=== PATIENT | male | born 1945 | race Caucasian/White ===

== ENCOUNTER 2018-10-09 10:27 | Outpatient (CLI) | payer MEDICARE, OTHER ==
[2018-10-09 13:06] LABS: BASOPHILS # (AUTO) 0.1 10^3/uL (0.0-0.1); EOSINOPHILS # (AUTO) 0.5 10^3/uL (0.0-0.7); EOSINOPHILS % (AUTO) 7.3 %; HGB - HEMOGLOBIN 13.8 g/dL (14.0-18.0); LYMPHOCYTES # (AUTO) 1.8 10^3/uL (1.5-3.5); LYMPHOCYTES % (AUTO) 25.5 %; MEAN CORPUSCULAR HEMOGLOBIN 32.4 pg (27.0-31.0); MEAN CORPUSCULAR HGB CONC 35.1 g/dL (32.0-36.0); MEAN CORPUSCULAR VOLUME 92.2 fL (80.0-94.0); MEAN PLATELET VOLUME 7.4 fL (7.4-11.4); MONOCYTES # (AUTO) 0.5 10^3/uL (0.0-1.0); MONOCYTES % (AUTO) 6.5 %; NEUTROPHILS # (AUTO) 4.3 10^3/uL (1.5-6.6); NEUTROPHILS % (AUTO) 59.7 %; PLT - PLATELET COUNT 214 10^3/uL (130-450); RED BLOOD COUNT 4.25 10^6/uL (4.70-6.10); RED CELL DISTRIBUTION WIDTH 12.9 % (12.0-15.0); WHITE BLOOD COUNT 7.3 x10^3/uL (4.8-10.8)
[2018-10-09 13:18] LABS: ALBUMIN/GLOBULIN RATIO 1.2 (1.0-2.2); ALKALINE PHOSPHATASE 85 IU/L (42-121); ALT ALANINE AMINOTRANSFERASE 12 IU/L (10-60); AST ASPARTATE AMINOTRANSFERASE 16 IU/L (10-42); BILIRUBIN,TOTAL 0.8 mg/dL (0.2-1.0); BUN - BLOOD UREA NITROGEN 29 mg/dL (6-20); CALCIUM 8.9 mg/dL (8.5-10.3); CARBON DIOXIDE - CO2 27 mmol/L (21-32); CHLORIDE 99 mmol/L (101-111); CHOL/HDL RATIO 7.9 (<5.0); CHOLESTEROL 278 mg/dL; CREATININE 1.4 mg/dL (0.6-1.2); GFR - MDRD 50 (>89); GLUCOSE 160 mg/dL (70-100); HDL CHOLESTEROL 35 mg/dL; LDL CHOLESTEROL,CALCULATED 182 mg/dL; LDL/HDL RATIO 5.2 (<3.6); SODIUM 135 mmol/L (135-145); TOTAL PROTEIN 7.3 g/dL (6.7-8.2); VLDL CHOLESTEROL 61 mg/dL
[2018-10-09 13:29] LABS: HB2 TOTAL 14.6 g/dL; HEMOGLOBIN A1C 1.01 g/dL; HEMOGLOBIN A1C % 8.5 % (4.6-6.2)
== END 2018-10-09 23:59 ==
LOC: LAB.WCP 10:27
PROVIDERS: ATTEND Physician Assistant Medical
DX: I10 Essential (primary) hypertension (principal); E11.40 Type 2 diabetes mellitus with diabetic neuropathy, unspecified
CPT/HCPCS: 36415; 80053; 80061; 82043; 83036; 83721; 85025

== ENCOUNTER 2019-01-13 08:42 | Outpatient (CLI) | payer MEDICARE, OTHER ==
[2019-01-13 12:29] LABS: BASOPHILS # (AUTO) 0.1 10^3/uL (0.0-0.1); EOSINOPHILS # (AUTO) 0.4 10^3/uL (0.0-0.7); EOSINOPHILS % (AUTO) 4.4 %; HGB - HEMOGLOBIN 12.5 g/dL (14.0-18.0); LYMPHOCYTES # (AUTO) 2.2 10^3/uL (1.5-3.5); LYMPHOCYTES % (AUTO) 26.1 %; MEAN CORPUSCULAR HEMOGLOBIN 31.3 pg (27.0-31.0); MEAN CORPUSCULAR HGB CONC 33.7 g/dL (32.0-36.0); MEAN CORPUSCULAR VOLUME 92.8 fL (80.0-94.0); MEAN PLATELET VOLUME 7.8 fL (7.4-11.4); MONOCYTES # (AUTO) 0.6 10^3/uL (0.0-1.0); MONOCYTES % (AUTO) 6.7 %; NEUTROPHILS # (AUTO) 5.1 10^3/uL (1.5-6.6); NEUTROPHILS % (AUTO) 61.8 %; PLT - PLATELET COUNT 214 10^3/uL (130-450); RED BLOOD COUNT 3.99 10^6/uL (4.70-6.10); RED CELL DISTRIBUTION WIDTH 12.9 % (12.0-15.0); WHITE BLOOD COUNT 8.3 x10^3/uL (4.8-10.8)
[2019-01-13 13:51] LABS: ALBUMIN 3.7 g/dL (3.2-5.5); ALKALINE PHOSPHATASE 83 IU/L (42-121); ALT ALANINE AMINOTRANSFERASE 21 IU/L (10-60); AST ASPARTATE AMINOTRANSFERASE 25 IU/L (10-42); BILIRUBIN,TOTAL 0.7 mg/dL (0.2-1.0); BUN - BLOOD UREA NITROGEN 34 mg/dL (6-20); CALCIUM 8.7 mg/dL (8.5-10.3); CARBON DIOXIDE - CO2 26 mmol/L (21-32); CHLORIDE 96 mmol/L (101-111); CHOLESTEROL 115 mg/dL; CREATININE 1.5 mg/dL (0.6-1.2); GFR - MDRD 46 (>89); GLUCOSE 307 mg/dL (70-100); HDL CHOLESTEROL 29 mg/dL; LDL CHOLESTEROL,CALCULATED 51 mg/dL; LDL/HDL RATIO 1.8 (<3.6); SODIUM 132 mmol/L (135-145); TOTAL PROTEIN 7.5 g/dL (6.7-8.2); VLDL CHOLESTEROL 35 mg/dL
[2019-01-13 14:31] LABS: HB2 TOTAL 13.1 g/dL; HEMOGLOBIN A1C 1.28 g/dL; HEMOGLOBIN A1C % 11.1 % (4.6-6.2)
== END 2019-01-13 08:43 | disposition home or self-care (01) ==
LOC: LAB.WCP 08:42
PROVIDERS: ATTEND Physician Assistant Medical
DX: J30.89 Other allergic rhinitis (principal); E11.40 Type 2 diabetes mellitus with diabetic neuropathy, unspecified
CPT/HCPCS: 36415; 80053; 80061; 83036; 83721; 85025

== ENCOUNTER 2019-04-14 | Outpatient (CLI) | payer MEDICARE, OTHER | END 2019-04-14 23:59 | disposition home or self-care (01) ==

== ENCOUNTER 2019-06-05 15:21 | Outpatient (CLI) | payer MEDICARE, OTHER ==
--- NOTE | 2019-06-07 08:12 | Ultrasound Report ---
Reason: ACUTE KIDNEY INJURY Procedure Date: 06/05/2019 Accession Number: [id number] / [id number] Procedure: US - Retroperitoneal CPT Code: FULL RESULT: EXAM: RENAL ULTRASOUND EXAM DATE: 06/05/2019 04:40 PM. CLINICAL HISTORY: Acute kidney injury. COMPARISON: None. TECHNIQUE: Real-time scanning was performed with static images obtained. FINDINGS: Right Kidney: 11.1 x 5.6 x 4.2 cm. Normal echotexture with no stones, contour-deforming masses, or hydronephrosis. Left Kidney: 10.3 x 3.7 x 3.7 cm. Normal echotexture with no stones, contour-deforming masses, or hydronephrosis. Bladder: Bilateral jets seen. The prevoid bladder volume was 98 cc. The postvoid bladder volume was 6.7 cc. Other: Prostate appears enlarged. Overall, prostate measures 4 x 3 x 4.7 cm. There is a more focal masslike region demonstrate a mass-effect upon the bladder base measuring 2.1 x 2.2 x 1.8 cm. IMPRESSION: 1. Prostatomegaly. Focal masslike region in the prostate gland measuring 2.2 cm. Correlate with PSH. Given the patient's age and ultrasound appearance, prostate mass is a diagnostic consideration. MRI may be helpful for further evaluation. 2. No renal mass, stone or hydronephrosis. RADIA
== END 2019-06-05 15:22 | disposition home or self-care (01) ==
LOC: DI 15:21
PROVIDERS: ATTEND Internal Medicine Nephrology
DX: N42.9 Disorder of prostate, unspecified (principal)
CPT/HCPCS: 76770

== ENCOUNTER 2019-07-14 08:00 | Outpatient (CLI) | payer MEDICARE, OTHER ==
[2019-07-14 13:59] LABS: HB2 TOTAL 12.6 g/dL; HEMOGLOBIN A1C 0.89 g/dL; HEMOGLOBIN A1C % 8.6 % (4.6-6.2)
[2019-07-14 14:01] LABS: ALBUMIN 3.9 g/dL (3.2-5.5); ALKALINE PHOSPHATASE 81 IU/L (42-121); ALT ALANINE AMINOTRANSFERASE 14 IU/L (10-60); AST ASPARTATE AMINOTRANSFERASE 14 IU/L (10-42); BILIRUBIN,TOTAL 0.4 mg/dL (0.2-1.0); BUN - BLOOD UREA NITROGEN 19 mg/dL (6-20); CALCIUM 8.7 mg/dL (8.5-10.3); CARBON DIOXIDE - CO2 29 mmol/L (21-32); CHLORIDE 102 mmol/L (101-111); CHOL/HDL RATIO 4.1 (<5.0); CHOLESTEROL 149 mg/dL; CREATININE 1.4 mg/dL (0.6-1.2); GFR - MDRD 50 (>89); GLUCOSE 185 mg/dL (70-100); HDL CHOLESTEROL 36 mg/dL; LDL CHOLESTEROL,CALCULATED 78 mg/dL; LDL/HDL RATIO 2.2 (<3.6); SODIUM 137 mmol/L (135-145); TOTAL PROTEIN 7.8 g/dL (6.7-8.2); VLDL CHOLESTEROL 35 mg/dL
== END 2019-07-14 08:01 | disposition home or self-care (01) ==
LOC: LAB.WCP 08:00
PROVIDERS: ATTEND Physician Assistant Medical
DX: E11.40 Type 2 diabetes mellitus with diabetic neuropathy, unspecified (principal)
CPT/HCPCS: 36415; 80053; 80061; 83036; 83721

== ENCOUNTER 2019-07-17 08:00 | Outpatient (CLI) | payer MEDICARE, OTHER | END 2019-07-17 23:59 | disposition home or self-care (01) | LOC: LAB.WCP 08:00 | PROVIDERS: ATTEND Physician Assistant Medical | DX: Z12.5 Encounter for screening for malignant neoplasm of prostate (principal) | CPT/HCPCS: 36415; G0103; 84153 ==

== ENCOUNTER 2019-11-10 07:37 | Outpatient (CLI) | payer MEDICARE, OTHER ==
[2019-11-10 13:29] LABS: CALCIUM 8.7 mg/dL (8.5-10.3); CREATININE 1.4 mg/dL (0.6-1.2)
== END 2019-11-10 23:59 | disposition home or self-care (01) ==
LOC: LAB.WCP 07:37
PROVIDERS: ATTEND Physician Assistant Medical
DX: N18.9 Chronic kidney disease, unspecified (principal)
CPT/HCPCS: 36415; 80048

== ENCOUNTER 2019-12-11 18:09 | Outpatient (CLI) | payer MEDICARE, OTHER | END 2019-12-11 18:10 | disposition critical access hospital (66) | LOC: EMS 18:09 | PROVIDERS: ATTEND Surgery | DX: R29.818 Other symptoms and signs involving the nervous system (principal); R41.82 Altered mental status, unspecified | CPT/HCPCS: A0425; A0427 ==

== ENCOUNTER 2019-12-11 18:24 | Inpatient (IN) | payer MEDICARE, OTHER ==
[2019-12-11] MEDS ORDERED: IOVERSOL 320 100 ML VIAL IVP ONE ×2 (18:32→19:32)
[2019-12-11] MEDS ORDERED: SODIUM CHLORIDE 0.9% 1,000 ML IV ONE ×2 (18:32→19:11)
[2019-12-11] MEDS ORDERED: LORazepam 2 MG/ML VIAL ONE (18:33)
--- NOTE | 2019-12-11 18:38 | ED Physician Documentation ---
<Dilip Arias - Last Filed: 12/12/19 00:57> PD HPI ALTERED MENTAL STATUS - Stated complaint Stated Complaint: STROKE - History obtained from History obtained from: Family (Information provided by his to EMS and conveyed to ER staff), EMS - History of Present Illness Timing - onset: How many days ago (The patient reportedly had been less energetic and not eating or drinking for the last couple of days. No report of fever or cough per se. The patient is usually up and around and ambulatory with normal activity according to medics. The patient was lying in bed most of the day today. EMS reports the went to check on him about 45 minutes prior to presentation here and he was poorly responsive with some movement of extremities to tactile stimuli but apparently had a deviated gaze to the left. He was not answering questions. She called EMS. The medics report the patient did have a generalized seizure after their arrival and was given Versed IV. He was without any movement en route but still had good respirations and vital signs. He just started having movement again on arrival here. Still no verbal interaction.) Timing - details: Other (Unknown onset of the altered mental status. The had not really checked on him over the last several hours.) Quality / character: Less responsive, Unresponsive Associated symptoms: General weakness (for couple of days, with poor PO intake.). No: Fever, Cough Contributing factors: No: Anticoagulated, Diabetic, Recent illness Basline status: Alert and oriented X 3, Ambulatory Similar symptoms before: Has not had sx before Review of Systems Unable to obtain: AMS, Other (infro from Medics, conveyed to them from .) Constitutional: denies: Fever Respiratory: denies: Cough GI: denies: Vomiting Neurologic: reports: Generalized weakness PD PAST MEDICAL HISTORY - Past Medical History Cardiovascular: None Neuro: None - Present Medications Home Medications: Ambulatory Orders Medication Instructions Recorded Confirmed FLUoxetine [PROzac] 20 mg PO DAILY 12/11/19 12/11/19 Gabapentin 300 mg PO BID 12/11/19 12/11/19 Mirtazapine 7.5 mg PO DAILY 12/11/19 12/11/19 Rosuvastatin Calcium [Crestor] 20 mg PO QPM 12/11/19 12/11/19 SITagliptin [Januvia] 100 mg PO DAILY 04/02/20 04/02/20 Telmisartan 20 mg PO DAILY 12/11/19 12/11/19 metFORMIN [Glucophage] 1,000 mg PO BIDWM 12/11/19 12/11/19 - Allergies Allergies/Adverse Reactions: Allergies Allergy/AdvReac Type Severity Reaction Status Date / Time No Known Drug Allergies Allergy Verified 12/11/19 21:07 PD ED PE NORMAL - Vitals Vital signs reviewed: Yes - General General: Other (He is moving his right arm and both legs and responds to stimulus and sometimes spontaneously. The left arm does not seem to have movement. He has withdrawal to tactile stimulus on his feet. Otherwise movement is fairly nonpurposeful. He is nonverbal at this time. Eye opening is spontaneous. No obvious injury to the head is apparent.) - HEENT HEENT: Atraumatic, PERRL, Pharynx benign. No: Moist mucous membranes - Neck Neck: Supple, no meningeal sign, No adenopathy, No JVD - Cardiac Cardiac: RRR (regular but mild tachycardic.) - Respiratory Respiratory: No respiratory distress, Clear bilaterally - Abdomen Abdomen: Soft, Non distended. No: Normal bowel sounds (decreased) - Rectal Rectal: Other (Normal external genitalia.) - Derm Derm: Normal color, Warm and dry - Extremities Extremities: No deformity, No edema - Neuro Neuro: No: Alert and oriented X 3, Normal speech Eye Opening: Spontaneous Motor: Withdraws to Pain Verbal: None GCS Score: 9 NIHSS - Level of Consciousness Level of consciousness: (1) Not alert, but arousable by minor stimulation to obey, or answer LOC Questions: (2) Answers neither correct LOC Commands: (2)Performs none - Gaze Best Gaze: (0) Normal - Facial Palsy Facial Palsy: (0) Normal, symmetrical movement - Motor Arms (both separate) Motor Arm (right): (2) Some effort against gravity Motor Arm (left): (3) No effort against gravity - Motor Legs (both separate) Motor Leg (right): (2) Some effort against gravity Motor Leg (left): (2) Some effort against gravity PD MEDICAL DECISION MAKING - ED course Complexity details: re-evaluated patient (Upon return from CT the patient is moving all extremities and rolling side to side. He is not really making any verbal attempt. Very agitated. Starting to then make some poorly understandable verbal noises. ), considered differential (Considerations would be neurologic process such as stroke or just seizure new onset. Consideration for bleeding. Also consideration for sepsis or electrolyte abnormality. Her blood sugar was normal. Look for signs of infection as well and check labs for electrolytes. He does not have obvious unilateral deficit and has altered mentation as well. It is unclear the onset time sometime today but just noticed 45 minutes ago.) Departure - Departure Disposition: 66 [facility] DC/Xfer Clinical Impression: Generalized seizure, Dehydration Altered mental status Qualifiers: Altered mental status type: delirium Qualified Code(s): R41.0 - Disorientation, unspecified Condition: Stable Record reviewed to determine appropriate education?: Yes Discharge Date/Time: 12/11/19 22:45 <Dilip Irizarry - Last Filed: 12/12/19 04:46> Results - Vitals Vitals: Vital Signs - 24 hr 12/11/19 12/11/19 12/11/19 18:30 19:37 20:35 Temperature 36.6 C Heart Rate 107 H 96 81 Respiratory 16 14 18 Rate Blood Pressure 163/77 H 181/97 H O2 Saturation 99 96 12/11/19 12/11/19 12/11/19 21:01 21:02 21:03 Temperature Heart Rate 82 80 82 Respiratory 16 14 16 Rate Blood Pressure 182/111 H 169/75 H 194/97 H O2 Saturation 98 99 99 12/11/19 21:29 Temperature Heart Rate 80 Respiratory 18 Rate Blood Pressure 195/91 H O2 Saturation 98 Oxygen O2 Source Nasal cannula - Labs Labs: Microbiology 12/11/19 21:00 CSF Culture - Preliminary Cerebral Spinal Fluid Laboratory Tests 12/11/19 12/11/19 12/11/19 18:26 18:26 18:26 WBC 14.1 H RBC 4.30 L Hgb 13.5 L Hct 40.1 L MCV 93.3 MCH 31.4 H MCHC 33.7 RDW 12.6 Plt Count 256 MPV 9.2 Neut # (Auto) 10.7 H Lymph # (Auto) 2.5 [place] # (Auto) 0.6 Eos # (Auto) 0.0 Baso # (Auto) 0.1 Absolute Nucleated RBC 0.00 Nucleated RBC % 0.0 VBG pH VBG pCO2 VBG pO2 VBG HCO3 VBG Total CO2 VBG O2 Saturation VBG Base Excess Sodium 134 L Potassium 4.2 Chloride 100 L Carbon Dioxide 12 L* Anion Gap 22.0 H BUN 17 Creatinine 1.7 H Estimated GFR (MDRD) 40 L Glucose 299 H Lactic Acid > 10.0 H* Calcium 8.4 L Magnesium 1.7 Total Bilirubin 0.9 AST 37 ALT 16 Alkaline Phosphatase 80 Total Creatine Kinase Troponin I High Sens Total Protein 7.9 Albumin 4.1 Globulin 3.8 Albumin/Globulin Ratio 1.1 Lipase 33 TSH Urine Color Urine Clarity Urine pH Ur Specific [place] Urine Protein Urine Glucose (UA) Urine Ketones Urine Occult Blood Urine Nitrite Urine Bilirubin Urine Urobilinogen Ur Leukocyte Esterase Urine RBC Urine WBC Ur Squamous Epith Cells Amorphous Sediment Urine Bacteria Ur Microscopic Review Urine Culture Comments CSF Color CSF Clarity Xanthrochromic CSF WBC CSF RBC CSF Cell Count Tube # CSF Glucose CSF Total Protein Urine Opiates Screen Ur Oxycodone Screen Urine Methadone Screen Ur Propoxyphene Screen Ur Barbiturates Screen Ur Tricyclics Screen Ur Phencyclidine Scrn Ur Amphetamine Screen U Methamphetamines Scrn U Benzodiazepines Scrn Urine Cocaine Screen U Cannabinoids Screen Ethyl Alcohol Serum Ketones 12/11/19 12/11/19 12/11/19 18:26 18:26 18:26 WBC RBC Hgb Hct MCV MCH MCHC RDW Plt Count MPV Neut # (Auto) Lymph # (Auto) [place] # (Auto) Eos # (Auto) Baso # (Auto) Absolute Nucleated RBC Nucleated RBC % VBG pH VBG pCO2 VBG pO2 VBG HCO3 VBG Total CO2 VBG O2 Saturation VBG Base Excess Sodium Potassium Chloride Carbon Dioxide Anion Gap BUN Creatinine Estimated GFR (MDRD) Glucose Lactic Acid Calcium Magnesium Total Bilirubin AST ALT Alkaline Phosphatase Total Creatine Kinase 149 Troponin I High Sens 27.7 H* Total Protein Albumin Globulin Albumin/Globulin Ratio Lipase TSH 3.15 Urine Color Urine Clarity Urine pH Ur Specific [place] Urine Protein Urine Glucose (UA) Urine Ketones Urine Occult Blood Urine Nitrite Urine Bilirubin Urine Urobilinogen Ur Leukocyte Esterase Urine RBC Urine WBC Ur Squamous Epith Cells Amorphous Sediment Urine Bacteria Ur Microscopic Review Urine Culture Comments CSF Color CSF Clarity Xanthrochromic CSF WBC CSF RBC CSF Cell Count Tube # CSF Glucose CSF Total Protein Urine Opiates Screen Ur Oxycodone Screen Urine Methadone Screen Ur Propoxyphene Screen Ur Barbiturates Screen Ur Tricyclics Screen Ur Phencyclidine Scrn Ur Amphetamine Screen U Methamphetamines Scrn U Benzodiazepines Scrn Urine Cocaine Screen U Cannabinoids Screen Ethyl Alcohol Serum Ketones 12/11/19 12/11/19 12/11/19 18:45 19:15 19:20 WBC RBC Hgb Hct MCV MCH MCHC RDW Plt Count MPV Neut # (Auto) Lymph # (Auto) [place] # (Auto) Eos # (Auto) Baso # (Auto) Absolute Nucleated RBC Nucleated RBC % VBG pH 7.252 L VBG pCO2 29.7 L VBG pO2 79.1 H VBG HCO3 12.8 L VBG Total CO2 13.7 L VBG O2 Saturation 93.4 H VBG Base Excess -13.0 L Sodium Potassium Chloride Carbon Dioxide Anion Gap BUN Creatinine Estimated GFR (MDRD) Glucose Lactic Acid Calcium Magnesium Total Bilirubin AST ALT Alkaline Phosphatase Total Creatine Kinase Troponin I High Sens Total Protein Albumin Globulin Albumin/Globulin Ratio Lipase TSH Urine Color YELLOW Urine Clarity CLEAR Urine pH 6.0 Ur Specific [place] >=1.030 H Urine Protein 100 H Urine Glucose (UA) 500 H Urine Ketones 15 H Urine Occult Blood MODERATE H Urine Nitrite NEGATIVE Urine Bilirubin NEGATIVE Urine Urobilinogen 0.2 (NORMAL) Ur Leukocyte Esterase NEGATIVE Urine RBC 11-25 H Urine WBC 0-3 Ur Squamous Epith Cells RARE Squamous Amorphous Sediment Moderate Urine Bacteria Rare Ur Microscopic Review INDICATED Urine Culture Comments NOT INDICATED CSF Color CSF Clarity Xanthrochromic CSF WBC CSF RBC CSF Cell Count Tube # CSF Glucose CSF Total Protein Urine Opiates Screen NEGATIVE Ur Oxycodone Screen NEGATIVE Urine Methadone Screen NEGATIVE Ur Propoxyphene Screen NEGATIVE Ur Barbiturates Screen NEGATIVE Ur Tricyclics Screen NEGATIVE Ur Phencyclidine Scrn NEGATIVE Ur Amphetamine Screen NEGATIVE U Methamphetamines Scrn NEGATIVE U Benzodiazepines Scrn NEGATIVE Urine Cocaine Screen NEGATIVE U Cannabinoids Screen POSITIVE H Ethyl Alcohol < 5.0 Serum Ketones NEGATIVE 12/11/19 21:00 WBC RBC Hgb Hct MCV MCH MCHC RDW Plt Count MPV Neut # (Auto) Lymph # (Auto) [place] # (Auto) Eos # (Auto) Baso # (Auto) Absolute Nucleated RBC Nucleated RBC % VBG pH VBG pCO2 VBG pO2 VBG HCO3 VBG Total CO2 VBG O2 Saturation VBG Base Excess Sodium Potassium Chloride Carbon Dioxide Anion Gap BUN Creatinine Estimated GFR (MDRD) Glucose Lactic Acid Calcium Magnesium Total Bilirubin AST ALT Alkaline Phosphatase Total Creatine Kinase Troponin I High Sens Total Protein Albumin Globulin Albumin/Globulin Ratio Lipase TSH Urine Color Urine Clarity Urine pH Ur Specific [place] Urine Protein Urine Glucose (UA) Urine Ketones Urine Occult Blood Urine Nitrite Urine Bilirubin Urine Urobilinogen Ur Leukocyte Esterase Urine RBC Urine WBC Ur Squamous Epith Cells Amorphous Sediment Urine Bacteria Ur Microscopic Review Urine Culture Comments CSF Color COLORLESS CSF Clarity CLEAR Xanthrochromic ABSENT CSF WBC 1 CSF RBC 0 CSF Cell Count Tube # CSF TUBE# 3 CSF Glucose 125 H CSF Total Protein 40 Urine Opiates Screen Ur Oxycodone Screen Urine Methadone Screen Ur Propoxyphene Screen Ur Barbiturates Screen Ur Tricyclics Screen Ur Phencyclidine Scrn Ur Amphetamine Screen U Methamphetamines Scrn U Benzodiazepines Scrn Urine Cocaine Screen U Cannabinoids Screen Ethyl Alcohol Serum Ketones - Rads (name of study) chest Radiology: Prelim report reviewed (Impression: Hypoinflation, otherwise unremarkable single view chest.), EMP read indepedently CTA brain Radiology: Prelim report reviewed (Impression: 1. No large vessel occlusion. No aneurysm. No significant stenosis.), EMP read indepedently, See rad report (additional information is present) CTA neck Radiology: Prelim report reviewed (Impression: 1. There is atherosclerotic plaque involving the vasculature of the neck with no high-grade stenosis or definite dissection seen.), EMP read indepedently, See rad report CT head Radiology: Prelim report reviewed (Impression: 1. No definite acute infarct seen. If there is clinical concern for acute stroke or if symptoms persist an MRI brain can be considered to evaluate for small or subtle pathology. Aspects: 10 right/10 left. 2. No acute intracranial hemorrhage, mass, hydrocephalus, or midline shift. 3. Mild white matter changes seen that appear chronic suggesting potential sequela of chronic small vessel ischemic disease.), EMP read indepedently, See rad report Procedures - Lumbar Puncture Position: Laying left side Location: L2-L3, Midline approach Anesthesia: Conscious sedation CSF: Clear Other: Sterile prep and drape, Patient tolerated well, No complications - Procedural sedation Sedation prep: Time out completed, Last meal (days), PE performed, AHA 2 - mild disease. No: Informed consent Sedation medications: ketamine Patient status during sedation: Drowsy, Vitals remained stable, Maintained airway, Recovered uneventfully Sedation recovery: Recovered uneventfully - IVC sono (time) 1999 Bedside IVC sono: IVC measures (cm) (1.20) PD MEDICAL DECISION MAKING - ED course Complexity details: reviewed old records, reviewed results, re-evaluated patient, considered differential, d/w family, d/w media consultant outside sales (Dr. Noé Hunt [facility]iences ([id number]) recommends increased dose of keppra to total 3gm and addition of rocephin, ampicillin, vancomycin and acylovir to empirically treat for encephalitis/meningitis and MRI with and without in am. ) ED course: 74-year-old male with a history of diabetes, hypertension and depression has been found unresponsive at home with apparent continuous seizure. He was treated in the ambulance in route to the hospital with Versed and on arrival to the emergency department he appeared delirious. He began moving all 4 extremities and after receiving 2 mg of Ativan he became more animated and agitated. On initial evaluation the differential included stroke, sepsis, encephalitis, meningitis with end resulting status. His blood sugar was 277 at the scene. Initial evaluation with CTA of the brain and neck were remarkable only for potential cortical mantle enhancement consistent with seizure or encephalitis. He does not appear to have had stroke. I was able to speak to the patient's who is quite informative and she indicates that he has a long history of depression and will periodically hole up in his room for 2 to 3 days at a time without eating or drinking. She states that he has been very depressed with the coronavirus epidemic and he has retreated to his room and he has not been eating or drinking for the past 3 days. She states that she does not think he had any fluids since yesterday. She is uncertain whether he is taking any of his medications. The patient was treated in the ED with keppra loading a total of 3gm, Acyclovir 800mg IV, rocephin 2gm IV, ampicillin 500mg IV, vancomycin 1gm IV. He received 250 mg of ketamine for an lumbar puncture while in the emergency department as well. He recovered from that continues to be delirious. Dr. Orozco is consulted and the case graciously comes to the emergency department and assumes further care of the patient for inpatient treatment. He was found to be dehydrated on interrogation of the inferior vena cava after a liter of fluid had already been given. He was given a second liter of saline. - Critical Care Time(min): 65 Time Includes: Direct patient care, Review records, Reassess patient, Document care, Coordinate care, Medical consult, Family consult for tx dec Data interpretation: Labs, Pulse ox, CXR Procedures excluded from critical care time: Lumbar puncture
[2019-12-11 18:40] LABS: BASOPHILS # (AUTO) 0.1 10^3/uL (0.0-0.1); BASOPHILS % (AUTO) 0.4 %; EOSINOPHILS % (AUTO) 0.1 %; HGB - HEMOGLOBIN 13.5 g/dL (14.0-18.0); LYMPHOCYTES # (AUTO) 2.5 10^3/uL (1.5-3.5); LYMPHOCYTES % (AUTO) 17.7 %; MEAN CORPUSCULAR HEMOGLOBIN 31.4 pg (27.0-31.0); MEAN CORPUSCULAR HGB CONC 33.7 g/dL (32.0-36.0); MEAN CORPUSCULAR VOLUME 93.3 fL (80.0-94.0); MEAN PLATELET VOLUME 9.2 fL (7.4-11.4); MONOCYTES # (AUTO) 0.6 10^3/uL (0.0-1.0); MONOCYTES % (AUTO) 4.5 %; NEUTROPHILS # (AUTO) 10.7 10^3/uL (1.5-6.6); NEUTROPHILS % (AUTO) 75.5 %; PLT - PLATELET COUNT 256 10^3/uL (130-450); RED CELL DISTRIBUTION WIDTH 12.6 % (12.0-15.0); WHITE BLOOD COUNT 14.1 x10^3/uL (4.8-10.8)
--- NOTE | 2019-12-11 19:05 | CT Report ---
Reason: altered mentation, seizure Procedure Date: 12/11/2019 Accession Number: [id number] / [id number] Procedure: CT - Head W/O Stroke Protocol CPT Code: Final Report FULL RESULT: EXAM: CT HEAD EXAM DATE: 12/11/2019 06:36 PM. CLINICAL HISTORY: 74-year-old presenting after seizure-like activity with left sided weakness and altered mental status including confusion, disorientation, and decreased mentation. Evaluate for intracranial pathology. COMPARISON: None. TECHNIQUE: Multiaxial CT images were obtained from the foramen magnum to the vertex. Reformats: Sagittal and coronal. IV contrast: None. In accordance with CT protocol optimization, one or more of the following dose reduction techniques were utilized for this exam: automated exposure control, adjustment of mA and/or KV based on patient size, or use of iterative reconstructive technique. FINDINGS: Parenchyma: No acute parenchymal hemorrhage, mass, or midline shift. There are mild bilateral areas of white matter hypoattenuation seen that are age-indeterminate but appear chronic. There is no definite CT evidence of acute infarct. Mild to moderate cortical volume loss. Extraaxial Spaces: Sulci and cisterns appear prominent but appropriate for the extent of volume loss. No subdural or epidural collections identified. Ventricles: Normal in size and position. Sinuses and Orbits: Imaged paranasal sinuses, orbits, and mastoids show no significant abnormality. Bones: No evidence of fracture or calvarial defect. Other: Vascular calcifications of the cavernous and supraclinoid ICA segments. IMPRESSION: 1. No definite acute infarct seen. If there is clinical concern for acute stroke or if symptoms persist an MR brain can be considered to evaluate for small or subtle pathology. ASPECTS: 10 right/10 left. 2. No acute intracranial hemorrhage, mass, hydrocephalus, or midline shift. 3. Mild white matter changes seen that appear chronic suggesting potential sequela of chronic small vessel ischemic disease. RAD[facility] The critical test notification system was initiated by Dr. Jeffrey Horton at 07:03 PM on 12/11/2019. The above critical test findings were discussed with Dilip Arias by Dr. Jeffrey Horton at 07:08 PM on 12/11/2019.
--- NOTE | 2019-12-11 19:09 | XRAY Report ---
Reason: chest pain Procedure Date: 12/11/2019 Accession Number: [id number] / [id number] Procedure: XR - Chest 1 View X-Ray CPT Code: 75727 Final Report FULL RESULT: EXAM: CHEST RADIOGRAPHY EXAM DATE: 12/11/2019 06:40 PM. CLINICAL HISTORY: Chest pain. COMPARISON: None. TECHNIQUE: 1 view. FINDINGS: Lungs/Pleura: Hypoinflated lungs. No focal opacities evident. No pleural effusion. No pneumothorax. Mediastinum: Within exam limitations, the cardiomediastinal contour is normal. Other: None. IMPRESSION: Hypoinflation, otherwise unremarkable single view chest. RADIA
[2019-12-11] MEDS ORDERED: levETIRAcetam INJ 500 MG in SODIUM CHLORIDE 0.9% 100ML 100 ML IV STA (19:10)
[2019-12-11] MEDS ORDERED: LORazepam 2 MG/ML VIAL IVP STA (19:10)
[2019-12-11 19:16] LABS: ALBUMIN 4.1 g/dL (3.2-5.5); ALBUMIN/GLOBULIN RATIO 1.1 (1.0-2.2); BILIRUBIN,TOTAL 0.9 mg/dL (0.2-1.0); CALCIUM 8.4 mg/dL (8.5-10.3); CREATININE 1.7 mg/dL (0.6-1.2); MAGNESIUM 1.7 mg/dL (1.7-2.8); TOTAL PROTEIN 7.9 g/dL (6.7-8.2)
[2019-12-11 19:24] LABS: KETONES, SERUM (ACETEST) NEGATIVE (NEGATIVE)
--- NOTE | 2019-12-11 19:28 | CT Report ---
Reason: L sided facial droop Procedure Date: 12/11/2019 Accession Number: [id number] / [id number] Procedure: CT - ANGIO HEAD W/WO CPT Code: Final Report FULL RESULT: EXAM: CT ANGIOGRAM HEAD AND NECK. CT SCAN HEAD WITH CONTRAST. EXAM DATE: 12/11/2019 06:50 PM. CLINICAL HISTORY: 74-year-old presenting after seizure-like activity with left sided weakness and altered mental status including confusion, disorientation, and decreased mentation. Evaluate for intracranial pathology or vascular pathology. COMPARISON: Noncontrast CT head 12/11/2019. TECHNIQUE: Routine axial helical CTA imaging was performed from the aortic arch through the [place]. Routine axial CT imaging of the head was performed following contrast administration. Reconstructions: Routine multiplanar 3D MIP reconstructions. IV contrast: 80 cc OPTIRAY 320. NASCET Criteria are used for stenosis measurements. In accordance with CT protocol optimization, one or more of the following dose reduction techniques were utilized for this exam: automated exposure control, adjustment of mA and/or KV based on patient size, or use of iterative reconstructive technique. FINDINGS: CT SCAN HEAD: Parenchyma: No acute parenchymal hemorrhage, mass, or midline shift. There are mild bilateral areas of white matter hypoattenuation seen that are age-indeterminate but appear chronic. There is no definite CT evidence of acute infarct. Mild to moderate cortical volume loss. On axial source CTA sequence and postcontrast sequence there is questionable patchy enhancement of the cortical mantle of the occipital and parietal lobes. Extraaxial Spaces: Sulci and cistern appear prominent but appropriate for the extent of volume loss. No subdural or epidural collections identified. Ventricles: Normal in size and position. Sinuses and Orbits: Imaged paranasal sinuses, orbits, and mastoids show no significant abnormality. Bones: No evidence of fracture or calvarial defect. Other: Vascular calcifications of the cavernous and supraclinoid ICA segments. CT ANGIOGRAM HEAD AND NECK: There is atherosclerotic plaque involving the aortic arch with no high-grade stenosis or definite penetrating aortic ulcer seen. The left common carotid artery arises from the right brachiocephalic artery. There is atherosclerotic plaque involving the origin of the right subclavian artery with no significant stenosis. RIGHT: Common Carotid Artery: Patent without significant stenosis. Carotid Bulb: There is minimal atherosclerotic plaque at the carotid bifurcation. Stenosis at the bifurcation by NASCET criteria: No significant stenosis. Internal Carotid Artery: There is tortuosity of the cervical ICA with no high-grade stenosis or definite dissection seen. There are vascular calcifications of the cavernous and supraclinoid ICA segments with less than 50% stenosis. No evidence of aneurysm along the intracranial ICA. External Carotid Artery: Unremarkable. Vertebral Artery: There is atherosclerotic plaque involving the origin of the right vertebral artery with no definite high-grade stenosis seen. The remaining vertebral artery is patent with no high-grade stenosis seen. No evidence of dissection. No aneurysm. Anterior Cerebral Artery: Patent without significant stenosis, aneurysm, or vascular malformation. Middle Cerebral Artery: Patent without significant stenosis, aneurysm, or vascular malformation. Posterior Cerebral Artery: Patent without significant stenosis, aneurysm, or vascular malformation. Posterior Communicating Artery: Patent. No aneurysm. LEFT: Common Carotid Artery: Patent without significant stenosis. Carotid Bulb: There is mild atherosclerotic plaque at the carotid bifurcation. Stenosis at the bifurcation by NASCET criteria: No significant stenosis. Internal Carotid Artery: Tortuosity of the cervical ICA with no high-grade stenosis or definite dissection seen. Vascular calcifications of the cavernous and supraclinoid ICA segments with no high-grade stenosis seen. No evidence of aneurysm along the intracranial ICA. External Carotid Artery: Unremarkable. Vertebral Artery: Patent without significant stenosis. No evidence of dissection. No aneurysm. Anterior Cerebral Artery: Patent without significant stenosis, aneurysm, or vascular malformation. Middle Cerebral Artery: Patent without significant stenosis, aneurysm, or vascular malformation. Posterior Cerebral Artery: Patent without significant stenosis, aneurysm, or vascular malformation. Posterior Communicating Artery: Patent. No aneurysm. CENTRAL: Anterior Communicating Artery: Patent. No aneurysm. Basilar Artery: Patent without significant stenosis. No aneurysm. DURAL VENOUS SINUSES AND MAJOR CENTRAL VEINS: Patent. OTHER: The visualized pharynx and larynx appear normal. The major salivary glands appear normal. The visualized thyroid appears normal. No cervical lymphadenopathy. No necrotic lymph nodes. Soft tissues of the neck appear normal. Visualized lung apices are clear. No acute fracture or traumatic subluxation. Multilevel degenerative changes. No suspicious osseous lesion seen. POST-CONTRAST HEAD: No abnormal enhancement. IMPRESSION: CT SCAN HEAD: 1. No definite acute infarct seen. If there is clinical concern for acute stroke or if symptoms persist an MR brain can be considered to evaluate for small or subtle pathology. ASPECTS: 10 right/10 left. 2. On axial source CTA sequence and postcontrast sequence there is questionable patchy enhancement of the cortical mantle of the occipital and parietal lobes. Finding may be secondary to timing issues and represent cortical veins but the possibility of cortical mantle enhancement suggesting potential seizure or encephalitis while less likely cannot be entirely excluded. Consider MR brain with and without contrast for further evaluation. 3. No acute intracranial hemorrhage, mass, hydrocephalus, or midline shift. 3. Mild white matter changes seen that appear chronic suggesting potential sequela of chronic small vessel ischemic disease. CT ANGIOGRAM NECK: 1. There is atherosclerotic plaque involving the vasculature of the neck with no high-grade stenosis or definite dissection seen. CT ANGIOGRAM HEAD: 1. No large vessel occlusion. 2. No aneurysm. No significant stenosis. [facility] The call report notification system was initiated by Dr. Jeffrey Horton at 07:26 PM on 12/11/2019. The above call report findings were discussed with Dilip Arias by Dr. Jeffrey Horton at 07:28 PM on 12/11/2019.
--- NOTE | 2019-12-11 19:28 | CT Report ---
Reason: L sided facial droop, L neck pain Procedure Date: 12/11/2019 Accession Number: [id number] / [id number] Procedure: CT - ANGIO NECK W CPT Code: Final Report FULL RESULT: EXAM: CT ANGIOGRAM HEAD AND NECK. CT SCAN HEAD WITH CONTRAST. EXAM DATE: 12/11/2019 06:50 PM. CLINICAL HISTORY: 74-year-old presenting after seizure-like activity with left sided weakness and altered mental status including confusion, disorientation, and decreased mentation. Evaluate for intracranial pathology or vascular pathology. COMPARISON: Noncontrast CT head 12/11/2019. TECHNIQUE: Routine axial helical CTA imaging was performed from the aortic arch through the [place]. Routine axial CT imaging of the head was performed following contrast administration. Reconstructions: Routine multiplanar 3D MIP reconstructions. IV contrast: 80 cc OPTIRAY 320. NASCET Criteria are used for stenosis measurements. In accordance with CT protocol optimization, one or more of the following dose reduction techniques were utilized for this exam: automated exposure control, adjustment of mA and/or KV based on patient size, or use of iterative reconstructive technique. FINDINGS: CT SCAN HEAD: Parenchyma: No acute parenchymal hemorrhage, mass, or midline shift. There are mild bilateral areas of white matter hypoattenuation seen that are age indeterminate but appear chronic. There is no definite CT evidence of acute infarct. Mild to moderate cortical volume loss. On axial source CTA sequence and postcontrast sequence there is questionable patchy enhancement of the cortical mantle of the occipital and parietal lobes. Extraaxial Spaces: Sulci and cistern appear prominent but appropriate for the extent of volume loss. No subdural or epidural collections identified. Ventricles: Normal in size and position. Sinuses and Orbits: Imaged paranasal sinuses, orbits, and mastoids show no significant abnormality. Bones: No evidence of fracture or calvarial defect. Other: Vascular calcifications of the cavernous and supraclinoid ICA segments. CT ANGIOGRAM HEAD AND NECK: There is atherosclerotic plaque involving the aortic arch with no high-grade stenosis or definite penetrating aortic ulcer seen. The left common carotid artery arises from the right brachiocephalic artery. There is atherosclerotic plaque involving the origin of the right subclavian artery with no significant stenosis. RIGHT: Common Carotid Artery: Patent without significant stenosis. Carotid Bulb: There is minimal atherosclerotic plaque at the carotid bifurcation. Stenosis at the bifurcation by NASCET criteria: No significant stenosis. Internal Carotid Artery: There is tortuosity of the cervical ICA with no high-grade stenosis or definite dissection seen. There are vascular calcifications of the cavernous and supraclinoid ICA segments with less than 50% stenosis. No evidence of aneurysm along the intracranial ICA. External Carotid Artery: Unremarkable. Vertebral Artery: There is atherosclerotic plaque involving the origin of the right vertebral artery with no definite high-grade stenosis seen. The remaining vertebral artery is patent with no high-grade stenosis seen. No evidence of dissection. No aneurysm. Anterior Cerebral Artery: Patent without significant stenosis, aneurysm, or vascular malformation. Middle Cerebral Artery: Patent without significant stenosis, aneurysm, or vascular malformation. Posterior Cerebral Artery: Patent without significant stenosis, aneurysm, or vascular malformation. Posterior Communicating Artery: Patent. No aneurysm. LEFT: Common Carotid Artery: Patent without significant stenosis. Carotid Bulb: There is mild atherosclerotic plaque at the carotid bifurcation. Stenosis at the bifurcation by NASCET criteria: No significant stenosis. Internal Carotid Artery: Tortuosity of the cervical ICA with no high-grade stenosis or definite dissection seen. Vascular calcification to the cavernous and supraclinoid ICA segments with no high-grade stenosis seen. No evidence of aneurysm along the intracranial ICA. External Carotid Artery: Unremarkable. Vertebral Artery: Patent without significant stenosis. No evidence of dissection. No aneurysm. Anterior Cerebral Artery: Patent without significant stenosis, aneurysm, or vascular malformation. Middle Cerebral Artery: Patent without significant stenosis, aneurysm, or vascular malformation. Posterior Cerebral Artery: Patent without significant stenosis, aneurysm, or vascular malformation. Posterior Communicating Artery: Patent. No aneurysm. CENTRAL: Anterior Communicating Artery: Patent. No aneurysm. Basilar Artery: Patent without significant stenosis. No aneurysm. DURAL VENOUS SINUSES AND MAJOR CENTRAL VEINS: Patent. OTHER: The visualized pharynx and larynx appear normal. The major salivary glands appear normal. The visualized thyroid appears normal. No cervical lymphadenopathy. No necrotic lymph nodes. Soft tissues of the neck appear normal. Visualized lung apices are clear. No acute fracture or traumatic subluxation. Multilevel degenerative changes. No suspicious osseous lesion seen. POST-CONTRAST HEAD: No abnormal enhancement. IMPRESSION: CT SCAN HEAD: 1. No definite acute infarct seen. If there is clinical concern for acute stroke or if symptoms persist an MR brain can be considered to evaluate for small or subtle pathology. ASPECTS: 10 right/10 left. 2. On axial source CTA sequence and postcontrast sequence there is questionable patchy enhancement of the cortical mantle of the occipital and parietal lobes. Finding could be secondary to timing issues and represent cortical veins but the possibility of cortical mantle enhancement suggesting potential seizure or encephalitis while less likely cannot be entirely excluded. Consider MR brain with and without contrast for further evaluation. 3. No acute intracranial hemorrhage, mass, hydrocephalus, or midline shift. 3. Mild white matter changes seen that appear chronic suggesting potential sequela of chronic small vessel ischemic disease. CT ANGIOGRAM NECK: 1. There is atherosclerotic plaque involving the vasculature of the neck with no high-grade stenosis or definite dissection seen. CT ANGIOGRAM HEAD: 1. No large vessel occlusion. 2. No aneurysm. No significant stenosis. [facility] The call report notification system was initiated by Dr. Jeffrey Horton at 07:26 PM on 12/11/2019. The above call report findings were discussed with Dilip Arias by Dr. Jeffrey Horton at 07:30 PM on 12/11/2019.
[2019-12-11] MEDS: LORazepam 2 MG/ML VIAL IVP PRN ×2 (19:29→22:26)
[2019-12-11 19:37] LABS: BILIRUBIN,URINE NEGATIVE (NEGATIVE); GLUCOSE, URINE (UA) 500 mg/dL (NEGATIVE); KETONES,URINE (UA) 15 mg/dL (NEGATIVE); LEUKOCYTE ESTERASE, URINE NEGATIVE (NEGATIVE); MUDS CUTOFF CONCENTRATIONS CUTOFF CONC BELOW:; NITRITE,URINE NEGATIVE (NEGATIVE); OCCULT BLOOD,URINE MODERATE (NEGATIVE); PROTEIN,URINE 100 mg/dL (NEGATIVE); UROBILINOGEN,URINE 0.2 (NORMAL) E.U./dL (NORMAL)
[2019-12-11 19:39] LABS: VBG PCO2 29.7 mmHg (41-51); VBG PH 7.252 (7.31-7.41)
[2019-12-11 19:40] LABS: VBG PO2 79.1 mmHg (25-47); VBG TOTAL CO2 13.7 mmol/L (24-29)
[2019-12-11 19:48] LABS: AMPHETAMINE SCREEN,URINE NEGATIVE (NEGATIVE); BENZODIAZEPINES SCREEN, URINE NEGATIVE (NEGATIVE); COCAINE SCREEN URINE NEGATIVE (NEGATIVE); METHADONE SCREEN, URINE NEGATIVE (NEGATIVE); METHAMPHETAMINES SCREEN, URINE NEGATIVE (NEGATIVE); OPIATE SCREEN, URINE NEGATIVE (NEGATIVE); OXYCODONE SCREEN, URINE NEGATIVE (NEGATIVE); PROPOXYPHENE SCREEN, URINE NEGATIVE (NEGATIVE); TRICYCLIC ANTIDEPRESSANT,URINE NEGATIVE (NEGATIVE)
[2019-12-11 19:57] LABS: CLARITY,URINE CLEAR (CLEAR)
[2019-12-11 19:58] LABS: AMORPHOUS SEDIMENT,UR Moderate /LPF; BACTERIA,URINE Rare /HPF (None Seen); SQUAMOUS EPITHELIAL CELL,UR RARE Squamous (<= Few)
[2019-12-11] MEDS ORDERED: SODIUM CHLORIDE 0.9% IV STA (20:14)
[2019-12-11] MEDS ORDERED: LEVETIRACETAM IV STA (20:14)
[2019-12-11] MEDS ORDERED: KETAMINE 500 MG/10 ML VIAL IVP STA (20:25)
[2019-12-11] MEDS ORDERED: cefTRIAXone 2 GM in SODIUM CHLORIDE 0.9% MINIBAG 100 ML IV STA (21:01)
[2019-12-11 21:22] LABS: CLARITY,CSF CLEAR (CLEAR); COLOR,CSF COLORLESS (COLORLESS); CSF TUBE # CSF TUBE# 3; CSF XANTHOCHROMIA ABSENT (ABSENT); RED BLOOD CELL,CSF 0 /mm^3 (0-1); WHITE BLOOD CELL,CSF 1 /mm^3 (0-5)
[2019-12-11] MEDS ORDERED: ACYCLOVIR INJ 800 MG in SODIUM CHLORIDE 0.9% 250 ML IV STA (21:23)
[2019-12-11] MEDS ORDERED: AMPICILLIN 500 MG VIAL IVP STA (21:23)
[2019-12-11] MEDS ORDERED: VANCOMYCIN INJ 1 GM in SODIUM CHLORIDE 0.9% 500 ML IV STA (21:26)
[2019-12-11 21:30] LABS: CSF - GLUCOSE 125 mg/dL (45-70)
[2019-12-11] MEDS ORDERED: AMPICILLIN 500 MG in SODIUM CHLORIDE 0.9% MINIBAG 100 ML IV STA (21:40)
--- NOTE | 2019-12-11 21:49 | HISTORY & PHYSICAL EXAMINATION ---
Chief Complaint - Chief Complaint Chief Complaint: Altered mental status History of Present Illness - Admitted From Admitted From:: Home - History Obtained From Records Reviewed: Yes History obtained from: ER Physician, Spouse Exam Limitations: Patient is altered - History of Present Illness HPI Comment/Other: This is a 74-year-old male with a past medical history significant for type 2 diabetes mellitus on metformin, hypertension, depression who presents today after being found altered at home. The history is obtained from the emergency department physician and his spouse. His reports that he has been depressed over the past few days about what is happening in the world right now. She states that he has had severe depression in the past and at times, he becomes severely introverted and does not eat or drink for many days. She states he has never had suicidal ideations or attempts in the past. She states over the past couple of days his oral intake has significantly diminished. She believes he may not have had anything to drink since yesterday. This morning she saw him in his usual state of health at around 11am. When she checked on him in the afternoon at around 5 PM, she found that he was altered and unresponsive and so she called EMS. She states that he has a history of alcohol abuse in the past but he has quit drinking over one year and she does not believe that he could be drinking recently. He has no prior episodes of seizures in the past. She reports that besides marijuana he does not use any illicit drugs. She is not sure if he took his medications today and yesterday. When EMS arrived on the scene, they noted he had a grand mal seizure and they administered 5 mg of Versed IV. In the emergency department, he was found to be afebrile with temperature of 36.6 C. He was tachycardic with a heart rate of 107 and his blood pressure is elevated at 163/77. He was not tachypneic and saturating well on room air. His initial labs revealed a white count of 14.1. His bicarbonate was decreased at 12 any a elevated anion gap of 22. His lactic acid was greater than 10. His c reatinine was also elevated at 1.7 and his blood glucose at 299. He underwent a CT of the head as well as a CTA of the head and neck which did not show an acute stroke or hemorrhage. There was concern for possible encephalitis in the parietal occipital lobe although this may also potentially be artifact. The emergency department physician discussed the case with neurology at [facility] who recommended obtaining a lumbar puncture. The patient received ketamine prior to lumbar puncture. The fluid was clearless. Opening pressure was low. Neurology recommended loading him with 3 g of Keppra and to start him on IV antibiotics and antivirals to cover for meningitis and encephali tis. The patient also received 2 L of normal saline in the emergency department. Given his persistent encephalopathy, medicine was consulted for admission. I did discuss goals of care with his , Cassie, and she states that they are both a DNR. History - Past Medical History Cardiovascular: reports: Hypertension Neuro: reports: Peripheral neuropathy Endocrine/Autoimmune: reports: Type 2 diabetes : reports: Renal insuffiency Psych: reports: Depression - Family & Social History Family History: Mother: , Father: Family History Comment/Other: Mother from kidney failure. No other family history per his spouse. Living arrangement: At home Living Situation: With spouse/s.o. Social History Notes: He lives with his at home. She states they had a dog who about 1 year ago and he has been depressed since then. They recently got a cat about 1 month ago and his mood has improved. She states he drank alcohol on a daily basis for many years and he was an alcoholic. She states he quit over 1 year ago and does not believe he would be drinking alcohol recently. She reports no prior smoking history. She states that he does smoke marijuana on a daily basis - Substance History Use: Uses substance without health or social issues: Cannabis Meds/Allgy - Home Medications Home Medications: Ambulatory Orders Medication Instructions Recorded Confirmed FLUoxetine [PROzac] 20 mg PO DAILY 12/11/19 12/11/19 Gabapentin 300 mg PO BID 12/11/19 12/11/19 Mirtazapine 7.5 mg PO DAILY 12/11/19 12/11/19 Rosuvastatin Calcium [Crestor] 20 mg PO QPM 12/11/19 12/11/19 SITagliptin [Januvia] 100 mg PO DAILY 12/11/19 12/11/19 Telmisartan 20 mg PO DAILY 12/11/19 12/11/19 metFORMIN [Glucophage] 1,000 mg PO BIDWM 12/11/19 12/11/19 - Allergies Allergies/Adverse Reactions: Allergies Allergy/AdvReac Type Severity Reaction Status Date / Time No Known Drug Allergies Allergy Verified 12/11/19 21:07 Review of Systems - All Other Systems All Other Systems: reports: Other (Unable to obtain review of systems given his altered mental status.) Prior Level of Functionality: He is independent with his ADLs. Exam - Vital Signs Reviewed Vital Signs: Yes Vital Signs: Vital Signs x48h Temp Pulse Resp BP Pulse Ox 12/11/19 21:29 80 18 195/91 H 98 12/11/19 21:03 82 16 194/97 H 99 12/11/19 21:02 80 14 169/75 H 99 12/11/19 21:01 82 16 182/111 H 98 12/11/19 20:35 81 18 12/11/19 19:37 96 14 181/97 H 96 12/11/19 18:30 36.6 C 107 H 16 163/77 H 99 - Physical Exam General Appearance: positive: Mild distress, Other (Somnolent but does open his eyes when spoken to. Does not follow commands.) Eyes Bilateral: positive: Conjunctivae nml, Other (Pupils are round and reactive to light. Left pupil appears to be approximately 4 mm and right pupil is 3 mm. ) ENT: positive: Dry mucous membranes. negative: No signs of dehydration Neck: positive: Nml inspection Respiratory: positive: No respiratory distress, Other (He is not tachypneic.). negative: Wheezes, Rales Cardiovascular: positive: No murmur, Tachycardia. negative: Bradycardia, Systolic murmur, Diastolic murmur Peripheral Pulses: positive: 2+ Abdomen: positive: Non-tender, No distention. negative: Tenderness Skin: positive: No rash, Warm, Dry Extremities: positive: No pedal edema Neurologic/Psychiatric: positive: Other (He has no focal motor deficits on exam. No clonus present. He does appears slightly more rigid in his lower extremities compared to his upper extremities. He does not follow commands. Does occasionally speak non-coherently and without purpose.). negative: Disoriented to person, Disoriented to place, Disoriented to time Conclusion/Plan - Problem List (1) Acute encephalopathy Conclusion/Plan: Suspect this is secondary to PRES although this may be multifactorial. Was initial concern for meningitis or encephalitis despite him being afebrile. He underwent a lumbar puncture in the emergency department and the CSF fluid is colorless and clear with a 1 WBC, 0 RBCs, total protein of 40, and a glucose of 125. Gram stain shows no organisms and no white blood cells. This is rather unremarkable and does not fit bacterial meningitis or encephalitis. He did receive vancomycin, ceftriaxone, ampicillin, acyclovir in the emergency department. TSH is within normal limits and do not suspect that he would have an elevated ammonia given his LFTs are normal. CT head did not show hemorrhage or acute stroke. There was possible enhancement of the parietal occipital lobes concerning for seizure or encephalitis. At this time, we will hold off on continuing antibiotics and antivirals given his unremarkable CSF fluid. We will lower his blood pressure with Cardene to treat the suspected PRES. Avoid sedatives like benzodiazepines unless he is having seizures. Neurochecks. Obtain MRI of the brain in the morning. (2) Posterior reversible encephalopathy syndrome (PRES) Conclusion/Plan: Suspect that he may have PRES given his encephalopathy, new onset seizure, and hypertension in a patient with CKD. CTA of the head did suggest possible enhancement in the parietal and occipital lobes. His blood pressure is elevated in the 190s systolic. At this time, we will continue with Keppra 500 mg twice daily as he has been loaded with 3 g. We will start him on a Cardene drip with a goal systolic pressure approximately 150 to 155 mmHg which would be about 25% reduction in his systolic blood pressure. We will obtain MRI of the brain in the morning. (3) Hypertensive emergency Conclusion/Plan: His blood pressure is elevated in the 190's systolic and this may be contribut ing to his encephalopathy. He does not have acute kidney injury given his creatinine 1.7 and his baseline is around 1.5 although his urinalysis does show moderate occult blood and some RBCs. His CKs are within normal limits despite his seizure. His EKG also shows diffuse ST depressions all his troponin is only mildly elevated in the 20s. This time start him on a Cardene drip with a goal blood pressure that is a 25% reduction in systolic blood pressure. We will monitor him on telemetry and trend his troponins. Monitor his neurologic status and renal function. (4) New onset seizure Conclusion/Plan: EMS reported witnessing a grand mall seizure. He has no prior history of seizures in the past. The etiology at this point is not clear although this may be secondary to PRES. Does have history of alcohol use although his reports he has not drank alcohol in over 1 year and alcohol level is negative on admission. He does take gabapentin and he may not have been taking medication for the past couple days this may potentially be gabapentin withdrawal as well. His CT of the head did not show any hemorrhage or acute strokes. There was co ncern for possible patchy enhancement of the cortical mantle of the occipital and parietal lobes on CTA of the neck which may be concerning for seizure or encephalitis. This was discussed with neurology at [facility] and they recommended loading the patient with Keppra and he received 3 g. We will continue him on Keppra 500 mg twice daily. Lorazepam IV as needed for seizures. Seizure precautions Will obtain MRI of the brain in the morning. Neurochecks. (5) Lactic acidosis Conclusion/Plan: Likely secondary to his seizure. Lactic acid is greater than 10. No obvious signs of infection at the moment. We will hydrate him with IV fluids and recheck lactic acid. (6) Increased anion gap metabolic acidosis Conclusion/Plan: This is secondary to lactic acidosis due to his seizure. pH 7.25 on VBG with a bicarbonate of 12 and anion gap of 22. His delta delta is 1. This should resolve as we treat his seizures and his lactic acid improves. (7) Leukocytosis Conclusion/Plan: Suspect is likely reactive secondary to his seizure and stress-induced. There was initial concern for meningitis and encephalitis although his CSF fluid is unremarkable. Will hold off on continuing antibiotics antivirals for the time being. He was checked for novel coronavirus in the emergency department and this is pending. We will place him on contact and droplet precautions until this is negative. (8) Chronic kidney disease, stage III (moderate) Conclusion/Plan: He has CKD stage III like secondary to his diabetes. His creatinine is at 1.7 and his baseline appears to be around 1.5. We will resume his home losartan once he is taking p.o. We will monitor his renal function and urine output. Raza catheter will be placed given his mental status. (9) Depression Conclusion/Plan: History of depression for which he takes fluoxetine and his reports he has been severely depressed over the last couple of days given the novel coronavirus outbreak. She does not believe that this was a suicide attempt although this will need to be discussed with the patient once he is more oriented. He may benefit from a mental health evaluation once his mental status improves. Qualifiers: Depression Type: major depressive disorder Major depression recurrence: recurrent Active/Remission status: currently active Major depression episode severity: moderate Qualified Code(s): F33.1 - Major depressive disorder, recurrent, moderate (10) History of alcoholism Conclusion/Plan: reports that he has a history of alcohol use in the past but that he quit over 1 year ago and she does not believe he may have had any recent alcohol use. Alcohol level is negative on admission. At this time, not suspect this cont ributed to his seizure. We will monitor him for signs of withdrawal. (11) Type 2 diabetes mellitus with hyperglycemia Conclusion/Plan: His last A1c in October was elevated at 10.2%. He is on metformin and Januvia at home. Blood glucose is currently elevated at nearly 300. We will give him 5 units of Lantus this evening and place him on a sliding scale. N.p.o. given his encephalopathy. We will place him on a carb controlled diet once he is taking p.o. - Lab Results Fish Bones: 12/11/19 18:26 12/11/19 18:26 - Diagnostic Imaging Results Diagnostic Imaging Results: positive: Final report reviewed - EKG Results EKG Interpreted Independently: Yes EKG Comparison: No prior EKG EKG Findings: EKG shows sinus tachycardia with ST depressions in leads V2 to V4. Also please be slight ST depressions in leads II, 3, aVF. No ST elevations. Core Measures - Anticipated LOS I expect patient to be DC'd or transferred within 96 hours.: Yes - Issues Hospital Issues and Management Plan: 74-year-old male who presents with acute encephalopathy of unclear etiology and new onset seizure. Concern for encephalitis or meningitis. We will admit him for IV antibiotics and antivirals. Obtain MRI of the brain in the morning. Will consult with neurology once again if there is no improvement - DVT/VTE - Prophylaxis VTE/DVT Device ordered at admit?: Yes VTE/DVT Prophylaxis med ordered at admit?: Yes
[2019-12-11] MEDS ORDERED: SODIUM CHLORIDE FLUSH 0.9% 10 ML SYRINGE IVP PRN (22:00)
[2019-12-11] MEDS ORDERED: ONDANSETRON 4 MG/2 ML VIAL IVP PRN (22:00)
[2019-12-11] MEDS ORDERED: LORazepam 2 MG/ML VIAL IVP PRN (22:06)
[2019-12-11] MEDS: INSULIN GLARGINE 300 UNIT/3 ML PEN SUBQ SCH (23:14)
[2019-12-11] MEDS: LACTATED RINGERS 1,000 ML IV SCH (23:18)
[2019-12-12] MEDS ORDERED: ASPIRIN 300 MG SUPP PR STA (00:03)
[2019-12-12] MEDS: NICARDIPINE HCL 25 MG in SODIUM CHLORIDE 0.9% 240 ML IV SCH ×2 (00:10→03:51)
[2019-12-12] MEDS: INSULIN REGULAR HUMAN 300 UNIT/3 ML VIAL SUBQ SCH ×3 (00:43→13:17)
[2019-12-12] MEDS: SODIUM CHLORIDE FLUSH 0.9% 10 ML SYRINGE IVP SCH ×3 (01:39→17:20)
[2019-12-12 05:41] LABS: BASOPHILS # (AUTO) 0.1 10^3/uL (0.0-0.1); BASOPHILS % (AUTO) 0.4 %; HGB - HEMOGLOBIN 12.1 g/dL (14.0-18.0); LYMPHOCYTES # (AUTO) 1.7 10^3/uL (1.5-3.5); LYMPHOCYTES % (AUTO) 10.2 %; MEAN CORPUSCULAR HEMOGLOBIN 30.6 pg (27.0-31.0); MEAN CORPUSCULAR HGB CONC 33.8 g/dL (32.0-36.0); MEAN CORPUSCULAR VOLUME 90.6 fL (80.0-94.0); MEAN PLATELET VOLUME 8.9 fL (7.4-11.4); MONOCYTES # (AUTO) 1.2 10^3/uL (0.0-1.0); NEUTROPHILS # (AUTO) 13.6 10^3/uL (1.5-6.6); NEUTROPHILS % (AUTO) 81.7 %; PLT - PLATELET COUNT 185 10^3/uL (130-450); RED BLOOD COUNT 3.95 10^6/uL (4.70-6.10); RED CELL DISTRIBUTION WIDTH 12.8 % (12.0-15.0); WHITE BLOOD COUNT 16.6 x10^3/uL (4.8-10.8)
[2019-12-12 05:58] LABS: CREATININE 1.1 mg/dL (0.6-1.2); MAGNESIUM 1.7 mg/dL (1.7-2.8); PHOSPHORUS 2.4 mg/dL (2.5-4.6)
[2019-12-12] MEDS: POTASSIUM CHLOR 10 MEQ/100 ML 10 MEQ/100 ML BAG IV SCH ×4 (07:08→10:07)
[2019-12-12 07:09] LABS: VBG PH 7.405 (7.31-7.41)
[2019-12-12] MEDS ORDERED: NICARDIPINE HCL 25 MG in SODIUM CHLORIDE 0.9% 240 ML IV SCH ×2 (08:00→11:30)
[2019-12-12] MEDS: ENOXAPARIN 40 MG/0.4 ML SYRINGE SUBQ SCH (08:11)
[2019-12-12] MEDS: LACTATED RINGERS 1,000 ML IV SCH (08:33)
--- NOTE | 2019-12-12 08:34 | PHARMACY PROGRESS NOTE ---
- Best Possible Medication History Admit Date and Time: 12/11/19 2200 Processed by: Nursing Medication History completed: Yes As the person ultimately responsible for medication therapy, providers are able to order a medication from an existing home medication list in [facility] via the "Reconcile Routine" prior to Confirmation of that medication by cryptologic support specialist. Such practice is discouraged except when the physician, in their clinical judgment, deems that a medical need exists for a medication without regard to previous use.
[2019-12-12] MEDS ORDERED: levETIRAcetam INJ 500 MG in SODIUM CHLORIDE 0.9% 100ML 100 ML IV SCH (09:00)
[2019-12-12] MEDS: levETIRAcetam INJ 500 MG in SODIUM CHLORIDE 0.9% 100ML 100 ML IV SCH ×2 (09:11→21:26)
[2019-12-12] MEDS ORDERED: CALCIUM GLUCONATE 1,000 MG in SODIUM CHLORIDE 0.9% 50 ML IV ONE (09:15)
--- NOTE | 2019-12-12 10:57 | PROVIDER PROGRESS NOTE ---
Subjective - Prog Note Date Prog Note Date: 12/12/19 Prog Note Time: 10:55 - Subjective Subjective: He was cleared for meningitis with a negative LP. Antibiotics were not continued since that was negative. Right now the ongoing thought is that he may have had a seizure either to a very small stroke, or press. He continues to deny chest pain. But he is agitated, requiring restraints. No further seizures now that he is been on Keppra. 9 AM troponin has come up. Troponin #1 was 27.7. Troponin #2 was 163.5. Troponin #3 was 232.1. Troponin #4 which is the 9 AM troponin is 257.5. EKG shows no change. Current Medications - Current Medications Current Medications: Active Medications Acetaminophen (Tylenol) 650 mg PO Q4HR PRN PRN Reason: Pain 1 to 4 Enoxaparin Sodium (Lovenox) 40 mg SUBQ DAILY VIDAL Last Admin: 12/12/19 08:11 Dose: 40 mg Lactated Ringer's (Lr) 1,000 mls @ 100 mls/hr IV .Q10H VIDAL Last Admin: 12/12/19 08:33 Dose: 100 mls/hr Potassium Chloride (Potassium Chloride) 10 meq in 100 mls @ 100 mls/hr IV Q1H VIDAL; Protocol Stop: 12/12/19 10:59 Last Admin: 12/12/19 10:07 Dose: 100 mls/hr Nicardipine HCl 25 mg/ Sodium (Chloride) 250 mls @ 75 mls/hr IV TITR VIDAL; Protocol Last Admin: 12/12/19 08:10 Dose: 7.5 mg/hr, 75 mls/hr Levetiracetam 500 mg/ Sodium (Chloride) 105 mls @ 400 mls/hr IV BID [facility] Last Infusion: 12/12/19 09:54 Dose: Infused Insulin Glargine (Lantus Solostar) 5 unit SUBQ QPM VIDAL Last Admin: 12/11/19 23:14 Dose: 5 unit Insulin Human Regular (Humulin R) 1 - 9 unit SUBQ Q6HR VIDAL; Protocol Last Admin: 12/12/19 06:41 Dose: Not Given Lorazepam (Ativan Inj (Vial)) 2 mg IVP Q2H PRN PRN Reason: Seizure Ondansetron HCl (Zofran Inj) 4 mg IVP Q6HR PRN PRN Reason: Nausea / Vomiting Sodium Chloride (Normal Saline Flush 0.9%) 10 ml IVP 0100,0900,1700 VIDAL Last Admin: 12/12/19 09:12 Dose: Not Given Sodium Chloride (Normal Saline Flush 0.9%) 10 ml IVP PRN PRN PRN Reason: NEEDED PER PROVIDER ORDERS FLUoxetine [PROzac] 20 mg PO DAILY 12/11/19 Gabapentin 300 mg PO BID 12/11/19 Mirtazapine 7.5 mg PO DAILY 12/11/19 Rosuvastatin Calcium [Crestor] 20 mg PO QPM 12/11/19 SITagliptin [Januvia] 100 mg PO DAILY 12/11/19 Telmisartan 20 mg PO DAILY 12/11/19 metFORMIN [Glucophage] 1,000 mg PO BIDWM 12/11/19 Objective - Vital Signs/Intake & Output Reviewed Vital Signs: Yes Vital Signs: Vital Signs x48h Temp Pulse Resp BP Pulse Ox 12/12/19 10:30 24 113/54 L 12/12/19 10:00 95 25 H 124/68 12/12/19 09:30 107 H 15 128/64 96 12/12/19 09:00 95 25 H 131/64 H 95 12/12/19 08:30 97 21 129/54 L 95 12/12/19 08:00 96 18 129/53 L 95 12/12/19 07:30 37.1 C 98 16 156/73 H 97 12/12/19 07:10 155/60 H 12/12/19 07:00 104 H 20 149/117 H 98 12/12/19 06:00 110 H 21 146/68 H 99 12/12/19 05:00 37.2 C 100 21 146/68 H 96 12/12/19 04:00 37.2 C 104 H 19 136/79 H 100 12/12/19 03:00 98.7 C H 100 17 158/85 H 97 Intake & Output: Intake & Output 12/09/19 12/10/19 12/11/19 12/12/19 23:59 23:59 23:59 23:59 Intake Total 2225 2501.000 Output Total 150 1251 Balance 2075 1250.000 - Objective General Appearance: positive: No acute distress, Other (but not happy, presents as dementia, not cooperating, can be prompted but requires a lot of coaxing) Eyes Bilateral: positive: PERRL ENT: positive: Pharynx nml Neck: positive: No JVD. negative: Stiff neck Respiratory: positive: Chest non-tender. negative: Wheezes, Rales, Rhonchi Cardiovascular: positive: Regular rate & rhythm, Systolic murmur. negative: Gallop/S4, Friction rub Abdomen: positive: Non-tender, No organomegaly, Nml bowel sounds, No distention Skin: positive: Warm, Dry Extremities: positive: No pedal edema Neurologic/Psychiatric: positive: CN's nml (2-12), Motor nml, Disoriented to place, Disoriented to time - Lab Results Fish Bones: 12/12/19 05:20 12/12/19 05:20 Other Labs: Lab Results x24hrs 12/12/19 12/12/19 12/12/19 Range/Units 09:15 06:55 05:20 WBC (4.8-10.8) x10^3/uL RBC (4.70-6.10) 10^6/uL Hgb (14.0-18.0) g/dL Hct (42.0-52.0) % MCV (80.0-94.0) fL MCH (27.0-31.0) pg MCHC (32.0-36.0) g/dL RDW (12.0-15.0) % Plt Count (130-450) 10^3/uL MPV (7.4-11.4) fL Neut # (Auto) (1.5-6.6) 10^3/uL Lymph # (Auto) (1.5-3.5) 10^3/uL [place] # (Auto) (0.0-1.0) 10^3/uL Eos # (Auto) (0.0-0.7) 10^3/uL Baso # (Auto) (0.0-0.1) 10^3/uL Absolute Nucleated RBC x10^3/uL Nucleated RBC % /100WBC VBG pH 7.405 (7.31-7.41) VBG pCO2 (41-51) mmHg VBG pO2 (25-47) mmHg VBG HCO3 (23-28) mmol/L VBG Total CO2 (24-29) mmol/L VBG O2 Saturation (60-80) % VBG Base Excess (-2 - +2) mmol/L Ionized Calcium 1.02 L (1.15-1.33) mmol/L Sodium (135-145) mmol/L Potassium (3.5-5.0) mmol/L Chloride (101-111) mmol/L Carbon Dioxide (21-32) mmol/L Anion Gap (6-13) BUN (6-20) mg/dL Creatinine (0.6-1.2) mg/dL Estimated GFR (MDRD) (>89) Glucose (70-100) mg/dL Lactic Acid (0.5-2.2) mmol/L Calcium (8.5-10.3) mg/dL Phosphorus (2.5-4.6) mg/dL Magnesium (1.7-2.8) mg/dL Total Bilirubin (0.2-1.0) mg/dL AST (10-42) IU/L ALT (10-60) IU/L Alkaline Phosphatase (42-121) IU/L Total Creatine Kinase (22-269) IU/L Troponin I High Sens 257.5 H* 232.1 H* (2.3-19.7) ng/L Total Protein (6.7-8.2) g/dL Albumin (3.2-5.5) g/dL Globulin (2.1-4.2) g/dL Albumin/Globulin Ratio (1.0-2.2) Lipase (22-51) U/L TSH (0.34-5.60) uIU/mL Urine Color Urine Clarity (CLEAR) Urine pH (5.0-7.5) PH Ur Specific [place] (1.002-1.030) Urine Protein (NEGATIVE) mg/dL Urine Glucose (UA) (NEGATIVE) mg/dL Urine Ketones (NEGATIVE) mg/dL Urine Occult Blood (NEGATIVE) Urine Nitrite (NEGATIVE) Urine Bilirubin (NEGATIVE) Urine Urobilinogen (NORMAL) E.U./dL Ur Leukocyte Esterase (NEGATIVE) Urine RBC (0-5) /HPF Urine WBC (0-3) /HPF Ur Squamous Epith Cells (<= Few) Amorphous Sediment /LPF Urine Bacteria (None Seen) /HPF Ur Microscopic Review Urine Culture Comments CSF Color (COLORLESS) CSF Clarity (CLEAR) Xanthrochromic (ABSENT) CSF WBC (0-5) /mm^3 CSF RBC (0-1) /mm^3 CSF Cell Count Tube # CSF Glucose (45-70) mg/dL CSF Total Protein (15-60) mg/dL Nasal Screen MRSA (PCR) (NEGATIVE) Urine Opiates Screen (NEGATIVE) Ur Oxycodone Screen (NEGATIVE) Urine Methadone Screen (NEGATIVE) Ur Propoxyphene Screen (NEGATIVE) Ur Barbiturates Screen (NEGATIVE) Ur Tricyclics Screen (NEGATIVE) Ur Phencyclidine Scrn (NEGATIVE) Ur Amphetamine Screen (NEGATIVE) U Methamphetamines Scrn (NEGATIVE) U Benzodiazepines Scrn (NEGATIVE) Urine Cocaine Screen (NEGATIVE) U Cannabinoids Screen (NEGATIVE) Ethyl Alcohol mg/dL Serum Ketones (NEGATIVE) 12/12/19 12/12/19 12/11/19 Range/Units 05:20 05:20 23:08 WBC 16.6 H (4.8-10.8) x10^3/uL RBC 3.95 L (4.70-6.10) 10^6/uL Hgb 12.1 L (14.0-18.0) g/dL Hct 35.8 L (42.0-52.0) % MCV 90.6 (80.0-94.0) fL MCH 30.6 (27.0-31.0) pg MCHC 33.8 (32.0-36.0) g/dL RDW 12.8 (12.0-15.0) % Plt Count 185 (130-450) 10^3/uL MPV 8.9 (7.4-11.4) fL Neut # (Auto) 13.6 H (1.5-6.6) 10^3/uL Lymph # (Auto) 1.7 (1.5-3.5) 10^3/uL [place] # (Auto) 1.2 H (0.0-1.0) 10^3/uL Eos # (Auto) 0.0 (0.0-0.7) 10^3/uL Baso # (Auto) 0.1 (0.0-0.1) 10^3/uL Absolute Nucleated RBC 0.00 x10^3/uL Nucleated RBC % 0.0 /100WBC VBG pH (7.31-7.41) VBG pCO2 (41-51) mmHg VBG pO2 (25-47) mmHg VBG HCO3 (23-28) mmol/L VBG Total CO2 (24-29) mmol/L VBG O2 Saturation (60-80) % VBG Base Excess (-2 - +2) mmol/L Ionized Calcium (1.15-1.33) mmol/L Sodium 135 (135-145) mmol/L Potassium 3.4 L (3.5-5.0) mmol/L Chloride 105 (101-111) mmol/L Carbon Dioxide 20 L (21-32) mmol/L Anion Gap 10.0 (6-13) BUN 17 (6-20) mg/dL Creatinine 1.1 (0.6-1.2) mg/dL Estimated GFR (MDRD) 66 L (>89) Glucose 130 H (70-100) mg/dL Lactic Acid 1.8 (0.5-2.2) mmol/L Calcium 8.0 L (8.5-10.3) mg/dL Phosphorus 2.4 L (2.5-4.6) mg/dL Magnesium 1.7 (1.7-2.8) mg/dL Total Bilirubin (0.2-1.0) mg/dL AST (10-42) IU/L ALT (10-60) IU/L Alkaline Phosphatase (42-121) IU/L Total Creatine Kinase (22-269) IU/L Troponin I High Sens (2.3-19.7) ng/L Total Protein (6.7-8.2) g/dL Albumin (3.2-5.5) g/dL Globulin (2.1-4.2) g/dL Albumin/Globulin Ratio (1.0-2.2) Lipase (22-51) U/L TSH (0.34-5.60) uIU/mL Urine Color Urine Clarity (CLEAR) Urine pH (5.0-7.5) PH Ur Specific [place] (1.002-1.030) Urine Protein (NEGATIVE) mg/dL Urine Glucose (UA) (NEGATIVE) mg/dL Urine Ketones (NEGATIVE) mg/dL Urine Occult Blood (NEGATIVE) Urine Nitrite (NEGATIVE) Urine Bilirubin (NEGATIVE) Urine Urobilinogen (NORMAL) E.U./dL Ur Leukocyte Esterase (NEGATIVE) Urine RBC (0-5) /HPF Urine WBC (0-3) /HPF Ur Squamous Epith Cells (<= Few) Amorphous Sediment /LPF Urine Bacteria (None Seen) /HPF Ur Microscopic Review Urine Culture Comments CSF Color (COLORLESS) CSF Clarity (CLEAR) Xanthrochromic (ABSENT) CSF WBC (0-5) /mm^3 CSF RBC (0-1) /mm^3 CSF Cell Count Tube # CSF Glucose (45-70) mg/dL CSF Total Protein (15-60) mg/dL Nasal Screen MRSA (PCR) (NEGATIVE) Urine Opiates Screen (NEGATIVE) Ur Oxycodone Screen (NEGATIVE) Urine Methadone Screen (NEGATIVE) Ur Propoxyphene Screen (NEGATIVE) Ur Barbiturates Screen (NEGATIVE) Ur Tricyclics Screen (NEGATIVE) Ur Phencyclidine Scrn (NEGATIVE) Ur Amphetamine Screen (NEGATIVE) U Methamphetamines Scrn (NEGATIVE) U Benzodiazepines Scrn (NEGATIVE) Urine Cocaine Screen (NEGATIVE) U Cannabinoids Screen (NEGATIVE) Ethyl Alcohol mg/dL Serum Ketones (NEGATIVE) 12/11/19 12/11/19 12/11/19 Range/Units 23:08 22:50 21:00 WBC (4.8-10.8) x10^3/uL RBC (4.70-6.10) 10^6/uL Hgb (14.0-18.0) g/dL Hct (42.0-52.0) % MCV (80.0-94.0) fL MCH (27.0-31.0) pg MCHC (32.0-36.0) g/dL RDW (12.0-15.0) % Plt Count (130-450) 10^3/uL MPV (7.4-11.4) fL Neut # (Auto) (1.5-6.6) 10^3/uL Lymph # (Auto) (1.5-3.5) 10^3/uL [place] # (Auto) (0.0-1.0) 10^3/uL Eos # (Auto) (0.0-0.7) 10^3/uL Baso # (Auto) (0.0-0.1) 10^3/uL Absolute Nucleated RBC x10^3/uL Nucleated RBC % /100WBC VBG pH (7.31-7.41) VBG pCO2 (41-51) mmHg VBG pO2 (25-47) mmHg VBG HCO3 (23-28) mmol/L VBG Total CO2 (24-29) mmol/L VBG O2 Saturation (60-80) % VBG Base Excess (-2 - +2) mmol/L Ionized Calcium (1.15-1.33) mmol/L Sodium (135-145) mmol/L Potassium (3.5-5.0) mmol/L Chloride (101-111) mmol/L Carbon Dioxide (21-32) mmol/L Anion Gap (6-13) BUN (6-20) mg/dL Creatinine (0.6-1.2) mg/dL Estimated GFR (MDRD) (>89) Glucose (70-100) mg/dL Lactic Acid (0.5-2.2) mmol/L Calcium (8.5-10.3) mg/dL Phosphorus (2.5-4.6) mg/dL Magnesium (1.7-2.8) mg/dL Total Bilirubin (0.2-1.0) mg/dL AST (10-42) IU/L ALT (10-60) IU/L Alkaline Phosphatase (42-121) IU/L Total Creatine Kinase (22-269) IU/L Troponin I High Sens 163.5 H* (2.3-19.7) ng/L Total Protein (6.7-8.2) g/dL Albumin (3.2-5.5) g/dL Globulin (2.1-4.2) g/dL Albumin/Globulin Ratio (1.0-2.2) Lipase (22-51) U/L TSH (0.34-5.60) uIU/mL Urine Color Urine Clarity (CLEAR) Urine pH (5.0-7.5) PH Ur Specific [place] (1.002-1.030) Urine Protein (NEGATIVE) mg/dL Urine Glucose (UA) (NEGATIVE) mg/dL Urine Ketones (NEGATIVE) mg/dL Urine Occult Blood (NEGATIVE) Urine Nitrite (NEGATIVE) Urine Bilirubin (NEGATIVE) Urine Urobilinogen (NORMAL) E.U./dL Ur Leukocyte Esterase (NEGATIVE) Urine RBC (0-5) /HPF Urine WBC (0-3) /HPF Ur Squamous Epith Cells (<= Few) Amorphous Sediment /LPF Urine Bacteria (None Seen) /HPF Ur Microscopic Review Urine Culture Comments CSF Color COLORLESS (COLORLESS) CSF Clarity CLEAR (CLEAR) Xanthrochromic ABSENT (ABSENT) CSF WBC 1 (0-5) /mm^3 CSF RBC 0 (0-1) /mm^3 CSF Cell Count Tube # CSF TUBE# 3 CSF Glucose 125 H (45-70) mg/dL CSF Total Protein 40 (15-60) mg/dL Nasal Screen MRSA (PCR) NEGATIVE (NEGATIVE) Urine Opiates Screen (NEGATIVE) Ur Oxycodone Screen (NEGATIVE) Urine Methadone Screen (NEGATIVE) Ur Propoxyphene Screen (NEGATIVE) Ur Barbiturates Screen (NEGATIVE) Ur Tricyclics Screen (NEGATIVE) Ur Phencyclidine Scrn (NEGATIVE) Ur Amphetamine Screen (NEGATIVE) U Methamphetamines Scrn (NEGATIVE) U Benzodiazepines Scrn (NEGATIVE) Urine Cocaine Screen (NEGATIVE) U Cannabinoids Screen (NEGATIVE) Ethyl Alcohol mg/dL Serum Ketones (NEGATIVE) 12/11/19 12/11/19 12/11/19 Range/Units 19:20 19:15 18:45 WBC (4.8-10.8) x10^3/uL RBC (4.70-6.10) 10^6/uL Hgb (14.0-18.0) g/dL Hct (42.0-52.0) % MCV (80.0-94.0) fL MCH (27.0-31.0) pg MCHC (32.0-36.0) g/dL RDW (12.0-15.0) % Plt Count (130-450) 10^3/uL MPV (7.4-11.4) fL Neut # (Auto) (1.5-6.6) 10^3/uL Lymph # (Auto) (1.5-3.5) 10^3/uL [place] # (Auto) (0.0-1.0) 10^3/uL Eos # (Auto) (0.0-0.7) 10^3/uL Baso # (Auto) (0.0-0.1) 10^3/uL Absolute Nucleated RBC x10^3/uL Nucleated RBC % /100WBC VBG pH 7.252 L (7.31-7.41) VBG pCO2 29.7 L (41-51) mmHg VBG pO2 79.1 H (25-47) mmHg VBG HCO3 12.8 L (23-28) mmol/L VBG Total CO2 13.7 L (24-29) mmol/L VBG O2 Saturation 93.4 H (60-80) % VBG Base Excess -13.0 L (-2 - +2) mmol/L Ionized Calcium (1.15-1.33) mmol/L Sodium (135-145) mmol/L Potassium (3.5-5.0) mmol/L Chloride (101-111) mmol/L Carbon Dioxide (21-32) mmol/L Anion Gap (6-13) BUN (6-20) mg/dL Creatinine (0.6-1.2) mg/dL Estimated GFR (MDRD) (>89) Glucose (70-100) mg/dL Lactic Acid (0.5-2.2) mmol/L Calcium (8.5-10.3) mg/dL Phosphorus (2.5-4.6) mg/dL Magnesium (1.7-2.8) mg/dL Total Bilirubin (0.2-1.0) mg/dL AST (10-42) IU/L ALT (10-60) IU/L Alkaline Phosphatase (42-121) IU/L Total Creatine Kinase (22-269) IU/L Troponin I High Sens (2.3-19.7) ng/L Total Protein (6.7-8.2) g/dL Albumin (3.2-5.5) g/dL Globulin (2.1-4.2) g/dL Albumin/Globulin Ratio (1.0-2.2) Lipase (22-51) U/L TSH (0.34-5.60) uIU/mL Urine Color YELLOW Urine Clarity CLEAR (CLEAR) Urine pH 6.0 (5.0-7.5) PH Ur Specific [place] >=1.030 H (1.002-1.030) Urine Protein 100 H (NEGATIVE) mg/dL Urine Glucose (UA) 500 H (NEGATIVE) mg/dL Urine Ketones 15 H (NEGATIVE) mg/dL Urine Occult Blood MODERATE H (NEGATIVE) Urine Nitrite NEGATIVE (NEGATIVE) Urine Bilirubin NEGATIVE (NEGATIVE) Urine Urobilinogen 0.2 (NORMAL) (NORMAL) E.U./dL Ur Leukocyte Esterase NEGATIVE (NEGATIVE) Urine RBC 11-25 H (0-5) /HPF Urine WBC 0-3 (0-3) /HPF Ur Squamous Epith Cells RARE Squamous (<= Few) Amorphous Sediment Moderate /LPF Urine Bacteria Rare (None Seen) /HPF Ur Microscopic Review INDICATED Urine Culture Comments NOT INDICATED CSF Color (COLORLESS) CSF Clarity (CLEAR) Xanthrochromic (ABSENT) CSF WBC (0-5) /mm^3 CSF RBC (0-1) /mm^3 CSF Cell Count Tube # CSF Glucose (45-70) mg/dL CSF Total Protein (15-60) mg/dL Nasal Screen MRSA (PCR) (NEGATIVE) Urine Opiates Screen NEGATIVE (NEGATIVE) Ur Oxycodone Screen NEGATIVE (NEGATIVE) Urine Methadone Screen NEGATIVE (NEGATIVE) Ur Propoxyphene Screen NEGATIVE (NEGATIVE) Ur Barbiturates Screen NEGATIVE (NEGATIVE) Ur Tricyclics Screen NEGATIVE (NEGATIVE) Ur Phencyclidine Scrn NEGATIVE (NEGATIVE) Ur Amphetamine Screen NEGATIVE (NEGATIVE) U Methamphetamines Scrn NEGATIVE (NEGATIVE) U Benzodiazepines Scrn NEGATIVE (NEGATIVE) Urine Cocaine Screen NEGATIVE (NEGATIVE) U Cannabinoids Screen POSITIVE H (NEGATIVE) Ethyl Alcohol < 5.0 mg/dL Serum Ketones NEGATIVE (NEGATIVE) 12/11/19 12/11/19 12/11/19 Range/Units 18:26 18:26 18:26 WBC (4.8-10.8) x10^3/uL RBC (4.70-6.10) 10^6/uL Hgb (14.0-18.0) g/dL Hct (42.0-52.0) % MCV (80.0-94.0) fL MCH (27.0-31.0) pg MCHC (32.0-36.0) g/dL RDW (12.0-15.0) % Plt Count (130-450) 10^3/uL MPV (7.4-11.4) fL Neut # (Auto) (1.5-6.6) 10^3/uL Lymph # (Auto) (1.5-3.5) 10^3/uL [place] # (Auto) (0.0-1.0) 10^3/uL Eos # (Auto) (0.0-0.7) 10^3/uL Baso # (Auto) (0.0-0.1) 10^3/uL Absolute Nucleated RBC x10^3/uL Nucleated RBC % /100WBC VBG pH (7.31-7.41) VBG pCO2 (41-51) mmHg VBG pO2 (25-47) mmHg VBG HCO3 (23-28) mmol/L VBG Total CO2 (24-29) mmol/L VBG O2 Saturation (60-80) % VBG Base Excess (-2 - +2) mmol/L Ionized Calcium (1.15-1.33) mmol/L Sodium (135-145) mmol/L Potassium (3.5-5.0) mmol/L Chloride (101-111) mmol/L Carbon Dioxide (21-32) mmol/L Anion Gap (6-13) BUN (6-20) mg/dL Creatinine (0.6-1.2) mg/dL Estimated GFR (MDRD) (>89) Glucose (70-100) mg/dL Lactic Acid (0.5-2.2) mmol/L Calcium (8.5-10.3) mg/dL Phosphorus (2.5-4.6) mg/dL Magnesium (1.7-2.8) mg/dL Total Bilirubin (0.2-1.0) mg/dL AST (10-42) IU/L ALT (10-60) IU/L Alkaline Phosphatase (42-121) IU/L Total Creatine Kinase 149 (22-269) IU/L Troponin I High Sens 27.7 H* (2.3-19.7) ng/L Total Protein (6.7-8.2) g/dL Albumin (3.2-5.5) g/dL Globulin (2.1-4.2) g/dL Albumin/Globulin Ratio (1.0-2.2) Lipase (22-51) U/L TSH 3.15 (0.34-5.60) uIU/mL Urine Color Urine Clarity (CLEAR) Urine pH (5.0-7.5) PH Ur Specific [place] (1.002-1.030) Urine Protein (NEGATIVE) mg/dL Urine Glucose (UA) (NEGATIVE) mg/dL Urine Ketones (NEGATIVE) mg/dL Urine Occult Blood (NEGATIVE) Urine Nitrite (NEGATIVE) Urine Bilirubin (NEGATIVE) Urine Urobilinogen (NORMAL) E.U./dL Ur Leukocyte Esterase (NEGATIVE) Urine RBC (0-5) /HPF Urine WBC (0-3) /HPF Ur Squamous Epith Cells (<= Few) Amorphous Sediment /LPF Urine Bacteria (None Seen) /HPF Ur Microscopic Review Urine Culture Comments CSF Color (COLORLESS) CSF Clarity (CLEAR) Xanthrochromic (ABSENT) CSF WBC (0-5) /mm^3 CSF RBC (0-1) /mm^3 CSF Cell Count Tube # CSF Glucose (45-70) mg/dL CSF Total Protein (15-60) mg/dL Nasal Screen MRSA (PCR) (NEGATIVE) Urine Opiates Screen (NEGATIVE) Ur Oxycodone Screen (NEGATIVE) Urine Methadone Screen (NEGATIVE) Ur Propoxyphene Screen (NEGATIVE) Ur Barbiturates Screen (NEGATIVE) Ur Tricyclics Screen (NEGATIVE) Ur Phencyclidine Scrn (NEGATIVE) Ur Amphetamine Screen (NEGATIVE) U Methamphetamines Scrn (NEGATIVE) U Benzodiazepines Scrn (NEGATIVE) Urine Cocaine Screen (NEGATIVE) U Cannabinoids Screen (NEGATIVE) Ethyl Alcohol mg/dL Serum Ketones (NEGATIVE) 12/11/19 12/11/19 12/11/19 Range/Units 18:26 18:26 18:26 WBC 14.1 H (4.8-10.8) x10^3/uL RBC 4.30 L (4.70-6.10) 10^6/uL Hgb 13.5 L (14.0-18.0) g/dL Hct 40.1 L (42.0-52.0) % MCV 93.3 (80.0-94.0) fL MCH 31.4 H (27.0-31.0) pg MCHC 33.7 (32.0-36.0) g/dL RDW 12.6 (12.0-15.0) % Plt Count 256 (130-450) 10^3/uL MPV 9.2 (7.4-11.4) fL Neut # (Auto) 10.7 H (1.5-6.6) 10^3/uL Lymph # (Auto) 2.5 (1.5-3.5) 10^3/uL [place] # (Auto) 0.6 (0.0-1.0) 10^3/uL Eos # (Auto) 0.0 (0.0-0.7) 10^3/uL Baso # (Auto) 0.1 (0.0-0.1) 10^3/uL Absolute Nucleated RBC 0.00 x10^3/uL Nucleated RBC % 0.0 /100WBC VBG pH (7.31-7.41) VBG pCO2 (41-51) mmHg VBG pO2 (25-47) mmHg VBG HCO3 (23-28) mmol/L VBG Total CO2 (24-29) mmol/L VBG O2 Saturation (60-80) % VBG Base Excess (-2 - +2) mmol/L Ionized Calcium (1.15-1.33) mmol/L Sodium 134 L (135-145) mmol/L Potassium 4.2 (3.5-5.0) mmol/L Chloride 100 L (101-111) mmol/L Carbon Dioxide 12 L* (21-32) mmol/L Anion Gap 22.0 H (6-13) BUN 17 (6-20) mg/dL Creatinine 1.7 H (0.6-1.2) mg/dL Estimated GFR (MDRD) 40 L (>89) Glucose 299 H (70-100) mg/dL Lactic Acid > 10.0 H* (0.5-2.2) mmol/L Calcium 8.4 L (8.5-10.3) mg/dL Phosphorus (2.5-4.6) mg/dL Magnesium 1.7 (1.7-2.8) mg/dL Total Bilirubin 0.9 (0.2-1.0) mg/dL AST 37 (10-42) IU/L ALT 16 (10-60) IU/L Alkaline Phosphatase 80 (42-121) IU/L Total Creatine Kinase (22-269) IU/L Troponin I High Sens (2.3-19.7) ng/L Total Protein 7.9 (6.7-8.2) g/dL Albumin 4.1 (3.2-5.5) g/dL Globulin 3.8 (2.1-4.2) g/dL Albumin/Globulin Ratio 1.1 (1.0-2.2) Lipase 33 (22-51) U/L TSH (0.34-5.60) uIU/mL Urine Color Urine Clarity (CLEAR) Urine pH (5.0-7.5) PH Ur Specific [place] (1.002-1.030) Urine Protein (NEGATIVE) mg/dL Urine Glucose (UA) (NEGATIVE) mg/dL Urine Ketones (NEGATIVE) mg/dL Urine Occult Blood (NEGATIVE) Urine Nitrite (NEGATIVE) Urine Bilirubin (NEGATIVE) Urine Urobilinogen (NORMAL) E.U./dL Ur Leukocyte Esterase (NEGATIVE) Urine RBC (0-5) /HPF Urine WBC (0-3) /HPF Ur Squamous Epith Cells (<= Few) Amorphous Sediment /LPF Urine Bacteria (None Seen) /HPF Ur Microscopic Review Urine Culture Comments CSF Color (COLORLESS) CSF Clarity (CLEAR) Xanthrochromic (ABSENT) CSF WBC (0-5) /mm^3 CSF RBC (0-1) /mm^3 CSF Cell Count Tube # CSF Glucose (45-70) mg/dL CSF Total Protein (15-60) mg/dL Nasal Screen MRSA (PCR) (NEGATIVE) Urine Opiates Screen (NEGATIVE) Ur Oxycodone Screen (NEGATIVE) Urine Methadone Screen (NEGATIVE) Ur Propoxyphene Screen (NEGATIVE) Ur Barbiturates Screen (NEGATIVE) Ur Tricyclics Screen (NEGATIVE) Ur Phencyclidine Scrn (NEGATIVE) Ur Amphetamine Screen (NEGATIVE) U Methamphetamines Scrn (NEGATIVE) U Benzodiazepines Scrn (NEGATIVE) Urine Cocaine Screen (NEGATIVE) U Cannabinoids Screen (NEGATIVE) Ethyl Alcohol mg/dL Serum Ketones (NEGATIVE) ABX Reporting Has patient been on IV antibiotics over the past 48 hours?: Yes Assessment/Plan - Problem List (1) Acute encephalopathy Impression: Suspect this is secondary to PRES and NSTEMI, although this may be multifactorial. + Differential diagnosis did include meningitis or encephalitis despite him being afebrile. He underwent a lumbar puncture in the emergency department and the CSF fluid is colorless and clear with a 1 WBC, 0 RBCs, total protein of 40, and a glucose of 125. Gram stain shows no organisms and no white blood cells. This is rather unremarkable and does not fit bacterial meningitis or encephalitis. He did receive vancomycin, ceftriaxone, ampicillin, acyclovir in the emergency department. +Hypothyroidism looked at but TSH is within normal limits and do not suspect that +Do not suspect elevated ammonia given his LFTs are normal (has a hx of alcohol abuse) +Stroke looked at as thought. CT head did not show hemorrhage or acute stroke. There was possible enhancement of the parietal occipital lobes concerning for seizure or encephalitis. +infection with lactic acidosis. CXR neg. UA neg. Abd exam neg. Lactic acid now normal. At this time, we will hold off on continuing antibiotics and antivirals given his unremarkable CSF fluid. +NSTEMI looks like a possibility now. I spoke to cardiology Cailin Weber MD. His troponin has gone from 27->257. Most likely it is an end STEMI. We need to watch anticoagulation because of his possible strokes we cannot receive aspirin or Lovenox for a day or so. But he can get a statin. We will give him a beta- emmett.` Plan: We will lower his blood pressure with Cardene to treat the suspected PRES. On the Cardene his blood pressure is 113-129 systolic. Controlled. He does not take any blood pressure pills at home other than telmisartan. +Avoid sedatives like benzodiazepines unless he is having seizures. +Neurochecks continue +Obtain MRI of the brain today. +Lopressor today +Losartan today +ASA in am. +statin today. (2) Posterior reversible encephalopathy syndrome (PRES) Conclusion/Plan: Suspect that he may have PRES given his encephalopathy, new onset seizure, and hypertension in a patient with CKD. CTA of the head did suggest possible enhancement in the parietal and occipital lobes. His blood pressure is elevated in the 190s systolic. At this time, we will continue with Keppra 500 mg twice daily as he has been loaded with 3 g. We will start him on a Cardene drip with a goal systolic pressure approximately 150 to 155 mmHg which would be about 25% reduction in his systolic blood pressure. + We will obtain MRI today. + Resume ARB this am. Watch BP to see if we can get him off Cardene. (3) Hypertensive emergency Conclusion/Plan: His blood pressure was elevated in the 190's systolic in ER and this may be contributing to his encephalopathy. He does not have acute kidney injury given his creatinine 1.7 and his baseline is around 1.5 although his urinalysis does show moderate occult blood and some RBCs. His CKs are within normal limits despite his seizure. His EKG also shows diffuse ST depressions all his troponin is only mildly elevated in the 20s. Started on a Cardene drip once in ER with a goal blood pressure that is a 25% reduction in systolic blood pressure. We will monitor him on telemetry and trend his troponins. Monitor his neurologic status and renal function. (4) New onset seizure Conclusion/Plan: EMS reported witnessing a [place] seizure. He has no prior history of seizures in the past. The etiology at this point is not clear although this may be secondary to PRES. Does have history of alcohol use although his reports he has not drank alcohol in over 1 year and alcohol level is negative on admission. He does take gabapentin and he may not have been taking medication for the past couple days this may potentially be gabapentin withdrawal as well. His CT of the head did not show any hemorrhage or acute strokes. There was concern for possible patchy enhancement of the cortical mantle of the occipital and parietal lobes on CTA of the neck which may be concerning for seizure or encephalitis. This was discussed with neurology at [facility] and they recommended loading the patient with Keppra and he received 3 g. We will continue him on Keppra 500 mg twice daily. Lorazepam IV as needed for seizures. Seizure precautions Will obtain MRI of the brain today. Neurochecks. (5) Lactic acidosis Conclusion/Plan: Likely secondary to his seizure. Lactic acid is greater than 10 and 5 hours later, after treatment of seizure, was 1.8. No obvious signs of infection at the moment. We will hydrate him with IV fluids and recheck lactic acid. (6) Increased anion gap metabolic acidosis Conclusion/Plan: This is secondary to lactic acidosis due to his seizure. pH 7.25 on VBG with a bicarbonate of 12 and anion gap of 22. His delta delta is 1. This should resolve as we treat his seizures and his lactic acid improves.By last night his lactic acid was 1.8. (7) Leukocytosis 14.1>16.6 today Conclusion/Plan: Suspect is likely reactive secondary to his seizure and stress-induced. There was initial concern for meningitis and encephalitis although his CSF fluid is unremarkable. Will hold off on continuing antibiotics antivirals for the time being. He was checked for novel coronavirus in the emergency department and thi s is pending. We will place him on contact and droplet precautions until this is negative. (8) Chronic kidney disease, stage III (moderate) Conclusion/Plan: He has CKD stage III like secondary to his diabetes. His creatinine is at 1.7 and his baseline appears to be around 1.5. We will resume his home losartan once he is taking p.o. We will monitor his renal function and urine output. Raza catheter will be placed given his mental status. (9) Depression Conclusion/Plan: History of depression for which he takes fluoxetine and his reports he has been severely depressed over the last couple of days given the novel coronavirus outbreak. She does not believe that this was a suicide attempt although this will need to be discussed with the patient once he is more oriented. He may benefit from a mental health evaluation once his mental status improves. Qualifiers: Depression Type: major depressive disorder Major depression recurrence: recurrent Active/Remission status: currently active Major depression episode severity: moderate Qualified Code(s): F33.1 - Major depressive disorder, recurrent, moderate (10) History of alcoholism Conclusion/Plan: reports that he has a history of alcohol use in the past but that he quit over 1 year ago and she does not believe he may have had any recent alcohol use. Alcohol level is negative on admission. At this time, not suspect this contributed to his seizure. We will monitor him for signs of withdrawal. (11) Type 2 diabetes mellitus with hyperglycemia Conclusion/Plan: His last A1c in October was elevated at 10.2%. He is on metformin and Januvia at home. Blood glucose is currently elevated at nearly 300. We will give him 5 units of Lantus this evening and place him on a sliding scale. N.p.o. given his encephalopathy. We will place him on a carb controlled diet once he is taking p.o. (12) Hypokalemia supplement po.
[2019-12-12] MEDS ORDERED: ATORVASTATIN 40 MG TABLET PO SCH (11:31)
[2019-12-12] MEDS: METOPROLOL TARTRATE 25 MG TABLET PO SCH ×2 (11:53→21:40)
[2019-12-12] MEDS: LOSARTAN 50 MG TABLET PO SCH (11:53)
[2019-12-12] MEDS: ATORVASTATIN 40 MG TABLET PO SCH (11:54)
[2019-12-12] MEDS: ASPIRIN EC 81 MG TABLET PO SCH (13:14)
[2019-12-12] MEDS: INSULIN ASPART 300 UNIT/3 ML PEN SUBQ SCH ×2 (17:20→21:35)
[2019-12-12] MEDS: D5.45NS W/20 MEQ KCL 1,000 ML IV SCH (17:32)
[2019-12-12] MEDS ORDERED: SODIUM CHLORIDE 0.9% 100ML 100 ML IV ONE (21:06)
[2019-12-12] MEDS: INSULIN GLARGINE 300 UNIT/3 ML PEN SUBQ SCH (21:22)
[2019-12-13] MEDS: SODIUM CHLORIDE FLUSH 0.9% 10 ML SYRINGE IVP SCH ×3 (00:44→16:25)
[2019-12-13] MEDS: D5.45NS W/20 MEQ KCL 1,000 ML IV SCH ×2 (04:13→20:19)
[2019-12-13 06:28] LABS: VBG PH 7.145 (7.31-7.41)
[2019-12-13 06:28] LABS: BASOPHILS % (AUTO) 0.5 %; EOSINOPHILS % (AUTO) 0.1 %; HGB - HEMOGLOBIN 10.5 g/dL (14.0-18.0); LYMPHOCYTES # (AUTO) 1.1 10^3/uL (1.5-3.5); LYMPHOCYTES % (AUTO) 12.7 %; MEAN CORPUSCULAR HEMOGLOBIN 31.1 pg (27.0-31.0); MEAN CORPUSCULAR HGB CONC 34.1 g/dL (32.0-36.0); MEAN CORPUSCULAR VOLUME 91.1 fL (80.0-94.0); MEAN PLATELET VOLUME 8.9 fL (7.4-11.4); MONOCYTES # (AUTO) 0.7 10^3/uL (0.0-1.0); MONOCYTES % (AUTO) 8.4 %; NEUTROPHILS # (AUTO) 6.5 10^3/uL (1.5-6.6); NEUTROPHILS % (AUTO) 78.1 %; PLT - PLATELET COUNT 157 10^3/uL (130-450); RED BLOOD COUNT 3.38 10^6/uL (4.70-6.10); RED CELL DISTRIBUTION WIDTH 13.1 % (12.0-15.0); WHITE BLOOD COUNT 8.3 x10^3/uL (4.8-10.8)
[2019-12-13 06:39] LABS: CALCIUM 7.6 mg/dL (8.5-10.3); CREATININE 1.1 mg/dL (0.6-1.2); MAGNESIUM 1.5 mg/dL (1.7-2.8); PHOSPHORUS 1.8 mg/dL (2.5-4.6)
[2019-12-13] MEDS: FLUoxetine 10 MG CAPSULE PO SCH (09:58)
[2019-12-13] MEDS: ASPIRIN EC 81 MG TABLET PO SCH (09:58)
[2019-12-13] MEDS: METOPROLOL TARTRATE 25 MG TABLET PO SCH ×2 (09:58→20:24)
[2019-12-13] MEDS: LOSARTAN 50 MG TABLET PO SCH (09:58)
[2019-12-13] MEDS: ENOXAPARIN 40 MG/0.4 ML SYRINGE SUBQ SCH (09:58)
[2019-12-13] MEDS: polyethylene glycoL 3350 17 GM PACKET PO SCH (09:59)
[2019-12-13] MEDS: levETIRAcetam INJ 500 MG in SODIUM CHLORIDE 0.9% 100ML 100 ML IV SCH (09:59)
[2019-12-13] MEDS: INSULIN ASPART 300 UNIT/3 ML PEN SUBQ SCH ×4 (10:00→20:38)
[2019-12-13] MEDS ORDERED: MAGNESIUM SULFATE 2 GRAM 2 GM/50 ML BAG IV ONE (10:03)
--- NOTE | 2019-12-13 10:33 | CT Report ---
Reason: Seizure. Procedure Date: 12/13/2019 Accession Number: [id number] / [id number] Procedure: CT - HEAD WO CPT Code: Final Report FULL RESULT: EXAM: CT HEAD EXAM DATE: 12/13/2019 10:19 AM. CLINICAL HISTORY: Seizure. COMPARISON: HEAD ANGIO 12/11/2019 6:36 PM. TECHNIQUE: Multiaxial CT images were obtained from the foramen magnum to the vertex. Reformats: Sagittal and coronal. IV contrast: None. In accordance with CT protocol optimization, one or more of the following dose reduction techniques were utilized for this exam: automated exposure control, adjustment of mA and/or KV based on patient size, or use of iterative reconstructive technique. FINDINGS: Parenchyma: No intraparenchymal hemorrhage. No evidence of mass, midline shift, or CT findings of infarction. Islas-white differentiation is distinct. Extraaxial Spaces: There is mild prominence of the suicide keeping with mild volume loss. No subdural or epidural collections identified. Ventricles: Normal in size and position. Sinuses and Orbits: Imaged paranasal sinuses, orbits, and mastoids show no significant abnormality. Bones: No evidence of fracture or calvarial defect. Other: None. IMPRESSION: No acute pathology. RADIA
[2019-12-13] MEDS ORDERED: POTASSIUM PHOSPHATE 15 MMOL in SODIUM CHLORIDE 0.9% 250 ML IV ONE (11:00)
[2019-12-13] MEDS ORDERED: ENOXAPARIN 80 MG/0.8 ML SYRINGE SUBQ SCH (12:00)
[2019-12-13] MEDS ORDERED: ENOXAPARIN 40 MG/0.4 ML SYRINGE SUBQ ONE (13:00)
--- NOTE | 2019-12-13 18:58 | PROVIDER PROGRESS NOTE ---
Subjective - Prog Note Date Prog Note Date: 12/13/19 Prog Note Time: 18:00 - Subjective Pt reports feeling: Improved Subjective: Pt admitted for encephalopathy, seizure disorder, HTN emergency, NSTEMI, CKD stage III, alcohol dependence Pt had repeat CT scan today to r/o bleed as he could not tolerate MRI. It did not show any bleeding issues, so given his NSTEMI, lovenox 80 mg BID was started today for medical management of his NSTEMI. Pt denied any chest pain, SOB. His mentation level was returning as he remembered working for [employer]. Objective - Vital Signs/Intake & Output Reviewed Vital Signs: Yes Vital Signs: Vital Signs x48h Temp Pulse Resp BP Pulse Ox 12/13/19 16:17 37.0 C 67 18 149/70 H 98 12/13/19 12:10 37.1 C 62 18 154/81 H 98 Intake & Output: Intake & Output 12/10/19 12/11/19 12/12/19 12/13/19 23:59 23:59 23:59 23:59 Intake Total 2225 3714.750 2192.000 Output Total 150 1664 275 Balance 2075 2050.750 1917.000 - Objective General Appearance: positive: No acute distress Eyes Bilateral: positive: Normal inspection Respiratory: positive: No respiratory distress Cardiovascular: positive: Regular rate & rhythm - Lab Results Fish Bones: 12/13/19 06:00 12/13/19 05:35 Other Labs: Lab Results x24hrs 12/13/19 12/13/19 12/13/19 Range/Units 06:00 05:35 05:35 WBC 8.3 (4.8-10.8) x10^3/uL RBC 3.38 L (4.70-6.10) 10^6/uL Hgb 10.5 L (14.0-18.0) g/dL Hct 30.8 L (42.0-52.0) % MCV 91.1 (80.0-94.0) fL MCH 31.1 H (27.0-31.0) pg MCHC 34.1 (32.0-36.0) g/dL RDW 13.1 (12.0-15.0) % Plt Count 157 (130-450) 10^3/uL MPV 8.9 (7.4-11.4) fL Neut # (Auto) 6.5 (1.5-6.6) 10^3/uL Lymph # (Auto) 1.1 L (1.5-3.5) 10^3/uL [place] # (Auto) 0.7 (0.0-1.0) 10^3/uL Eos # (Auto) 0.0 (0.0-0.7) 10^3/uL Baso # (Auto) 0.0 (0.0-0.1) 10^3/uL Absolute Nucleated RBC 0.00 x10^3/uL Nucleated RBC % 0.0 /100WBC VBG pH 7.145 L (7.31-7.41) Ionized Calcium 1.03 L (1.15-1.33) mmol/L Sodium 135 (135-145) mmol/L Potassium 3.5 (3.5-5.0) mmol/L Chloride 107 (101-111) mmol/L Carbon Dioxide 22 (21-32) mmol/L Anion Gap 6.0 (6-13) BUN 16 (6-20) mg/dL Creatinine 1.1 (0.6-1.2) mg/dL Estimated GFR (MDRD) 66 L (>89) Glucose 181 H (70-100) mg/dL Calcium 7.6 L (8.5-10.3) mg/dL Phosphorus 1.8 L (2.5-4.6) mg/dL Magnesium 1.5 L (1.7-2.8) mg/dL Assessment/Plan - Problem List (1) Altered mental status Impression: This is improving, his mentation is returning. Reassuring CT head, no CVA Qualifiers: Altered mental status type: delirium Qualified Code(s): R41.0 - Disorientation, unspecified (2) NSTEMI (non-ST elevated myocardial infarction) Impression: Medical management with adding lovenox BID to other cardiac meds Pt is asymtomatic Echo ordered (3) Generalized seizure Impression: No seizures, switched to PO meds (4) Hypertension Impression: STable on meds
[2019-12-13] MEDS: levETIRAcetam 500 MG/5 ML UDC PO SCH (20:24)
[2019-12-13] MEDS: ENOXAPARIN 80 MG/0.8 ML SYRINGE SUBQ SCH (20:25)
[2019-12-13] MEDS: ATORVASTATIN 40 MG TABLET PO SCH (20:25)
[2019-12-13] MEDS: INSULIN GLARGINE 300 UNIT/3 ML PEN SUBQ SCH (20:38)
[2019-12-14] MEDS: SODIUM CHLORIDE FLUSH 0.9% 10 ML SYRINGE IVP SCH ×3 (00:55→16:38)
[2019-12-14 06:18] LABS: BASOPHILS # (AUTO) 0.1 10^3/uL (0.0-0.1); BASOPHILS % (AUTO) 1.1 %; EOSINOPHILS # (AUTO) 0.1 10^3/uL (0.0-0.7); EOSINOPHILS % (AUTO) 1.4 %; HGB - HEMOGLOBIN 10.9 g/dL (14.0-18.0); LYMPHOCYTES # (AUTO) 1.2 10^3/uL (1.5-3.5); LYMPHOCYTES % (AUTO) 21.3 %; MEAN CORPUSCULAR HEMOGLOBIN 31.2 pg (27.0-31.0); MEAN CORPUSCULAR HGB CONC 34.4 g/dL (32.0-36.0); MEAN CORPUSCULAR VOLUME 90.8 fL (80.0-94.0); MEAN PLATELET VOLUME 9.1 fL (7.4-11.4); MONOCYTES # (AUTO) 0.7 10^3/uL (0.0-1.0); MONOCYTES % (AUTO) 12.9 %; NEUTROPHILS # (AUTO) 3.6 10^3/uL (1.5-6.6); NEUTROPHILS % (AUTO) 63.1 %; PLT - PLATELET COUNT 151 10^3/uL (130-450); RED BLOOD COUNT 3.49 10^6/uL (4.70-6.10); RED CELL DISTRIBUTION WIDTH 12.9 % (12.0-15.0); VBG PH 7.388 (7.31-7.41); WHITE BLOOD COUNT 5.6 x10^3/uL (4.8-10.8)
[2019-12-14 06:30] LABS: CALCIUM 7.2 mg/dL (8.5-10.3); MAGNESIUM 1.9 mg/dL (1.7-2.8); PHOSPHORUS 1.9 mg/dL (2.5-4.6)
[2019-12-14] MEDS ORDERED: POTASSIUM PHOSPHATE 15 MMOL in SODIUM CHLORIDE 0.9% 250 ML IV ONE (07:17)
[2019-12-14] MEDS ORDERED: POTASSIUM CHLORIDE 20 MEQ TABLET PO ONE (07:17)
[2019-12-14] MEDS: polyethylene glycoL 3350 17 GM PACKET PO SCH (07:25)
[2019-12-14] MEDS: INSULIN ASPART 300 UNIT/3 ML PEN SUBQ SCH ×4 (11:16→20:40)
[2019-12-14] MEDS: ASPIRIN EC 81 MG TABLET PO SCH (11:17)
[2019-12-14] MEDS: METOPROLOL TARTRATE 25 MG TABLET PO SCH (11:17)
[2019-12-14] MEDS: LOSARTAN 50 MG TABLET PO SCH (11:18)
[2019-12-14] MEDS: ENOXAPARIN 80 MG/0.8 ML SYRINGE SUBQ SCH ×2 (11:18→20:42)
[2019-12-14] MEDS: FLUoxetine 10 MG CAPSULE PO SCH (11:18)
[2019-12-14] MEDS: levETIRAcetam 500 MG/5 ML UDC PO SCH ×2 (11:19→20:38)
--- NOTE | 2019-12-14 13:17 | PROVIDER PROGRESS NOTE ---
Subjective - Prog Note Date Prog Note Date: 12/14/19 - Subjective Pt reports feeling: Improved Subjective: Pt had some blood around his penis after urinating today. No F/C. No dysuria. He has never been a smoker. No pain. He is on lovenox for NSTEMI. He says he had a cardiac catheterization done 5 years ago at [facility] in [place]. He denies any CP, SOB or cough. COVID testing was not completed on him yet, results are still pending. Current Medications - Current Medications Current Medications: Meds reviewed, will increase his metoprolol due to BP not being well controlled. Objective - Vital Signs/Intake & Output Vital Signs: Vital Signs x48h Temp Pulse Resp BP BP Pulse Ox 12/14/19 11:44 36.8 C 72 18 189/73 H 99 12/14/19 11:17 189/73 H 12/14/19 08:05 36.7 C 67 16 174/79 H 98 Intake & Output: Intake & Output 12/11/19 12/12/19 12/13/19 12/14/19 23:59 23:59 23:59 23:59 Intake Total 2225 3714.750 3681.000 748.333 Output Total 150 1664 275 225 Balance 2075 2050.750 3406.000 523.333 - Objective General Appearance: positive: No acute distress Eyes Bilateral: positive: Normal inspection ENT: positive: ENT inspection nml Respiratory: positive: Chest non-tender, No respiratory distress Cardiovascular: positive: Regular rate & rhythm Abdomen: positive: Non-tender, No organomegaly Skin: positive: Color nml Extremities: positive: Non-tender Neurologic/Psychiatric: positive: Oriented x3 Comments/Other: : No trauma noted to penis, there was blood on the chucks pad. Pt did have a guerrero catheter in place 2 days prior to coming to med/surg - Lab Results Fish Bones: 12/14/19 05:31 12/14/19 05:31 Other Labs: Lab Results x24hrs 12/14/19 12/14/19 12/14/19 Range/Units 05:31 05:31 05:31 WBC 5.6 (4.8-10.8) x10^3/uL RBC 3.49 L (4.70-6.10) 10^6/uL Hgb 10.9 L (14.0-18.0) g/dL Hct 31.7 L (42.0-52.0) % MCV 90.8 (80.0-94.0) fL MCH 31.2 H (27.0-31.0) pg MCHC 34.4 (32.0-36.0) g/dL RDW 12.9 (12.0-15.0) % Plt Count 151 (130-450) 10^3/uL MPV 9.1 (7.4-11.4) fL Neut # (Auto) 3.6 (1.5-6.6) 10^3/uL Lymph # (Auto) 1.2 L (1.5-3.5) 10^3/uL [place] # (Auto) 0.7 (0.0-1.0) 10^3/uL Eos # (Auto) 0.1 (0.0-0.7) 10^3/uL Baso # (Auto) 0.1 (0.0-0.1) 10^3/uL Absolute Nucleated RBC 0.00 x10^3/uL Nucleated RBC % 0.0 /100WBC VBG pH 7.388 (7.31-7.41) Ionized Calcium 1.02 L (1.15-1.33) mmol/L Sodium 133 L (135-145) mmol/L Potassium 3.4 L (3.5-5.0) mmol/L Chloride 104 (101-111) mmol/L Carbon Dioxide 22 (21-32) mmol/L Anion Gap 7.0 (6-13) BUN 14 (6-20) mg/dL Creatinine 1.0 (0.6-1.2) mg/dL Estimated GFR (MDRD) 73 L (>89) Glucose 167 H (70-100) mg/dL Calcium 7.2 L (8.5-10.3) mg/dL Phosphorus 1.9 L (2.5-4.6) mg/dL Magnesium 1.9 (1.7-2.8) mg/dL ABX Reporting Has patient been on IV antibiotics over the past 48 hours?: Yes Assessment/Plan - Problem List (1) Altered mental status Impression: Pts mental status has improved. Returned to his baseline Qualifiers: Altered mental status type: delirium Qualified Code(s): R41.0 - Disorientation, unspecified (2) NSTEMI (non-ST elevated myocardial infarction) Impression: Pt is on lovenox and medication management without symptoms Echo is ordered to be done tomorrow Pt remains asymptomatic (3) Generalized seizure Impression: No seizures, stable on oral meds (4) Hypertension Impression: Not well controlled, will increase metoprolol If still not well controlled, then may consider adding other agent (5) Hematuria Impression: Likely just trauma from guerrero and being on lovenox Discussed can be worked up and f/u as outpatient as it was minimal blood
[2019-12-14] MEDS: ATORVASTATIN 40 MG TABLET PO SCH (20:38)
[2019-12-14] MEDS: INSULIN GLARGINE 300 UNIT/3 ML PEN SUBQ SCH (20:39)
[2019-12-15] MEDS: SODIUM CHLORIDE FLUSH 0.9% 10 ML SYRINGE IVP SCH ×4 (02:09→23:44)
[2019-12-15 06:22] LABS: BASOPHILS # (AUTO) 0.1 10^3/uL (0.0-0.1); BASOPHILS % (AUTO) 0.7 %; EOSINOPHILS % (AUTO) 0.3 %; HGB - HEMOGLOBIN 9.9 g/dL (14.0-18.0); LYMPHOCYTES # (AUTO) 1.4 10^3/uL (1.5-3.5); LYMPHOCYTES % (AUTO) 17.9 %; MEAN CORPUSCULAR HEMOGLOBIN 30.1 pg (27.0-31.0); MEAN CORPUSCULAR HGB CONC 33.7 g/dL (32.0-36.0); MEAN CORPUSCULAR VOLUME 89.4 fL (80.0-94.0); MEAN PLATELET VOLUME 9.2 fL (7.4-11.4); MONOCYTES # (AUTO) 0.8 10^3/uL (0.0-1.0); MONOCYTES % (AUTO) 10.6 %; NEUTROPHILS # (AUTO) 5.4 10^3/uL (1.5-6.6); NEUTROPHILS % (AUTO) 70.2 %; PLT - PLATELET COUNT 175 10^3/uL (130-450); RED BLOOD COUNT 3.29 10^6/uL (4.70-6.10); RED CELL DISTRIBUTION WIDTH 12.8 % (12.0-15.0); WHITE BLOOD COUNT 7.7 x10^3/uL (4.8-10.8)
[2019-12-15 06:23] LABS: VBG PH 7.434 (7.31-7.41)
[2019-12-15 06:40] LABS: CALCIUM 7.1 mg/dL (8.5-10.3); CREATININE 1.1 mg/dL (0.6-1.2); MAGNESIUM 1.6 mg/dL (1.7-2.8); PHOSPHORUS 2.5 mg/dL (2.5-4.6)
[2019-12-15] MEDS ORDERED: POTASSIUM CHLORIDE 20 MEQ TABLET PO ONE (06:54)
[2019-12-15] MEDS ORDERED: MAGNESIUM OXIDE 400 MG TABLET PO SCH (07:00)
[2019-12-15] MEDS: levETIRAcetam 500 MG/5 ML UDC PO SCH ×2 (08:00→20:11)
[2019-12-15] MEDS: FLUoxetine 10 MG CAPSULE PO SCH (08:01)
[2019-12-15] MEDS: LOSARTAN 50 MG TABLET PO SCH (08:01)
[2019-12-15] MEDS: INSULIN ASPART 300 UNIT/3 ML PEN SUBQ SCH ×4 (08:02→21:27)
[2019-12-15] MEDS: POTASSIUM CHLOR 10 MEQ/100 ML 10 MEQ/100 ML BAG IV SCH ×3 (08:03→11:10)
[2019-12-15] MEDS: ASPIRIN EC 81 MG TABLET PO SCH (08:04)
[2019-12-15] MEDS: polyethylene glycoL 3350 17 GM PACKET PO SCH (08:18)
[2019-12-15] MEDS: METOPROLOL SUCCINATE 50 MG TABLET PO SCH (08:25)
[2019-12-15] MEDS: GABAPENTIN 300 MG CAPSULE PO SCH ×2 (08:26→20:11)
[2019-12-15] MEDS: ENOXAPARIN 80 MG/0.8 ML SYRINGE SUBQ SCH ×2 (09:45→20:11)
[2019-12-15] MEDS: ATORVASTATIN 40 MG TABLET PO SCH (20:11)
[2019-12-15] MEDS: ZOLPIDEM 5 MG TABLET PO PRN (20:11)
--- NOTE | 2019-12-15 21:19 | PROVIDER PROGRESS NOTE ---
Subjective - Prog Note Date Prog Note Date: 12/15/19 Prog Note Time: 21:17 - Subjective Pt reports feeling: Improved Current Medications - Current Medications Current Medications: Active Medications Acetaminophen (Tylenol) 650 mg PO Q4HR PRN PRN Reason: Pain 1 to 4 Aspirin (Ecotrin) 81 mg PO DAILY [facility] Last Admin: 12/15/19 08:04 Dose: 81 mg Atorvastatin Calcium (Lipitor) 40 mg PO QPM [facility] Last Admin: 12/15/19 20:11 Dose: 40 mg Fluoxetine HCl (Prozac) 20 mg PO DAILY [facility] Last Admin: 12/15/19 08:01 Dose: 20 mg Gabapentin (Neurontin) 300 mg PO BID [facility] Last Admin: 12/15/19 20:11 Dose: 300 mg Insulin Aspart (Novolog) 2 - 10 unit SUBQ 0800,1200,1700,2100 [facility]; Protocol Last Admin: 12/15/19 17:16 Dose: 4 unit Insulin Glargine (Lantus Solostar) 5 unit SUBQ QPM [facility] Last Admin: 12/14/19 20:39 Dose: 5 unit Levetiracetam (Keppra) 500 mg PO BID [facility] Last Admin: 12/15/19 20:11 Dose: 500 mg Lorazepam (Ativan Inj (Vial)) 2 mg IVP Q2H PRN PRN Reason: Seizure Losartan Potassium (Cozaar) 100 mg PO DAILY [facility] Last Admin: 12/15/19 08:01 Dose: 100 mg Metoprolol Succinate (Toprol Xl) 50 mg PO DAILY [facility] Last Admin: 12/15/19 08:25 Dose: 50 mg Ondansetron HCl (Zofran Inj) 4 mg IVP Q6HR PRN PRN Reason: Nausea / Vomiting Polyethylene Glycol (Miralax) 17 gm PO DAILY [facility] Last Admin: 12/15/19 08:18 Dose: Not Given Sodium Chloride (Normal Saline Flush 0.9%) 10 ml IVP 0100,0900,1700 [facility] Last Admin: 12/15/19 17:16 Dose: 10 ml Sodium Chloride (Normal Saline Flush 0.9%) 10 ml IVP PRN PRN PRN Reason: NEEDED PER PROVIDER ORDERS Zolpidem Tartrate (Ambien) 5 mg PO QPM PRN PRN Reason: Insomnia Last Admin: 12/15/19 20:11 Dose: 5 mg FLUoxetine [PROzac] 20 mg PO DAILY 12/11/19 Gabapentin 300 mg PO BID 12/11/19 Mirtazapine 7.5 mg PO DAILY 12/11/19 Rosuvastatin Calcium [Crestor] 20 mg PO QPM 12/11/19 SITagliptin [Januvia] 100 mg PO DAILY 12/11/19 Telmisartan 20 mg PO DAILY 12/11/19 metFORMIN [Glucophage] 1,000 mg PO BIDWM 12/11/19 Objective - Vital Signs/Intake & Output Vital Signs: Vital Signs x48h Temp Pulse Pulse Resp BP Pulse Ox 12/15/19 21:00 37.4 C 80 20 130/59 L 97 12/15/19 15:47 37.0 C 73 20 145/70 H 99 12/15/19 14:56 37.0 C 79 19 135/70 H 98 Intake & Output: Intake & Output 12/12/19 12/13/19 12/14/19 12/15/19 23:59 23:59 23:59 23:59 Intake Total 3714.750 3681.000 2023.333 1606 Output Total 1664 275 325 775 Balance 2050.750 3406.000 1698.333 831 - Objective General Appearance: positive: No acute distress Eyes Bilateral: positive: Normal inspection ENT: positive: ENT inspection nml Neck: positive: Nml inspection Respiratory: positive: Chest non-tender Cardiovascular: positive: Regular rate & rhythm Abdomen: positive: Non-tender, No organomegaly, Nml bowel sounds Skin: positive: Color nml Extremities: positive: Non-tender, Nml appearance Neurologic/Psychiatric: positive: Oriented x3 - Lab Results Fish Bones: 12/15/19 05:37 12/15/19 05:37 Other Labs: Lab Results x24hrs 12/15/19 12/15/19 12/15/19 Range/Units 05:37 05:37 05:37 WBC 7.7 (4.8-10.8) x10^3/uL RBC 3.29 L (4.70-6.10) 10^6/uL Hgb 9.9 L (14.0-18.0) g/dL Hct 29.4 L (42.0-52.0) % MCV 89.4 (80.0-94.0) fL MCH 30.1 (27.0-31.0) pg MCHC 33.7 (32.0-36.0) g/dL RDW 12.8 (12.0-15.0) % Plt Count 175 (130-450) 10^3/uL MPV 9.2 (7.4-11.4) fL Neut # (Auto) 5.4 (1.5-6.6) 10^3/uL Lymph # (Auto) 1.4 L (1.5-3.5) 10^3/uL [place] # (Auto) 0.8 (0.0-1.0) 10^3/uL Eos # (Auto) 0.0 (0.0-0.7) 10^3/uL Baso # (Auto) 0.1 (0.0-0.1) 10^3/uL Absolute Nucleated RBC 0.00 x10^3/uL Nucleated RBC % 0.0 /100WBC VBG pH 7.434 H (7.31-7.41) Ionized Calcium 0.97 L (1.15-1.33) mmol/L Sodium 131 L (135-145) mmol/L Potassium 3.2 L (3.5-5.0) mmol/L Chloride 102 (101-111) mmol/L Carbon Dioxide 22 (21-32) mmol/L Anion Gap 7.0 (6-13) BUN 12 (6-20) mg/dL Creatinine 1.1 (0.6-1.2) mg/dL Estimated GFR (MDRD) 66 L (>89) Glucose 197 H (70-100) mg/dL Calcium 7.1 L (8.5-10.3) mg/dL Phosphorus 2.5 (2.5-4.6) mg/dL Magnesium 1.6 L (1.7-2.8) mg/dL Coronavirus (PCR) 12/13/19 Range/Units 16:30 WBC (4.8-10.8) x10^3/uL RBC (4.70-6.10) 10^6/uL Hgb (14.0-18.0) g/dL Hct (42.0-52.0) % MCV (80.0-94.0) fL MCH (27.0-31.0) pg MCHC (32.0-36.0) g/dL RDW (12.0-15.0) % Plt Count (130-450) 10^3/uL MPV (7.4-11.4) fL Neut # (Auto) (1.5-6.6) 10^3/uL Lymph # (Auto) (1.5-3.5) 10^3/uL [place] # (Auto) (0.0-1.0) 10^3/uL Eos # (Auto) (0.0-0.7) 10^3/uL Baso # (Auto) (0.0-0.1) 10^3/uL Absolute Nucleated RBC x10^3/uL Nucleated RBC % /100WBC VBG pH (7.31-7.41) Ionized Calcium (1.15-1.33) mmol/L Sodium (135-145) mmol/L Potassium (3.5-5.0) mmol/L Chloride (101-111) mmol/L Carbon Dioxide (21-32) mmol/L Anion Gap (6-13) BUN (6-20) mg/dL Creatinine (0.6-1.2) mg/dL Estimated GFR (MDRD) (>89) Glucose (70-100) mg/dL Calcium (8.5-10.3) mg/dL Phosphorus (2.5-4.6) mg/dL Magnesium (1.7-2.8) mg/dL Coronavirus (PCR) NEGATIVE - Diagnostic Imaging Diagnostic Imaging Results: positive: Final report reviewed Assessment/Plan - Problem List (1) NSTEMI (non-ST elevated myocardial infarction) Impression: Stable. DC Heparin today Cont to monitor Echo is pending, pending results, possible d/c tomorrow (2) Chronic kidney disease, stage III (moderate) Impression: Stable, Cont to avoid nephrotoxic agents (3) Posterior reversible encephalopathy syndrome (PRES) Impression: Resolving. BP much better. Will cont current meds, cont to monitor
[2019-12-15] MEDS: INSULIN GLARGINE 300 UNIT/3 ML PEN SUBQ SCH (21:27)
[2019-12-16 06:02] LABS: BASOPHILS # (AUTO) 0.1 10^3/uL (0.0-0.1); BASOPHILS % (AUTO) 0.6 %; EOSINOPHILS % (AUTO) 0.4 %; HGB - HEMOGLOBIN 7.8 g/dL (14.0-18.0); LYMPHOCYTES # (AUTO) 1.8 10^3/uL (1.5-3.5); LYMPHOCYTES % (AUTO) 23.5 %; MEAN CORPUSCULAR HEMOGLOBIN 31.3 pg (27.0-31.0); MEAN CORPUSCULAR HGB CONC 34.5 g/dL (32.0-36.0); MEAN CORPUSCULAR VOLUME 90.8 fL (80.0-94.0); MEAN PLATELET VOLUME 9.2 fL (7.4-11.4); MONOCYTES # (AUTO) 0.7 10^3/uL (0.0-1.0); MONOCYTES % (AUTO) 9.3 %; NEUTROPHILS # (AUTO) 5.1 10^3/uL (1.5-6.6); NEUTROPHILS % (AUTO) 65.9 %; PLT - PLATELET COUNT 192 10^3/uL (130-450); RED BLOOD COUNT 2.49 10^6/uL (4.70-6.10); RED CELL DISTRIBUTION WIDTH 12.9 % (12.0-15.0); WHITE BLOOD COUNT 7.7 x10^3/uL (4.8-10.8)
[2019-12-16 06:15] LABS: CALCIUM 7.3 mg/dL (8.5-10.3); CREATININE 1.1 mg/dL (0.6-1.2); MAGNESIUM 1.8 mg/dL (1.7-2.8); PHOSPHORUS 2.5 mg/dL (2.5-4.6)
[2019-12-16] MEDS: polyethylene glycoL 3350 17 GM PACKET PO SCH (08:24)
[2019-12-16] MEDS: LOSARTAN 50 MG TABLET PO SCH (08:30)
[2019-12-16] MEDS: SODIUM CHLORIDE FLUSH 0.9% 10 ML SYRINGE IVP SCH ×2 (08:30→17:15)
[2019-12-16] MEDS: ACETAMINOPHEN 325 MG TABLET PO PRN ×2 (08:30→17:24)
[2019-12-16] MEDS: FLUoxetine 10 MG CAPSULE PO SCH (08:31)
[2019-12-16] MEDS: METOPROLOL SUCCINATE 50 MG TABLET PO SCH (08:31)
[2019-12-16] MEDS: INSULIN ASPART 300 UNIT/3 ML PEN SUBQ SCH ×4 (08:31→21:32)
[2019-12-16] MEDS: ASPIRIN EC 81 MG TABLET PO SCH (08:31)
[2019-12-16] MEDS: levETIRAcetam 500 MG/5 ML UDC PO SCH ×2 (08:31→20:27)
[2019-12-16] MEDS: GABAPENTIN 300 MG CAPSULE PO SCH ×2 (08:31→20:27)
--- NOTE | 2019-12-16 18:29 | PROVIDER PROGRESS NOTE ---
Subjective - Prog Note Date Prog Note Date: 12/16/19 Prog Note Time: 18:27 - Subjective Pt reports feeling: Improved Current Medications - Current Medications Current Medications: Active Medications Acetaminophen (Tylenol) 650 mg PO Q4HR PRN PRN Reason: Pain 1 to 4 Last Admin: 12/16/19 17:24 Dose: 650 mg Aspirin (Ecotrin) 81 mg PO DAILY [facility] Last Admin: 12/16/19 08:31 Dose: 81 mg Atorvastatin Calcium (Lipitor) 40 mg PO QPM [facility] Last Admin: 12/15/19 20:11 Dose: 40 mg Fluoxetine HCl (Prozac) 20 mg PO DAILY [facility] Last Admin: 12/16/19 08:31 Dose: 20 mg Gabapentin (Neurontin) 300 mg PO BID [facility] Last Admin: 12/16/19 08:31 Dose: 300 mg Insulin Aspart (Novolog) 3 - 11 unit SUBQ 0800,1200,1700,2100 [facility]; Protocol Last Admin: 12/16/19 17:14 Dose: 5 unit Insulin Glargine (Lantus Solostar) 5 unit SUBQ QPM [facility] Last Admin: 12/15/19 21:27 Dose: 5 unit Levetiracetam (Keppra) 500 mg PO BID [facility] Last Admin: 12/16/19 08:31 Dose: 500 mg Lorazepam (Ativan Inj (Vial)) 2 mg IVP Q2H PRN PRN Reason: Seizure Losartan Potassium (Cozaar) 100 mg PO DAILY [facility] Last Admin: 12/16/19 08:30 Dose: 100 mg Metoprolol Succinate (Toprol Xl) 50 mg PO DAILY [facility] Last Admin: 12/16/19 08:31 Dose: 50 mg Ondansetron HCl (Zofran Inj) 4 mg IVP Q6HR PRN PRN Reason: Nausea / Vomiting Polyethylene Glycol (Miralax) 17 gm PO DAILY [facility] Last Admin: 12/16/19 08:24 Dose: Not Given Sodium Chloride (Normal Saline Flush 0.9%) 10 ml IVP 0100,0900,1700 [facility] Last Admin: 12/16/19 17:15 Dose: 10 ml Sodium Chloride (Normal Saline Flush 0.9%) 10 ml IVP PRN PRN PRN Reason: NEEDED PER PROVIDER ORDERS Zolpidem Tartrate (Ambien) 5 mg PO QPM PRN PRN Reason: Insomnia Last Admin: 12/15/19 20:11 Dose: 5 mg FLUoxetine [PROzac] 20 mg PO DAILY 12/11/19 Gabapentin 300 mg PO BID 12/11/19 Mirtazapine 7.5 mg PO DAILY 12/11/19 Rosuvastatin Calcium [Crestor] 20 mg PO QPM 12/11/19 SITagliptin [Januvia] 100 mg PO DAILY 12/11/19 Telmisartan 20 mg PO DAILY 12/11/19 metFORMIN [Glucophage] 1,000 mg PO BIDWM 12/11/19 Objective - Vital Signs/Intake & Output Reviewed Vital Signs: Yes Vital Signs: Vital Signs x48h Temp Pulse Resp BP BP BP Pulse Ox 12/16/19 15:58 122/63 142/62 H 12/16/19 12:43 36.5 C 77 18 131/66 H 98 Intake & Output: Intake & Output 12/13/19 12/14/19 12/15/19 12/16/19 23:59 23:59 23:59 23:59 Intake Total 3681.000 2023.333 1606 420 Output Total 275 325 775 425 Balance 3406.000 1698.333 831 -5 - Objective General Appearance: positive: No acute distress Eyes Bilateral: positive: Normal inspection ENT: positive: ENT inspection nml Neck: positive: Nml inspection Respiratory: positive: Chest non-tender, No respiratory distress, Breath sounds nml Cardiovascular: positive: Regular rate & rhythm, No murmur, No gallop Abdomen: positive: Non-tender, No organomegaly, Nml bowel sounds, No distention Skin: positive: Color nml, No rash Extremities: positive: Non-tender, No pedal edema Neurologic/Psychiatric: positive: Oriented x3, CN's nml (2-12) - Lab Results Fish Bones: 12/16/19 05:36 12/16/19 05:36 Other Labs: Lab Results x24hrs 12/16/19 12/16/19 12/16/19 Range/Units 17:01 11:46 07:35 WBC (4.8-10.8) x10^3/uL RBC (4.70-6.10) 10^6/uL Hgb (14.0-18.0) g/dL Hct (42.0-52.0) % MCV (80.0-94.0) fL MCH (27.0-31.0) pg MCHC (32.0-36.0) g/dL RDW (12.0-15.0) % Plt Count (130-450) 10^3/uL MPV (7.4-11.4) fL Neut # (Auto) (1.5-6.6) 10^3/uL Lymph # (Auto) (1.5-3.5) 10^3/uL [place] # (Auto) (0.0-1.0) 10^3/uL Eos # (Auto) (0.0-0.7) 10^3/uL Baso # (Auto) (0.0-0.1) 10^3/uL Absolute Nucleated RBC x10^3/uL Nucleated RBC % /100WBC Sodium (135-145) mmol/L Potassium (3.5-5.0) mmol/L Chloride (101-111) mmol/L Carbon Dioxide (21-32) mmol/L Anion Gap (6-13) BUN (6-20) mg/dL Creatinine (0.6-1.2) mg/dL Estimated GFR (MDRD) (>89) Glucose (70-100) mg/dL POC Whole Bld Glucose 199 H 217 H 194 H (70 - 100) mg/dL Calcium (8.5-10.3) mg/dL Phosphorus (2.5-4.6) mg/dL Magnesium (1.7-2.8) mg/dL 12/16/19 12/16/19 12/15/19 Range/Units 05:36 05:36 21:03 WBC 7.7 (4.8-10.8) x10^3/uL RBC 2.49 L (4.70-6.10) 10^6/uL Hgb 7.8 L (14.0-18.0) g/dL Hct 22.6 L (42.0-52.0) % MCV 90.8 (80.0-94.0) fL MCH 31.3 H (27.0-31.0) pg MCHC 34.5 (32.0-36.0) g/dL RDW 12.9 (12.0-15.0) % Plt Count 192 (130-450) 10^3/uL MPV 9.2 (7.4-11.4) fL Neut # (Auto) 5.1 (1.5-6.6) 10^3/uL Lymph # (Auto) 1.8 (1.5-3.5) 10^3/uL [place] # (Auto) 0.7 (0.0-1.0) 10^3/uL Eos # (Auto) 0.0 (0.0-0.7) 10^3/uL Baso # (Auto) 0.1 (0.0-0.1) 10^3/uL Absolute Nucleated RBC 0.00 x10^3/uL Nucleated RBC % 0.0 /100WBC Sodium 133 L (135-145) mmol/L Potassium 4.1 (3.5-5.0) mmol/L Chloride 104 (101-111) mmol/L Carbon Dioxide 21 (21-32) mmol/L Anion Gap 8.0 (6-13) BUN 18 (6-20) mg/dL Creatinine 1.1 (0.6-1.2) mg/dL Estimated GFR (MDRD) 66 L (>89) Glucose 206 H (70-100) mg/dL POC Whole Bld Glucose 218 H (70 - 100) mg/dL Calcium 7.3 L (8.5-10.3) mg/dL Phosphorus 2.5 (2.5-4.6) mg/dL Magnesium 1.8 (1.7-2.8) mg/dL 12/15/19 12/15/19 12/15/19 Range/Units 17:07 11:33 07:50 WBC (4.8-10.8) x10^3/uL RBC (4.70-6.10) 10^6/uL Hgb (14.0-18.0) g/dL Hct (42.0-52.0) % MCV (80.0-94.0) fL MCH (27.0-31.0) pg MCHC (32.0-36.0) g/dL RDW (12.0-15.0) % Plt Count (130-450) 10^3/uL MPV (7.4-11.4) fL Neut # (Auto) (1.5-6.6) 10^3/uL Lymph # (Auto) (1.5-3.5) 10^3/uL [place] # (Auto) (0.0-1.0) 10^3/uL Eos # (Auto) (0.0-0.7) 10^3/uL Baso # (Auto) (0.0-0.1) 10^3/uL Absolute Nucleated RBC x10^3/uL Nucleated RBC % /100WBC Sodium (135-145) mmol/L Potassium (3.5-5.0) mmol/L Chloride (101-111) mmol/L Carbon Dioxide (21-32) mmol/L Anion Gap (6-13) BUN (6-20) mg/dL Creatinine (0.6-1.2) mg/dL Estimated GFR (MDRD) (>89) Glucose (70-100) mg/dL POC Whole Bld Glucose 223 H 285 H 194 H (70 - 100) mg/dL Calcium (8.5-10.3) mg/dL Phosphorus (2.5-4.6) mg/dL Magnesium (1.7-2.8) mg/dL 12/14/19 12/14/19 12/14/19 Range/Units 20:27 16:12 11:09 WBC (4.8-10.8) x10^3/uL RBC (4.70-6.10) 10^6/uL Hgb (14.0-18.0) g/dL Hct (42.0-52.0) % MCV (80.0-94.0) fL MCH (27.0-31.0) pg MCHC (32.0-36.0) g/dL RDW (12.0-15.0) % Plt Count (130-450) 10^3/uL MPV (7.4-11.4) fL Neut # (Auto) (1.5-6.6) 10^3/uL Lymph # (Auto) (1.5-3.5) 10^3/uL [place] # (Auto) (0.0-1.0) 10^3/uL Eos # (Auto) (0.0-0.7) 10^3/uL Baso # (Auto) (0.0-0.1) 10^3/uL Absolute Nucleated RBC x10^3/uL Nucleated RBC % /100WBC Sodium (135-145) mmol/L Potassium (3.5-5.0) mmol/L Chloride (101-111) mmol/L Carbon Dioxide (21-32) mmol/L Anion Gap (6-13) BUN (6-20) mg/dL Creatinine (0.6-1.2) mg/dL Estimated GFR (MDRD) (>89) Glucose (70-100) mg/dL POC Whole Bld Glucose 185 H 172 H 263 H (70 - 100) mg/dL Calcium (8.5-10.3) mg/dL Phosphorus (2.5-4.6) mg/dL Magnesium (1.7-2.8) mg/dL 12/14/19 12/13/19 12/13/19 Range/Units 08:02 20:35 16:15 WBC (4.8-10.8) x10^3/uL RBC (4.70-6.10) 10^6/uL Hgb (14.0-18.0) g/dL Hct (42.0-52.0) % MCV (80.0-94.0) fL MCH (27.0-31.0) pg MCHC (32.0-36.0) g/dL RDW (12.0-15.0) % Plt Count (130-450) 10^3/uL MPV (7.4-11.4) fL Neut # (Auto) (1.5-6.6) 10^3/uL Lymph # (Auto) (1.5-3.5) 10^3/uL [place] # (Auto) (0.0-1.0) 10^3/uL Eos # (Auto) (0.0-0.7) 10^3/uL Baso # (Auto) (0.0-0.1) 10^3/uL Absolute Nucleated RBC x10^3/uL Nucleated RBC % /100WBC Sodium (135-145) mmol/L Potassium (3.5-5.0) mmol/L Chloride (101-111) mmol/L Carbon Dioxide (21-32) mmol/L Anion Gap (6-13) BUN (6-20) mg/dL Creatinine (0.6-1.2) mg/dL Estimated GFR (MDRD) (>89) Glucose (70-100) mg/dL POC Whole Bld Glucose 149 H 169 H 197 H (70 - 100) mg/dL Calcium (8.5-10.3) mg/dL Phosphorus (2.5-4.6) mg/dL Magnesium (1.7-2.8) mg/dL 12/13/19 12/13/19 12/12/19 Range/Units 12:07 08:19 20:34 WBC (4.8-10.8) x10^3/uL RBC (4.70-6.10) 10^6/uL Hgb (14.0-18.0) g/dL Hct (42.0-52.0) % MCV (80.0-94.0) fL MCH (27.0-31.0) pg MCHC (32.0-36.0) g/dL RDW (12.0-15.0) % Plt Count (130-450) 10^3/uL MPV (7.4-11.4) fL Neut # (Auto) (1.5-6.6) 10^3/uL Lymph # (Auto) (1.5-3.5) 10^3/uL [place] # (Auto) (0.0-1.0) 10^3/uL Eos # (Auto) (0.0-0.7) 10^3/uL Baso # (Auto) (0.0-0.1) 10^3/uL Absolute Nucleated RBC x10^3/uL Nucleated RBC % /100WBC Sodium (135-145) mmol/L Potassium (3.5-5.0) mmol/L Chloride (101-111) mmol/L Carbon Dioxide (21-32) mmol/L Anion Gap (6-13) BUN (6-20) mg/dL Creatinine (0.6-1.2) mg/dL Estimated GFR (MDRD) (>89) Glucose (70-100) mg/dL POC Whole Bld Glucose 179 H 181 H 163 H (70 - 100) mg/dL Calcium (8.5-10.3) mg/dL Phosphorus (2.5-4.6) mg/dL Magnesium (1.7-2.8) mg/dL 12/12/19 12/12/19 12/12/19 Range/Units 17:04 13:05 05:20 WBC (4.8-10.8) x10^3/uL RBC (4.70-6.10) 10^6/uL Hgb (14.0-18.0) g/dL Hct (42.0-52.0) % MCV (80.0-94.0) fL MCH (27.0-31.0) pg MCHC (32.0-36.0) g/dL RDW (12.0-15.0) % Plt Count (130-450) 10^3/uL MPV (7.4-11.4) fL Neut # (Auto) (1.5-6.6) 10^3/uL Lymph # (Auto) (1.5-3.5) 10^3/uL [place] # (Auto) (0.0-1.0) 10^3/uL Eos # (Auto) (0.0-0.7) 10^3/uL Baso # (Auto) (0.0-0.1) 10^3/uL Absolute Nucleated RBC x10^3/uL Nucleated RBC % /100WBC Sodium (135-145) mmol/L Potassium (3.5-5.0) mmol/L Chloride (101-111) mmol/L Carbon Dioxide (21-32) mmol/L Anion Gap (6-13) BUN (6-20) mg/dL Creatinine (0.6-1.2) mg/dL Estimated GFR (MDRD) (>89) Glucose (70-100) mg/dL POC Whole Bld Glucose 88 185 H 124 H (70 - 100) mg/dL Calcium (8.5-10.3) mg/dL Phosphorus (2.5-4.6) mg/dL Magnesium (1.7-2.8) mg/dL 12/11/19 12/11/19 Range/Units 23:13 18:28 WBC (4.8-10.8) x10^3/uL RBC (4.70-6.10) 10^6/uL Hgb (14.0-18.0) g/dL Hct (42.0-52.0) % MCV (80.0-94.0) fL MCH (27.0-31.0) pg MCHC (32.0-36.0) g/dL RDW (12.0-15.0) % Plt Count (130-450) 10^3/uL MPV (7.4-11.4) fL Neut # (Auto) (1.5-6.6) 10^3/uL Lymph # (Auto) (1.5-3.5) 10^3/uL [place] # (Auto) (0.0-1.0) 10^3/uL Eos # (Auto) (0.0-0.7) 10^3/uL Baso # (Auto) (0.0-0.1) 10^3/uL Absolute Nucleated RBC x10^3/uL Nucleated RBC % /100WBC Sodium (135-145) mmol/L Potassium (3.5-5.0) mmol/L Chloride (101-111) mmol/L Carbon Dioxide (21-32) mmol/L Anion Gap (6-13) BUN (6-20) mg/dL Creatinine (0.6-1.2) mg/dL Estimated GFR (MDRD) (>89) Glucose (70-100) mg/dL POC Whole Bld Glucose 231 H 272 H (70 - 100) mg/dL Calcium (8.5-10.3) mg/dL Phosphorus (2.5-4.6) mg/dL Magnesium (1.7-2.8) mg/dL - Diagnostic Imaging Diagnostic Imaging Results: positive: Prelim report reviewed, Final report reviewed Diagnostic Imaging Comments: Echocardiogram preliminary report is available for review at the time of this dictation, however final report not yet finalized Assessment/Plan - Problem List (1) NSTEMI (non-ST elevated myocardial infarction) Impression: Patient has no chest pain, no shortness of breath and is essentially asymptomatic from this. Heparin GTT was discontinued earlier today.I reviewed the preliminary report of the echocardiogram which does have some concerning findings regarding wall motion abnormality. I did discuss this in detail with the patient. In particular, I informed him that in the context of the recent diagnosis of the end NTEMI,Along with the wall motion abnormality on the echocardiogram, that there is certainly some strong concern for obstructive coronary artery disease. I informed him that in the normal standard of care this would lead to a diagnostic and possibly therapeutic coronary angiogram. However, at this facility we do not have that capability, nor do we even have cardiology service available to us. I informed him that if he would be interested in a angiogram then we would look into transferring him to an outside facility assuming we could get a facility to accept him. I am more than happy to initiate this process for the patient if he so chooses to pursue this course of treatment. However, the patient seemed to prefer avoiding any further hospitalizations, unnecessary procedures in the light of the normal 2019 coronavirus epidemic. I also did inform him that is unclear to me whether or not to this procedure would be offered, but again assured him that I would be happy to reach out to cardiology service at an outside facility to see if I could get him transferred. He asked me to talk to his and after spending a great deal of time with the on the phone, she ultimately agreed that she did not think that at this point they would like to proceed with invasive angiography but would prefer medical management. She ultimately left the decision up to her Dileep, who again reiterated that he would prefer not to be transferred and to pursue medical management only and defer angiogram to a later time hopefully after the 2019 novel coronavirus pandemic has become better managed, and he will pursue an outpatient cardiology evaluation. He is also reassured me that should he have any symptoms of chest pain, shortness of breath or anything concerning that he will call for immediate medical attention including calling 911 for an ambulance. (2) Chronic kidney disease, stage III (moderate) Impression: Kidney function has returned to baseline, continue to monitor (3) Posterior reversible encephalopathy syndrome (PRES) Impression: Patient is now back at baseline, blood pressure well controlled. He does have some residual dizziness, and was unable to ambulate very well today with physical therapy. We will have him seen again tomorrow potentially discharge home with home health if he is able to manage standing upright And walking short distances. Continue to monitor.
[2019-12-16] MEDS ORDERED: ASPIRIN 325 MG TABLET PO SCH (19:00)
[2019-12-16] MEDS: ZOLPIDEM 5 MG TABLET PO PRN (20:27)
[2019-12-16] MEDS: ATORVASTATIN 40 MG TABLET PO SCH (20:27)
[2019-12-16] MEDS: INSULIN GLARGINE 300 UNIT/3 ML PEN SUBQ SCH (21:31)
[2019-12-17] MEDS: SODIUM CHLORIDE FLUSH 0.9% 10 ML SYRINGE IVP SCH ×3 (01:16→16:32)
[2019-12-17 05:09] LABS: CALCIUM 7.3 mg/dL (8.5-10.3); CREATININE 1.2 mg/dL (0.6-1.2)
[2019-12-17] MEDS: GABAPENTIN 300 MG CAPSULE PO SCH ×2 (08:01→20:30)
[2019-12-17] MEDS: METOPROLOL SUCCINATE 50 MG TABLET PO SCH (08:01)
[2019-12-17] MEDS: levETIRAcetam 500 MG/5 ML UDC PO SCH ×2 (08:02→20:30)
[2019-12-17] MEDS: LOSARTAN 50 MG TABLET PO SCH (08:02)
[2019-12-17] MEDS: ASPIRIN EC 81 MG TABLET PO SCH (08:02)
[2019-12-17] MEDS: polyethylene glycoL 3350 17 GM PACKET PO SCH (08:02)
[2019-12-17] MEDS: FLUoxetine 10 MG CAPSULE PO SCH (08:02)
[2019-12-17] MEDS: INSULIN ASPART 300 UNIT/3 ML PEN SUBQ SCH ×4 (08:03→20:38)
[2019-12-17] MEDS ORDERED: CLOPIDOGREL 75 MG TABLET PO SCH (09:00)
[2019-12-17] MEDS ORDERED: LORazepam 2 MG/ML VIAL IVP PRN (15:10)
--- NOTE | 2019-12-17 15:15 | PROVIDER PROGRESS NOTE ---
Subjective - Prog Note Date Prog Note Date: 12/17/19 Prog Note Time: 15:12 - Subjective Pt reports feeling: No change (Patient continues to feel dizzy today. Feels lightheadedness head is spinning. Mild nausea. Continues to have some pain in the right groin. Otherwise, has no other complaints. No chest pain, No shortness of breath.) Subjective: Patient continues to complain of dizziness. Feels like the room is spinning. Current Medications - Current Medications Current Medications: Active Medications Acetaminophen (Tylenol) 650 mg PO Q4HR PRN PRN Reason: Pain 1 to 4 Last Admin: 12/16/19 17:24 Dose: 650 mg Aspirin (Ecotrin) 81 mg PO DAILY [facility] Last Admin: 12/17/19 08:02 Dose: 81 mg Atorvastatin Calcium (Lipitor) 40 mg PO QPM [facility] Last Admin: 12/16/19 20:27 Dose: 40 mg Clopidogrel Bisulfate (Plavix) 75 mg PO DAILY [facility] Last Admin: 12/17/19 08:02 Dose: 75 mg Fluoxetine HCl (Prozac) 20 mg PO DAILY [facility] Last Admin: 12/17/19 08:02 Dose: 20 mg Gabapentin (Neurontin) 300 mg PO BID [facility] Last Admin: 12/17/19 08:01 Dose: 300 mg Insulin Aspart (Novolog) 3 - 11 unit SUBQ 0800,1200,1700,2100 [facility]; Protocol Last Admin: 12/17/19 11:35 Dose: 9 unit Insulin Glargine (Lantus Solostar) 5 unit SUBQ QPM [facility] Last Admin: 12/16/19 21:31 Dose: 5 unit Levetiracetam (Keppra) 500 mg PO BID [facility] Last Admin: 12/17/19 08:02 Dose: 500 mg Lorazepam (Ativan Inj (Vial)) 0.5 mg IVP Q2H PRN PRN Reason: Seizure Losartan Potassium (Cozaar) 100 mg PO DAILY [facility] Last Admin: 12/17/19 08:02 Dose: 100 mg Metoprolol Succinate (Toprol Xl) 25 mg PO DAILY [facility] Ondansetron HCl (Zofran Inj) 4 mg IVP Q6HR PRN PRN Reason: Nausea / Vomiting Polyethylene Glycol (Miralax) 17 gm PO DAILY [facility] Last Admin: 12/17/19 08:02 Dose: 17 gm Sodium Chloride (Normal Saline Flush 0.9%) 10 ml IVP 0100,0900,1700 [facility] Last Admin: 12/17/19 08:03 Dose: 10 ml Sodium Chloride (Normal Saline Flush 0.9%) 10 ml IVP PRN PRN PRN Reason: NEEDED PER PROVIDER ORDERS Trazodone HCl (Desyrel) 50 mg PO QPM PRN PRN Reason: Insomnia FLUoxetine [PROzac] 20 mg PO DAILY 12/11/19 Gabapentin 300 mg PO BID 12/11/19 Mirtazapine 7.5 mg PO DAILY 12/11/19 Rosuvastatin Calcium [Crestor] 20 mg PO QPM 12/11/19 SITagliptin [Januvia] 100 mg PO DAILY 12/11/19 Telmisartan 20 mg PO DAILY 12/11/19 metFORMIN [Glucophage] 1,000 mg PO BIDWM 12/11/19 Objective - Vital Signs/Intake & Output Reviewed Vital Signs: Yes Vital Signs: Vital Signs x48h Temp Pulse Resp BP Pulse Ox 12/17/19 11:03 36.8 C 72 18 135/49 H 99 12/17/19 10:45 138/53 H 12/17/19 10:30 80 130/59 L 96 12/17/19 10:15 73 145/70 H 99 12/17/19 10:00 79 135/70 H 98 12/17/19 09:54 36.6 C 94 18 148/54 H 100 12/17/19 07:25 37.2 C 82 16 136/62 H 98 Intake & Output: Intake & Output 12/14/19 12/15/19 12/16/19 12/17/19 23:59 23:59 23:59 23:59 Intake Total 2022.333 1606 940 960 Output Total 325 775 605 750 Balance 1698.333 831 335 210 - Objective General Appearance: positive: No acute distress, Alert Eyes Bilateral: positive: Normal inspection, PERRL, Other (Bilateral nystagmus, right worse than left reproducible with modified Steven maneuver (Patient could not tolerate the full Steven)) ENT: positive: ENT inspection nml Neck: positive: Nml inspection, Thyroid nml, No JVD Respiratory: positive: Chest non-tender, No respiratory distress, Breath sounds nml Cardiovascular: positive: Regular rate & rhythm, No murmur, No gallop Abdomen: positive: Non-tender, No organomegaly, Nml bowel sounds Skin: positive: Color nml, No rash, Warm Neurologic/Psychiatric: positive: Oriented x3, CN's nml (2-12), Other (Partial Rayshawn-Hallpike maneuver was resulting in right-sided more than left-sided bilateral nystagmus) - Lab Results Fish Bones: 12/16/19 05:36 12/17/19 04:30 Other Labs: Lab Results x24hrs 12/17/19 12/17/19 12/17/19 Range/Units 11:29 07:27 04:30 Sodium 131 L (135-145) mmol/L Potassium 4.5 (3.5-5.0) mmol/L Chloride 100 L (101-111) mmol/L Carbon Dioxide 23 (21-32) mmol/L Anion Gap 8.0 (6-13) BUN 24 H (6-20) mg/dL Creatinine 1.2 (0.6-1.2) mg/dL Estimated GFR (MDRD) 59 L (>89) Glucose 155 H (70-100) mg/dL POC Whole Bld Glucose 289 H 215 H (70 - 100) mg/dL Calcium 7.3 L (8.5-10.3) mg/dL Ref Lab Test Result 12/16/19 12/16/19 12/11/19 Range/Units 20:49 17:01 21:00 Sodium (135-145) mmol/L Potassium (3.5-5.0) mmol/L Chloride (101-111) mmol/L Carbon Dioxide (21-32) mmol/L Anion Gap (6-13) BUN (6-20) mg/dL Creatinine (0.6-1.2) mg/dL Estimated GFR (MDRD) (>89) Glucose (70-100) mg/dL POC Whole Bld Glucose 197 H 199 H (70 - 100) mg/dL Calcium (8.5-10.3) mg/dL Ref Lab Test Result REPORT - Diagnostic Imaging Diagnostic Imaging Results: positive: Final report reviewed Assessment/Plan - Problem List (1) NSTEMI (non-ST elevated myocardial infarction) Impression: Stable. No chest pain. No shortness of breath. Continue Plavix and aspirin. Continue to monitor closely, and as per discussion on 12/16/2019 patient would prefer to avoid a angiogram at this time and would rather have this considered as an outpatient when the coronavirus pandemic has resolved. (2) Vertigo Impression: Patient has continued to complain of dizziness and vertigo and is unable to sit at the side of the bed as a limitation of this. He is also demonstrated orthostatic hypotension. This is relevant because the patient came in with a diagnosis of press syndrome, which I believe has since resolved, but would potentially explain with the vertigo and his blood pressure may need further titration.I am considering the following with respect to the patient's dizziness: * Blood pressure controlwe will decrease metoprolol from 100 mg daily to 50 mg daily as patient's diastolics have been trending down and beta blockers are known to potentially cause this * Patient has been relatively anemic, no H&H has been checked today, will repeat a hemoglobin and hematocrit tomorrow morning to ensure no further downward trending, Especially given his need for Plavix and aspirin with the recent cardiac event * Continue to monitor p.o. intake, consider IV fluids if becomes fluid negative * Patient was also started on Ambien about 2 days ago, the night prior to his first day complaining of dizziness, and this could potentially be a considerable source. Will discontinue Ambien and replace with trazodone for insomnia. * Continue physical therapy. * If patient does not improve within the next 2 days, may need to consider outpatient respite or other options for placement as this could potentially not resolve in the immediate term (3) Chronic kidney disease, stage III (moderate) Impression: Stable, continue to monitor. (4) Insomnia Impression: Due to dizziness, DC Ambien, start trial of trazodone Qualifiers: Insomnia type: primary Qualified Code(s): F51.01 - Primary insomnia
[2019-12-17] MEDS: ATORVASTATIN 40 MG TABLET PO SCH (20:30)
[2019-12-17] MEDS: ACETAMINOPHEN 325 MG TABLET PO PRN (20:30)
[2019-12-17] MEDS: traZODone 50 MG TABLET PO PRN (20:30)
[2019-12-17] MEDS: INSULIN GLARGINE 300 UNIT/3 ML PEN SUBQ SCH (20:38)
[2019-12-18] MEDS: SODIUM CHLORIDE FLUSH 0.9% 10 ML SYRINGE IVP SCH ×3 (00:46→16:31)
[2019-12-18 05:59] LABS: MEAN CORPUSCULAR HEMOGLOBIN 30.5 pg (27.0-31.0); MEAN CORPUSCULAR HGB CONC 33.1 g/dL (32.0-36.0); MEAN CORPUSCULAR VOLUME 92.1 fL (80.0-94.0); MEAN PLATELET VOLUME 8.8 fL (7.4-11.4); RED BLOOD COUNT 1.9 10^6/uL (4.70-6.10); RED CELL DISTRIBUTION WIDTH 13.7 % (12.0-15.0); WHITE BLOOD COUNT 9.2 x10^3/uL (4.8-10.8)
[2019-12-18 06:03] LABS: HGB - HEMOGLOBIN 5.8 g/dL (14.0-18.0)
[2019-12-18 06:06] LABS: CALCIUM 7.5 mg/dL (8.5-10.3); CREATININE 1.4 mg/dL (0.6-1.2)
[2019-12-18 06:36] LABS: MEAN CORPUSCULAR HEMOGLOBIN 31.9 pg (27.0-31.0); MEAN CORPUSCULAR HGB CONC 34.1 g/dL (32.0-36.0); MEAN CORPUSCULAR VOLUME 93.5 fL (80.0-94.0); MEAN PLATELET VOLUME 8.6 fL (7.4-11.4); RED BLOOD COUNT 1.85 10^6/uL (4.70-6.10); RED CELL DISTRIBUTION WIDTH 13.6 % (12.0-15.0); WHITE BLOOD COUNT 9.8 x10^3/uL (4.8-10.8)
[2019-12-18 06:39] LABS: HGB - HEMOGLOBIN 5.9 g/dL (14.0-18.0)
[2019-12-18] MEDS: polyethylene glycoL 3350 17 GM PACKET PO SCH (08:15)
[2019-12-18] MEDS: ASPIRIN EC 81 MG TABLET PO SCH (08:17)
[2019-12-18] MEDS: levETIRAcetam 500 MG/5 ML UDC PO SCH ×2 (08:17→20:26)
[2019-12-18] MEDS: FLUoxetine 10 MG CAPSULE PO SCH (08:17)
[2019-12-18] MEDS: LOSARTAN 50 MG TABLET PO SCH (08:18)
[2019-12-18] MEDS: METOPROLOL SUCCINATE 25 MG TABLET PO SCH (08:18)
[2019-12-18] MEDS: GABAPENTIN 300 MG CAPSULE PO SCH ×2 (08:18→20:26)
[2019-12-18] MEDS: INSULIN ASPART 300 UNIT/3 ML PEN SUBQ SCH ×4 (08:24→21:34)
--- NOTE | 2019-12-18 10:43 | CONSULTATION NOTE ---
Referring Provider Name of Referring Provider:: MD Padmini hospitalist Consult Date: 12/18/19 History of Present Illness - History of Present Illness HPI Comment/Other: Pleasant 74yo M admitted on 12/10 with an NSTEMI. He has been improving with plans for discharge in 1-2 days. He is started on Plavix and ASA. He developed fatigue and dizziness yesterday and Hg was found to have dropped significantly to 5.8 from 10.5 on admission. He has blood ordered and surgery is consulted for endoscopy. Pt has no abdominal pain, no blood in stools or dark stools. Has been tolerating PO intake with no pain or nausea. He has no history of NSAID use before this and no heartburn except remotely (over 20 years ago). He has never had a colonoscopy nor EGD. No abdominal surgeries. History - Past Medical History Cardiovascular: reports: None Respiratory: reports: None Neuro: reports: None Endocrine/Autoimmune: reports: Type 2 diabetes GI: reports: None : reports: Renal insuffiency Psych: reports: Depression Musculoskeletal: reports: None Derm: reports: None - Family & Social History Family History: Mother: , Father: Family History Comment/Other: Mother from kidney failure. No other family history per his spouse. Living arrangement: At home Living Situation: With spouse/s.o. Social History Notes: He lives with his at home. She states they had a dog who about 1 year ago and he has been depressed since then. They recently got a cat about 1 month ago and his mood has improved. She states he drank alcohol on a daily basis for many years and he was an alcoholic. She states he quit over 1 year ago and does not believe he would be drinking alcohol recently. She reports no prior smoking history. She states that he does smoke marijuana on a daily basis - Substance History Use: Uses substance without health or social issues: Cannabis Meds/Allgy - Home Medications Home Medications: Ambulatory Orders Medication Instructions Recorded Confirmed FLUoxetine [PROzac] 20 mg PO DAILY 12/11/19 12/11/19 Gabapentin 300 mg PO BID 12/11/19 12/11/19 Mirtazapine 7.5 mg PO DAILY 12/11/19 12/11/19 Rosuvastatin Calcium [Crestor] 20 mg PO QPM 12/11/19 12/11/19 SITagliptin [Januvia] 100 mg PO DAILY 12/11/19 12/11/19 Telmisartan 20 mg PO DAILY 12/11/19 12/11/19 metFORMIN [Glucophage] 1,000 mg PO BIDWM 12/11/19 12/11/19 - Allergies Allergies/Adverse Reactions: Allergies Allergy/AdvReac Type Severity Reaction Status Date / Time No Known Drug Allergies Allergy Verified 12/11/19 21:07 Review of Systems - Other Findings Other Findings: as per HPI Exam - Vital Signs Reviewed Vital Signs: Yes Vital Signs: Vital Signs x48h Temp Pulse Pulse Resp BP BP Pulse Ox 12/18/19 10:30 37.5 C 78 18 131/45 H 12/18/19 07:20 37.2 C 81 18 129/49 L 98 12/18/19 05:45 37.3 C 81 16 129/49 L 96 - Physical Exam Comments/Other: AAO, NAD, male of healthy weight EOMI, MMM, no scleral icterus unlabored RA soft, nt/nd MAEW Conclusion and Plan - Lab Results Microbiology Results 12/12/19 05:20 Blood Blood Culture - Final NO GROWTH AFTER 5 DAYS 12/11/19 18:24 Blood - Right Iv-Start Blood Culture - Final NO GROWTH AFTER 5 DAYS Laboratory Results 12/18/19 07:23: POC Whole Bld Glucose 225 H 12/18/19 06:25: Blood Type O POSITIVE, Antibody Screen NEGATIVE, Crossmatch IS Only See Detail 12/18/19 06:25: WBC 9.8, RBC 1.85 L, Hgb 5.9 L*, Hct 17.3 L*, MCV 93.5, MCH 31.9 H, MCHC 34.1, RDW 13.6, Plt Count 215, MPV 8.6 12/18/19 06:25: Blood Type Cancelled, Antibody Screen Cancelled 12/18/19 05:48: Blood Type Recheck O POSITIVE 12/18/19 05:48: WBC 9.2, RBC 1.90 L, Hgb 5.8 L*, Hct 17.5 L*, MCV 92.1, MCH 30.5, MCHC 33.1, RDW 13.7, Plt Count 209, MPV 8.8 12/18/19 05:48: Sodium 129 L, Potassium 4.4, Chloride 98 L, Carbon Dioxide 21, Anion Gap 10.0, BUN 29 H, Creatinine 1.4 H, Estimated GFR (MDRD) 50 L, Glucose 214 H, Calcium 7.5 L 12/17/19 20:28: POC Whole Bld Glucose 270 H 12/17/19 16:30: POC Whole Bld Glucose 142 H 12/17/19 11:29: POC Whole Bld Glucose 289 H 12/17/19 07:27: POC Whole Bld Glucose 215 H 12/17/19 04:30: Sodium 131 L, Potassium 4.5, Chloride 100 L, Carbon Dioxide 23, Anion Gap 8.0, BUN 24 H, Creatinine 1.2, Estimated GFR (MDRD) 59 L, Glucose 155 H, Calcium 7.3 L 12/16/19 20:49: POC Whole Bld Glucose 197 H 12/16/19 17:01: POC Whole Bld Glucose 199 H 12/16/19 11:46: POC Whole Bld Glucose 217 H 12/11/19 21:00: Ref Lab Test Result REPORT - Diagnosis Diagnosis: Anemia. suspected GI bleed - Plan Plan: - significant blood loss over past few days with new but needed anti-platelet therapy for his CV event - plan for diagnostic and possibly therapeutic upper and lower endoscopy --> all R/B/A discussed and pt wishes to proceed - CLD today and prep then procedures tomorrow AM - he is COVID negative per test and no concerning symptoms suggestive of disease
--- NOTE | 2019-12-18 15:27 | PROVIDER PROGRESS NOTE ---
Subjective - Prog Note Date Prog Note Date: 12/18/19 Prog Note Time: 15:26 - Subjective Pt reports feeling: No change (Patient does not currently complain of dizziness but complains of significant fatigue, otherwise denies any shortness of breath, chest pain, vision changes, other neurological complaints and otherwise feels relatively well. He denies any melena, hemoptysis, hematochezia, or other complaints to suggest a source of bleeding) Current Medications - Current Medications Current Medications: Active Medications Acetaminophen (Tylenol) 650 mg PO Q4HR PRN PRN Reason: Pain 1 to 4 Last Admin: 12/17/19 20:30 Dose: 650 mg Aspirin (Ecotrin) 81 mg PO DAILY [facility] Last Admin: 12/18/19 08:17 Dose: 81 mg Atorvastatin Calcium (Lipitor) 40 mg PO QPM [facility] Last Admin: 12/17/19 20:30 Dose: 40 mg Fluoxetine HCl (Prozac) 20 mg PO DAILY [facility] Last Admin: 12/18/19 08:17 Dose: 20 mg Gabapentin (Neurontin) 300 mg PO BID [facility] Last Admin: 12/18/19 08:18 Dose: 300 mg Insulin Aspart (Novolog) 3 - 11 unit SUBQ 0800,1200,1700,2100 [facility]; Protocol Last Admin: 12/18/19 12:14 Dose: 7 unit Insulin Glargine (Lantus Solostar) 5 unit SUBQ QPM [facility] Last Admin: 12/17/19 20:38 Dose: 5 unit Levetiracetam (Keppra) 500 mg PO BID [facility] Last Admin: 12/18/19 08:17 Dose: 500 mg Lorazepam (Ativan Inj (Vial)) 0.5 mg IVP Q2H PRN PRN Reason: Seizure Losartan Potassium (Cozaar) 100 mg PO DAILY [facility] Last Admin: 12/18/19 08:18 Dose: 100 mg Metoprolol Succinate (Toprol Xl) 25 mg PO DAILY [facility] Last Admin: 12/18/19 08:18 Dose: 25 mg Ondansetron HCl (Zofran Inj) 4 mg IVP Q6HR PRN PRN Reason: Nausea / Vomiting Polyethylene Glycol (Miralax) 17 gm PO DAILY [facility] Last Admin: 12/18/19 08:15 Dose: 17 gm Sodium Chloride (Normal Saline Flush 0.9%) 10 ml IVP 0100,0900,1700 [facility] Last Admin: 12/18/19 08:21 Dose: 10 ml Sodium Chloride (Normal Saline Flush 0.9%) 10 ml IVP PRN PRN PRN Reason: NEEDED PER PROVIDER ORDERS Trazodone HCl (Desyrel) 50 mg PO QPM PRN PRN Reason: Insomnia Last Admin: 12/17/19 20:30 Dose: 50 mg FLUoxetine [PROzac] 20 mg PO DAILY 12/11/19 Gabapentin 300 mg PO BID 12/11/19 Mirtazapine 7.5 mg PO DAILY 12/11/19 Rosuvastatin Calcium [Crestor] 20 mg PO QPM 12/11/19 SITagliptin [Januvia] 100 mg PO DAILY 12/11/19 Telmisartan 20 mg PO DAILY 12/11/19 metFORMIN [Glucophage] 1,000 mg PO BIDWM 12/11/19 Objective - Vital Signs/Intake & Output Reviewed Vital Signs: Yes Vital Signs: Vital Signs x48h Temp Pulse Pulse Resp BP BP Pulse Ox 12/18/19 13:20 37.0 C 73 16 112/56 L 12/18/19 11:25 37.4 C 76 18 134/52 H 99 12/18/19 10:45 37.4 C 71 18 133/52 H 12/18/19 10:35 37.5 C 71 16 126/53 L 12/18/19 10:30 37.5 C 78 18 131/45 H Intake & Output: Intake & Output 12/15/19 12/16/19 12/17/19 12/18/19 23:59 23:59 23:59 23:59 Intake Total 7482 603 8681 300 Output Total 775 605 950 775 Balance 831 335 110 -086 - Objective General Appearance: positive: No acute distress Eyes Bilateral: positive: Normal inspection ENT: positive: ENT inspection nml Neck: positive: Nml inspection, Thyroid nml, No JVD Respiratory: positive: Chest non-tender, No respiratory distress, Breath sounds nml Cardiovascular: positive: Regular rate & rhythm, No murmur, No gallop Abdomen: positive: Non-tender, No organomegaly, Nml bowel sounds, Other (Moderate sized ecchymosis in the anterior abdominal wall, left lower quadrant, consistent with bruising from enoxaparin injections, No hematoma) Extremities: positive: Non-tender, Full ROM, Nml appearance, No pedal edema Neurologic/Psychiatric: positive: Oriented x3, CN's nml (2-12), Motor nml - Lab Results Fish Bones: 12/18/19 06:25 12/18/19 05:48 Other Labs: Lab Results x24hrs 12/18/19 12/18/19 12/18/19 Range/Units 11:29 07:23 06:25 WBC (4.8-10.8) x10^3/uL RBC (4.70-6.10) 10^6/uL Hgb (14.0-18.0) g/dL Hct (42.0-52.0) % MCV (80.0-94.0) fL MCH (27.0-31.0) pg MCHC (32.0-36.0) g/dL RDW (12.0-15.0) % Plt Count (130-450) 10^3/uL MPV (7.4-11.4) fL Sodium (135-145) mmol/L Potassium (3.5-5.0) mmol/L Chloride (101-111) mmol/L Carbon Dioxide (21-32) mmol/L Anion Gap (6-13) BUN (6-20) mg/dL Creatinine (0.6-1.2) mg/dL Estimated GFR (MDRD) (>89) Glucose (70-100) mg/dL POC Whole Bld Glucose 247 H 225 H (70 - 100) mg/dL Calcium (8.5-10.3) mg/dL Blood Type O POSITIVE Blood Type Recheck Antibody Screen NEGATIVE Crossmatch IS Only See Detail 12/18/19 12/18/19 12/18/19 Range/Units 06:25 06:25 05:48 WBC 9.8 (4.8-10.8) x10^3/uL RBC 1.85 L (4.70-6.10) 10^6/uL Hgb 5.9 L* (14.0-18.0) g/dL Hct 17.3 L* (42.0-52.0) % MCV 93.5 (80.0-94.0) fL MCH 31.9 H (27.0-31.0) pg MCHC 34.1 (32.0-36.0) g/dL RDW 13.6 (12.0-15.0) % Plt Count 215 (130-450) 10^3/uL MPV 8.6 (7.4-11.4) fL Sodium (135-145) mmol/L Potassium (3.5-5.0) mmol/L Chloride (101-111) mmol/L Carbon Dioxide (21-32) mmol/L Anion Gap (6-13) BUN (6-20) mg/dL Creatinine (0.6-1.2) mg/dL Estimated GFR (MDRD) (>89) Glucose (70-100) mg/dL POC Whole Bld Glucose (70 - 100) mg/dL Calcium (8.5-10.3) mg/dL Blood Type Cancelled Blood Type Recheck O POSITIVE Antibody Screen Cancelled Crossmatch IS Only 12/18/19 12/18/19 12/17/19 Range/Units 05:48 05:48 20:28 WBC 9.2 (4.8-10.8) x10^3/uL RBC 1.90 L (4.70-6.10) 10^6/uL Hgb 5.8 L* (14.0-18.0) g/dL Hct 17.5 L* (42.0-52.0) % MCV 92.1 (80.0-94.0) fL MCH 30.5 (27.0-31.0) pg MCHC 33.1 (32.0-36.0) g/dL RDW 13.7 (12.0-15.0) % Plt Count 209 (130-450) 10^3/uL MPV 8.8 (7.4-11.4) fL Sodium 129 L (135-145) mmol/L Potassium 4.4 (3.5-5.0) mmol/L Chloride 98 L (101-111) mmol/L Carbon Dioxide 21 (21-32) mmol/L Anion Gap 10.0 (6-13) BUN 29 H (6-20) mg/dL Creatinine 1.4 H (0.6-1.2) mg/dL Estimated GFR (MDRD) 50 L (>89) Glucose 214 H (70-100) mg/dL POC Whole Bld Glucose 270 H (70 - 100) mg/dL Calcium 7.5 L (8.5-10.3) mg/dL Blood Type Blood Type Recheck Antibody Screen Crossmatch IS Only 12/17/19 Range/Units 16:30 WBC (4.8-10.8) x10^3/uL RBC (4.70-6.10) 10^6/uL Hgb (14.0-18.0) g/dL Hct (42.0-52.0) % MCV (80.0-94.0) fL MCH (27.0-31.0) pg MCHC (32.0-36.0) g/dL RDW (12.0-15.0) % Plt Count (130-450) 10^3/uL MPV (7.4-11.4) fL Sodium (135-145) mmol/L Potassium (3.5-5.0) mmol/L Chloride (101-111) mmol/L Carbon Dioxide (21-32) mmol/L Anion Gap (6-13) BUN (6-20) mg/dL Creatinine (0.6-1.2) mg/dL Estimated GFR (MDRD) (>89) Glucose (70-100) mg/dL POC Whole Bld Glucose 142 H (70 - 100) mg/dL Calcium (8.5-10.3) mg/dL Blood Type Blood Type Recheck Antibody Screen Crossmatch IS Only - Diagnostic Imaging Diagnostic Imaging Results: positive: Final report reviewed Assessment/Plan - Problem List (1) Acute blood loss anemia Impression: Patient had a dramatic drop in his hemoglobin and hematocrit this morning, suggesting an occult source of bleeding. He is never had a colonoscopy, and there is no other obvious source of bleeding, so general surgery was contacted and they have graciously accepted to consult with this patient and will likely have a lower and upper GI tomorrow. In the meantime, patient will have 2 units of PRBCs transfused and will continue to monitor closely (2) NSTEMI (non-ST elevated myocardial infarction) Impression: Stable, no chest pain, no shortness of breath, however given the recent bleeding, I have held his Plavix for now, hoping to resume tomorrow if evidence of bleeding can be confirmed and addressed. (3) Vertigo Impression: Seems to be somewhat improved, unsure if this is related to his anemia, but I doubt it as this is quite specifically vertigo with nystagmus on exam, and is of anything more likely in addition to the weakness he is experiencing from anemia. Because of the weakness, he is unable to participate in physical therapy today, but will reattempt tomorrow or the next day. (4) Chronic kidney disease, stage III (moderate) Impression: Stable (5) Insomnia Impression: Responding well to trazodone Qualifiers: Insomnia type: primary Qualified Code(s): F51.01 - Primary insomnia
[2019-12-18] MEDS ORDERED: bisacodyL 5 MG TABLET PO ONE (18:15)
[2019-12-18] MEDS: SODIUM/POTASSIUM/MAG SULFATES 354 ML PREP KIT PO SCH (18:17)
[2019-12-18] MEDS: ATORVASTATIN 40 MG TABLET PO SCH (20:26)
[2019-12-18] MEDS: INSULIN GLARGINE 300 UNIT/3 ML PEN SUBQ SCH (21:35)
[2019-12-18 22:23] LABS: HGB - HEMOGLOBIN 7.5 g/dL (14.0-18.0)
[2019-12-19] MEDS: SODIUM CHLORIDE FLUSH 0.9% 10 ML SYRINGE IVP SCH ×3 (00:38→21:07)
[2019-12-19] MEDS: SODIUM/POTASSIUM/MAG SULFATES 354 ML PREP KIT PO SCH (04:44)
[2019-12-19 04:57] LABS: HGB - HEMOGLOBIN 8.3 g/dL (14.0-18.0); MEAN CORPUSCULAR HGB CONC 33.6 g/dL (32.0-36.0); MEAN CORPUSCULAR VOLUME 92.2 fL (80.0-94.0); MEAN PLATELET VOLUME 8.9 fL (7.4-11.4); RED BLOOD COUNT 2.68 10^6/uL (4.70-6.10); RED CELL DISTRIBUTION WIDTH 14.2 % (12.0-15.0); WHITE BLOOD COUNT 11.3 x10^3/uL (4.8-10.8)
[2019-12-19 05:03] LABS: CALCIUM 7.8 mg/dL (8.5-10.3); CREATININE 1.2 mg/dL (0.6-1.2)
[2019-12-19] MEDS: levETIRAcetam 500 MG/5 ML UDC PO SCH ×2 (08:52→20:54)
[2019-12-19] MEDS: GABAPENTIN 300 MG CAPSULE PO SCH ×2 (08:53→20:55)
[2019-12-19] MEDS: LOSARTAN 50 MG TABLET PO SCH (08:53)
[2019-12-19] MEDS: polyethylene glycoL 3350 17 GM PACKET PO SCH (08:53)
[2019-12-19] MEDS: FLUoxetine 10 MG CAPSULE PO SCH (08:53)
[2019-12-19] MEDS: ASPIRIN EC 81 MG TABLET PO SCH (08:53)
[2019-12-19] MEDS: METOPROLOL SUCCINATE 25 MG TABLET PO SCH (08:53)
[2019-12-19] MEDS: INSULIN ASPART 300 UNIT/3 ML PEN SUBQ SCH ×4 (08:58→20:44)
[2019-12-19] MEDS ORDERED: bisacodyL 5 MG TABLET PO SCH (09:00)
--- NOTE | 2019-12-19 13:34 | ANESTHESIA ---
Pre-Anesthesia VS, & Labs - Diagnosis Diagnosis Anemia suspected GI bleed - Procedure EGD/ Cscope Vital Signs: Temp Pulse Resp BP Pulse Ox 36.5 C 91 16 166/73 H 100 12/19/19 07:39 12/19/19 07:39 12/19/19 07:39 12/19/19 07:39 12/19/19 07:39 Height 6 ft 6.5 in Weight (kg) 84 kg Body Mass Index 19.0 - NPO >8 hours - Lab Results Current Lab Results: Laboratory Tests 12/19/19 11:29: POC Whole Bld Glucose 273 H 12/19/19 07:37: POC Whole Bld Glucose 252 H 12/19/19 04:15: Sodium 133 L, Potassium 3.6, Chloride 99 L, Carbon Dioxide 22, Anion Gap 12.0, BUN 25 H, Creatinine 1.2, Estimated GFR (MDRD) 59 L, Glucose 211 H, Calcium 7.8 L 12/19/19 04:15: WBC 11.3 H, RBC 2.68 L, Hgb 8.3 L, Hct 24.7 L, MCV 92.2, MCH 31.0, MCHC 33.6, RDW 14.2, Plt Count 272, MPV 8.9 12/18/19 22:16: Hgb 7.5 L, Hct 21.8 L 12/18/19 21:07: POC Whole Bld Glucose 285 H 12/18/19 16:31: POC Whole Bld Glucose 175 H 12/18/19 11:29: POC Whole Bld Glucose 247 H 12/18/19 07:23: POC Whole Bld Glucose 225 H 12/18/19 06:25: Blood Type O POSITIVE, Antibody Screen NEGATIVE, Crossmatch IS Only See Detail 12/18/19 06:25: WBC 9.8, RBC 1.85 L, Hgb 5.9 L*, Hct 17.3 L*, MCV 93.5, MCH 31.9 H, MCHC 34.1, RDW 13.6, Plt Count 215, MPV 8.6 12/18/19 06:25: Blood Type Cancelled, Antibody Screen Cancelled 12/18/19 05:48: Blood Type Recheck O POSITIVE 12/18/19 05:48: WBC 9.2, RBC 1.90 L, Hgb 5.8 L*, Hct 17.5 L*, MCV 92.1, MCH 30.5, MCHC 33.1, RDW 13.7, Plt Count 209, MPV 8.8 12/18/19 05:48: Sodium 129 L, Potassium 4.4, Chloride 98 L, Carbon Dioxide 21, Anion Gap 10.0, BUN 29 H, Creatinine 1.4 H, Estimated GFR (MDRD) 50 L, Glucose 214 H, Calcium 7.5 L 12/17/19 20:28: POC Whole Bld Glucose 270 H 12/17/19 16:30: POC Whole Bld Glucose 142 H 12/17/19 11:29: POC Whole Bld Glucose 289 H 12/17/19 07:27: POC Whole Bld Glucose 215 H 12/17/19 04:30: Sodium 131 L, Potassium 4.5, Chloride 100 L, Carbon Dioxide 23, Anion Gap 8.0, BUN 24 H, Creatinine 1.2, Estimated GFR (MDRD) 59 L, Glucose 155 H, Calcium 7.3 L 12/16/19 20:49: POC Whole Bld Glucose 197 H 12/16/19 17:01: POC Whole Bld Glucose 199 H 12/16/19 11:46: POC Whole Bld Glucose 217 H 12/16/19 07:35: POC Whole Bld Glucose 194 H 12/16/19 05:36: Sodium 133 L, Potassium 4.1, Chloride 104, Carbon Dioxide 21, Anion Gap 8.0, BUN 18, Creatinine 1.1, Estimated GFR (MDRD) 66 L, Glucose 206 H, Calcium 7.3 L, Phosphorus 2.5, Magnesium 1.8 12/16/19 05:36: WBC 7.7, RBC 2.49 L, Hgb 7.8 L, Hct 22.6 L, MCV 90.8, MCH 31.3 H , MCHC 34.5, RDW 12.9, Plt Count 192, MPV 9.2, Neut # (Auto) 5.1, Lymph # (Auto) 1.8, [place] # (Auto) 0.7, Eos # (Auto) 0.0, Baso # (Auto) 0.1, Absolute Nucleated RBC 0.00, Nucleated RBC % 0.0 12/15/19 21:03: POC Whole Bld Glucose 218 H 12/15/19 17:07: POC Whole Bld Glucose 223 H 12/15/19 11:33: POC Whole Bld Glucose 285 H 12/15/19 07:50: POC Whole Bld Glucose 194 H 12/15/19 05:37: VBG pH 7.434 H, Ionized Calcium 0.97 L 12/15/19 05:37: Sodium 131 L, Potassium 3.2 L, Chloride 102, Carbon Dioxide 22, Anion Gap 7.0, BUN 12, Creatinine 1.1, Estimated GFR (MDRD) 66 L, Glucose 197 H, Calcium 7.1 L, Phosphorus 2.5, Magnesium 1.6 L 12/15/19 05:37: WBC 7.7, RBC 3.29 L, Hgb 9.9 L, Hct 29.4 L, MCV 89.4, MCH 30.1, MCHC 33.7, RDW 12.8, Plt Count 175, MPV 9.2, Neut # (Auto) 5.4, Lymph # (Auto) 1.4 L, [place] # (Auto) 0.8, Eos # (Auto) 0.0, Baso # (Auto) 0.1, Absolute Nucleated RBC 0.00, Nucleated RBC % 0.0 12/14/19 20:27: POC Whole Bld Glucose 185 H 12/14/19 16:12: POC Whole Bld Glucose 172 H 12/14/19 11:09: POC Whole Bld Glucose 263 H 12/14/19 08:02: POC Whole Bld Glucose 149 H 12/14/19 05:31: VBG pH 7.388, Ionized Calcium 1.02 L 12/14/19 05:31: Sodium 133 L, Potassium 3.4 L, Chloride 104, Carbon Dioxide 22, Anion Gap 7.0, BUN 14, Creatinine 1.0, Estimated GFR (MDRD) 73 L, Glucose 167 H, Calcium 7.2 L, Phosphorus 1.9 L, Magnesium 1.9 12/14/19 05:31: WBC 5.6, RBC 3.49 L, Hgb 10.9 L, Hct 31.7 L, MCV 90.8, MCH 31.2 H, MCHC 34.4, RDW 12.9, Plt Count 151, MPV 9.1, Neut # (Auto) 3.6, Lymph # (Auto) 1.2 L, [place] # (Auto) 0.7, Eos # (Auto) 0.1, Baso # (Auto) 0.1, Absolute Nucleated RBC 0.00, Nucleated RBC % 0.0 12/13/19 20:35: POC Whole Bld Glucose 169 H 12/13/19 16:15: POC Whole Bld Glucose 197 H 12/13/19 12:07: POC Whole Bld Glucose 179 H 12/13/19 08:19: POC Whole Bld Glucose 181 H 12/13/19 06:00: WBC 8.3, RBC 3.38 L, Hgb 10.5 L, Hct 30.8 L, MCV 91.1, MCH 31.1 H, MCHC 34.1, RDW 13.1, Plt Count 157, MPV 8.9, Neut # (Auto) 6.5, Lymph # (Auto) 1.1 L, [place] # (Auto) 0.7, Eos # (Auto) 0.0, Baso # (Auto) 0.0, Absolute Nucleated RBC 0.00, Nucleated RBC % 0.0 12/13/19 05:35: VBG pH 7.145 L, Ionized Calcium 1.03 L 12/13/19 05:35: Sodium 135, Potassium 3.5, Chloride 107, Carbon Dioxide 22, Anion Gap 6.0, BUN 16, Creatinine 1.1, Estimated GFR (MDRD) 66 L, Glucose 181 H, Calcium 7.6 L, Phosphorus 1.8 L, Magnesium 1.5 L 12/12/19 20:34: POC Whole Bld Glucose 163 H 12/12/19 17:04: POC Whole Bld Glucose 88 12/12/19 15:27: Troponin I High Sens 204.3 H* 12/12/19 13:05: POC Whole Bld Glucose 185 H 12/12/19 09:15: Troponin I High Sens 257.5 H* 12/12/19 06:55: VBG pH 7.405, Ionized Calcium 1.02 L 12/12/19 05:20: POC Whole Bld Glucose 124 H 12/12/19 05:20: Troponin I High Sens 232.1 H* 12/12/19 05:20: Sodium 135, Potassium 3.4 L, Chloride 105, Carbon Dioxide 20 L, Anion Gap 10.0, BUN 17, Creatinine 1.1, Estimated GFR (MDRD) 66 L, Glucose 130 H , Calcium 8.0 L, Phosphorus 2.4 L, Magnesium 1.7 12/12/19 05:20: WBC 16.6 H, RBC 3.95 L, Hgb 12.1 L, Hct 35.8 L, MCV 90.6, MCH 30.6, MCHC 33.8, RDW 12.8, Plt Count 185, MPV 8.9, Neut # (Auto) 13.6 H, Lymph # (Auto) 1.7, [place] # (Auto) 1.2 H, Eos # (Auto) 0.0, Baso # (Auto) 0.1, Absolute N ucleated RBC 0.00, Nucleated RBC % 0.0 12/11/19 23:13: POC Whole Bld Glucose 231 H 12/11/19 23:08: Lactic Acid 1.8 12/11/19 23:08: Troponin I High Sens 163.5 H* 12/11/19 19:20: VBG pH 7.252 L, VBG pCO2 29.7 L, VBG pO2 79.1 H, VBG HCO3 12.8 L , VBG Total CO2 13.7 L, VBG O2 Saturation 93.4 H, VBG Base Excess -13.0 L 12/11/19 19:15: Urine Opiates Screen NEGATIVE, Ur Oxycodone Screen NEGATIVE, Urine Methadone Screen NEGATIVE, Ur Propoxyphene Screen NEGATIVE, Ur Barbiturates Screen NEGATIVE, Ur Tricyclics Screen NEGATIVE, Ur Phencyclidine Scrn NEGATIVE, Ur Amphetamine Screen NEGATIVE, U Methamphetamines Scrn NEGATIVE, U Benzodiazepines Scrn NEGATIVE, Urine Cocaine Screen NEGATIVE, U Cannabinoids Screen POSITIVE H 12/11/19 18:45: Ethyl Alcohol < 5.0, Serum Ketones NEGATIVE 12/11/19 18:28: POC Whole Bld Glucose 272 H 12/11/19 18:26: Total Creatine Kinase 149 12/11/19 18:26: Troponin I High Sens 27.7 H* 12/11/19 18:26: TSH 3.15 12/11/19 18:26: Lactic Acid > 10.0 H* 12/11/19 18:26: Sodium 134 L, Potassium 4.2, Chloride 100 L, Carbon Dioxide 12 L*, Anion Gap 22.0 H, BUN 17, Creatinine 1.7 H, Estimated GFR (MDRD) 40 L, Glucose 299 H, Calcium 8.4 L, Magnesium 1.7, Total Bilirubin 0.9, AST 37, ALT 16, Alkaline Phosphatase 80, Total Protein 7.9, Albumin 4.1, Globulin 3.8, Albumin/Globulin Ratio 1.1, Lipase 33 12/11/19 18:26: WBC 14.1 H, RBC 4.30 L, Hgb 13.5 L, Hct 40.1 L, MCV 93.3, MCH 31.4 H, MCHC 33.7, RDW 12.6, Plt Count 256, MPV 9.2, Neut # (Auto) 10.7 H, Lymph # (Auto) 2.5, [place] # (Auto) 0.6, Eos # (Auto) 0.0, Baso # (Auto) 0.1, Absolute Nucleated RBC 0.00, Nucleated RBC % 0.0 Lab results reviewed: Yes Fish Bones: 12/19/19 04:15 12/19/19 04:15 Home Medications and Allergies Home Medications: Ambulatory Orders FLUoxetine [PROzac] 20 mg PO DAILY 12/11/19 Gabapentin 300 mg PO BID 12/11/19 Mirtazapine 7.5 mg PO DAILY 12/11/19 Rosuvastatin Calcium [Crestor] 20 mg PO QPM 12/11/19 SITagliptin [Januvia] 100 mg PO DAILY 12/11/19 Telmisartan 20 mg PO DAILY 12/11/19 metFORMIN [Glucophage] 1,000 mg PO BIDWM 12/11/19 Active Medications Acetaminophen (Tylenol) 650 mg PO Q4HR PRN PRN Reason: Pain 1 to 4 Last Admin: 12/17/19 20:30 Dose: 650 mg Aspirin (Ecotrin) 81 mg PO DAILY [facility] Last Admin: 12/19/19 08:53 Dose: 81 mg Atorvastatin Calcium (Lipitor) 40 mg PO QPM [facility] Last Admin: 12/18/19 20:26 Dose: 40 mg Fluoxetine HCl (Prozac) 20 mg PO DAILY [facility] Last Admin: 12/19/19 08:53 Dose: 20 mg Gabapentin (Neurontin) 300 mg PO BID [facility] Last Admin: 12/19/19 08:53 Dose: 300 mg Insulin Aspart (Novolog) 3 - 11 unit SUBQ 0800,1200,1700,2100 [facility]; Protocol Last Admin: 12/19/19 12:29 Dose: 7 unit Insulin Glargine (Lantus Solostar) 5 unit SUBQ QPM [facility] Last Admin: 12/18/19 21:35 Dose: 5 unit Levetiracetam (Keppra) 500 mg PO BID [facility] Last Admin: 12/19/19 08:52 Dose: 500 mg Lorazepam (Ativan Inj (Vial)) 0.5 mg IVP Q2H PRN PRN Reason: Seizure Losartan Potassium (Cozaar) 100 mg PO DAILY [facility] Last Admin: 12/19/19 08:53 Dose: 100 mg Metoprolol Succinate (Toprol Xl) 25 mg PO DAILY [facility] Last Admin: 12/19/19 08:53 Dose: 25 mg Ondansetron HCl (Zofran Inj) 4 mg IVP Q6HR PRN PRN Reason: Nausea / Vomiting Polyethylene Glycol (Miralax) 17 gm PO DAILY [facility] Last Admin: 12/19/19 08:53 Dose: Not Given Sodium Chloride (Normal Saline Flush 0.9%) 10 ml IVP 0100,0900,1700 [facility] Last Admin: 12/19/19 08:53 Dose: 10 ml Sodium Chloride (Normal Saline Flush 0.9%) 10 ml IVP PRN PRN PRN Reason: NEEDED PER PROVIDER ORDERS Trazodone HCl (Desyrel) 50 mg PO QPM PRN PRN Reason: Insomnia Last Admin: 12/17/19 20:30 Dose: 50 mg FLUoxetine [PROzac] 20 mg PO DAILY 12/11/19 Gabapentin 300 mg PO BID 12/11/19 Mirtazapine 7.5 mg PO DAILY 12/11/19 Rosuvastatin Calcium [Crestor] 20 mg PO QPM 12/11/19 SITagliptin [Januvia] 100 mg PO DAILY 12/11/19 Telmisartan 20 mg PO DAILY 12/11/19 metFORMIN [Glucophage] 1,000 mg PO BIDWM 12/11/19 Allergies/Adverse Reactions: Allergies Allergy/AdvReac Type Severity Reaction Status Date / Time No Known Drug Allergies Allergy Verified 12/11/19 21:07 Anes History & Medical History - Anesthetic History Anesthesia Complications: reports: No previous complications Family history of Anesthesia Complications: Denies Family history of Malignant Hyperthermia: Denies - Medical History Cardiovascular: reports: None, Hypertension, High cholesterol, Coronary artery disease, [place] (NSTEMI 1 week ago) Pulmonary: reports: None, Other (dry cough w/occasional sputum) Gastrointestinal: reports: None Urinary: reports: Renal insuffiency Neuro: reports: None, Seizure disorder (EM[facility] reported new onset seizure on transport to hospital, pt denies hx) Musculoskeletal: reports: None Endocrine/Autoimmune: reports: Type 2 diabetes (meds, no insulin) Blood Disorders: reports: None Skin: reports: None Smoking Status: Former smoker Psychosocial: reports: No issues indicated, Alcohol (hx ETOH abuse, none in past year) Exam General: Alert, Oriented x3, Cooperative Dental: WNL Mouth Openin Fingerbreadth Neck Mobility: Normal Mallampati classification: II Thyromental Distance: greater than 6 cm Respiratory: Normal breath sounds, No respiratory distress, Rhonchi (left lower lobe) Cardiovascular: Regular rate (NSR on tele, ST on 4/2 EKG) Neurological: Normal speech Mental/Cognitive Status: Alert/Oriented X3, Normal for patient Cognitive Status: Within normal limits Plan Anesthesia Type: General Consent for Procedure(s) Verified and Reviewed: Yes Code Status: Attempt Resuscitation ASA classification: 3-Severe systemic disease Is this case an emergency?: Yes
--- NOTE | 2019-12-19 13:55 | PROVIDER PROGRESS NOTE ---
Subjective - Prog Note Date Prog Note Date: 12/19/19 Prog Note Time: 13:53 - Subjective Pt reports feeling: Improved (Dizziness and Lightheadedness improved) Current Medications - Current Medications Current Medications: Active Medications Acetaminophen (Tylenol) 650 mg PO Q4HR PRN PRN Reason: Pain 1 to 4 Last Admin: 12/17/19 20:30 Dose: 650 mg Aspirin (Ecotrin) 81 mg PO DAILY [facility] Last Admin: 12/19/19 08:53 Dose: 81 mg Atorvastatin Calcium (Lipitor) 40 mg PO QPM [facility] Last Admin: 12/18/19 20:26 Dose: 40 mg Fluoxetine HCl (Prozac) 20 mg PO DAILY [facility] Last Admin: 12/19/19 08:53 Dose: 20 mg Gabapentin (Neurontin) 300 mg PO BID [facility] Last Admin: 12/19/19 08:53 Dose: 300 mg Insulin Aspart (Novolog) 3 - 11 unit SUBQ 0800,1200,1700,2100 [facility]; Protocol Last Admin: 12/19/19 12:29 Dose: 7 unit Insulin Glargine (Lantus Solostar) 5 unit SUBQ QPM [facility] Last Admin: 12/18/19 21:35 Dose: 5 unit Levetiracetam (Keppra) 500 mg PO BID [facility] Last Admin: 12/19/19 08:52 Dose: 500 mg Lorazepam (Ativan Inj (Vial)) 0.5 mg IVP Q2H PRN PRN Reason: Seizure Losartan Potassium (Cozaar) 100 mg PO DAILY [facility] Last Admin: 12/19/19 08:53 Dose: 100 mg Metoprolol Succinate (Toprol Xl) 25 mg PO DAILY [facility] Last Admin: 12/19/19 08:53 Dose: 25 mg Ondansetron HCl (Zofran Inj) 4 mg IVP Q6HR PRN PRN Reason: Nausea / Vomiting Polyethylene Glycol (Miralax) 17 gm PO DAILY [facility] Last Admin: 12/19/19 08:53 Dose: Not Given Sodium Chloride (Normal Saline Flush 0.9%) 10 ml IVP 0100,0900,1700 [facility] Last Admin: 12/19/19 08:53 Dose: 10 ml Sodium Chloride (Normal Saline Flush 0.9%) 10 ml IVP PRN PRN PRN Reason: NEEDED PER PROVIDER ORDERS Trazodone HCl (Desyrel) 50 mg PO QPM PRN PRN Reason: Insomnia Last Admin: 12/17/19 20:30 Dose: 50 mg FLUoxetine [PROzac] 20 mg PO DAILY 12/11/19 Gabapentin 300 mg PO BID 12/11/19 Mirtazapine 7.5 mg PO DAILY 12/11/19 Rosuvastatin Calcium [Crestor] 20 mg PO QPM 12/11/19 SITagliptin [Januvia] 100 mg PO DAILY 12/11/19 Telmisartan 20 mg PO DAILY 12/11/19 metFORMIN [Glucophage] 1,000 mg PO BIDWM 12/11/19 Objective - Vital Signs/Intake & Output Reviewed Vital Signs: Yes Vital Signs: Vital Signs x48h Temp Pulse Resp BP Pulse Ox 12/19/19 07:39 36.5 C 91 16 166/73 H 100 Intake & Output: Intake & Output 12/16/19 12/17/19 12/18/19 12/19/19 23:59 23:59 23:59 23:59 Intake Total 940 1060 2370 100 Output Total 668 083 7093 2300 Balance 335 110 995 -2200 - Objective General Appearance: positive: No acute distress Eyes Bilateral: positive: Normal inspection Neck: positive: Nml inspection Respiratory: positive: Chest non-tender, No respiratory distress, Breath sounds nml Cardiovascular: positive: Regular rate & rhythm, No murmur, No gallop Abdomen: positive: Non-tender, No organomegaly, Nml bowel sounds Neurologic/Psychiatric: positive: Oriented x3, CN's nml (2-12), Motor nml - Lab Results Fish Bones: 12/19/19 04:15 12/19/19 04:15 Other Labs: Lab Results x24hrs 12/19/19 12/19/19 12/19/19 Range/Units 11:29 07:37 04:15 WBC (4.8-10.8) x10^3/uL RBC (4.70-6.10) 10^6/uL Hgb (14.0-18.0) g/dL Hct (42.0-52.0) % MCV (80.0-94.0) fL MCH (27.0-31.0) pg MCHC (32.0-36.0) g/dL RDW (12.0-15.0) % Plt Count (130-450) 10^3/uL MPV (7.4-11.4) fL Sodium 133 L (135-145) mmol/L Potassium 3.6 (3.5-5.0) mmol/L Chloride 99 L (101-111) mmol/L Carbon Dioxide 22 (21-32) mmol/L Anion Gap 12.0 (6-13) BUN 25 H (6-20) mg/dL Creatinine 1.2 (0.6-1.2) mg/dL Estimated GFR (MDRD) 59 L (>89) Glucose 211 H (70-100) mg/dL POC Whole Bld Glucose 273 H 252 H (70 - 100) mg/dL Calcium 7.8 L (8.5-10.3) mg/dL Blood Type Antibody Screen Crossmatch IS Only 12/19/19 12/18/19 12/18/19 Range/Units 04:15 22:16 21:07 WBC 11.3 H (4.8-10.8) x10^3/uL RBC 2.68 L (4.70-6.10) 10^6/uL Hgb 8.3 L 7.5 L (14.0-18.0) g/dL Hct 24.7 L 21.8 L (42.0-52.0) % MCV 92.2 (80.0-94.0) fL MCH 31.0 (27.0-31.0) pg MCHC 33.6 (32.0-36.0) g/dL RDW 14.2 (12.0-15.0) % Plt Count 272 (130-450) 10^3/uL MPV 8.9 (7.4-11.4) fL Sodium (135-145) mmol/L Potassium (3.5-5.0) mmol/L Chloride (101-111) mmol/L Carbon Dioxide (21-32) mmol/L Anion Gap (6-13) BUN (6-20) mg/dL Creatinine (0.6-1.2) mg/dL Estimated GFR (MDRD) (>89) Glucose (70-100) mg/dL POC Whole Bld Glucose 285 H (70 - 100) mg/dL Calcium (8.5-10.3) mg/dL Blood Type Antibody Screen Crossmatch IS Only 12/18/19 12/18/19 Range/Units 16:31 06:25 WBC (4.8-10.8) x10^3/uL RBC (4.70-6.10) 10^6/uL Hgb (14.0-18.0) g/dL Hct (42.0-52.0) % MCV (80.0-94.0) fL MCH (27.0-31.0) pg MCHC (32.0-36.0) g/dL RDW (12.0-15.0) % Plt Count (130-450) 10^3/uL MPV (7.4-11.4) fL Sodium (135-145) mmol/L Potassium (3.5-5.0) mmol/L Chloride (101-111) mmol/L Carbon Dioxide (21-32) mmol/L Anion Gap (6-13) BUN (6-20) mg/dL Creatinine (0.6-1.2) mg/dL Estimated GFR (MDRD) (>89) Glucose (70-100) mg/dL POC Whole Bld Glucose 175 H (70 - 100) mg/dL Calcium (8.5-10.3) mg/dL Blood Type O POSITIVE Antibody Screen NEGATIVE Crossmatch IS Only See Detail Assessment/Plan - Problem List (1) Acute blood loss anemia Impression: H&H improved post transfusion, appropriate increase. Source not known * Cont to hold Plavix * Monitor daily * Plan for EGD and colonoscopy today * Remainder of plan pending results, but if able to find and stop bleed, can resume diet then monitor labs, resume plavix, and if holding, then DC * Otherwise, could consider small bowel capsule as outpatient (2) NSTEMI (non-ST elevated myocardial infarction) Impression: Stable. Plavix held for GI bleed, to be resumed pending GI eval. Consider Brilinta at d/c (3) Vertigo Impression: Improving, PT pending after scopes today or tomorrow (4) Chronic kidney disease, stage III (moderate) Impression: Resolved (5) Insomnia Impression: Stable, responding to Trazodone Qualifiers: Insomnia type: primary Qualified Code(s): F51.01 - Primary insomnia
[2019-12-19] MEDS ORDERED: LACTATED RINGERS 1,000 ML IV ONE (15:54)
[2019-12-19] MEDS: INSULIN GLARGINE 300 UNIT/3 ML PEN SUBQ SCH (20:55)
[2019-12-19] MEDS: ATORVASTATIN 40 MG TABLET PO SCH (20:55)
[2019-12-20] MEDS: SODIUM CHLORIDE FLUSH 0.9% 10 ML SYRINGE IVP SCH ×4 (00:06→23:32)
[2019-12-20 05:20] LABS: HGB - HEMOGLOBIN 7.7 g/dL (14.0-18.0); MEAN CORPUSCULAR HEMOGLOBIN 30.1 pg (27.0-31.0); MEAN CORPUSCULAR HGB CONC 32.6 g/dL (32.0-36.0); MEAN CORPUSCULAR VOLUME 92.2 fL (80.0-94.0); MEAN PLATELET VOLUME 8.5 fL (7.4-11.4); RED BLOOD COUNT 2.56 10^6/uL (4.70-6.10); RED CELL DISTRIBUTION WIDTH 14.4 % (12.0-15.0); WHITE BLOOD COUNT 7.1 x10^3/uL (4.8-10.8)
[2019-12-20] MEDS: levETIRAcetam 500 MG/5 ML UDC PO SCH ×2 (08:21→20:49)
[2019-12-20] MEDS: FLUoxetine 10 MG CAPSULE PO SCH (08:22)
[2019-12-20] MEDS: LOSARTAN 50 MG TABLET PO SCH (08:22)
[2019-12-20] MEDS: ASPIRIN EC 81 MG TABLET PO SCH (08:22)
[2019-12-20] MEDS: METOPROLOL SUCCINATE 25 MG TABLET PO SCH (08:22)
[2019-12-20] MEDS: GABAPENTIN 300 MG CAPSULE PO SCH ×2 (08:22→20:48)
[2019-12-20] MEDS: polyethylene glycoL 3350 17 GM PACKET PO SCH (08:22)
[2019-12-20] MEDS: INSULIN ASPART 300 UNIT/3 ML PEN SUBQ SCH ×4 (08:23→20:50)
[2019-12-20] MEDS: PANTOPRAZOLE 40 MG TABLET PO SCH ×2 (11:50→20:49)
[2019-12-20 12:48] LABS: HGB - HEMOGLOBIN 7.6 g/dL (14.0-18.0)
--- NOTE | 2019-12-20 12:52 | PROVIDER PROGRESS NOTE ---
Subjective - Prog Note Date Prog Note Date: 12/20/19 Prog Note Time: 12:41 - Subjective Pt reports feeling: Improved (Patient states dizziness is almost gone. He feels less weak, feels like he is getting stronger and overall feels better. Denies any pain. Denies any bloody stools.Feels his appetite is slowly improving.He feels like it is in fact closer to his baseline appetite which is generally poor.) Current Medications - Current Medications Current Medications: Active Medications Acetaminophen (Tylenol) 650 mg PO Q4HR PRN PRN Reason: Pain 1 to 4 Last Admin: 12/17/19 20:30 Dose: 650 mg Aspirin (Ecotrin) 81 mg PO DAILY [facility] Last Admin: 12/20/19 08:22 Dose: 81 mg Atorvastatin Calcium (Lipitor) 40 mg PO QPM [facility] Last Admin: 12/19/19 20:55 Dose: 40 mg Fluoxetine HCl (Prozac) 20 mg PO DAILY [facility] Last Admin: 12/20/19 08:22 Dose: 20 mg Gabapentin (Neurontin) 300 mg PO BID [facility] Last Admin: 12/20/19 08:22 Dose: 300 mg Insulin Aspart (Novolog) 3 - 11 unit SUBQ 0800,1200,1700,2100 [facility]; Protocol Last Admin: 12/20/19 11:50 Dose: 5 unit Insulin Glargine (Lantus Solostar) 5 unit SUBQ QPM [facility] Last Admin: 12/19/19 20:55 Dose: 5 unit Levetiracetam (Keppra) 500 mg PO BID [facility] Last Admin: 12/20/19 08:21 Dose: 500 mg Lorazepam (Ativan Inj (Vial)) 0.5 mg IVP Q2H PRN PRN Reason: Seizure Losartan Potassium (Cozaar) 100 mg PO DAILY [facility] Last Admin: 12/20/19 08:22 Dose: 100 mg Metoprolol Succinate (Toprol Xl) 25 mg PO DAILY [facility] Last Admin: 12/20/19 08:22 Dose: 25 mg Ondansetron HCl (Zofran Inj) 4 mg IVP Q6HR PRN PRN Reason: Nausea / Vomiting Pantoprazole Sodium (Protonix) 40 mg PO BID [facility] Last Admin: 12/20/19 11:50 Dose: 40 mg Polyethylene Glycol (Miralax) 17 gm PO DAILY [facility] Last Admin: 12/20/19 08:22 Dose: Not Given Sodium Chloride (Normal Saline Flush 0.9%) 10 ml IVP 0100,0900,1700 [facility] Last Admin: 12/20/19 08:22 Dose: 10 ml Sodium Chloride (Normal Saline Flush 0.9%) 10 ml IVP PRN PRN PRN Reason: NEEDED PER PROVIDER ORDERS Trazodone HCl (Desyrel) 50 mg PO QPM PRN PRN Reason: Insomnia Last Admin: 12/17/19 20:30 Dose: 50 mg FLUoxetine [PROzac] 20 mg PO DAILY 12/11/19 Gabapentin 300 mg PO BID 12/11/19 Mirtazapine 7.5 mg PO DAILY 12/11/19 Rosuvastatin Calcium [Crestor] 20 mg PO QPM 12/11/19 SITagliptin [Januvia] 100 mg PO DAILY 12/11/19 Telmisartan 20 mg PO DAILY 12/11/19 metFORMIN [Glucophage] 1,000 mg PO BIDWM 12/11/19 Objective - Vital Signs/Intake & Output Reviewed Vital Signs: Yes Vital Signs: Vital Signs x48h Temp Pulse Pulse Resp BP Pulse Ox 12/20/19 12:36 36.9 C 77 20 126/72 100 12/20/19 08:13 36.9 C 76 20 126/58 L 96 12/20/19 05:12 36.5 C 77 18 133/57 H 96 Intake & Output: Intake & Output 12/17/19 12/18/19 12/19/19 12/20/19 23:59 23:59 23:59 23:59 Intake Total 1060 2370 100 700 Output Total 950 1375 2620 1100 Balance 110 995 -2520 -400 - Objective General Appearance: positive: No acute distress Eyes Bilateral: positive: Normal inspection ENT: positive: ENT inspection nml Neck: positive: Nml inspection Respiratory: positive: Chest non-tender, No respiratory distress, Breath sounds nml Cardiovascular: positive: Regular rate & rhythm, No murmur, No gallop Abdomen: positive: Non-tender, No organomegaly, Nml bowel sounds Neurologic/Psychiatric: positive: Oriented x3, CN's nml (2-12), Motor nml - Lab Results Fish Bones: 12/20/19 05:00 12/19/19 04:15 Other Labs: Lab Results x24hrs 12/20/19 12/20/19 12/20/19 Range/Units 11:36 07:54 05:00 WBC 7.1 (4.8-10.8) x10^3/uL RBC 2.56 L (4.70-6.10) 10^6/uL Hgb 7.7 L (14.0-18.0) g/dL Hct 23.6 L (42.0-52.0) % MCV 92.2 (80.0-94.0) fL MCH 30.1 (27.0-31.0) pg MCHC 32.6 (32.0-36.0) g/dL RDW 14.4 (12.0-15.0) % Plt Count 260 (130-450) 10^3/uL MPV 8.5 (7.4-11.4) fL POC Whole Bld Glucose 184 H 280 H (70 - 100) mg/dL 12/19/19 12/19/19 Range/Units 20:37 18:02 WBC (4.8-10.8) x10^3/uL RBC (4.70-6.10) 10^6/uL Hgb (14.0-18.0) g/dL Hct (42.0-52.0) % MCV (80.0-94.0) fL MCH (27.0-31.0) pg MCHC (32.0-36.0) g/dL RDW (12.0-15.0) % Plt Count (130-450) 10^3/uL MPV (7.4-11.4) fL POC Whole Bld Glucose 246 H 210 H (70 - 100) mg/dL - Diagnostic Imaging Diagnostic Imaging Results: positive: Read independently, Other (Viewed EGD and colonscopy images, discussed with surgeon) Assessment/Plan - Problem List (1) Acute blood loss anemia Impression: Patient is status post EGD and colonoscopy on 12/19/2019. Evidence of duodenitis with some gastric inflammation. Likely the source of relatively slow bleed that was exacerbated by heparin GTT and Plavix secondary to NSTEMI. Hemoglobin and hematocrit have dropped somewhat this morning, so we will repeat at noon to evaluate if patient is actively bleeding again. As long as there is not another significant drop we can consider restarting the Plavix to challenge him with a repeat H&H tomorrow, and once we know that he is tolerating antiplatelet treatment for the coronary artery disease, he can safely be discharged. On the other hand if he does continue to show evidence of significant bleeding, may need to consider either outpatient referral versus inpatient transfer to facility capable of performing nuclear medicine investigative studies or outpatient small capsule bowel study. (2) NSTEMI (non-ST elevated myocardial infarction) Impression: Stable, holding Plavix until hemoglobin and hematocrit plateau. (3) Vertigo Impression: Nearly resolved, continue to monitor (4) Chronic kidney disease, stage III (moderate) Impression: Resolved (5) Insomnia Impression: Much improved, continue trazodone Qualifiers: Insomnia type: primary Qualified Code(s): F51.01 - Primary insomnia
[2019-12-20] MEDS: CLOPIDOGREL 75 MG TABLET PO SCH (17:27)
[2019-12-20] MEDS: ATORVASTATIN 40 MG TABLET PO SCH (20:49)
[2019-12-20] MEDS: INSULIN GLARGINE 300 UNIT/3 ML PEN SUBQ SCH (20:50)
[2019-12-20] MEDS: traZODone 50 MG TABLET PO PRN (22:46)
[2019-12-21 07:30] LABS: HGB - HEMOGLOBIN 7.8 g/dL (14.0-18.0); MEAN CORPUSCULAR HEMOGLOBIN 30.6 pg (27.0-31.0); MEAN CORPUSCULAR HGB CONC 32.6 g/dL (32.0-36.0); MEAN CORPUSCULAR VOLUME 93.7 fL (80.0-94.0); MEAN PLATELET VOLUME 8.3 fL (7.4-11.4); RED BLOOD COUNT 2.55 10^6/uL (4.70-6.10); RED CELL DISTRIBUTION WIDTH 14.8 % (12.0-15.0); WHITE BLOOD COUNT 5.6 x10^3/uL (4.8-10.8)
[2019-12-21 07:36] LABS: CREATININE 1.3 mg/dL (0.6-1.2)
[2019-12-21 07:37] VITALS: BP 124/59
[2019-12-21] MEDS: ASPIRIN EC 81 MG TABLET PO SCH (08:15)
[2019-12-21] MEDS: LOSARTAN 50 MG TABLET PO SCH (08:15)
[2019-12-21] MEDS: CLOPIDOGREL 75 MG TABLET PO SCH (08:15)
[2019-12-21] MEDS: PANTOPRAZOLE 40 MG TABLET PO SCH (08:15)
[2019-12-21] MEDS: FLUoxetine 10 MG CAPSULE PO SCH (08:15)
[2019-12-21] MEDS: GABAPENTIN 300 MG CAPSULE PO SCH (08:15)
[2019-12-21] MEDS: levETIRAcetam 500 MG/5 ML UDC PO SCH (08:15)
[2019-12-21] MEDS: METOPROLOL SUCCINATE 25 MG TABLET PO SCH (08:16)
[2019-12-21] MEDS: SODIUM CHLORIDE FLUSH 0.9% 10 ML SYRINGE IVP SCH (08:16)
[2019-12-21] MEDS: polyethylene glycoL 3350 17 GM PACKET PO SCH (08:16)
[2019-12-21] MEDS: INSULIN ASPART 300 UNIT/3 ML PEN SUBQ SCH ×2 (08:21→12:08)
--- NOTE | 2019-12-21 13:17 | Discharge Plan ---
Discharge Plan Problem Reviewed?: Yes Disposition: Home Health Service Condition: Stable Prescriptions: levETIRAcetam [Keppra] 500 mg PO BID 30 Days #60 udc Metoprolol Succinate [Toprol Xl] 25 mg PO DAILY #30 tablet Pantoprazole [Protonix] 40 mg PO BID 30 Days #60 tablet Rosuvastatin Calcium [Crestor] 40 mg PO QPM #30 tablet Ticagrelor [Brilinta] 90 mg PO BID #60 tablet Diet: Diabetic Activity Restrictions: Activity as Tolerated Shower Restrictions: No Driving Restrictions: Yes (No driving for at least 6 months until cleared by MD due to seizure) Weight Bearing: Full Weight Instruction Topics: Atorvastatin tablets, Enoxaparin injection, Clopidogrel Bisulfate Oral tablet, Ticagrelor oral tablet, Metoprolol tablets, Levetiracetam Oral Solution Health Concerns: You had the following concerns during this hospital stay: - Seizure. I'll start you on Keppra for that and recommend you get a referral to a neurologist. - Heart Attack - You were treated with blood thinners for this, and will be started on Brilinta. If this is too expensive, call back and I'll send you a prescription for Plavix. I'm also starting you on metoprolol, and increasing your Crestor dose because of this. I recommend you get a referral to a door to door selling distributor for this. - Gastrointestinal bleedyou had a endoscopy and colonoscopy showing evidence of something called duodenitis, which is inflammation of a part of your stomach and small intestine. I am starting you on a medication called Protonix for this, which is a antacid medication. You should take this for at least 3 months and I am recommending a referral to a marketing executive for this. Follow-Up Care: Home Health - PT No Smoking: If you smoke, Please STOP! Call for help. Follow-up with: Patricia Terry PA-C [Primary Care Provider] -
[2019-12-21] MEDS ORDERED: ePHEDrine 50 MG/ML VIAL IVP ONE (14:02)
[2019-12-21] MEDS ORDERED: SUCCINYLCHOLINE 200 MG/10 ML VIAL IVP ONE (14:02)
[2019-12-21] MEDS ORDERED: PHENYLEPHRINE 50 MG/5 ML VIAL IV ONE (14:02)
[2019-12-21] MEDS ORDERED: fentaNYL 250 MCG/5 ML VIAL IVP ONE (14:02)
[2019-12-21] MEDS ORDERED: MIDAZOLAM 2 MG/2 ML VIAL IVP ONE (14:02)
[2019-12-21] MEDS ORDERED: PROPOFOL 200 MG/20 ML VIAL IVP ONE (14:02)
[2019-12-21] MEDS ORDERED: LIDOCAINE-MPF 2% 5 ML VIAL IM ONE (14:02)
--- NOTE | 2019-12-21 14:21 | DISCHARGE SUMMARY ---
"Discharge Summary Admit Date: 12/11/19 Discharge Date: 12/21/19 Discharging Provider: Garett Washington MD Primary Care Provider: Debbie Terry Code Status: Do Not Attempt Resuscitation Condition at Discharge: Stable Discharge Disposition: 06 [facility] - DIAGNOSES Admission Diagnoses: Acute encephalopathy Press syndrome Hypertensive emergency New onset seizure Lactic acidosis Acute on chronic kidney disease, stage III Type 2 diabetes mellitus with hyperglycemia Discharge Diagnoses with Status of Each Condition: Acute blood loss anemiaimproved, stable NSTEMIstable Vertigoresolved Acute on chronic kidney disease, stage IIIresolved Generalized weaknessstable - HPI History of Present Illness: This is a 74-year-old male with a past medical history significant for type 2 diabetes mellitus on metformin, hypertension, depression who presents today after being found altered at home. The history is obtained from the emergency department physician and his spouse. His reports that he has been depressed over the past few days about what is happening in the world right now. She states that he has had severe depression in the past and at times, he becomes severely introverted and does not eat or drink for many days. She states he has never had suicidal ideations or attempts in the past. She states over the past couple of days his oral intake has significantly diminished. She believes he may not have had anything to drink since yesterday. This morning she saw him in his usual state of health at around 11am. When she checked on him in the afternoon at around 5 PM, she found that he was altered and unresponsive and so she called EMS. She states that he has a history of alcohol abuse in the past but he has quit drinking over one year and she does not believe that he could be drinking recently. He has no prior episodes of seizures in the past. She reports that besides marijuana he does not use any illicit drugs. She is not sure if he took his medications today and yesterday. When EMS arrived on the scene, they noted he had a grand mal seizure and they administered 5 mg of Versed IV. In the emergency department, he was found to be afebrile with temperature of 36.6 C. He was tachycardic with a heart rate of 107 and his blood pressure is elevated at 163/77. He was not tachypneic and saturating well on room air. His initial labs revealed a white count of 14.1. His bicarbonate was decreased at 12 any a elevated anion gap of 22. His lactic acid was greater than 10. His creatinine was also elevated at 1.7 and his blood glucose at 299. He underwent a CT of the head as well as a CTA of the head and neck which did not show an acute stroke or hemorrhage. There was concern for possible encephalitis in the parietal occipital lobe although this may also potentially be artifact. The emergency department physician discussed the case with neurology at [facility] who recommended obtaining a lumbar puncture. The patient receiv ed ketamine prior to lumbar puncture. The fluid was clearless. Opening pressure was low. Neurology recommended loading him with 3 g of Keppra and to start him on IV antibiotics and antivirals to cover for meningitis and encephalitis. The patient also received 2 L of normal saline in the emergency department. Given his persistent encephalopathy, medicine was consulted for admission. I did discuss goals of care with his , Cassie, and she states that they are both a DNR. - CONSULTS | PROCEDURES Consultations: General surgeryDr. Jacob Tabler Procedures: EGD, and colonoscopy - No obvious bleeding source was appreciated, however there was evidence of duodenitis, with evidence of recent bleeding and Inflammation - HOSPITAL COURSE Hospital Course: After hospital admission, the results of his lumbar puncture demonstrated no evidence of concern for meningitis so antibiotics were discontinued.He was started on Keppra for seizure prophylaxis. Initial troponin levels were relat ively low, however they were continued to be followed and trended upwards.They peaked at 257 (Utilizing the high-sensitivity modality, which typically yields much higher numbers). For the NSTEMI, he was treated with therapeutic doses of low molecular weight heparin. This was relatively uncomplicated with the exception of a single episode of gross hematuria that was self-limiting.Denies chest pain, denied shortness of breath, and after 48 hours of anticoagulation, he was transitioned to Plavix. He was profoundly weak, complaining of lightheadedness, as well as dizziness and even vertigo. He was initially ready for discharge but because of the symptoms he was kept overnight for 1 more day and his labs were checked demonstrating a significant drop in his hemoglobin and hematocrit to a hem oglobin level around 5 and a hematocrit around 20. Because of this he was given a transfusion of 2 units of PRBCs and general surgery was contacted who performed an upper endoscopy and colonoscopy demonstrating the results of Gastric inflammation and duodenitis. After the transfusion, his dizziness and vertigo improved and he improved with physical therapy evaluations and treatments. He was started on twice daily Protonix, and he was kept for 24 hours to monitor for drops in hemoglobin and he matocrit, at which point it showed no significant change, then he was started on Plavix and monitored again for another 24 hours to ensure he was not bleeding, and on the day of discharge his hemoglobin and hematocrit, while slightly low, were relatively stable and he was deemed to be medically safe for discharge. - ALLERGIES Allergies/Adverse Reactions: Allergies Allergy/AdvReac Type Severity Reaction Status Date / Time No Known Drug Allergies Allergy Verified 12/11/19 21:07 - MEDICATIONS Home Medications: Ambulatory Orders Medication Instructions Recorded Confirmed FLUoxetine [PROzac] 20 mg PO DAILY 12/11/19 12/11/19 Gabapentin 300 mg PO BID 12/11/19 12/11/19 Mirtazapine 7.5 mg PO DAILY 12/11/19 12/11/19 SITagliptin [Januvia] 100 mg PO DAILY 12/11/19 12/11/19 Telmisartan 20 mg PO DAILY 12/11/19 12/11/19 metFORMIN [Glucophage] 1,000 mg PO BIDWM 12/11/19 12/11/19 Acetaminophen [Tylenol] 650 mg PO Q4HR PRN tablet 12/21/19 Metoprolol Succinate [Toprol Xl] 25 mg PO DAILY #30 tablet 12/21/19 Pantoprazole [Protonix] 40 mg PO BID 30 Days #60 tablet 12/21/19 Rosuvastatin Calcium [Crestor] 40 mg PO QPM #30 tablet 12/21/19 Ticagrelor [Brilinta] 90 mg PO BID #60 tablet 12/21/19 levETIRAcetam [Keppra] 500 mg PO BID 30 Days #60 udc 12/21/19 - PHYSICAL EXAM AT DISCHARGE General Appearance: positive: No acute distress Eyes Bilateral: positive: Normal inspection Neck: positive: Nml inspection Cardiovascular: positive: Regular rate & rhythm, No murmur, No gallop Abdomen: positive: Non-tender, No organomegaly, Nml bowel sounds Extremities: positive: No pedal edema - LABS Result Diagrams: 12/21/19 07:10 12/21/19 07:10 - DIAGNOSTIC IMAGING Diagnostic Imaging Results: Final report reviewed, Read independently - FOLLOW UP Follow Up: Follow-up with PCP. Renal function has improved. Consider referral to neurology for single seizure episode prior to admission. Consider referral to general surgery for bleeding episodes.He can contact [facility] in [place]. Also, a transfer to facility for possible coronary angiogram, and he declined, so would refer to cardiology for outpatient evaluation when patient is more comfortable (patient had declined this due to the current coronavirus pandemic). - TIME SPENT Time Spent in Discharge (Minutes): 39"
== END 2019-12-21 14:03 | disposition home health service (06) | DRG 70 ==
LOC: ED 18:24 → ICU 22:00 → MS2 12-12 19:09
PROVIDERS: ADMIT Internal Medicine; ATTEND Family Medicine Sports Medicine
PROC: 30233N1 Transfusion of Nonautologous Red Blood Cells into Peripheral Vein, Percutaneous Approach (ICD-10-PCS; 2019-12-18)
PROC: 0DB48ZX Excision of Esophagogastric Junction, Via Natural or Artificial Opening Endoscopic, Diagnostic (ICD-10-PCS; 2019-12-19)
PROC: 0DBN8ZZ Excision of Sigmoid Colon, Via Natural or Artificial Opening Endoscopic (ICD-10-PCS; 2019-12-19)
PROC: 0DB98ZX Excision of Duodenum, Via Natural or Artificial Opening Endoscopic, Diagnostic (ICD-10-PCS; principal; 2019-12-19 16:00)
PROC: 0DB68ZX Excision of Stomach, Via Natural or Artificial Opening Endoscopic, Diagnostic (ICD-10-PCS; 2019-12-19 16:00)
DX: R56.9 Unspecified convulsions (principal); E86.0 Dehydration; R41.0 Disorientation, unspecified; I67.83 Posterior reversible encephalopathy syndrome; I21.4 Non-ST elevation (NSTEMI) myocardial infarction; K29.81 Duodenitis with bleeding; D62 Acute posthemorrhagic anemia; D68.32 Hemorrhagic disorder due to extrinsic circulating anticoagulants; I16.1 Hypertensive emergency; N17.9 Acute kidney failure, unspecified; E87.2 Acidosis; F33.1 Major depressive disorder, recurrent, moderate; T45.525A Adverse effect of antithrombotic drugs, initial encounter; T45.515A Adverse effect of anticoagulants, initial encounter; Y92.230 Patient room in hospital as the place of occurrence of the external cause; I12.9 Hypertensive chronic kidney disease with stage 1 through stage 4 chronic kidney disease, or unspecified chronic kidney disease; N18.3 Chronic kidney disease, stage 3 (moderate); E11.65 Type 2 diabetes mellitus with hyperglycemia; E11.22 Type 2 diabetes mellitus with diabetic chronic kidney disease; E11.42 Type 2 diabetes mellitus with diabetic polyneuropathy; F10.21 Alcohol dependence, in remission; K44.9 Diaphragmatic hernia without obstruction or gangrene; K31.9 Disease of stomach and duodenum, unspecified; K63.5 Polyp of colon; E87.6 Hypokalemia; F51.01 Primary insomnia; Z66 Do not resuscitate; Z79.84 Long term (current) use of oral hypoglycemic drugs; Z72.89 Other problems related to lifestyle
CPT/HCPCS: 36415; 70450; 70496; 70498; 71045; 80048; 80053; 81001; 81599; 82009; 82272; 82330; 82550; 82803; 82945; 83605; 83690; 83735; 84100; 84157; 84443; 84484; 85014; 85018; 85025; 85027; 86850; 86900; 86901; 86920; 87040; 87070; 87150; 87205; 89051; 92523; 93005; 93306; 96361; 96365; 96367; 96375; 97112; 97161; 97530; 99285; A9270; J0133; J0330; J1650; J1815; J2060; J3010; J3370; J7040; J7120; P9016; Q9967; U0002; 80306; 80320; 81003; 86695; 86696; 87086; 88305; 94770

== ENCOUNTER 2019-12-25 09:50 | Outpatient (CLI) | payer MEDICARE, OTHER ==
[2019-12-25 11:56] LABS: BASOPHILS # (AUTO) 0.1 10^3/uL (0.0-0.1); BASOPHILS % (AUTO) 0.8 %; EOSINOPHILS # (AUTO) 0.2 10^3/uL (0.0-0.7); EOSINOPHILS % (AUTO) 2.5 %; HGB - HEMOGLOBIN 9.5 g/dL (14.0-18.0); LYMPHOCYTES # (AUTO) 1.3 10^3/uL (1.5-3.5); LYMPHOCYTES % (AUTO) 15.7 %; MEAN CORPUSCULAR HEMOGLOBIN 30.1 pg (27.0-31.0); MEAN CORPUSCULAR HGB CONC 31.7 g/dL (32.0-36.0); MEAN CORPUSCULAR VOLUME 94.9 fL (80.0-94.0); MEAN PLATELET VOLUME 8.5 fL (7.4-11.4); MONOCYTES # (AUTO) 0.5 10^3/uL (0.0-1.0); MONOCYTES % (AUTO) 6.8 %; NEUTROPHILS # (AUTO) 5.9 10^3/uL (1.5-6.6); NEUTROPHILS % (AUTO) 73.7 %; PLT - PLATELET COUNT 423 10^3/uL (130-450); RED BLOOD COUNT 3.16 10^6/uL (4.70-6.10); RED CELL DISTRIBUTION WIDTH 14.6 % (12.0-15.0)
[2019-12-25 12:07] LABS: CREATININE 1.6 mg/dL (0.6-1.2)
== END 2019-12-25 23:59 | disposition home or self-care (01) ==
LOC: LAB.WCP 09:50
PROVIDERS: ATTEND Physician Assistant Medical
DX: N17.9 Acute kidney failure, unspecified (principal); N18.9 Chronic kidney disease, unspecified; D62 Acute posthemorrhagic anemia
CPT/HCPCS: 36415; 80048; 85025

== ENCOUNTER 2020-01-14 09:58 | Outpatient (CLI) | payer MEDICARE, OTHER ==
[2020-01-14 13:26] LABS: BASOPHILS # (AUTO) 0.1 10^3/uL (0.0-0.1); BASOPHILS % (AUTO) 1.2 %; EOSINOPHILS # (AUTO) 0.2 10^3/uL (0.0-0.7); EOSINOPHILS % (AUTO) 3.1 %; LYMPHOCYTES # (AUTO) 1.6 10^3/uL (1.5-3.5); LYMPHOCYTES % (AUTO) 21.5 %; MEAN CORPUSCULAR HEMOGLOBIN 32.3 pg (27.0-31.0); MEAN CORPUSCULAR HGB CONC 33.5 g/dL (32.0-36.0); MEAN CORPUSCULAR VOLUME 96.5 fL (80.0-94.0); MONOCYTES # (AUTO) 0.7 10^3/uL (0.0-1.0); MONOCYTES % (AUTO) 9.4 %; NEUTROPHILS # (AUTO) 4.8 10^3/uL (1.5-6.6); NEUTROPHILS % (AUTO) 64.5 %; PLT - PLATELET COUNT 279 10^3/uL (130-450); RED BLOOD COUNT 3.71 10^6/uL (4.70-6.10); RED CELL DISTRIBUTION WIDTH 14.6 % (12.0-15.0); WHITE BLOOD COUNT 7.4 x10^3/uL (4.8-10.8)
[2020-01-14 13:55] LABS: CALCIUM 8.7 mg/dL (8.5-10.3); CREATININE 1.8 mg/dL (0.6-1.2)
== END 2020-01-14 23:59 | disposition home or self-care (01) ==
LOC: LAB.WCP 09:58
PROVIDERS: ATTEND Physician Assistant Medical
DX: N18.9 Chronic kidney disease, unspecified (principal); D62 Acute posthemorrhagic anemia; R56.9 Unspecified convulsions
CPT/HCPCS: 36415; 80048; 80177; 85025

== ENCOUNTER 2020-02-03 11:40 | Outpatient (CLI) | payer MEDICARE, OTHER ==
[2020-02-03 14:26] LABS: HB2 TOTAL 12.7 g/dL; HEMOGLOBIN A1C 0.66 g/dL; HEMOGLOBIN A1C % 6.9 % (4.6-6.2)
[2020-02-03 14:37] LABS: ALBUMIN 3.9 g/dL (3.2-5.5); ALKALINE PHOSPHATASE 119 IU/L (42-121); ALT ALANINE AMINOTRANSFERASE 34 IU/L (10-60); AST ASPARTATE AMINOTRANSFERASE 27 IU/L (10-42); BILIRUBIN,TOTAL 0.7 mg/dL (0.2-1.0); BUN - BLOOD UREA NITROGEN 22 mg/dL (6-20); CALCIUM 8.7 mg/dL (8.5-10.3); CARBON DIOXIDE - CO2 27 mmol/L (21-32); CHLORIDE 98 mmol/L (101-111); CHOL/HDL RATIO 4.7 (<5.0); CHOLESTEROL 127 mg/dL; CREATININE 1.6 mg/dL (0.6-1.2); GLUCOSE 365 mg/dL (70-100); HDL CHOLESTEROL 27 mg/dL; LDL CHOLESTEROL,CALCULATED 59 mg/dL; LDL/HDL RATIO 2.2 (<3.6); SODIUM 133 mmol/L (135-145); VLDL CHOLESTEROL 41 mg/dL
== END 2020-02-03 23:59 | disposition home or self-care (01) ==
LOC: LAB.WCP 11:40
PROVIDERS: ATTEND Physician Assistant Medical
DX: E11.40 Type 2 diabetes mellitus with diabetic neuropathy, unspecified (principal)
CPT/HCPCS: 36415; 80053; 80061; 83036; 83721

== ENCOUNTER 2020-02-13 | Outpatient (CLI) | payer MEDICARE, OTHER ==
[2020-02-13 18:47] LABS: CALCIUM 9.1 mg/dL (8.5-10.3); CREATININE 1.3 mg/dL (0.6-1.2)
[2020-02-13 18:50] LABS: BASOPHILS # (AUTO) 0.1 10^3/uL (0.0-0.1); BASOPHILS % (AUTO) 0.9 %; EOSINOPHILS # (AUTO) 0.2 10^3/uL (0.0-0.7); EOSINOPHILS % (AUTO) 2.5 %; HGB - HEMOGLOBIN 12.7 g/dL (14.0-18.0); LYMPHOCYTES # (AUTO) 1.7 10^3/uL (1.5-3.5); LYMPHOCYTES % (AUTO) 25.7 %; MEAN CORPUSCULAR HEMOGLOBIN 30.8 pg (27.0-31.0); MEAN CORPUSCULAR HGB CONC 32.8 g/dL (32.0-36.0); MEAN CORPUSCULAR VOLUME 93.9 fL (80.0-94.0); MEAN PLATELET VOLUME 9.1 fL (7.4-11.4); MONOCYTES # (AUTO) 0.5 10^3/uL (0.0-1.0); MONOCYTES % (AUTO) 7.5 %; NEUTROPHILS # (AUTO) 4.1 10^3/uL (1.5-6.6); NEUTROPHILS % (AUTO) 63.2 %; PLT - PLATELET COUNT 293 10^3/uL (130-450); RED BLOOD COUNT 4.12 10^6/uL (4.70-6.10); RED CELL DISTRIBUTION WIDTH 12.9 % (12.0-15.0); WHITE BLOOD COUNT 6.4 x10^3/uL (4.8-10.8)
== END 2020-02-13 00:01 | disposition home or self-care (01) ==
LOC: LAB.WCP
PROVIDERS: ATTEND Physician Assistant Medical
DX: N17.9 Acute kidney failure, unspecified (principal); N18.9 Chronic kidney disease, unspecified; D62 Acute posthemorrhagic anemia
CPT/HCPCS: 36415; 80048; 85025

== ENCOUNTER 2020-03-02 08:50 | Outpatient (CLI) | payer MEDICARE, OTHER ==
[2020-03-02 12:04] LABS: BASOPHILS # (AUTO) 0.1 10^3/uL (0.0-0.1); BASOPHILS % (AUTO) 0.9 %; EOSINOPHILS # (AUTO) 0.2 10^3/uL (0.0-0.7); LYMPHOCYTES # (AUTO) 1.9 10^3/uL (1.5-3.5); LYMPHOCYTES % (AUTO) 23.9 %; MEAN CORPUSCULAR HEMOGLOBIN 31.6 pg (27.0-31.0); MEAN CORPUSCULAR HGB CONC 33.6 g/dL (32.0-36.0); MEAN CORPUSCULAR VOLUME 94.2 fL (80.0-94.0); MEAN PLATELET VOLUME 9.4 fL (7.4-11.4); MONOCYTES # (AUTO) 0.6 10^3/uL (0.0-1.0); MONOCYTES % (AUTO) 7.4 %; NEUTROPHILS # (AUTO) 5.3 10^3/uL (1.5-6.6); NEUTROPHILS % (AUTO) 64.4 %; PLT - PLATELET COUNT 226 10^3/uL (130-450); RED BLOOD COUNT 4.11 10^6/uL (4.70-6.10); RED CELL DISTRIBUTION WIDTH 12.6 % (12.0-15.0); WHITE BLOOD COUNT 8.1 x10^3/uL (4.8-10.8)
[2020-03-02 12:15] LABS: CALCIUM 8.8 mg/dL (8.5-10.3); CREATININE 1.3 mg/dL (0.6-1.2)
== END 2020-03-02 23:59 | disposition home or self-care (01) ==
LOC: LAB.WCP 08:50
PROVIDERS: ATTEND Physician Assistant Medical
DX: N17.9 Acute kidney failure, unspecified (principal); D62 Acute posthemorrhagic anemia
CPT/HCPCS: 36415; 80048; 85025

== ENCOUNTER 2020-03-05 12:23 | Outpatient (CLI) | payer MEDICARE, OTHER ==
[2020-03-05] MEDS ORDERED: GADOBUTROL 7.5 MMOL/7.5 ML VIAL ONE (12:47)
[2020-03-05] MEDS ORDERED: GADOBUTROL 7.5 MMOL/7.5 ML VIAL IVP ONE (13:36)
--- NOTE | 2020-03-05 13:53 | MRI Report ---
PROCEDURE: Brain W/WO INDICATIONS: SEIZURE CONTRAST: IV CONTRAST: Gadavist ml: 7.5 TECHNIQUE: Noncontrast axial T1 spin echo, axial T2 fast spin echo, sagittal and axial FLAIR, coronal T2 fast sp in echo, axial gradient echo, axial diffusion and ADC through the brain. After the administration of contrast, axial and coronal T1 spin echo with fat saturation through the brain. COMPARISON: Head CT examination dated 12.13.19 FINDINGS: Image quality: Excellent. CSF spaces: Basal cisterns are patent. No extra-axial fluid collections. Ventricles are normal in size and shape. Brain: No midline shift. No intracranial bleeds or masses. No abnormal intracranial enhancement. There is cerebral volume loss for age. There is periventricular white matter chronic small vessel is chemic change. The brainstem appears normal. Diffusion-weighted images demonstrate no acute ischemi c insults. No chronic ischemic insults. Normal intravascular flow voids are present. Skull and face: Calvarial marrow is normal in signal. Orbits appear normal. Sinuses: Sinuses and mastoids appear clear. IMPRESSION: 1. Volume loss and small vessel ischemic disease. 2. No acute process. No recent infarct. 3. No explanation for seizure. Reviewed by: Martha Solomon MD on 03/05/2020 1:51 PM PDT Approved by: Martha Solomon MD on 03/05/2020 1:51 PM PDT Station ID: [id number]
== END 2020-03-05 12:24 | disposition home or self-care (01) ==
LOC: DI 12:23
PROVIDERS: ATTEND Physician Assistant Medical
DX: R56.9 Unspecified convulsions (principal)
CPT/HCPCS: 70553; A9585

== ENCOUNTER 2020-06-01 08:00 | Outpatient (CLI) | payer MEDICARE, OTHER ==
[2020-06-01 13:15] LABS: BASOPHILS # (AUTO) 0.1 10^3/uL (0.0-0.1); BASOPHILS % (AUTO) 0.7 %; EOSINOPHILS # (AUTO) 0.3 10^3/uL (0.0-0.7); EOSINOPHILS % (AUTO) 3.3 %; HGB - HEMOGLOBIN 12.1 g/dL (14.0-18.0); LYMPHOCYTES # (AUTO) 1.7 10^3/uL (1.5-3.5); LYMPHOCYTES % (AUTO) 19.4 %; MEAN CORPUSCULAR HEMOGLOBIN 31.7 pg (27.0-31.0); MEAN CORPUSCULAR VOLUME 96.1 fL (80.0-94.0); MEAN PLATELET VOLUME 9.3 fL (7.4-11.4); MONOCYTES # (AUTO) 0.5 10^3/uL (0.0-1.0); MONOCYTES % (AUTO) 5.9 %; NEUTROPHILS # (AUTO) 6.1 10^3/uL (1.5-6.6); NEUTROPHILS % (AUTO) 70.5 %; PLT - PLATELET COUNT 215 10^3/uL (130-450); RED BLOOD COUNT 3.82 10^6/uL (4.70-6.10); RED CELL DISTRIBUTION WIDTH 12.7 % (12.0-15.0); WHITE BLOOD COUNT 8.6 x10^3/uL (4.8-10.8)
[2020-06-01 13:34] LABS: ALBUMIN 3.9 g/dL (3.2-5.5); ALBUMIN/GLOBULIN RATIO 1.1 (1.0-2.2); ALKALINE PHOSPHATASE 68 IU/L (42-121); ALT ALANINE AMINOTRANSFERASE 35 IU/L (10-60); AST ASPARTATE AMINOTRANSFERASE 30 IU/L (10-42); BILIRUBIN,TOTAL 0.7 mg/dL (0.2-1.0); BUN - BLOOD UREA NITROGEN 27 mg/dL (6-20); CALCIUM 9.1 mg/dL (8.5-10.3); CARBON DIOXIDE - CO2 31 mmol/L (21-32); CHLORIDE 99 mmol/L (101-111); CREATININE 1.4 mg/dL (0.6-1.2); GLUCOSE 223 mg/dL (70-100); SODIUM 136 mmol/L (135-145); TOTAL PROTEIN 7.4 g/dL (6.7-8.2)
[2020-06-01 13:35] LABS: CHOLESTEROL 132 mg/dL; HDL CHOLESTEROL 33 mg/dL; LDL CHOLESTEROL,CALCULATED 53 mg/dL; LDL/HDL RATIO 1.6 (<3.6); VLDL CHOLESTEROL 46 mg/dL
[2020-06-01 13:38] LABS: CREATININE,URINE 173.7 mg/dL; MICROALBUM/CREATININE RATIO,UR 34.5 ug/mg (<30.0)
[2020-06-01 14:29] LABS: HEMOGLOBIN A1c% 8.7 % (4.27-6.07)
== END 2020-06-01 08:01 | disposition home or self-care (01) ==
LOC: LAB.WCP 08:00
PROVIDERS: ATTEND Physician Assistant Medical
DX: E78.5 Hyperlipidemia, unspecified (principal); E11.40 Type 2 diabetes mellitus with diabetic neuropathy, unspecified; E11.22 Type 2 diabetes mellitus with diabetic chronic kidney disease; N18.9 Chronic kidney disease, unspecified; D62 Acute posthemorrhagic anemia
CPT/HCPCS: 36415; 80053; 80061; 82043; 82570; 83036; 83721; 85025

== ENCOUNTER 2020-06-21 12:16 | Outpatient (CLI) | payer MEDICARE, OTHER | END 2020-06-21 12:17 | disposition critical access hospital (66) | LOC: EMS 12:16 | PROVIDERS: ATTEND Surgery | DX: R41.0 Disorientation, unspecified (principal) | CPT/HCPCS: A0425; A0427 ==

== ENCOUNTER 2020-06-21 12:38 | Inpatient (IN) | payer MEDICARE, OTHER ==
--- NOTE | 2020-06-21 13:13 | ED Physician Documentation ---
History of Present Illness - Stated complaint Stated Complaint: AMS - History obtained from History obtained from: EMS - Additonal information Additional information: BIBA for AMS x36 hrs. Not eating. Pt unable to particupate in hx Chart review, neg MRI for sz 02/2020 Admit 12/2019 for NSTEMI and PRES. Review of Systems Unable to obtain: AMS PD PAST MEDICAL HISTORY - Past Medical History Cardiovascular: None, Hypertension, High cholesterol, Coronary artery disease, MA (NSTEMI 1 week ago) Respiratory: None, Other (dry cough w/occasional sputum) Neuro: None, Seizure disorder (EMS reported new onset seizure on transport to hospital, pt denies hx) Endocrine/Autoimmune: Type 2 diabetes (meds, no insulin) GI: None : Renal insuffiency Psych: Depression Musculoskeletal: None Derm: None - Present Medications Home Medications: Ambulatory Orders Medication Instructions Recorded Confirmed FLUoxetine [PROzac] 20 mg PO DAILY 12/11/19 12/11/19 Gabapentin 300 mg PO BID 12/11/19 12/11/19 Mirtazapine 7.5 mg PO DAILY 12/11/19 12/11/19 SITagliptin [Januvia] 100 mg PO DAILY 12/11/19 12/11/19 Telmisartan 20 mg PO DAILY 12/11/19 12/11/19 metFORMIN [Glucophage] 1,000 mg PO BIDWM 12/11/19 12/11/19 Acetaminophen [Tylenol] 650 mg PO Q4HR PRN tablet 12/21/19 Metoprolol Succinate [Toprol Xl] 25 mg PO DAILY #30 tablet 12/21/19 Pantoprazole [Protonix] 40 mg PO BID 30 Days #60 tablet 12/21/19 Rosuvastatin Calcium [Crestor] 40 mg PO QPM #30 tablet 12/21/19 Ticagrelor [Brilinta] 90 mg PO BID #60 tablet 12/21/19 levETIRAcetam [Keppra] 500 mg PO BID 30 Days #60 udc 12/21/19 - Allergies Allergies/Adverse Reactions: Allergies Allergy/AdvReac Type Severity Reaction Status Date / Time No Known Drug Allergies Allergy Verified 12/11/19 21:07 - Social History Smoking Status: Former smoker PD ED PE NORMAL - Vitals Vital signs reviewed: Yes (HTN) - General General: Other (alert, not oriented even to person) - HEENT HEENT: PERRL, EOMI - Neck Neck: Supple, no meningeal sign, No bony TTP - Cardiac Cardiac: RRR, No murmur - Respiratory Respiratory: No respiratory distress, Clear bilaterally - Neuro Neuro: No motor deficit, No sensory deficit Eye Opening: Spontaneous Motor: Obeys Commands Verbal: Confused GCS Score: 14 Results - Vitals Vitals: Oxygen O2 Source Room air - Rads (name of study) CT Head Radiology: EMP read contemporaneously (NAD) 1v Chest Radiology: EMP read contemporaneously (Pleural plaques, chronic elev L hemidiaphragm, nothing acute.) PD MEDICAL DECISION MAKING - ED course ED course: arrived, spoke with her about 1340 Similar to PRES in December. No meds x 2 days Not much food water x 4 days Heavy MJ use, not sure when last used. UA glucose/protein, no infection CBC WBC 10.2k Trop 9.6 nl Lactate 5.8 high Encephaolopathy Elev lactate, no evidence of sepsis. 2L crystalloid here. Started cardene, but agitation was significiant and more help with ativan, cardene off. ?EtOH w/d Spoke with Yousef for admit 4pm - Critical Care Time(min): 40 Time Includes: Direct patient care, Review records, Reassess patient, Document care, Coordinate care, Medical consult, Family consult for tx dec Data interpretation: Labs Procedures included in critical care time: Peripheral IV Procedures excluded from critical care time: EKG Departure - Departure Disposition: 66 [facility] DC/Xfer Clinical Impression: History of alcoholism, Hypertensive emergency, Lactic acidosis Altered mental status Qualifiers: Altered mental status type: delirium Qualified Code(s): R41.0 - Disorientation, unspecified Condition: Critical
[2020-06-21] MEDS ORDERED: NICARDIPINE HCL 25 MG in SODIUM CHLORIDE 0.9% 240 ML IV STA (13:28)
[2020-06-21] MEDS ORDERED: THIAMINE 100 MG/1 ML 2 ML MDV ONE (13:50)
[2020-06-21] MEDS ORDERED: LORazepam 2 MG/ML VIAL ONE ×2 (14:19→15:07)
[2020-06-21] MEDS ORDERED: ACETAMINOPHEN 325 MG TABLET PO PRN (15:58)
[2020-06-21] MEDS ORDERED: ONDANSETRON 4 MG/2 ML VIAL IVP PRN (15:58)
[2020-06-21] MEDS ORDERED: SODIUM CHLORIDE FLUSH 0.9% 10 ML SYRINGE IVP PRN (15:58)
[2020-06-21 16:31] LABS: BILIRUBIN,URINE NEGATIVE (NEGATIVE); GLUCOSE, URINE (UA) 500 mg/dL (NEGATIVE); KETONES,URINE (UA) 40 mg/dL (NEGATIVE); LEUKOCYTE ESTERASE, URINE NEGATIVE (NEGATIVE); NITRITE,URINE NEGATIVE (NEGATIVE); OCCULT BLOOD,URINE SMALL (NEGATIVE); PH,URINE 6.5 PH (5.0-7.5); PROTEIN,URINE 30 mg/dL (NEGATIVE); UROBILINOGEN,URINE 0.2 (NORMAL) E.U./dL (NORMAL)
[2020-06-21 16:42] LABS: BASOPHILS % (AUTO) 0.4 %; EOSINOPHILS % (AUTO) 0.1 %; HGB - HEMOGLOBIN 12.4 g/dL (14.0-18.0); LYMPHOCYTES # (AUTO) 1.1 10^3/uL (1.5-3.5); LYMPHOCYTES % (AUTO) 10.9 %; MEAN CORPUSCULAR HEMOGLOBIN 32.5 pg (27.0-31.0); MEAN CORPUSCULAR VOLUME 92.7 fL (80.0-94.0); MEAN PLATELET VOLUME 8.8 fL (7.4-11.4); MONOCYTES # (AUTO) 0.8 10^3/uL (0.0-1.0); MONOCYTES % (AUTO) 7.3 %; NEUTROPHILS # (AUTO) 8.3 10^3/uL (1.5-6.6); NEUTROPHILS % (AUTO) 80.8 %; PLT - PLATELET COUNT 240 10^3/uL (130-450); RED BLOOD COUNT 3.82 10^6/uL (4.70-6.10); RED CELL DISTRIBUTION WIDTH 12.3 % (12.0-15.0); WHITE BLOOD COUNT 10.3 x10^3/uL (4.8-10.8)
[2020-06-21 16:53] LABS: BACTERIA,URINE Rare /HPF (None Seen); CLARITY,URINE CLEAR (CLEAR); RBC,URINE 0-5 /HPF (0-5); SQUAMOUS EPITHELIAL CELL,UR RARE Squamous (<= Few)
[2020-06-21 17:01] LABS: ALBUMIN 3.9 g/dL (3.2-5.5); CREATININE 1.5 mg/dL (0.6-1.2); TOTAL PROTEIN 7.8 g/dL (6.7-8.2)
[2020-06-21] MEDS: LACTATED RINGERS 1,000 ML IV SCH (17:19)
--- NOTE | 2020-06-21 17:27 | HISTORY & PHYSICAL EXAMINATION ---
Chief Complaint - Chief Complaint Chief Complaint: Confusion History of Present Illness - Admitted From Admitted From:: Home - History Obtained From Records Reviewed: Yes History obtained from: Patient, , ER Physician, EMR - History of Present Illness HPI Comment/Other: This is a 74-year-old male with a past medical history significant for type 2 diabetes mellitus, chronic kidney disease stage III, hypertension who presents today from home due to worsening confusion. He was hospitalized back in December for PRES and NSTEMI as well as acute blood loss anemia. Most of the history is obtained from his as he is a poor historian and is still altered. His states that he had been doing well initially after discharge back in December. He saw a utility bill collection clerk in [place] who appears to have taken him off of the [facility]. He was scheduled to undergo cardiac testing in [place] but this was never done as prior to that being scheduled, the patient fell at home and had a shoulder injury. He has since been undergoing physical therapy for this. He did undergo MRI back in February given his history of seizures when he was admitted in December and this was unremarkable. His states he had been doing well up until just a few days ago when he became increasingly weak and would not get up out of bed. She states he also had decreased oral intake and would not take his medications. She states he has not drink alcohol but he does use marijuana on a daily basis. She has not noticed any seizures at home. She is concerned that he is becoming dehydrated. Yesterday and today he became really confused where she thinks he could not recognize her and that is when she sought medical attention. His is concerned that he is depressed does not care about his own wellbeing. She states he saw a psychologist a couple of times who increased his antidepressant to 60 mg. She states she is frustrated as she can see his decline but he does not want assistance. Patient is confused at bedside today but he believes he is at the hospital because his made him come. He knows that is coming up but he does not know the month. He knows it is 2019. He reports no fevers, chills, chest pain, dyspnea. He does complain of numbness in his lower extremities. He reports feeling cold. In the emergency department, he was initially found to be quite hypertensive with a systolic in the 180s. There was concern for PRES And so he was started on a Cardene drip. He was also given Ativan IV. His labs were unremarkable e xcept for a lactic acid greater than 5. A CT of the head was unremarkable. Urinalysis and chest x-ray were also unremarkable. Given his ongoing confusion, medicine was consulted for admission. I did discuss goals of care with his and she states he is a DNR. History - Past Medical History Cardiovascular: reports: None, Hypertension, High cholesterol, Coronary artery disease, [place] Respiratory: reports: None Neuro: reports: None Endocrine/Autoimmune: reports: Type 2 diabetes GI: reports: None : reports: Renal insuffiency Psych: reports: Depression Musculoskeletal: reports: None Derm: reports: None - Family & Social History Family History: Mother: , Father: Family History Comment/Other: His today confirmed that his mother from kidney failure in her 90s. She also had diabetes. Living arrangement: At home Living Situation: With spouse/s.o. Social History Notes: Social history is obtained from the . The patient lives at home with his , Cassie. She states he does not drink anymore alcohol although he has a prior history of alcohol abuse. He still uses marijuana frequently. - Substance History Abuse: Recurrent use of substance despite neg consequences: Cannabis Meds/Allgy - Home Medications Home Medications: Ambulatory Orders Medication Instructions Recorded Confirmed FLUoxetine [PROzac] 20 mg PO DAILY 12/11/19 12/11/19 Gabapentin 300 mg PO BID 12/11/19 12/11/19 Mirtazapine 7.5 mg PO DAILY 12/11/19 12/11/19 SITagliptin [Januvia] 100 mg PO DAILY 12/11/19 12/11/19 Telmisartan 20 mg PO DAILY 12/11/19 12/11/19 metFORMIN [Glucophage] 1,000 mg PO BIDWM 12/11/19 12/11/19 Acetaminophen [Tylenol] 650 mg PO Q4HR PRN tablet 12/21/19 Metoprolol Succinate [Toprol Xl] 25 mg PO DAILY #30 tablet 12/21/19 Pantoprazole [Protonix] 40 mg PO BID 30 Days #60 tablet 12/21/19 Rosuvastatin Calcium [Crestor] 40 mg PO QPM #30 tablet 12/21/19 Ticagrelor [Brilinta] 90 mg PO BID #60 tablet 12/21/19 levETIRAcetam [Keppra] 500 mg PO BID 30 Days #60 udc 12/21/19 - Allergies Allergies/Adverse Reactions: Allergies Allergy/AdvReac Type Severity Reaction Status Date / Time No Known Drug Allergies Allergy Verified 12/11/19 21:07 Review of Systems - Constitutional Constitutional: reports: Poor appetite. denies: Fever, Chills - Cardiovascular Cariovascular: denies: Chest pain, Exertional dyspnea, Decr. exercise tolerance - Respiratory Respiratory: denies: SOB at rest, SOB with exertion - Gastrointestinal Gastrointestinal: denies: Abdominal pain, Nausea, Vomiting - Genitourinary Genitourinary: reports: Dysuria. denies: Hematuria - Neurological Neurological: reports: Numbness. denies: General weakness, Focal weakness, Dizziness - All Other Systems All Other Systems: reports: Other (Rewview of systems is limited as the patient is altered.) Prior Level of Functionality: His tells me that prior to hospitalization, he was independent. He was still driving himself to his physical therapy appointments. Exam - Vital Signs Reviewed Vital Signs: Yes Vital Signs: Vital Signs x48h Temp Pulse Resp BP Pulse Ox 06/21/20 17:11 37.1 C 80 20 115/78 97 - Physical Exam General Appearance: positive: No acute distress, Alert, Other (Speech is delay ed. He is shivering a little bit. Slow to respond to questions) Eyes Bilateral: positive: Normal inspection, PERRL, Conjunctivae nml ENT: positive: ENT inspection nml, Dry mucous membranes Neck: positive: Nml inspection Respiratory: positive: No respiratory distress. negative: Wheezes, Rales Cardiovascular: positive: Regular rate & rhythm, No murmur. negative: Tachycar baljit, Bradycardia, Systolic murmur Abdomen: positive: Non-tender, No distention. negative: Tenderness, Guarding, Rebound Skin: positive: Warm, Dry Extremities: positive: Full ROM, No pedal edema Neurologic/Psychiatric: positive: Motor nml, Sensation nml, Disoriented to place, Disoriented to time. negative: Disoriented to person, Sensory loss, Facial droop, Slurred/abnml speech Conclusion/Plan - Problem List (1) Acute encephalopathy Conclusion/Plan: This could be secondary to dehydration or PRES. He has shown improvement after his blood pressure was lowered to the 150s systolic from 180s upon arrival initially to the emergency department. He is oriented to self but not quite to location. He does know the year. Do not suspect alcohol withdrawal given that he reportedly has not had any alcohol recently. CT of the head was unremarkable. There is no obvious signs of infection despite his elevated lactic acid.. At this time, we will discontinue Cardene since his blood pressure is lowered in the 150s. We will resume his home antihypertensives in the morning. If he becomes more altered with a rise in his blood pressure then we will resume Cardene. We will continue gentle IV hydration. We will monitor for alcohol withdrawal although this is less likely. Delirium precautions. (2) Hypertensive emergency Conclusion/Plan: His blood pressure was quite elevated initially in the 180s. This may have been hypertensive emergency given the encephalopathy. His blood pressure has improved to the 150s after he received Cardene IV. We will discontinue Cardene given his blood pressure has decreased by approximately 20%. We will resume his home antihypertensives in the morning. (3) Lactic acidosis Conclusion/Plan: Suspect is likely secondary to dehydration in a gentleman who takes metformin and has chronic kidney disease. No obvious source of infection. His white count is normal and he is afebrile. Chest x-ray and urinalysis are unremarkable. We will repeat a lactic acid now that he has received IV fluids. We will continue gentle IV hydration. Monitor for signs of infection. We will hold off on antibiotics. (4) Depression Conclusion/Plan: His is concerned that he is depressed and has poor insight into his health and wellbeing. We will resume his home antidepressant. Continue outpatient follow-up with his psychologist. We will ask social work to meet with the patient's as she seems to be quite overwhelmed with his health. Qualifiers: Depression Type: major depressive disorder Major depression recurrence: recurrent Active/Remission status: currently active Major depression episode severity: moderate Qualified Code(s): F33.1 - Major depressive disorder, recurrent, moderate (5) Chronic kidney disease, stage III (moderate) Conclusion/Plan: Renal function is at baseline. He likely has CKD secondary to hypertension and diabetes. Continue to monitor his renal function while he is hospitalized. Qualifiers: Chronic kidney disease stage 3 subtype: stage 3a (GFR 45-59) Qualified Code(s): N18.31 - Chronic kidney disease, stage 3a (6) Type 2 diabetes mellitus with hyperglycemia Conclusion/Plan: He is on multiple agents for his diabetes. His blood glucose is currently elevated. We will start him on Lantus 10 units this evening and sliding scale. Carb controlled diet. Check A1c. Qualifiers: Diabetes mellitus poker dealer insulin use: without poker dealer use Qualified Code(s): E11.65 - Type 2 diabetes mellitus with hyperglycemia - Lab Results Lab results reviewed: Yes Fish Bones: 06/21/20 13:46 06/21/20 13:46 - Diagnostic Imaging Results Diagnostic Imaging Results: positive: Final report reviewed - EKG Results EKG Interpreted Independently: Yes Core Measures - Anticipated LOS I expect patient to be DC'd or transferred within 96 hours.: Yes - Issues Hospital Issues and Management Plan: 74-year-old male presents with worsening confusion. This may be due to press given he has improved with lowering of his blood pressure although this could also be to dehydration. We will continue on gentle IV hydration. Monitor his neurologic status - DVT/VTE - Prophylaxis VTE/DVT Device ordered at admit?: Yes VTE/DVT Prophylaxis med ordered at admit?: Yes
[2020-06-21] MEDS ORDERED: FLU VACC QS2020-21(6MOS UP)/PF 60 MCG/0.5 ML SYRINGE IM ONE (18:06)
[2020-06-21] MEDS: SODIUM CHLORIDE FLUSH 0.9% 10 ML SYRINGE IVP SCH (18:58)
[2020-06-21] MEDS: INSULIN GLARGINE 300 UNIT/3 ML PEN SUBQ SCH (20:49)
[2020-06-21] MEDS: INSULIN ASPART 300 UNIT/3 ML PEN SUBQ SCH (20:50)
[2020-06-21] MEDS ORDERED: LORazepam 1 MG TABLET PO STA (22:21)
[2020-06-22] MEDS: SODIUM CHLORIDE FLUSH 0.9% 10 ML SYRINGE IVP SCH ×2 (00:24→17:05)
[2020-06-22] MEDS: LACTATED RINGERS 1,000 ML IV SCH ×3 (03:30→23:38)
[2020-06-22 04:50] LABS: BASOPHILS % (AUTO) 0.5 %; EOSINOPHILS # (AUTO) 0.1 10^3/uL (0.0-0.7); EOSINOPHILS % (AUTO) 0.8 %; HGB - HEMOGLOBIN 11.3 g/dL (14.0-18.0); LYMPHOCYTES # (AUTO) 1.8 10^3/uL (1.5-3.5); LYMPHOCYTES % (AUTO) 19.9 %; MEAN CORPUSCULAR HGB CONC 33.3 g/dL (32.0-36.0); MEAN PLATELET VOLUME 8.7 fL (7.4-11.4); MONOCYTES # (AUTO) 0.7 10^3/uL (0.0-1.0); MONOCYTES % (AUTO) 8.1 %; NEUTROPHILS # (AUTO) 6.3 10^3/uL (1.5-6.6); NEUTROPHILS % (AUTO) 70.4 %; PLT - PLATELET COUNT 202 10^3/uL (130-450); RED BLOOD COUNT 3.53 10^6/uL (4.70-6.10); RED CELL DISTRIBUTION WIDTH 12.8 % (12.0-15.0); WHITE BLOOD COUNT 8.9 x10^3/uL (4.8-10.8)
[2020-06-22 05:06] LABS: CALCIUM 8.4 mg/dL (8.5-10.3); CREATININE 1.2 mg/dL (0.6-1.2); MAGNESIUM 1.4 mg/dL (1.7-2.8); PHOSPHORUS 3.7 mg/dL (2.5-4.6)
[2020-06-22] MEDS: MAGNESIUM OXIDE 400 MG TABLET PO SCH ×2 (06:11→12:11)
[2020-06-22] MEDS: INSULIN ASPART 300 UNIT/3 ML PEN SUBQ SCH ×4 (08:20→20:53)
[2020-06-22] MEDS: MULTIVITAMIN TABLET PO SCH (08:23)
[2020-06-22] MEDS: THIAMINE 100 MG TABLET PO SCH (08:23)
[2020-06-22] MEDS: ENOXAPARIN 40 MG/0.4 ML SYRINGE SUBQ SCH (08:24)
--- NOTE | 2020-06-22 08:24 | PROVIDER PROGRESS NOTE ---
Subjective - Prog Note Date Prog Note Date: 06/22/20 Prog Note Time: 08:30 - Subjective Pt reports feeling: Improved Subjective: BP elevated overnight. Cardene stopped. He is up in bed, eating breakfast but slow, slow movement and speech Current Medications - Current Medications Current Medications: Active Medications Acetaminophen (Tylenol) 650 mg PO Q4HR PRN PRN Reason: Pain 1 to 4 Enoxaparin Sodium (Lovenox) 40 mg SUBQ DAILY [facility] Last Admin: 06/22/20 08:24 Dose: 40 mg Documented by: Lactated Ringer's (Lr) 1,000 mls @ 100 mls/hr IV .Q10H [facility] Last Infusion: 06/22/20 08:26 Dose: 100 mls/hr Documented by: Insulin Aspart (Novolog) 1 - 9 unit SUBQ 0800,1200,1700,2100 [facility]; Protocol Last Admin: 06/22/20 08:20 Dose: 1 unit Documented by: Insulin Glargine (Lantus Solostar) 10 unit SUBQ QPM [facility] Last Admin: 06/21/20 20:49 Dose: 10 unit Documented by: Magnesium Oxide (Mag Ox) 400 mg PO Q6H [facility]; Protocol Stop: 06/22/20 12:01 Last Admin: 06/22/20 06:11 Dose: 400 mg Documented by: Metoprolol Succinate (Toprol Xl) 25 mg PO DAILY [facility] Multivitamins (Theragran) 1 tab PO DAILYWM [facility] Last Admin: 06/22/20 08:23 Dose: 1 tab Documented by: Ondansetron HCl (Zofran Inj) 4 mg IVP Q6HR PRN PRN Reason: Nausea / Vomiting Sodium Chloride (Normal Saline Flush 0.9%) 10 ml IVP 0100,0900,1700 [facility] Last Admin: 06/22/20 00:24 Dose: Not Given Documented by: Sodium Chloride (Normal Saline Flush 0.9%) 10 ml IVP PRN PRN PRN Reason: NEEDED PER PROVIDER ORDERS Thiamine HCl (Vitamin B-1) 100 mg PO DAILY [facility] Last Admin: 06/22/20 08:23 Dose: 100 mg Documented by: FLUoxetine [PROzac] 40 mg PO DAILY 12/11/19 Gabapentin 300 mg PO BID 12/11/19 Mirtazapine 7.5 mg PO DAILY 12/11/19 SITagliptin [Januvia] 100 mg PO DAILY 12/11/19 Telmisartan 20 mg PO DAILY 12/11/19 metFORMIN [Glucophage] 1,000 mg PO BIDWM 12/11/19 Aspirin EC [Ecotrin] 81 mg PO DAILY 06/21/20 Glimepiride [Amaryl] 1 mg PO DAILY 06/21/20 Multivitamin [Multiple Vitamins] 1 each PO 06/21/20 Objective - Vital Signs/Intake & Output Reviewed Vital Signs: Yes Vital Signs: Vital Signs x48h Temp Pulse Resp BP Pulse Ox 06/22/20 08:00 37.6 C H 80 19 162/82 H 100 06/22/20 07:47 37.6 C H 06/22/20 07:00 73 25 H 185/83 H 97 06/22/20 06:00 72 28 H 160/84 H 96 06/22/20 05:00 36.6 C 70 16 155/87 H 97 06/22/20 04:00 86 12 150/68 H 100 06/22/20 03:00 74 22 144/78 H 99 06/22/20 02:00 70 22 130/77 97 06/22/20 01:00 72 17 148/85 H 96 Intake & Output: Intake & Output 06/19/20 06/20/20 06/21/20 06/22/20 23:59 23:59 23:59 23:59 Intake Total 0 1250 Output Total 300 0 Balance -300 1250 - Objective General Appearance: positive: No acute distress, Alert (to person and place but cognitive delay, and can't figure out what to do with salt over eggs or how to add to his coffee) Eyes Bilateral: positive: PERRL, EOMI ENT: positive: Pharynx nml Neck: positive: No JVD. negative: Stiff neck Respiratory: positive: Chest non-tender. negative: Wheezes, Rales, Rhonchi Cardiovascular: positive: Regular rate & rhythm, No murmur, No gallop Abdomen: positive: Non-tender, No organomegaly, Nml bowel sounds, No distention Skin: positive: Warm, Dry, Other (tanned) Extremities: positive: Non-tender, Full ROM Neurologic/Psychiatric: positive: CN's nml (2-12), Disoriented to time (has no idea what happend or why he's here), Slurred/abnml speech. negative: Motor nml (psychomotor slowing evident. no tremors, no asterixis) - Lab Results Fish Bones: 06/22/20 04:10 06/22/20 04:10 Other Labs: Lab Results x24hrs 06/22/20 06/22/20 06/22/20 Range/Units 04:10 04:10 04:10 WBC 8.9 (4.8-10.8) x10^3/uL RBC 3.53 L (4.70-6.10) 10^6/uL Hgb 11.3 L (14.0-18.0) g/dL Hct 33.9 L (42.0-52.0) % MCV 96.0 H (80.0-94.0) fL MCH 32.0 H (27.0-31.0) pg MCHC 33.3 (32.0-36.0) g/dL RDW 12.8 (12.0-15.0) % Plt Count 202 (130-450) 10^3/uL MPV 8.7 (7.4-11.4) fL Neut # (Auto) 6.3 (1.5-6.6) 10^3/uL Lymph # (Auto) 1.8 (1.5-3.5) 10^3/uL Tate # (Auto) 0.7 (0.0-1.0) 10^3/uL Eos # (Auto) 0.1 (0.0-0.7) 10^3/uL Baso # (Auto) 0.0 (0.0-0.1) 10^3/uL Absolute Nucleated RBC 0.00 x10^3/uL Nucleated RBC % 0.0 /100WBC Sodium 133 L (135-145) mmol/L Potassium 3.7 (3.5-5.0) mmol/L Chloride 101 (101-111) mmol/L Carbon Dioxide 23 (21-32) mmol/L Anion Gap 9.0 (6-13) BUN 17 (6-20) mg/dL Creatinine 1.2 (0.6-1.2) mg/dL Estimated GFR (MDRD) 59 L (>89) Glucose 140 H (70-100) mg/dL Lactic Acid (0.5-2.2) mmol/L Calcium 8.4 L (8.5-10.3) mg/dL Phosphorus 3.7 (2.5-4.6) mg/dL Magnesium 1.4 L (1.7-2.8) mg/dL Total Bilirubin (0.2-1.0) mg/dL AST (10-42) IU/L ALT (10-60) IU/L Alkaline Phosphatase (42-121) IU/L Troponin I High Sens (2.3-19.7) ng/L Total Protein (6.7-8.2) g/dL Albumin 3.5 (3.2-5.5) g/dL Globulin (2.1-4.2) g/dL Albumin/Globulin Ratio (1.0-2.2) Urine Color Urine Clarity (CLEAR) Urine pH (5.0-7.5) PH Ur Specific [place] (1.002-1.030) Urine Protein (NEGATIVE) mg/dL Urine Glucose (UA) (NEGATIVE) mg/dL Urine Ketones (NEGATIVE) mg/dL Urine Occult Blood (NEGATIVE) Urine Nitrite (NEGATIVE) Urine Bilirubin (NEGATIVE) Urine Urobilinogen (NORMAL) E.U./dL Ur Leukocyte Esterase (NEGATIVE) Urine RBC (0-5) /HPF Urine WBC (0-3) /HPF Ur Squamous Epith Cells (<= Few) Urine Bacteria (None Seen) /HPF Ur Microscopic Review Urine Culture Comments Nasal Screen MRSA (PCR) (NEGATIVE) 06/21/20 06/21/20 06/21/20 Range/Units 21:33 17:23 17:23 WBC (4.8-10.8) x10^3/uL RBC (4.70-6.10) 10^6/uL Hgb (14.0-18.0) g/dL Hct (42.0-52.0) % MCV (80.0-94.0) fL MCH (27.0-31.0) pg MCHC (32.0-36.0) g/dL RDW (12.0-15.0) % Plt Count (130-450) 10^3/uL MPV (7.4-11.4) fL Neut # (Auto) (1.5-6.6) 10^3/uL Lymph # (Auto) (1.5-3.5) 10^3/uL Tate # (Auto) (0.0-1.0) 10^3/uL Eos # (Auto) (0.0-0.7) 10^3/uL Baso # (Auto) (0.0-0.1) 10^3/uL Absolute Nucleated RBC x10^3/uL Nucleated RBC % /100WBC Sodium (135-145) mmol/L Potassium (3.5-5.0) mmol/L Chloride (101-111) mmol/L Carbon Dioxide (21-32) mmol/L Anion Gap (6-13) BUN (6-20) mg/dL Creatinine (0.6-1.2) mg/dL Estimated GFR (MDRD) (>89) Glucose (70-100) mg/dL Lactic Acid 1.5 (0.5-2.2) mmol/L Calcium (8.5-10.3) mg/dL Phosphorus (2.5-4.6) mg/dL Magnesium (1.7-2.8) mg/dL Total Bilirubin (0.2-1.0) mg/dL AST (10-42) IU/L ALT (10-60) IU/L Alkaline Phosphatase (42-121) IU/L Troponin I High Sens 27.1 H* 21.2 H* (2.3-19.7) ng/L Total Protein (6.7-8.2) g/dL Albumin (3.2-5.5) g/dL Globulin (2.1-4.2) g/dL Albumin/Globulin Ratio (1.0-2.2) Urine Color Urine Clarity (CLEAR) Urine pH (5.0-7.5) PH Ur Specific [place] (1.002-1.030) Urine Protein (NEGATIVE) mg/dL Urine Glucose (UA) (NEGATIVE) mg/dL Urine Ketones (NEGATIVE) mg/dL Urine Occult Blood (NEGATIVE) Urine Nitrite (NEGATIVE) Urine Bilirubin (NEGATIVE) Urine Urobilinogen (NORMAL) E.U./dL Ur Leukocyte Esterase (NEGATIVE) Urine RBC (0-5) /HPF Urine WBC (0-3) /HPF Ur Squamous Epith Cells (<= Few) Urine Bacteria (None Seen) /HPF Ur Microscopic Review Urine Culture Comments Nasal Screen MRSA (PCR) (NEGATIVE) 06/21/20 06/21/20 06/21/20 Range/Units 17:13 14:25 13:46 WBC (4.8-10.8) x10^3/uL RBC (4.70-6.10) 10^6/uL Hgb (14.0-18.0) g/dL Hct (42.0-52.0) % MCV (80.0-94.0) fL MCH (27.0-31.0) pg MCHC (32.0-36.0) g/dL RDW (12.0-15.0) % Plt Count (130-450) 10^3/uL MPV (7.4-11.4) fL Neut # (Auto) (1.5-6.6) 10^3/uL Lymph # (Auto) (1.5-3.5) 10^3/uL Tate # (Auto) (0.0-1.0) 10^3/uL Eos # (Auto) (0.0-0.7) 10^3/uL Baso # (Auto) (0.0-0.1) 10^3/uL Absolute Nucleated RBC x10^3/uL Nucleated RBC % /100WBC Sodium 136 (135-145) mmol/L Potassium 3.7 (3.5-5.0) mmol/L Chloride 100 L (101-111) mmol/L Carbon Dioxide 16 L (21-32) mmol/L Anion Gap 20.0 H (6-13) BUN 19 (6-20) mg/dL Creatinine 1.5 H (0.6-1.2) mg/dL Estimated GFR (MDRD) 46 L (>89) Glucose 237 H (70-100) mg/dL Lactic Acid (0.5-2.2) mmol/L Calcium 9.0 (8.5-10.3) mg/dL Phosphorus (2.5-4.6) mg/dL Magnesium (1.7-2.8) mg/dL Total Bilirubin 1.0 (0.2-1.0) mg/dL AST 30 (10-42) IU/L ALT 30 (10-60) IU/L Alkaline Phosphatase 73 (42-121) IU/L Troponin I High Sens (2.3-19.7) ng/L Total Protein 7.8 (6.7-8.2) g/dL Albumin 3.9 (3.2-5.5) g/dL Globulin 3.9 (2.1-4.2) g/dL Albumin/Globulin Ratio 1.0 (1.0-2.2) Urine Color YELLOW Urine Clarity CLEAR (CLEAR) Urine pH 6.5 (5.0-7.5) PH Ur Specific [place] 1.020 (1.002-1.030) Urine Protein 30 H (NEGATIVE) mg/dL Urine Glucose (UA) 500 H (NEGATIVE) mg/dL Urine Ketones 40 H (NEGATIVE) mg/dL Urine Occult Blood SMALL H (NEGATIVE) Urine Nitrite NEGATIVE (NEGATIVE) Urine Bilirubin NEGATIVE (NEGATIVE) Urine Urobilinogen 0.2 (NORMAL) (NORMAL) E.U./dL Ur Leukocyte Esterase NEGATIVE (NEGATIVE) Urine RBC 0-5 (0-5) /HPF Urine WBC 0-3 (0-3) /HPF Ur Squamous Epith Cells RARE Squamous (<= Few) Urine Bacteria Rare (None Seen) /HPF Ur Microscopic Review INDICATED Urine Culture Comments NOT INDICATED Nasal Screen MRSA (PCR) NEGATIVE (NEGATIVE) 06/21/20 06/21/20 06/21/20 Range/Units 13:46 13:46 13:46 WBC 10.3 (4.8-10.8) x10^3/uL RBC 3.82 L (4.70-6.10) 10^6/uL Hgb 12.4 L (14.0-18.0) g/dL Hct 35.4 L (42.0-52.0) % MCV 92.7 (80.0-94.0) fL MCH 32.5 H (27.0-31.0) pg MCHC 35.0 (32.0-36.0) g/dL RDW 12.3 (12.0-15.0) % Plt Count 240 (130-450) 10^3/uL MPV 8.8 (7.4-11.4) fL Neut # (Auto) 8.3 H (1.5-6.6) 10^3/uL Lymph # (Auto) 1.1 L (1.5-3.5) 10^3/uL Tate # (Auto) 0.8 (0.0-1.0) 10^3/uL Eos # (Auto) 0.0 (0.0-0.7) 10^3/uL Baso # (Auto) 0.0 (0.0-0.1) 10^3/uL Absolute Nucleated RBC 0.00 x10^3/uL Nucleated RBC % 0.0 /100WBC Sodium (135-145) mmol/L Potassium (3.5-5.0) mmol/L Chloride (101-111) mmol/L Carbon Dioxide (21-32) mmol/L Anion Gap (6-13) BUN (6-20) mg/dL Creatinine (0.6-1.2) mg/dL Estimated GFR (MDRD) (>89) Glucose (70-100) mg/dL Lactic Acid 5.8 H* (0.5-2.2) mmol/L Calcium (8.5-10.3) mg/dL Phosphorus (2.5-4.6) mg/dL Magnesium (1.7-2.8) mg/dL Total Bilirubin (0.2-1.0) mg/dL AST (10-42) IU/L ALT (10-60) IU/L Alkaline Phosphatase (42-121) IU/L Troponin I High Sens 9.6 (2.3-19.7) ng/L Total Protein (6.7-8.2) g/dL Albumin (3.2-5.5) g/dL Globulin (2.1-4.2) g/dL Albumin/Globulin Ratio (1.0-2.2) Urine Color Urine Clarity (CLEAR) Urine pH (5.0-7.5) PH Ur Specific [place] (1.002-1.030) Urine Protein (NEGATIVE) mg/dL Urine Glucose (UA) (NEGATIVE) mg/dL Urine Ketones (NEGATIVE) mg/dL Urine Occult Blood (NEGATIVE) Urine Nitrite (NEGATIVE) Urine Bilirubin (NEGATIVE) Urine Urobilinogen (NORMAL) E.U./dL Ur Leukocyte Esterase (NEGATIVE) Urine RBC (0-5) /HPF Urine WBC (0-3) /HPF Ur Squamous Epith Cells (<= Few) Urine Bacteria (None Seen) /HPF Ur Microscopic Review Urine Culture Comments Nasal Screen MRSA (PCR) (NEGATIVE) Assessment/Plan - Problem List (1) Acute encephalopathy Impression: DD: dehydration or PRES. He showed improvement when he was treated in the emergency room and his systolic went from 1 50-1 80. Transferred to the ICU but only needed Cardene for very short time. This morning he is stable and that his blood pressure still 150-180. He has psychomotor slowing. Oriented to person, place, but confabulating about how he got here. Has no idea. Plan: Resume Lopressor and telmisartan. continue IVF until eating and drinking normallly transfer to [facility] Surg status (2) Hypertensive emergency Conclusion/Plan: Systolic blood pressure was 180 or more when he presented. Suggestion by his that he is noncompliant with medications at home. Plan: As above (3) Lactic acidosis, type B, resolved Conclusion/Plan: Was 5.8, then went to 1.5 with hydration and stopping metformin. Plan: No metformin at home (4) Depression Conclusion/Plan: On admission: His is concerned that he is depressed and has poor insight into his health and wellbeing. We will resume his home antidepressant. Continue outpatient follow-up with his psychologist. We will ask social work to meet with the patient's as she seems to be quite overwhelmed with his health. Today: I had hoped to have an advanced care planning conversation with him. Slowly come to understand where his thought process was. Unfortunately he is still with psychomotor slowing, still with confusion and confabulation. We will continue to assess him daily to have this conversation. Qualifiers: Depression Type: major depressive disorder Major depression recurrence: recurrent Active/Remission status: currently active Major depression episode severity: moderate Qualified Code(s): F33.1 - Major depressive disorder, recurrent, moderate (5) Chronic kidney disease, stage III (moderate) Conclusion/Plan: Renal function is at baseline. He likely has CKD secondary to hypertension and diabetes. Continue to monitor his renal function while he is hospitalized. Qualifiers: Chronic kidney disease stage 3 subtype: stage 3a (GFR 45-59) Qualified Code(s): N18.31 - Chronic kidney disease, stage 3a (6) Type 2 diabetes mellitus with hyperglycemia Conclusion/Plan: He is on multiple agents for his diabetes. His blood glucose was elevated on admit. We started him on Lantus 10 units in the evening and sliding scale. Carb controlled diet. A1c ordered and pending result. Yesterday his glucose was 138. This morning he is 145. Plan: Continue Lantus until discharge Qualifiers: Diabetes mellitus usp insulin use: without usp use Qualified Code(s): E11.65 - Type 2 diabetes mellitus with hyperglycemia (7) Mild malnutrition Impression: His depression versus cognitive decline is evident on physical exam and by history of his . He has not been taking care of himself, and not taking his medications. This has him meeting a criteria for diagnosis of mild malnutrition. He is eating less than 50 to 75% of normal in the preceding week. He has 6% weight loss in the last 6 months. He has generalized weakness that was present prior to admission and definitely present during this admission. Plan: Nutrition services for consultation physical and occupational therapy eval and treatment
--- NOTE | 2020-06-22 09:01 | CT Report ---
PROCEDURE: HEAD WO INDICATIONS: ALTERED MENTAL STATUS TECHNIQUE: Noncontrast 4.5 mm thick angled axial sections acquired from the foramen magnum to the vertex. For r adiation dose reduction, the following was used: automated exposure control, adjustment of mA and/or kV according to patient size. COMPARISON: CT head dated 12/13/2019 FINDINGS: Image quality: Excellent. CSF spaces: Basal cisterns are patent. No extra-axial fluid collections. Ventricles are symmetric in size and shape. Brain: No midline shift. No acute intracranial hemorrhage or mass effect. Scattered hypodensities in the subcortical and periventricular white matter most likely represents mild chronic microvascular i schemic changes.. Skull and face: Calvarium and visualized facial bones are intact, without suspicious lesions. Sinuses: Visualized sinuses and mastoids are clear. IMPRESSION: No acute intracranial abnormality. Mild chronic microvascular ischemic changes. Reviewed by: Keith Santizo MD on 06/22/2020 9:00 AM PDT Approved by: Keith Santizo MD on 06/22/2020 9:00 AM PDT Station ID: [id number]
--- NOTE | 2020-06-22 09:04 | XRAY Report ---
PROCEDURE: Chest 1 View X-Ray INDICATIONS: ALTERED TECHNIQUE: One view of the chest was acquired. COMPARISON: Chest radiograph 12/29/2019 FINDINGS: Surgical changes and devices: None. Lungs and pleura: No pleural effusions or pneumothorax. Mild elevation of the left hemidiaphragm is stable when compared to the exam from 12/11/2019. There is mild atelectasis at the left lung base. Mack cifications projecting over the bilateral hemidiaphragms and left hemithorax are most likely related to chronic calcified pleural plaques. Mediastinum: Mediastinal contours appear normal. Heart size is normal. Bones and chest wall: No suspicious bony lesions. Overlying soft tissues appear unremarkable. IMPRESSION: 1. No acute cardiopulmonary abnormality. 2. Stable mild elevation of left hemidiaphragm. 3. Bilateral calcified pleural plaques. Findings were discussed with Dr. Borges of the Emergency Department by telephone on 06/21/2020 at ap proximately 1:45 PM. This dictation is being submitted the following day due to system downtime. Reviewed by: Keith Santizo MD on 06/22/2020 9:03 AM PDT Approved by: Keith Santizo MD on 06/22/2020 9:03 AM PDT Station ID: [id number]
--- NOTE | 2020-06-22 11:44 | PHARMACY PROGRESS NOTE ---
- Best Possible Medication History Admit Date and Time: 06/21/20 1558 Processed by: Pharmacy Medication History completed: Yes Patient Interview: Completed Secondary Source(s): Spouse/Significant other, Pharmacy records, Insurance records As the person ultimately responsible for medication therapy, providers are able to order a medication from an existing home medication list in [facility] via the "Reconcile Routine" prior to Confirmation of that medication by technical sales support manager. Such practice is discouraged except when the physician, in their clinical judgment, deems that a medical need exists for a medication without regard to previous use. PATIENT UNABLE TO PARTICIPATE IN MED-REC INTERVIEW. [facility] CALLED THE SPOUSE WHO WAS ABLE TO CONFIRM THE HOME MEDICATIONS. PATIENT NON-COMPLIANT AT TIMES.
[2020-06-22] MEDS: METOPROLOL SUCCINATE 25 MG TABLET PO SCH (12:11)
[2020-06-22] MEDS: polyethylene glycoL 3350 17 GM PACKET PO SCH (12:48)
[2020-06-22 14:01] LABS: HEMOGLOBIN A1c% 7.7 % (4.27-6.07)
[2020-06-22] MEDS: INSULIN GLARGINE 300 UNIT/3 ML PEN SUBQ SCH (20:54)
[2020-06-23 05:13] LABS: BASOPHILS # (AUTO) 0.1 10^3/uL (0.0-0.1); BASOPHILS % (AUTO) 0.6 %; EOSINOPHILS # (AUTO) 0.1 10^3/uL (0.0-0.7); EOSINOPHILS % (AUTO) 1.2 %; HGB - HEMOGLOBIN 10.7 g/dL (14.0-18.0); LYMPHOCYTES # (AUTO) 1.7 10^3/uL (1.5-3.5); LYMPHOCYTES % (AUTO) 20.1 %; MEAN CORPUSCULAR HEMOGLOBIN 32.3 pg (27.0-31.0); MEAN CORPUSCULAR HGB CONC 34.2 g/dL (32.0-36.0); MEAN CORPUSCULAR VOLUME 94.6 fL (80.0-94.0); MEAN PLATELET VOLUME 8.8 fL (7.4-11.4); MONOCYTES # (AUTO) 0.7 10^3/uL (0.0-1.0); MONOCYTES % (AUTO) 8.1 %; NEUTROPHILS % (AUTO) 69.6 %; PLT - PLATELET COUNT 200 10^3/uL (130-450); RED BLOOD COUNT 3.31 10^6/uL (4.70-6.10); RED CELL DISTRIBUTION WIDTH 12.4 % (12.0-15.0); WHITE BLOOD COUNT 8.6 x10^3/uL (4.8-10.8)
[2020-06-23 05:24] LABS: CALCIUM 8.8 mg/dL (8.5-10.3); MAGNESIUM 1.7 mg/dL (1.7-2.8); PHOSPHORUS 3.7 mg/dL (2.5-4.6)
[2020-06-23] MEDS: SODIUM CHLORIDE FLUSH 0.9% 10 ML SYRINGE IVP SCH ×3 (07:49→16:58)
[2020-06-23] MEDS: INSULIN ASPART 300 UNIT/3 ML PEN SUBQ SCH ×4 (08:10→21:12)
[2020-06-23] MEDS: polyethylene glycoL 3350 17 GM PACKET PO SCH (08:11)
[2020-06-23] MEDS: THIAMINE 100 MG TABLET PO SCH (08:11)
[2020-06-23] MEDS: ENOXAPARIN 40 MG/0.4 ML SYRINGE SUBQ SCH (08:11)
[2020-06-23] MEDS: METOPROLOL SUCCINATE 25 MG TABLET PO SCH (08:11)
[2020-06-23] MEDS: MULTIVITAMIN TABLET PO SCH (08:11)
[2020-06-23] MEDS: LACTATED RINGERS 1,000 ML IV SCH ×2 (10:12→21:13)
--- NOTE | 2020-06-23 15:36 | PROVIDER PROGRESS NOTE ---
Subjective - Prog Note Date Prog Note Date: 06/23/20 Prog Note Time: 15:31 - Subjective Pt reports feeling: Improved Subjective: I walk in the room this morning and he is sitting upright in bed trying to eat breakfast. Slowly. Slowing of psychomotor abilities. But he is alert, cooperative, smiling. I asked him if he remembers who I am and he replies he does. I smile and ask him what my name is and he says my name is "Nasir". I asked him what I do for him and he tells me that I do some type of "healing" but he does not know exactly what I do. He denies chest pain, palpitations, shortness of breath. When I asked him if he is aware of his memory gaps, he reluctantly admits that he starting to realize that he is not remembering things the way he should. Current Medications - Current Medications Current Medications: Active Medications Acetaminophen (Tylenol) 650 mg PO Q4HR PRN PRN Reason: Pain 1 to 4 Enoxaparin Sodium (Lovenox) 40 mg SUBQ DAILY [facility] Last Admin: 06/23/20 08:11 Dose: 40 mg Documented by: Lactated Ringer's (Lr) 1,000 mls @ 100 mls/hr IV .Q10H [facility] Last Admin: 06/23/20 10:12 Dose: 100 mls/hr Documented by: Insulin Aspart (Novolog) 1 - 9 unit SUBQ 0800,1200,1700,2100 [facility]; Protocol Last Admin: 06/23/20 12:08 Dose: 1 unit Documented by: Insulin Glargine (Lantus Solostar) 10 unit SUBQ QPM [facility] Last Admin: 06/22/20 20:54 Dose: 10 unit Documented by: Losartan Potassium (Cozaar) 50 mg PO DAILY [facility] Metoprolol Succinate (Toprol Xl) 25 mg PO DAILY [facility] Last Admin: 06/23/20 08:11 Dose: 25 mg Documented by: Multivitamins (Theragran) 1 tab PO DAILYWM [facility] Last Admin: 06/23/20 08:11 Dose: 1 tab Documented by: Ondansetron HCl (Zofran Inj) 4 mg IVP Q6HR PRN PRN Reason: Nausea / Vomiting Polyethylene Glycol (Miralax) 17 gm PO DAILY [facility] Last Admin: 06/23/20 08:11 Dose: 17 gm Documented by: Sodium Chloride (Normal Saline Flush 0.9%) 10 ml IVP 0100,0900,1700 [facility] Last Admin: 06/23/20 07:54 Dose: Not Given Documented by: Sodium Chloride (Normal Saline Flush 0.9%) 10 ml IVP PRN PRN PRN Reason: NEEDED PER PROVIDER ORDERS Thiamine HCl (Vitamin B-1) 100 mg PO DAILY [facility] Last Admin: 06/23/20 08:11 Dose: 100 mg Documented by: FLUoxetine [PROzac] 60 mg PO DAILY 12/11/19 Gabapentin 300 mg PO BID 12/11/19 SITagliptin [Januvia] 100 mg PO DAILY 12/11/19 Telmisartan 20 mg PO DAILY 12/11/19 Aspirin EC [Ecotrin] 81 mg PO DAILY 06/21/20 Glimepiride [Amaryl] 1 mg PO DAILY 06/21/20 Multivitamin [Multiple Vitamins] 1 each PO 06/21/20 Mecobalamin [B12 Active] 1 tab PO DAILY 06/22/20 Objective - Vital Signs/Intake & Output Reviewed Vital Signs: Yes Vital Signs: Vital Signs x48h Temp Pulse Pulse Pulse Resp BP BP 06/23/20 12:45 164/81 H 06/23/20 12:31 36.6 C 61 22 180/78 H 06/23/20 12:00 164/81 H 06/23/20 10:10 67 68 188/84 H 06/23/20 08:12 36.7 C 65 13 162/77 H BP Pulse Ox 06/23/20 12:45 06/23/20 12:31 98 06/23/20 12:00 06/23/20 10:10 177/90 H 06/23/20 08:12 96 Intake & Output: Intake & Output 06/20/20 06/21/20 06/22/20 06/23/20 23:59 23:59 23:59 23:59 Intake Total 0 4360.000 1989 Output Total 300 540 150 Balance -300 3820.000 1840 - Objective General Appearance: positive: No acute distress, Alert, Other (unshaven white male, cooperative but very forgetful and will confabulate to fill in the "gaps") Eyes Bilateral: positive: PERRL ENT: positive: Pharynx nml Neck: positive: No JVD. negative: Stiff neck Respiratory: positive: Chest non-tender, No respiratory distress. negative: Wheezes, Rales, Rhonchi Cardiovascular: positive: Regular rate & rhythm. negative: Systolic murmur, Gallop/S4, Friction rub Abdomen: positive: Non-tender, No organomegaly, Nml bowel sounds, No distention Skin: positive: Warm, Dry, Pallor Extremities: positive: Non-tender, No pedal edema Neurologic/Psychiatric: positive: CN's nml (2-12), Disoriented to place, Disor iented to time, Weakness (generalized and nonfocal). negative: Motor nml (ataxia) - Lab Results Fish Bones: 06/23/20 04:30 06/23/20 04:30 Other Labs: Lab Results x24hrs 06/23/20 06/23/20 Range/Units 04:30 04:30 WBC 8.6 (4.8-10.8) x10^3/uL RBC 3.31 L (4.70-6.10) 10^6/uL Hgb 10.7 L (14.0-18.0) g/dL Hct 31.3 L (42.0-52.0) % MCV 94.6 H (80.0-94.0) fL MCH 32.3 H (27.0-31.0) pg MCHC 34.2 (32.0-36.0) g/dL RDW 12.4 (12.0-15.0) % Plt Count 200 (130-450) 10^3/uL MPV 8.8 (7.4-11.4) fL Neut # (Auto) 6.0 (1.5-6.6) 10^3/uL Lymph # (Auto) 1.7 (1.5-3.5) 10^3/uL [place] # (Auto) 0.7 (0.0-1.0) 10^3/uL Eos # (Auto) 0.1 (0.0-0.7) 10^3/uL Baso # (Auto) 0.1 (0.0-0.1) 10^3/uL Absolute Nucleated RBC 0.00 x10^3/uL Nucleated RBC % 0.0 /100WBC Sodium 135 (135-145) mmol/L Potassium 3.9 (3.5-5.0) mmol/L Chloride 101 (101-111) mmol/L Carbon Dioxide 26 (21-32) mmol/L Anion Gap 8.0 (6-13) BUN 17 (6-20) mg/dL Creatinine 1.0 (0.6-1.2) mg/dL Estimated GFR (MDRD) 73 L (>89) Glucose 98 (70-100) mg/dL Calcium 8.8 (8.5-10.3) mg/dL Phosphorus 3.7 (2.5-4.6) mg/dL Magnesium 1.7 (1.7-2.8) mg/dL ABX Reporting Has patient been on IV antibiotics over the past 48 hours?: No Assessment/Plan - Problem List (1) Cognitive and neurobehavioral dysfunction following brain injury Impression: As we have treated his blood pressure, dehydration, lactic acidosis, he is improving from an alertness perspective. But it is coming more and more evident that there is some type of cognitive deficit. Occupational Therapy has seen and evaluated the patient today. This is a relatively new phenomena over the last several months. Made worse by his episode of PRES with admission and treatment. This was then followed by noncompliance. Depression could be contributing to this. Basically "giving up" according to the . Unfortunately I think his noncompliance is resulted in some type of cognitive and neurobehavioral dysfunction. I do not know if this is permanent or something that will improve with time. Plan: Continue to treat the ongoing medical problems as stated below. Continue with occupational therapy for cognitive training. (2) Acute encephalopathy: DD: dehydration or PRES. He showed improvement when he was treated in the emergency room and his systolic went from 1 50-1 80. Transferred to the ICU but only needed Cardene for very short time. This morning he is stable and that his blood pressure still 150-180. He has psychomotor slowing. Oriented to person, place, but confabulating about how he got here. Has no idea. I have resumed Lopressor and telmisartan. On med surg status. Plan: continue IVF until eating and drinking normallly He is not eating much (3) Hypertensive emergency resolved Conclusion/Plan: Systolic blood pressure was 180 or more when he presented. Suggestion by his that he is noncompliant with medications at home. Today he is still gone up to 188 systolic. But then back down to 164 systolic. He is on Toprol-XL 25 mg a day. I had avoided the telmisartan to see what effect the Toprol would have in the blood pressure. So far still high enough that I can resume that. It is nonformulary and I will substitute with losartan. (4) Lactic acidosis, type B, resolved Conclusion/Plan: Was 5.8, then went to 1.5 with hydration and stopping metformin. Plan: No metformin at home (5) Depression Conclusion/Plan: On admission: His is concerned that he is depressed and has poor insight into his health and wellbeing. We will resume his home antidepressant. Continue outpatient follow-up with his psychologist. We will ask social work to meet with the patient's as she seems to be quite overwhelmed with his health. 06/22: I had hoped to have an advanced care planning conversation with him. Slowly come to understand where his thought process was. Unfortunately he is still with psychomotor slowing, still with confusion and confabulation. We will continue to assess him daily to have this conversation. 06/23: no real improvement in cognition today. He may need to be eval by jose l. I will have social work eval for that. Qualifiers: Depression Type: major depressive disorder Major depression recurrence: recurrent Active/Remission status: currently active Major depression episode severity: moderate Qualified Code(s): F33.1 - Major depressive disorder, recurrent, moderate (6) Chronic kidney disease, stage III (moderate) Conclusion/Plan: Renal function is at baseline. He likely has CKD secondary to hypertension and diabetes. Continue to monitor his renal function while he is hospitalized. Qualifiers: Chronic kidney disease stage 3 subtype: stage 3a (GFR 45-59) Qualified Code(s): N18.31 - Chronic kidney disease, stage 3a (7) Type 2 diabetes mellitus with hyperglycemia Conclusion/Plan: He is on multiple agents for his diabetes. His blood glucose was elevated on admit. We started him on Lantus 10 units in the evening and sliding scale. C arb controlled diet. A1c ordered and pending result. 06/21: his glucose was 138. 06/22: 145, 141, 172, 149 06/23: 113, 168 Plan: Continue Lantus until discharge. No change today. 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 He has not been taking care of himself, and not taking his medications. This has him meeting a criteria for diagnosis of mild malnutrition. He is eating less than 50 to 75% of normal in the preceding week. He has 6% weight loss in the last 6 months. He has generalized weakness that was present prior to admission and definitely present during this admission. Plan: Nutrition services is following him. physical and occupational therapy eval and treatment ordered and done.
[2020-06-23] MEDS: LOSARTAN 50 MG TABLET PO SCH (16:58)
[2020-06-23] MEDS: SENNA 8.6 MG TABLET PO SCH (21:09)
[2020-06-23] MEDS: DOCUSATE SODIUM 250 MG CAPSULE PO SCH (21:09)
[2020-06-23] MEDS: INSULIN GLARGINE 300 UNIT/3 ML PEN SUBQ SCH (21:09)
[2020-06-24] MEDS: SODIUM CHLORIDE FLUSH 0.9% 10 ML SYRINGE IVP SCH ×3 (00:23→17:09)
[2020-06-24 05:20] LABS: BASOPHILS % (AUTO) 0.4 %; EOSINOPHILS # (AUTO) 0.2 10^3/uL (0.0-0.7); EOSINOPHILS % (AUTO) 1.9 %; LYMPHOCYTES # (AUTO) 1.6 10^3/uL (1.5-3.5); LYMPHOCYTES % (AUTO) 19.8 %; MEAN CORPUSCULAR HEMOGLOBIN 31.8 pg (27.0-31.0); MEAN CORPUSCULAR HGB CONC 34.4 g/dL (32.0-36.0); MEAN CORPUSCULAR VOLUME 92.5 fL (80.0-94.0); MEAN PLATELET VOLUME 8.7 fL (7.4-11.4); MONOCYTES # (AUTO) 0.7 10^3/uL (0.0-1.0); MONOCYTES % (AUTO) 8.3 %; NEUTROPHILS # (AUTO) 5.5 10^3/uL (1.5-6.6); NEUTROPHILS % (AUTO) 69.2 %; PLT - PLATELET COUNT 187 10^3/uL (130-450); RED BLOOD COUNT 3.46 10^6/uL (4.70-6.10); WHITE BLOOD COUNT 7.9 x10^3/uL (4.8-10.8)
[2020-06-24 05:32] LABS: CALCIUM 8.4 mg/dL (8.5-10.3); CREATININE 1.1 mg/dL (0.6-1.2); MAGNESIUM 1.5 mg/dL (1.7-2.8); PHOSPHORUS 3.3 mg/dL (2.5-4.6)
[2020-06-24] MEDS ORDERED: MAGNESIUM SULFATE 1 GM in SODIUM CHLORIDE 0.9% 50 ML IV ONE (06:34)
[2020-06-24] MEDS ORDERED: MAGNESIUM OXIDE 400 MG TABLET PO ONE (07:00)
[2020-06-24] MEDS: MULTIVITAMIN TABLET PO SCH (08:05)
[2020-06-24] MEDS: INSULIN ASPART 300 UNIT/3 ML PEN SUBQ SCH ×4 (08:05→21:40)
[2020-06-24] MEDS: SENNA 8.6 MG TABLET PO SCH (08:54)
[2020-06-24] MEDS: DOCUSATE SODIUM 250 MG CAPSULE PO SCH (08:54)
[2020-06-24] MEDS: THIAMINE 100 MG TABLET PO SCH (08:54)
[2020-06-24] MEDS: METOPROLOL SUCCINATE 25 MG TABLET PO SCH (08:55)
[2020-06-24] MEDS: polyethylene glycoL 3350 17 GM PACKET PO SCH (08:55)
[2020-06-24] MEDS: ENOXAPARIN 40 MG/0.4 ML SYRINGE SUBQ SCH (08:56)
[2020-06-24] MEDS: LOSARTAN 50 MG TABLET PO SCH (09:00)
[2020-06-24] MEDS: LACTATED RINGERS 1,000 ML IV SCH ×2 (09:31→20:08)
--- NOTE | 2020-06-24 13:13 | PROVIDER PROGRESS NOTE ---
Subjective - Prog Note Date Prog Note Date: 06/24/20 Prog Note Time: 13:10 - Subjective Pt reports feeling: Improved Subjective: On both Toprol and losartan his systolic is now 130-163. Improvement from yesterday is 180 systolic. He is much more alert. Eyes reflect a level of alertness and more ability to focus. Still making up stuff to fill in the gaps of his memory though. Yesterday my name was Nasir. Today my name is Jennifer. Yesterday I was a healer. Today he has just bats and says that maybe I am from nutrition services. He denies any pain. No shortness of breath. No headache. No focal deficits. Current Medications - Current Medications Current Medications: Active Medications Acetaminophen (Tylenol) 650 mg PO Q4HR PRN PRN Reason: Pain 1 to 4 Docusate Sodium (Colace 250mg Capsule) 250 - 500 mg PO DAILY [facility] Last Admin: 06/24/20 08:54 Dose: 250 mg Documented by: Enoxaparin Sodium (Lovenox) 40 mg SUBQ DAILY [facility] Last Admin: 06/24/20 08:56 Dose: 40 mg Documented by: Lactated Ringer's (Lr) 1,000 mls @ 100 mls/hr IV .Q10H [facility] Last Admin: 06/24/20 09:31 Dose: 100 mls/hr Documented by: Insulin Aspart (Novolog) 1 - 9 unit SUBQ 0800,1200,1700,2100 [facility]; Protocol Last Admin: 06/24/20 11:50 Dose: 1 unit Documented by: Insulin Glargine (Lantus Solostar) 10 unit SUBQ QPM [facility] Last Admin: 06/23/20 21:09 Dose: 10 unit Documented by: Losartan Potassium (Cozaar) 50 mg PO DAILY [facility] Last Admin: 06/24/20 09:00 Dose: 50 mg Documented by: Metoprolol Succinate (Toprol Xl) 25 mg PO DAILY [facility] Last Admin: 06/24/20 08:55 Dose: 25 mg Documented by: Multivitamins (Theragran) 1 tab PO DAILYWM [facility] Last Admin: 06/24/20 08:05 Dose: 1 tab Documented by: Ondansetron HCl (Zofran Inj) 4 mg IVP Q6HR PRN PRN Reason: Nausea / Vomiting Polyethylene Glycol (Miralax) 17 gm PO DAILY [facility] Last Admin: 06/24/20 08:55 Dose: 17 gm Documented by: [place] (Senokot) 8.6 - 17.2 mg PO DAILY [facility] Last Admin: 06/24/20 08:54 Dose: 17.2 mg Documented by: Sodium Chloride (Normal Saline Flush 0.9%) 10 ml IVP 0100,0900,1700 [facility] Last Admin: 06/24/20 08:06 Dose: Not Given Documented by: Sodium Chloride (Normal Saline Flush 0.9%) 10 ml IVP PRN PRN PRN Reason: NEEDED PER PROVIDER ORDERS Thiamine HCl (Vitamin B-1) 100 mg PO DAILY [facility] Last Admin: 06/24/20 08:54 Dose: 100 mg Documented by: FLUoxetine [PROzac] 60 mg PO DAILY 12/11/19 Gabapentin 300 mg PO BID 12/11/19 SITagliptin [Januvia] 100 mg PO DAILY 12/11/19 Telmisartan 20 mg PO DAILY 12/11/19 Aspirin EC [Ecotrin] 81 mg PO DAILY 06/21/20 Glimepiride [Amaryl] 1 mg PO DAILY 06/21/20 Multivitamin [Multiple Vitamins] 1 each PO 06/21/20 Mecobalamin [B12 Active] 1 tab PO DAILY 06/22/20 Objective - Vital Signs/Intake & Output Reviewed Vital Signs: Yes Vital Signs: Vital Signs x48h Temp Pulse Resp BP Pulse Ox 06/24/20 12:29 36.6 C 69 20 150/60 H 98 06/24/20 07:44 36.9 C 65 18 163/79 H 98 Intake & Output: Intake & Output 06/21/20 06/22/20 06/23/20 06/24/20 23:59 23:59 23:59 23:59 Intake Total 0 4360.000 2990 1392 Output Total 678 465 8588 955 Balance -300 3820.000 1940 437 - Objective General Appearance: positive: No acute distress, Alert, Other (Sitting up in bed, eating breakfast. Cheerful. Much more interactive today and moving more quickly with his hands and speech than he did yesterday. Still not eating much. Ate maybe half of his eggs, and 2 or 3 bites of his pancakes.) Eyes Bilateral: positive: PERRL, EOMI ENT: positive: Pharynx nml Neck: positive: No JVD. negative: Stiff neck Respiratory: positive: Chest non-tender. negative: Wheezes, Rales, Rhonchi Cardiovascular: positive: Regular rate & rhythm. negative: Gallop/S4 Abdomen: positive: Non-tender, No organomegaly, Nml bowel sounds, No distention Skin: positive: Warm, Dry. negative: Pallor Extremities: positive: Non-tender, Full ROM, No pedal edema Neurologic/Psychiatric: positive: CN's nml (2-12), Disoriented to person (He knows who he is. But he cannot tell me his date of . Can name his but cannot exactly tell me where she is right now.), Disoriented to place, Disoriented to time, Slurred/abnml speech (Yesterday he had long drawn out words, pauses between words and sentences. Today a normal speech pattern.). negative: Motor nml (Wide-based gait with mild ataxia when he stands up. No fo michael deficits.) - Lab Results Fish Bones: 06/24/20 04:55 06/24/20 04:55 Other Labs: Lab Results x24hrs 06/24/20 06/24/20 Range/Units 04:55 04:55 WBC 7.9 (4.8-10.8) x10^3/uL RBC 3.46 L (4.70-6.10) 10^6/uL Hgb 11.0 L (14.0-18.0) g/dL Hct 32.0 L (42.0-52.0) % MCV 92.5 (80.0-94.0) fL MCH 31.8 H (27.0-31.0) pg MCHC 34.4 (32.0-36.0) g/dL RDW 12.0 (12.0-15.0) % Plt Count 187 (130-450) 10^3/uL MPV 8.7 (7.4-11.4) fL Neut # (Auto) 5.5 (1.5-6.6) 10^3/uL Lymph # (Auto) 1.6 (1.5-3.5) 10^3/uL Price # (Auto) 0.7 (0.0-1.0) 10^3/uL Eos # (Auto) 0.2 (0.0-0.7) 10^3/uL Baso # (Auto) 0.0 (0.0-0.1) 10^3/uL Absolute Nucleated RBC 0.00 x10^3/uL Nucleated RBC % 0.0 /100WBC Sodium 130 L (135-145) mmol/L Potassium 3.7 (3.5-5.0) mmol/L Chloride 97 L (101-111) mmol/L Carbon Dioxide 23 (21-32) mmol/L Anion Gap 10.0 (6-13) BUN 15 (6-20) mg/dL Creatinine 1.1 (0.6-1.2) mg/dL Estimated GFR (MDRD) 66 L (>89) Glucose 137 H (70-100) mg/dL Calcium 8.4 L (8.5-10.3) mg/dL Phosphorus 3.3 (2.5-4.6) mg/dL Magnesium 1.5 L (1.7-2.8) mg/dL ABX Reporting Has patient been on IV antibiotics over the past 48 hours?: No Assessment/Plan - Problem List (1) Cognitive and neurobehavioral dysfunction following brain injury Impression: 06/24: As we have treated his blood pressure, dehydration, lactic acidosis, he is improving from an alertness perspective. But it is coming more and more evident that there is some type of cognitive deficit. Occupational Therapy has seen and evaluated the patient today. This is a relatively new phenomena over the last several months. Made worse by his episode of PRES with admission and treatment. This was then followed by noncompliance. Depression could be contributing to this. Basically "giving up" according to the . Unfortunately I think his noncompliance is resulted in some type of cognitive and neurobehavioral dysfunction. I do not know if this is permanent or something that will improve with time. 10:16: Per OT, Pt presents requiring SBA-CGA to complete familiar ADL tasks, functional t/f and mobility with a FWW. Pt requires cueing to initiate tasks and to sequence some tasks. Pt will require at least 24 hour supervision for safety and cueing during daily tasks d/t poor cognitive functioning. He will also need increased assistance with IADL. Pt's low score on the SLUMS (12/07) indicates dementia d/t severe cognitive decline from his baseline. Pt had difficulty with all aspects of this cognitive exam including attention, immediate recall, orientation, delayed recall, calculations, memory with time constrainsts, visual spatial functioning and executive functioning. Pt's responses at times were abstract, referenced previous questions or pt responded at times with "ok" to orienting questions. Pt has some insight into his decreased cognitive ability during this exam as he stated a few times "I am failing this", "That's all I can do" and "Im really not doing well" all referencing his performance during this cognitive evaluation. As pt is not yet at his physcial baseline and is able to participate in rehab, he would benefit from continued OT services through a SNF upon d/c form this facility. Pt will continue to benefit from OT to promote independence with ADL, cognitive training and strategy use in daily tasks/situations, increase FMC, AE training and use. Plan: continue with OT and PT. Stable from medical problems and now needs to just continue therapy with goal to return to home. We need to find the facility that can treat his physical rehab needs as well as depression that led to noncompliance, PRES and cognitive dysfunction (2) Acute encephalopathy almost resolved: :: DD dehydration or PRES. He showed improvement when he was treated in the emergency room and his systolic went from 1 50-1 80. Transferred to the ICU but only needed Cardene for very short time. This morning he is stable and that his blood pressure still 150-180. He has psychomotor slowing. Oriented to person, place, but confabulating about how he got here. Has no idea. I have resumed Lopressor and telmisartan. On med surg status. 06/24: eating better. Plan: continue IVF until eating and drinking normallly He is not eating much (3) Hypertensive emergency resolved Conclusion/Plan: 06/23: Systolic blood pressure was 180 or more when he presented. Suggestion by his that he is noncompliant with medications at home. Today he is still gone up to 188 systolic. But then back down to 164 systolic. He is on Toprol-XL 25 mg a day. I had avoided the telmisartan to see what effect the Toprol would have in the blood pressure. So far still high enough that I can resume that. It is nonformulary and I will substitute with losartan. 10/15: BP stable. No change in meds for now. Just resumed losartan yesterday. (4) Lactic acidosis, type B, resolved Conclusion/Plan: Was 5.8, then went to 1.5 with hydration and stopping metformin. Plan: No metformin at home (5) Depression Conclusion/Plan: On admission: His is concerned that he is depressed and has poor insight into his health and wellbeing. We will resume his home antidepressant. Continue outpatient follow-up with his psychologist. We will ask social work to meet with the patient's as she seems to be quite overwhelmed with his health. 06/22: I had hoped to have an advanced care planning conversation with him. Slowly come to understand where his thought process was. Unfortunately he is still with psychomotor slowing, still with confusion and confabulation. We will continue to assess him daily to have this conversation. 06/23: no real improvement in cognition today. He may need to be eval by jose l. I will have social work eval for that. 10?15: medical stable. I've asked social work to discuss with the facility options and where he can go. Qualifiers: Depression Type: major depressive disorder Major depression recurrence: recurrent Active/Remission status: currently active Major depression episode severity: moderate Qualified Code(s): F33.1 - Major depressive disorder, recurrent, moderate (6) Chronic kidney disease, stage III (moderate) Conclusion/Plan: Renal function is at baseline. He likely has CKD secondary to hypertension and diabetes. Continue to monitor his renal function while he is hospitalized. Qualifiers: Chronic kidney disease stage 3 subtype: stage 3a (GFR 45-59) Qualified Code(s): N18.31 - Chronic kidney disease, stage 3a (7) Type 2 diabetes mellitus with hyperglycemia Conclusion/Plan: He is on multiple agents for his diabetes. His blood glucose was elevated on admit. We started him on Lantus 10 units in the evening and sliding scale. Carb controlled diet. A1c ordered and pending result. 06/21: his glucose was 138. 06/22: 145, 141, 172, 149 06/23: 113, 168, 152, 147 06/24: 132, 160 Plan: Continue Lantus until discharge. No change today. Qualifiers: Diabetes mellitus chcf insulin use: without buttermaker continuous churn use Qualified Code(s): E11.65 - Type 2 diabetes mellitus with hyperglycemia (8) Mild malnutrition Impression: His depression versus cognitive decline is evident on physical exam and by history of his . He has not been taking care of himself, and not taking his medications. This has him meeting a criteria for diagnosis of mild malnutrition. He is eating less than 50 to 75% of normal in the preceding week. He has 6% weight loss in the last 6 months. He has generalized weakness that was present prior to admission and definitely present during this admission. Plan: Nutrition services is following him. physical and occupational therapy eval and treatment ordered and done.
[2020-06-24] MEDS: INSULIN GLARGINE 300 UNIT/3 ML PEN SUBQ SCH (21:41)
[2020-06-25] MEDS: SODIUM CHLORIDE FLUSH 0.9% 10 ML SYRINGE IVP SCH ×2 (00:08→08:01)
[2020-06-25 05:23] LABS: BASOPHILS % (AUTO) 0.5 %; EOSINOPHILS # (AUTO) 0.2 10^3/uL (0.0-0.7); EOSINOPHILS % (AUTO) 1.9 %; LYMPHOCYTES # (AUTO) 1.6 10^3/uL (1.5-3.5); LYMPHOCYTES % (AUTO) 19.6 %; MEAN CORPUSCULAR HEMOGLOBIN 32.5 pg (27.0-31.0); MEAN CORPUSCULAR HGB CONC 35.5 g/dL (32.0-36.0); MEAN CORPUSCULAR VOLUME 91.6 fL (80.0-94.0); MEAN PLATELET VOLUME 8.7 fL (7.4-11.4); MONOCYTES # (AUTO) 0.7 10^3/uL (0.0-1.0); MONOCYTES % (AUTO) 8.5 %; NEUTROPHILS # (AUTO) 5.5 10^3/uL (1.5-6.6); NEUTROPHILS % (AUTO) 69.2 %; PLT - PLATELET COUNT 208 10^3/uL (130-450); RED BLOOD COUNT 3.69 10^6/uL (4.70-6.10); RED CELL DISTRIBUTION WIDTH 12.1 % (12.0-15.0)
[2020-06-25 05:36] LABS: CALCIUM 8.6 mg/dL (8.5-10.3); CREATININE 0.9 mg/dL (0.6-1.2); MAGNESIUM 1.7 mg/dL (1.7-2.8)
[2020-06-25 07:54] VITALS: BP 147/69
[2020-06-25] MEDS: INSULIN ASPART 300 UNIT/3 ML PEN SUBQ SCH ×2 (08:00→11:31)
[2020-06-25] MEDS: polyethylene glycoL 3350 17 GM PACKET PO SCH (08:01)
[2020-06-25] MEDS: SENNA 8.6 MG TABLET PO SCH (08:01)
[2020-06-25] MEDS: ENOXAPARIN 40 MG/0.4 ML SYRINGE SUBQ SCH (09:05)
[2020-06-25] MEDS: DOCUSATE SODIUM 250 MG CAPSULE PO SCH (09:05)
[2020-06-25] MEDS: LACTATED RINGERS 1,000 ML IV SCH (09:05)
[2020-06-25] MEDS: THIAMINE 100 MG TABLET PO SCH (09:06)
[2020-06-25] MEDS: METOPROLOL SUCCINATE 25 MG TABLET PO SCH (09:06)
[2020-06-25] MEDS: MULTIVITAMIN TABLET PO SCH (09:06)
[2020-06-25] MEDS: LOSARTAN 50 MG TABLET PO SCH (09:06)
--- NOTE | 2020-06-25 11:51 | Discharge Plan ---
Discharge Plan Problem Reviewed?: Yes Disposition: Home, Self Care Condition: Good Diet: Regular Activity Restrictions: Activity as Tolerated Shower Restrictions: No Driving Restrictions: No Assistance Devices: Walker Health Concerns: You have a history of diabetes, chronic kidney disease, and such severely elevated blood pressure that you had to be admitted as an emergency for treatment of your blood pressure and confusion in December of this year. Since that time you have been very depressed, and not compliant with taking medications or eating. You had deteriorated to the point that you were always confused, could no longer get out of bed, and were at risk for falls. Your brought you to our hospital with this condition. In the emergency room your blood pressure was so severely elevated we had to give you an intravenous medication to lower your blood pressure. We were able to lower your blood pressure enough that we then transitioned you to your regular medications that you check at home. Your blood pressure at discharge is 147/69. We found you to be malnourished, dehydrated, confused. We think that your brain has been damaged from consistently elevated blood pressures. This is left you with memory loss, speech problems, and sometimes inability to do simple task. You will need more physical therapy and Occupational Therapy to improve your status. Plan of Treatment: 1. Please see your primary care provider, Patricia Terry, in follow-up. 2. She will need to follow your blood pressure and make sure it is at goal 3. Please follow-up with going to go see physical therapy and Occupational Therapy in the outpatient department at the hospital. You need to continue doing these things so that you can get stronger, decrease your risk of falls, and improve your ability to do simple tasks. Care Goals: 1. To remain at home as long as possible. However, if you are disability continues to worsen, your may need to have more help at home, or find another place for you to live. 2. In order to follow you at home and see how you are doing, we have ordered a palliative care consultation. You have met with Steffanie Parham, and she will continue to follow you in your home. She also works with a nury practitioner named Nidia Perez. So either Ms. Pratt or Ms. Perez will see you. Assessment: Patient is alert, cooperative, and back to baseline. However cognitive deficits caused him to have short-term memory loss. Care goals discussed with . She promises to follow through. Follow-Up Care: Outpatient Rehab - PT, Outpatient Rehab - OT No Smoking: If you smoke, Please STOP! Call for help. Follow-up with: Patricia Terry PA-C [Primary Care Provider] -
--- NOTE | 2020-06-25 11:59 | DISCHARGE SUMMARY ---
Discharge Summary Admit Date: 06/21/20 Discharge Date: 06/25/20 Discharging Provider: Li Avila MD Primary Care Provider: JORGE Romero Code Status: Do Not Attempt Resuscitation Condition at Discharge: Good Discharge Disposition: 01 Home, Self Care - DIAGNOSES Discharge Diagnoses with Status of Each Condition: 1. Acute encephalopathy 2. Hypertensive emergency 3. Type B lactic acidosis, present on admission and resolved 4. Major depressive, recurrent, moderate 5. Chronic kidney disease stage III 6. Mild malnutrition 7. Type 2 diabetes mellitus, with hyperglycemia, without long-term use of insulin 8. Cognitive and neurobehavioral dysfunction following brain injury - HPI History of Present Illness: This is a 74-year-old male with a past medical history significant for type 2 diabetes mellitus, chronic kidney disease stage III, hypertension who presents today from home due to worsening confusion. He was hospitalized back in December for PRES and NSTEMI as well as acute blood loss anemia. Most of the history is obtained from his as he is a poor historian and is still altered. His states that he had been doing well initially after discharge back in December. He saw a brinell tester in [place] who appears to have taken him off of the [facility]. He was scheduled to undergo cardiac testing in [place] but this was never done as prior to that being scheduled, the patient fell at home and had a shoulder injury. He has since been undergoing physical therapy for this. He did undergo MRI back in February given his history of seizures when he was admitted in December and this was unremarkable. His states he had been doing well up until just a few days ago when he became increasingly weak and would not get up out of bed. She states he also had decreased oral intake and would not take his medications. She states he has not drink alcohol but he does use marijuana on a daily basis. She has not noticed any seizures at home. She is concerned that he is becoming dehydrated. Yesterday and today he became really confused where she thinks he could not recognize her and that is when she sought medical attention. His is concerned that he is depressed does not care about his own wellbeing. She states he saw a psychologist a couple of times who increased his antidepressant to 60 mg. She states she is frustrated as she can see his decline but he does not want assistance. Patient is confused at bedside today but he believes he is at the hospital because his made him come. He knows that Chrissy is coming up but he does not know the month. He knows it is 2019. He reports no fevers, chills, chest pain, dyspnea. He does complain of numbness in his lower extremities. He reports feeling cold. In the emergency department, he was initially found to be quite hypertensive with a systolic in the 180s. There was concern for PRES And so he was started on a Cardene drip. He was also given Ativan IV. His labs were unremarkable except for a lactic acid greater than 5. A CT of the head was unremarkable. Urinalysis and chest x-ray were also unremarkable. Given his ongoing confusion, medicine was consulted for admission. I did discuss goals of care with his and she states he is a DNR. - Past Medical History Cardiovascular: reports: None, Hypertension, High cholesterol, Coronary artery disease, [place] Respiratory: reports: None Neuro: reports: None Endocrine/Autoimmune: reports: Type 2 diabetes GI: reports: None : reports: Renal insuffiency Psych: reports: Depression Musculoskeletal: reports: None Derm: reports: None - CONSULTS | PROCEDURES Procedures: 1. Head CT no acute intracranial abnormality, mild chronic microvascular ischemic changes. 2. Chest x-ray with no acute cardiopulmonary abnormality. Stable mild elevation of left hemidiaphragm. Bilateral calcified pleural plaques. 3. Blood cultures negative - HOSPITAL COURSE Hospital Course: Acute encephalopathy almost resolved: DD dehydration or PRES. He showed improvement when he was treated in the emergency room and his systolic went from 150-180. Transferred to the ICU but only needed Cardene for very short time. He slowly improved day to day with more alertness and orientation but at baseline there is a significant cognitive deficit that describes as getting worse with time this last yearSo even though dehydration was treated and resolved he still was with psychomotor slowing. Cognitive and neurobehavioral dysfunction following brain injury As we have treated his blood pressure, dehydration, lactic acidosis, he is improving from an alertness perspective. But it is coming more and more evident that there is some type of cognitive deficit. Occupational Therapy has seen and evaluated the patient today. This is a relatively new phenomena over the last several months. Made worse by his episode of PRES with admission and treatment. This was then followed by noncompliance. Depression could be contributing to this. Basically "giving up" according to the . Unfortunately I think his noncompliance is resulted in some type of cognitive and neurobehavioral dysfunction. I do not know if this is permanent or something that will improve with time. Per OT, Pt presents requiring SBA-CGA to complete familiar ADL tasks, functional t/f and mobility with a FWW. Pt requires cueing to initiate tasks and to sequence some tasks. Pt will require at least 24 hour supervision for safety and cueing during daily tasks d/t poor cognitive functioning. He will also need increased assistance with IADL. Pt's low score on the SLUMS (330) indicates dementia d/t severe cognitive decline from his baseline. Pt had difficulty with all aspects of this cognitive exam including attention, immediate recall, orientation, delayed recall, calculations, memory with time constrainsts, visual spatial functioning and executive functioning. Pt's responses at times were abstract, referenced previous questions or pt responded at times with "ok" to orienting questions. Pt has some insight into his decreased cognitive ability during this exam as he stated a few times "I am failing this", "That's all I can do" and "Im really not doing well" all referencing his performance during this cognitive evaluation. As pt is not yet at his physcial baseline and is able to participate in rehab, he would benefit from continued OT services through a SNF upon d/c form this facility. Pt will continue to benefit from OT to promote independence with ADL, cognitive training and strategy use in daily task s/situations, increase FMC, AE training and use. We are transferring to alf facility for more PT/OT. Hypertensive emergency resolved Systolic blood pressure was 180 or more when he presented. Suggestion by his that he is noncompliant with medications at home. Toprol XL resumed and losaratan substituted for telmisartan since it's not on formulary. He was sent home on his usual home meds. Type B lactic acidosis resolved. Was 5.8, then went to 1.5 with hydration and stopping metformin. At discharge, no metformin at home Depression His is concerned that he is depressed and has poor insight into his health and wellbeing. We will resume his home antidepressant. Continue outpatient follow-up with his psychologist. We will ask social work to meet with the patient's as she seems to be quite overwhelmed with his health. I had hoped to have an advanced care planning conversation with him. Slowly come to understand where his thought process was. Unfortunately he is still with psychomotor slowing, still with confusion and confabulation. does state that she is overwhelmed with his inability to take care of himself and when he returns home, may focus on palliative care if he continues to be without violeta of life. Chronic kidney disease, stage III (moderate) Renal function is at baseline. He likely has CKD secondary to hypertension and diabetes. Type 2 diabetes mellitus with hyperglycemia He is on multiple agents for his diabetes. His blood glucose was elevated on admit. We started him on Lantus 10 units in the evening and sliding scale. Carb controlled diet. A1c was 7.7% but sent home on only sulfonylurea and not metformin. Mild malnutrition His depression versus cognitive decline is evident on physical exam and by history of his . He has not been taking care of himself, and not taking his medications. This has him meeting a criteria for diagnosis of mild malnutrition. He is eating less than 50 to 75% of normal in the preceding week. He has 6% weight loss in the last 6 months. He has generalized weakness that was present prior to admission and definitely present during this admission. General Appearance: positive: No acute distress, Alert, Other (Sitting up in bed, eating breakfast. Cheerful. Much more interactive and moving more quickly with his hands and speech than he was on admission. Still not eating much. Ate maybe half of his eggs, and 2 or 3 bites of his pancakes.) Eyes Bilateral: positive: PERRL, EOMI ENT: positive: Pharynx nml Neck: positive: No JVD. negative: Stiff neck Respiratory: positive: Chest non-tender. negative: Wheezes, Rales, Rhonchi Cardiovascular: positive: Regular rate & rhythm. negative: Gallop/S4 Abdomen: positive: Non-tender, No organomegaly, Nml bowel sounds, No distention Skin: positive: Warm, Dry. negative: Pallor Extremities: positive: Non-tender, Full ROM, No pedal edema Neurologic/Psychiatric: positive: CN's nml (2-12), Disoriented to person (He knows who he is. But he cannot tell me his date of . Can name his but cannot exactly tell me where she is right now.), Disoriented to place, Disoriented to time, Slurred/abnml speech (he had long drawn out words, pauses between words and sentences but by discharge a more normal speech pattern.). negative: Motor nml (Wide-based gait with mild ataxia when he stands up. No focal deficits.) Greater than 30 minutes spent coordinating discharge, - ALLERGIES Allergies/Adverse Reactions: Allergies Allergy/AdvReac Type Severity Reaction Status Date / Time No Known Drug Allergies Allergy Verified 12/11/19 21:07 - MEDICATIONS Home Medications: Ambulatory Orders Medication Instructions Recorded Confirmed FLUoxetine [PROzac] 60 mg PO DAILY 12/11/19 06/22/20 Gabapentin 300 mg PO BID 12/11/19 06/22/20 SITagliptin [Januvia] 100 mg PO DAILY 12/11/19 06/22/20 Telmisartan 20 mg PO DAILY 12/11/19 06/22/20 Metoprolol Succinate [Toprol Xl] 25 mg PO DAILY #30 tablet 12/21/19 06/22/20 Pantoprazole [Protonix] 40 mg PO BID 30 Days #60 tablet 12/21/19 06/22/20 Rosuvastatin Calcium [Crestor] 40 mg PO QPM #30 tablet 12/21/19 06/22/20 Aspirin EC [Ecotrin] 81 mg PO DAILY 06/21/20 06/22/20 Glimepiride [Amaryl] 1 mg PO DAILY 06/21/20 06/22/20 Multivitamin [Multiple Vitamins] 1 each PO 06/21/20 Mecobalamin [B12 Active] 1 tab PO DAILY 06/22/20 06/22/20 Multivitamin [Theragran] 1 tab PO DAILYWM tablet 06/25/20 Thiamine [Vitamin B-1] 100 mg PO DAILY tablet 06/25/20 - LABS Result Diagrams: 06/25/20 04:37 06/25/20 04:37
== END 2020-06-25 13:00 | disposition home or self-care (01) | DRG 78 ==
LOC: EDUNIT# → ED 12:38 → ICU 15:58 → MS2 06-23 11:08
PROVIDERS: ADMIT Internal Medicine; ATTEND Specialist
DX: I67.4 Hypertensive encephalopathy (principal); I16.1 Hypertensive emergency; R41.0 Disorientation, unspecified; E87.2 Acidosis; E11.9 Type 2 diabetes mellitus without complications; E44.1 Mild protein-calorie malnutrition; F32.9 Major depressive disorder, single episode, unspecified; N28.9 Disorder of kidney and ureter, unspecified; F33.1 Major depressive disorder, recurrent, moderate; G93.89 Other specified disorders of brain; F03.90 Unspecified dementia, unspecified severity, without behavioral disturbance, psychotic disturbance, mood disturbance, and anxiety; R41.89 Other symptoms and signs involving cognitive functions and awareness; R29.818 Other symptoms and signs involving the nervous system; E86.0 Dehydration; E11.65 Type 2 diabetes mellitus with hyperglycemia; E11.22 Type 2 diabetes mellitus with diabetic chronic kidney disease; I12.9 Hypertensive chronic kidney disease with stage 1 through stage 4 chronic kidney disease, or unspecified chronic kidney disease; N18.31 Chronic kidney disease, stage 3a; I25.10 Atherosclerotic heart disease of native coronary artery without angina pectoris; F10.11 Alcohol abuse, in remission; Z66 Do not resuscitate; Z20.828 Contact with and (suspected) exposure to other viral communicable diseases; Z68.23 Body mass index [BMI] 23.0-23.9, adult; Z91.128 Patient's intentional underdosing of medication regimen for other reason; Z72.89 Other problems related to lifestyle; Z79.84 Long term (current) use of oral hypoglycemic drugs; Z79.899 Other long term (current) drug therapy; I25.2 Old myocardial infarction; Z91.81 History of falling; Z87.891 Personal history of nicotine dependence
CPT/HCPCS: 36415; 70450; 71045; 80048; 80053; 81001; 82040; 83036; 83605; 83735; 84100; 84484; 85025; 87040; 87150; 97116; 97161; 97166; 97530; 97535; 99285; 99291; A9270; J1650; J1815; J2060; J3411; J7040; J7120; J8499; U0004; 81003; 87086

== ENCOUNTER 2020-08-30 08:00 | Outpatient (CLI) | payer MEDICARE, OTHER ==
[2020-08-30 18:07] LABS: BASOPHILS # (AUTO) 0.1 10^3/uL (0.0-0.1); BASOPHILS % (AUTO) 0.9 %; EOSINOPHILS # (AUTO) 0.4 10^3/uL (0.0-0.7); EOSINOPHILS % (AUTO) 4.7 %; HGB - HEMOGLOBIN 12.1 g/dL (14.0-18.0); LYMPHOCYTES # (AUTO) 2.1 10^3/uL (1.5-3.5); LYMPHOCYTES % (AUTO) 22.8 %; MEAN CORPUSCULAR HEMOGLOBIN 32.9 pg (27.0-31.0); MEAN CORPUSCULAR HGB CONC 33.1 g/dL (32.0-36.0); MEAN CORPUSCULAR VOLUME 99.5 fL (80.0-94.0); MEAN PLATELET VOLUME 9.2 fL (7.4-11.4); MONOCYTES # (AUTO) 0.7 10^3/uL (0.0-1.0); MONOCYTES % (AUTO) 7.3 %; NEUTROPHILS # (AUTO) 5.8 10^3/uL (1.5-6.6); PLT - PLATELET COUNT 195 10^3/uL (130-450); RED BLOOD COUNT 3.68 10^6/uL (4.70-6.10); RED CELL DISTRIBUTION WIDTH 12.5 % (12.0-15.0); WHITE BLOOD COUNT 9.1 x10^3/uL (4.8-10.8)
[2020-08-30 18:13] LABS: CALCIUM 9.2 mg/dL (8.5-10.3); CREATININE 1.7 mg/dL (0.6-1.2)
[2020-08-30 20:23] LABS: HEMOGLOBIN A1c% 7.5 % (4.27-6.07)
== END 2020-08-30 23:59 | disposition home or self-care (01) ==
LOC: LAB.WCP 08:00
PROVIDERS: ATTEND Physician Assistant Medical
DX: E11.49 Type 2 diabetes mellitus with other diabetic neurological complication (principal); D62 Acute posthemorrhagic anemia
CPT/HCPCS: 36415; 80048; 83036; 85025

== ENCOUNTER 2020-12-20 08:00 | Outpatient (CLI) | payer MEDICARE, OTHER ==
[2020-12-20 12:38] LABS: ESTIMATED AVERAGE GLUCOSE 154 mg/dL (70-100)
[2020-12-20 12:54] LABS: ALBUMIN 3.7 g/dL (3.2-5.5); ALBUMIN/GLOBULIN RATIO 0.9 (1.0-2.2); ALKALINE PHOSPHATASE 83 IU/L (42-121); ALT ALANINE AMINOTRANSFERASE 39 IU/L (10-60); AST ASPARTATE AMINOTRANSFERASE 32 IU/L (10-42); BILIRUBIN,TOTAL 0.6 mg/dL (0.2-1.0); BUN - BLOOD UREA NITROGEN 27 mg/dL (6-20); CALCIUM 9.5 mg/dL (8.5-10.3); CARBON DIOXIDE - CO2 28 mmol/L (21-32); CHLORIDE 102 mmol/L (101-111); CHOLESTEROL 161 mg/dL; CREATININE 1.6 mg/dL (0.6-1.2); GFR - MDRD 42 (>89); GLUCOSE 120 mg/dL (70-100); HDL CHOLESTEROL 32 mg/dL; LDL CHOLESTEROL,CALCULATED 73 mg/dL; LDL/HDL RATIO 2.3 (<3.6); POTASSIUM 4.7 mmol/L (3.5-5.0); SODIUM 139 mmol/L (135-145); TOTAL PROTEIN 7.8 g/dL (6.7-8.2); TRIGLYCERIDES 282 mg/dL; VLDL CHOLESTEROL 56 mg/dL
== END 2020-12-20 23:59 | disposition home or self-care (01) ==
LOC: LAB.WCP 08:00
PROVIDERS: ATTEND Physician Assistant Medical
DX: E11.49 Type 2 diabetes mellitus with other diabetic neurological complication (principal)
CPT/HCPCS: 36415; 80053; 80061; 83036; 83721

== ENCOUNTER 2021-03-25 09:44 | Outpatient (CLI) | payer MEDICARE, OTHER | END 2021-03-25 09:45 | disposition critical access hospital (66) | LOC: EMS 09:44 | DX: R41.0 Disorientation, unspecified (principal); R25.1 Tremor, unspecified | CPT/HCPCS: A0425; A0427 ==

== ENCOUNTER 2021-03-25 10:02 | Inpatient (IN) | payer MEDICARE, OTHER ==
--- NOTE | 2021-03-25 10:29 | ED Physician Documentation ---
History of Present Illness - Stated complaint Stated Complaint: ALOC - Chief complaint Chief Complaint: Neuro - Additonal information Additional information: 75yM with pmh depression, heavy marijuana smoker, diabetic, htn, nonsmoker in terms of nicotine, p/w confusion over the past couple days. AOX3 on initial eval, however, does have intermittent confusion and limited historian. History obtained from over the phone. He sees a mental professional Dr. Mendoza Muller at [facility] regularly. He's taken to his bed the past couple weeks due to a mental/emotional issue. He was hospitalized recently for nonresponsiveness when his got him up to eat in December 2019 . He also appeared to have 2 seizures at that time. He didn't know who his was or who he was. This is a similar episode today. He has never had SI but his thinks he may have been purposefully not eating because he didn't want to live. He spends 20 hours a day in bed recently. Review of Systems Unable to obtain: Confused PD PAST MEDICAL HISTORY - Past Medical History Cardiovascular: None, Hypertension, High cholesterol, Coronary artery disease, [place] Respiratory: None Neuro: None Endocrine/Autoimmune: Type 2 diabetes GI: None : Renal insuffiency Psych: Depression Musculoskeletal: None Derm: None - Present Medications Home Medications: Ambulatory Orders Medication Instructions Recorded Confirmed FLUoxetine [PROzac] 60 mg PO DAILY 12/11/19 03/25/21 Gabapentin 300 mg PO BID 12/11/19 03/25/21 SITagliptin [Januvia] 100 mg PO DAILY 12/11/19 03/25/21 Telmisartan 20 mg PO DAILY 12/11/19 03/25/21 Metoprolol Succinate [Toprol Xl] 25 mg PO DAILY #30 tablet 12/21/19 03/25/21 Pantoprazole [Protonix] 40 mg PO BID 30 Days #60 tablet 12/21/19 03/25/21 Rosuvastatin Calcium [Crestor] 40 mg PO QPM #30 tablet 12/21/19 03/25/21 Aspirin EC [Ecotrin] 81 mg PO DAILY 06/21/20 03/25/21 Glimepiride [Amaryl] 1 mg PO DAILY 06/21/20 03/25/21 Multivitamin [Multiple Vitamins] 1 each PO DAILY 06/21/20 Mecobalamin [B12 Active] 1 tab PO DAILY 06/22/20 03/25/21 Multivitamin [Theragran] 1 tab PO DAILYWM tablet 06/25/20 03/25/21 Thiamine [Vitamin B-1] 100 mg PO DAILY tablet 06/25/20 03/25/21 - Allergies Allergies/Adverse Reactions: Allergies Allergy/AdvReac Type Severity Reaction Status Date / Time No Known Drug Allergies Allergy Verified 03/25/21 10:13 - Social History Smoking Status: Unknown if ever smoked PD ED PE NORMAL - Vitals Vital signs reviewed: Yes - General General: Alert and oriented X 3, No acute distress - HEENT HEENT: Atraumatic, PERRL, EOMI, Other (dry mm) - Neck Neck: Supple, no meningeal sign - Cardiac Cardiac: RRR - Respiratory Respiratory: No respiratory distress, Clear bilaterally - Abdomen Abdomen: Non tender, Non distended - Back Back: No spinal TTP - Derm Derm: Normal color, Warm and dry - Extremities Extremities: No deformity - Neuro Neuro: Alert and oriented X 3, Other (intermittently confused) Eye Opening: Spontaneous Motor: Obeys Commands Verbal: Confused GCS Score: 14 Results - Vitals Vitals: Vital Signs - 24 hr 03/25/21 03/25/21 03/25/21 10:07 10:30 11:34 Temperature 37.2 C Heart Rate 89 89 Heart Rate [ 100 Sitting] Heart Rate [ 90 Supine] Respiratory 16 19 Rate Blood Pressure 202/93 H 177/84 H Blood Pressure 170/106 H [Sitting] Blood Pressure 178/89 H [Supine] O2 Saturation 98 98 03/25/21 03/25/21 03/25/21 12:13 12:33 13:03 Temperature Heart Rate 118 H 98 89 Heart Rate [ Sitting] Heart Rate [ Supine] Respiratory 29 H 26 H 21 Rate Blood Pressure 208/96 H 176/91 H 174/86 H Blood Pressure [Sitting] Blood Pressure [Supine] O2 Saturation 97 96 99 Oxygen O2 Source Room air - EKG (time done) 1016 Rate: Rate (enter#) (91) Rhythm: NSR [place]: Normal Intervals: Normal NE QRS: Normal Ischemia: Normal ST segments - Labs Labs: Laboratory Tests 03/25/21 03/25/21 03/25/21 10:30 10:30 10:30 WBC 18.3 H RBC 4.42 L Hgb 14.2 Hct 40.6 L MCV 91.9 MCH 32.1 H MCHC 35.0 RDW 12.6 Plt Count 294 MPV 9.0 Neut # (Auto) 16.4 H Lymph # (Auto) 1.2 L Bennett # (Auto) 0.6 Eos # (Auto) 0.0 Baso # (Auto) 0.0 Absolute Nucleated RBC 0.00 Nucleated RBC % 0.0 VBG pH VBG pCO2 VBG pO2 VBG HCO3 VBG Total CO2 VBG O2 Saturation VBG Base Excess Sodium 132 L Potassium 5.4 H Chloride 99 L Carbon Dioxide 15 L Anion Gap 18.0 H BUN 36 H Creatinine 2.0 H Estimated GFR (MDRD) 33 L Glucose 328 H Calcium 9.0 Total Bilirubin 0.9 AST 36 ALT 64 H Alkaline Phosphatase 90 Total Creatine Kinase Troponin I High Sens 18.8 Total Protein 8.3 H Albumin 4.2 Globulin 4.1 Albumin/Globulin Ratio 1.0 Lipase 33 Urine Color Urine Clarity Urine pH Ur Specific [place] Urine Protein Urine Glucose (UA) Urine Ketones Urine Occult Blood Urine Nitrite Urine Bilirubin Urine Urobilinogen Ur Leukocyte Esterase Urine RBC Urine WBC Ur Squamous Epith Cells Amorphous Sediment Urine Bacteria Urine Sperm Urine Culture Comments Urine Opiates Screen Ur Oxycodone Screen Urine Methadone Screen Ur Propoxyphene Screen Ur Barbiturates Screen Ur Tricyclics Screen Ur Phencyclidine Scrn Ur Amphetamine Screen U Methamphetamines Scrn U Benzodiazepines Scrn Urine Cocaine Screen U Cannabinoids Screen 03/25/21 03/25/21 03/25/21 12:18 12:29 12:29 WBC RBC Hgb Hct MCV MCH MCHC RDW Plt Count MPV Neut # (Auto) Lymph # (Auto) Bennett # (Auto) Eos # (Auto) Baso # (Auto) Absolute Nucleated RBC Nucleated RBC % VBG pH 7.039 L VBG pCO2 29.1 L VBG pO2 58.3 H VBG HCO3 7.7 L VBG Total CO2 8.6 L VBG O2 Saturation 80.4 H VBG Base Excess -21.9 L Sodium Potassium Chloride Carbon Dioxide Anion Gap BUN Creatinine Estimated GFR (MDRD) Glucose Calcium Total Bilirubin AST ALT Alkaline Phosphatase Total Creatine Kinase 239 Troponin I High Sens Total Protein Albumin Globulin Albumin/Globulin Ratio Lipase Urine Color YELLOW Urine Clarity HAZY Urine pH 5.5 Ur Specific [place]worth >=1.030 H Urine Protein >=300 H Urine Glucose (UA) >=1000 H Urine Ketones 15 H Urine Occult Blood LARGE H Urine Nitrite NEGATIVE Urine Bilirubin NEGATIVE Urine Urobilinogen 0.2 (NORMAL) Ur Leukocyte Esterase NEGATIVE Urine RBC 6-10 H Urine WBC 0-3 Ur Squamous Epith Cells NONE SEEN Amorphous Sediment Moderate Urine Bacteria Rare Urine Sperm PRESENT Urine Culture Comments NOT INDICATED Urine Opiates Screen NEGATIVE Ur Oxycodone Screen NEGATIVE Urine Methadone Screen NEGATIVE Ur Propoxyphene Screen NEGATIVE Ur Barbiturates Screen NEGATIVE Ur Tricyclics Screen NEGATIVE Ur Phencyclidine Scrn NEGATIVE Ur Amphetamine Screen NEGATIVE U Methamphetamines Scrn NEGATIVE U Benzodiazepines Scrn POSITIVE H Urine Cocaine Screen NEGATIVE U Cannabinoids Screen POSITIVE H PD MEDICAL DECISION MAKING - ED course ED course: 12pm - while in CT scan our tech reports the patient had rhythmic jerking activity. When he returned from scan he was incontinent and had bitten tongue. appears post ictal. d/w Dr. Arroyo for admission given lyte derangements, rachelle. K elevated, however ekg normal without peaked T waves. given limited grinding room supervisor we will d/w hospital administration to see if we can admit here. Departure - Departure Disposition: 66 [facility] DC/Xfer Clinical Impression: Hyponatremia, Severe dehydration, Hyperkalemia, Seizure
[2021-03-25 10:35] LABS: BASOPHILS % (AUTO) 0.2 %; EOSINOPHILS % (AUTO) 0.1 %; HCT - HEMATOCRIT 40.6 % (42.0-52.0); HGB - HEMOGLOBIN 14.2 g/dL (14.0-18.0); LYMPHOCYTES # (AUTO) 1.2 10^3/uL (1.5-3.5); LYMPHOCYTES % (AUTO) 6.7 %; MEAN CORPUSCULAR HEMOGLOBIN 32.1 pg (27.0-31.0); MEAN CORPUSCULAR VOLUME 91.9 fL (80.0-94.0); MONOCYTES # (AUTO) 0.6 10^3/uL (0.0-1.0); MONOCYTES % (AUTO) 3.2 %; NEUTROPHILS # (AUTO) 16.4 10^3/uL (1.5-6.6); NEUTROPHILS % (AUTO) 89.4 %; PLT - PLATELET COUNT 294 10^3/uL (130-450); RED BLOOD COUNT 4.42 10^6/uL (4.70-6.10); RED CELL DISTRIBUTION WIDTH 12.6 % (12.0-15.0); WHITE BLOOD COUNT 18.3 x10^3/uL (4.8-10.8)
[2021-03-25 10:47] LABS: ALBUMIN 4.2 g/dL (3.2-5.5); BILIRUBIN,TOTAL 0.9 mg/dL (0.2-1.0); POTASSIUM 5.4 mmol/L (3.5-5.0); TOTAL PROTEIN 8.3 g/dL (6.7-8.2)
[2021-03-25] MEDS ORDERED: levETIRAcetam INJ 1,000 MG in SODIUM CHLORIDE 0.9% 100ML 100 ML IV STA (12:14)
--- NOTE | 2021-03-25 12:23 | CT Report ---
PROCEDURE: HEAD WO INDICATIONS: confusion TECHNIQUE: Noncontrast 4.5 mm thick angled axial sections acquired from the foramen magnum to the vertex. For r adiation dose reduction, the following was used: automated exposure control, adjustment of mA and/or kV according to patient size. COMPARISON: CT head without contrast, 06/21/2020. FINDINGS: Image quality: Excellent. CSF spaces: Basal cisterns are patent. No extra-axial fluid collections. Ventricles are normal in size and shape. Brain: No midline shift. No intracranial masses or hemorrhage. Islas-white matter interface is norm al. Skull and face: Calvarium and visualized facial bones are intact, without suspicious lesions. Sinuses: Visualized sinuses and mastoids are clear. IMPRESSION: No acute intracranial abnormality. Reviewed by: Srinivasan Fleming MD on 03/25/2021 12:22 PM PDT Approved by: Srinivasan Fleming MD on 03/25/2021 12:22 PM PDT Station ID: [id number]
[2021-03-25 12:27] LABS: MUDS CUTOFF CONCENTRATIONS CUTOFF CONC BELOW:
[2021-03-25 12:29] LABS: GLUCOSE, URINE (UA) >=1000 mg/dL (NEGATIVE); KETONES,URINE (UA) 15 mg/dL (NEGATIVE); LEUKOCYTE ESTERASE, URINE NEGATIVE (NEGATIVE); NITRITE,URINE NEGATIVE (NEGATIVE); OCCULT BLOOD,URINE LARGE (NEGATIVE); PH,URINE 5.5 PH (5.0-7.5); PROTEIN,URINE >=300 mg/dL (NEGATIVE); UROBILINOGEN,URINE 0.2 (NORMAL) E.U./dL (NORMAL)
[2021-03-25 12:33] LABS: CLARITY,URINE HAZY (CLEAR)
[2021-03-25] MEDS ORDERED: SODIUM CHLORIDE 0.9% 1,000 ML IV STA (12:33)
[2021-03-25 12:38] LABS: VBG BASE EXCESS -21.9 mmol/L (-2 - +2); VBG HCO3 7.7 mmol/L (23-28); VBG PCO2 29.1 mmHg (41-51); VBG PH 7.039 (7.31-7.41); VBG PO2 58.3 mmHg (25-47); VBG TOTAL CO2 8.6 mmol/L (24-29)
[2021-03-25 12:39] LABS: VBG OXYGEN SATURATION 80.4 % (60-80)
[2021-03-25 12:39] LABS: BILIRUBIN,URINE NEGATIVE (NEGATIVE); ICTOTEST,URINE NEGATIVE
[2021-03-25 12:43] LABS: AMPHETAMINE SCREEN,URINE NEGATIVE (NEGATIVE); BARBITURATE SCREEN,UR NEGATIVE (NEGATIVE); BENZODIAZEPINES SCREEN, URINE POSITIVE (NEGATIVE); COCAINE SCREEN URINE NEGATIVE (NEGATIVE); METHADONE SCREEN, URINE NEGATIVE (NEGATIVE); METHAMPHETAMINES SCREEN, URINE NEGATIVE (NEGATIVE); OPIATE SCREEN, URINE NEGATIVE (NEGATIVE); OXYCODONE SCREEN, URINE NEGATIVE (NEGATIVE); PROPOXYPHENE SCREEN, URINE NEGATIVE (NEGATIVE); THC CANNABINOID SCREEN, URINE POSITIVE (NEGATIVE); TRICYCLIC ANTIDEPRESSANT,URINE NEGATIVE (NEGATIVE)
[2021-03-25 12:58] LABS: AMORPHOUS SEDIMENT,UR Moderate /LPF; BACTERIA,URINE Rare /HPF (None Seen); SPERM,URINE PRESENT; SQUAMOUS EPITHELIAL CELL,UR NONE SEEN (<= Few); WBC,URINE 0-3 /HPF (0-3)
[2021-03-25] MEDS ORDERED: LORazepam 2 MG/ML VIAL IVP PRN (13:16)
[2021-03-25] MEDS ORDERED: LABETALOL 20 MG/4 ML SYRINGE IVP STA (13:22)
[2021-03-25 13:44] LABS: ACETAMINOPHEN < 10 ug/mL (10-30); ETOH - ETHANOL < 5.0 mg/dL; SALICYLATE < 6.0 mg/dL
--- NOTE | 2021-03-25 13:54 | PHARMACY PROGRESS NOTE ---
- Best Possible Medication History Admit Date and Time: 03/25/21 1311 Processed by: Nursing Medication History completed: Yes Patient Interview: Completed (MED REC COMPLETED BY NURSING) As the person ultimately responsible for medication therapy, providers are able to order a medication from an existing home medication list in [facility] via the "Reconcile Routine" prior to Confirmation of that medication by practice support specialist. Such practice is discouraged except when the physician, in their clinical judgment, deems that a medical need exists for a medication without regard to previous use.
[2021-03-25 14:04] LABS: BASOPHILS % (AUTO) 0.2 %; HCT - HEMATOCRIT 37.9 % (42.0-52.0); HGB - HEMOGLOBIN 13.5 g/dL (14.0-18.0); LYMPHOCYTES # (AUTO) 0.9 10^3/uL (1.5-3.5); LYMPHOCYTES % (AUTO) 3.9 %; MEAN CORPUSCULAR HEMOGLOBIN 32.5 pg (27.0-31.0); MEAN CORPUSCULAR HGB CONC 35.6 g/dL (32.0-36.0); MEAN CORPUSCULAR VOLUME 91.1 fL (80.0-94.0); MEAN PLATELET VOLUME 8.8 fL (7.4-11.4); MONOCYTES # (AUTO) 1.1 10^3/uL (0.0-1.0); MONOCYTES % (AUTO) 4.7 %; NEUTROPHILS # (AUTO) 21.7 10^3/uL (1.5-6.6); NEUTROPHILS % (AUTO) 90.7 %; PLT - PLATELET COUNT 258 10^3/uL (130-450); RED BLOOD COUNT 4.16 10^6/uL (4.70-6.10); RED CELL DISTRIBUTION WIDTH 12.5 % (12.0-15.0); WHITE BLOOD COUNT 23.9 x10^3/uL (4.8-10.8)
[2021-03-25 14:05] LABS: ABG BASE EXCESS -8.9 mmol/L (-2.0-3.0); ABG HCO3 14.5 mmol/L (22.0-26.0); ABG OXYGEN SATURATION 95 % (94-98); ABG PCO2 26 mmHg (34-45); ABG PH 7.37 (7.35-7.45); ABG PO2 77 mmHg (80-100); ABG TCO2 15.3 MMOL/L (21.0-29.0)
[2021-03-25 14:06] LABS: SLIDE REVIEW? Indicated
[2021-03-25 14:09] LABS: INR 1.2 (0.8-1.2); PT - PROTHROMBIN TIME 13.2 secs (9.9-12.6)
[2021-03-25 14:16] LABS: B. PARAPERTUSSIS- RESP PCR PAN NOT DETECTED; B. PERTUSSIS- RESP PCR PANEL NOT DETECTED; C. PNEUMONIAE- RESP PCR PANEL NOT DETECTED; CORONAVIRUS 229E-RESP PCR NOT DETECTED; CORONAVIRUS HKU1-RESP PCR NOT DETECTED; CORONAVIRUS NL63-RESP PCR NOT DETECTED; CORONAVIRUS OC43-RESP PCR NOT DETECTED; HUMAN METAPNEUMOVIRUS NOT DETECTED; INFLUENZA A- RESP PCR PANEL NOT DETECTED; INFLUENZA B - RESP PCR PANEL NOT DETECTED; M. PNEUMONIAE- RESP PCR PANEL NOT DETECTED; PARAINFLUENZA VIRUS 1 NOT DETECTED; PARAINFLUENZA VIRUS 2 NOT DETECTED; PARAINFLUENZA VIRUS 3 NOT DETECTED; PARAINFLUENZA VIRUS 4 NOT DETECTED; RHINOVIRUS/ENTEROVIRUS NOT DETECTED; RSV- RESP PCR PANEL NOT DETECTED; SARS-CoV-2 -RESP PCR PANEL NOT DETECTED
[2021-03-25 14:31] LABS: RBC MORPHOLOGY (MULTIPLE) 1+ ANISOCYTOSIS (NORMAL)
[2021-03-25] MEDS: SODIUM CHLORIDE FLUSH 0.9% 10 ML SYRINGE IVP SCH (15:13)
[2021-03-25] MEDS: MULTIVITAMIN 10 ML, THIAMINE INJ 100 MG, FOLIC ACID INJ 1 MG in SODIUM CHLORIDE 0.9% 1,... IV SCH (15:50)
--- NOTE | 2021-03-25 17:33 | HISTORY & PHYSICAL EXAMINATION ---
Chief Complaint - Chief Complaint Chief Complaint: Confusion, seizure History of Present Illness - Admitted From Admitted From:: ED - History Obtained From History obtained from: ED provider, chart review and from by phone call - History of Present Illness HPI Comment/Other: 75-year-old WM with a history of diabetes mellitus, hypertension, old [place], depression. He has had 2 prior admissions here over the past 2 years for severe dehydration that occurred when he would become depressed, lay in bed for days, stop eating and drinking, and stopped taking his medications. In the 12/2019 admission, he presented with a seizure which was initially felt to be from alcohol withdrawal. He has apparently stopped with alcohol abuse after that admission and underwent some type of neuro testing (?EEG) and his anti-seizure med was stopped. Patient finally agreed to see a psychiatrist and has been attending visits for 1 year almost weekly. With this, his mood improved and he has been able to gain some weight. Four weeks ago he received some bad news and the noticed he became more depressed. Then 3 weeks ago he started spending most days in bed for 20 hours, was eating very little but was taking his BP and Diabetic medications. Two days ago, after coming home from the psychiatry appointment, he went straight to bed and has had no meds or food or liquid for 2 days. The noticed that he became more confused yesterday and felt he was dehydrated, tried to force fluids last night. This morning he did not recognize her and he was brought to the ER. The initial exam showed that he was confused and could not give a history. He was sent to CT scan for head CT and while there he had a probable seizure with jerking movements and came back to the ER after tongue biting and incontinenece and was postictal. The patient's labs show multiple electrolyte derangements. His venous blood gas showed a pH of 7.0. His urinalysis showed high ketones and specific gravity very elevated. His serum showed a lactic acid level that was elevated at 3.4, no serum ketones were checked. The patient is being admitted to the ICU for severe dehydration, electrolyte abnormalities, MAU, lactic acidosis which could be from starvation versus diabetic ketoacidosis, and recurrent seizure activity which is probably not from alcohol withdrawal if indeed he is no longer taking in alcohol. The patient is waking up, can give me no history, he knows himself but nothing else. He appears uncomfortable and is fidgety but cannot tell me if he hurts anywhere or what his complaints are. He is not oriented to place or time. He already has baseline confusion and cognitive impairment documented on the last admission, which was 8 months ago. He cannot give details about what medications he took or his most recent activity. I called the and she filled in details and she confirmed that he has a DNR status. History - Past Medical History Cardiovascular: reports: None, Hypertension, High cholesterol, Coronary artery disease, [place] Respiratory: reports: None Neuro: reports: None Endocrine/Autoimmune: reports: Type 2 diabetes GI: reports: None : reports: Renal insuffiency Psych: reports: Depression Musculoskeletal: reports: None Derm: reports: None - Family & Social History Family History: Mother: , Father: Family History Comment/Other: His reported that his mother from kidney failure in her 90s. She also had diabetes. Living arrangement: At home Living Situation: With spouse/s.o. Social History Notes: Social history was obtained from the . The patient lives at home with his , Cassie. She states he does not drink anymore alcohol although he has a prior history of alcohol abuse. He smokes marijuana 02/04, she said. No other illicit drug use. - Substance History Use: Uses substance without health or social issues: Cannabis - POLST POLST Status: DNR Meds/Allgy - Home Medications Home Medications: Ambulatory Orders Medication Instructions Recorded Confirmed FLUoxetine [PROzac] 60 mg PO DAILY 12/11/19 03/25/21 Gabapentin 300 mg PO BID 12/11/19 03/25/21 SITagliptin [Januvia] 100 mg PO DAILY 12/11/19 03/25/21 Telmisartan 20 mg PO DAILY 12/11/19 03/25/21 Metoprolol Succinate [Toprol Xl] 25 mg PO DAILY #30 tablet 12/21/19 03/25/21 Pantoprazole [Protonix] 40 mg PO BID 30 Days #60 tablet 12/21/19 03/25/21 Rosuvastatin Calcium [Crestor] 40 mg PO QPM #30 tablet 12/21/19 03/25/21 Aspirin EC [Ecotrin] 81 mg PO DAILY 06/21/20 03/25/21 Glimepiride [Amaryl] 1 mg PO DAILY 06/21/20 03/25/21 Mecobalamin [B12 Active] 1 tab PO DAILY 06/22/20 03/25/21 Multivitamin [Theragran] 1 tab PO DAILYWM tablet 06/25/20 03/25/21 Thiamine [Vitamin B-1] 100 mg PO DAILY tablet 06/25/20 03/25/21 - Allergies Allergies/Adverse Reactions: Allergies Allergy/AdvReac Type Severity Reaction Status Date / Time No Known Drug Allergies Allergy Verified 03/25/21 10:13 Review of Systems - Constitutional Constitutional: reports: Poor appetite, Weight loss - Psychiatric Psychiatric: reports: Depression - All Other Systems All Other Systems: reports: Other (Unable to be obtained from the patient because of the patient's altered mental status but the denied any other sx.) Exam - Vital Signs Reviewed Vital Signs: Yes Vital Signs: Vital Signs x48h Temp Pulse Pulse Pulse Pulse Resp BP 03/25/21 16:22 36.9 C 92 20 03/25/21 15:22 84 14 03/25/21 15:17 87 16 03/25/21 15:00 88 20 03/25/21 14:56 36.7 C 90 16 03/25/21 13:03 89 21 174/86 H 03/25/21 12:33 98 26 H 176/91 H 03/25/21 12:13 118 H 29 H 208/96 H 03/25/21 11:34 100 90 03/25/21 10:30 89 19 177/84 H 03/25/21 10:07 37.2 C 89 16 202/93 H BP BP BP Pulse Ox 03/25/21 16:22 157/92 H 97 03/25/21 15:22 164/99 H 98 03/25/21 15:17 150/95 H 94 03/25/21 15:00 161/92 H 95 03/25/21 14:56 139/77 H 97 03/25/21 13:03 99 03/25/21 12:33 96 03/25/21 12:13 97 03/25/21 11:34 170/106 H 178/89 H 03/25/21 10:30 98 03/25/21 10:07 98 - Physical Exam General Appearance: positive: Mild distress (Fidgity is currently in wrist restraints.), Other (Cachectic with sunken eyes and temporal wasting.) Eyes Bilateral: positive: Normal inspection, Other (No nystagmus) ENT: positive: Dry mucous membranes, Other (Poor dentition) Neck: positive: Nml inspection, No JVD Respiratory: positive: No respiratory distress, Breath sounds nml Cardiovascular: positive: Regular rate & rhythm, No murmur Abdomen: positive: Non-tender, No distention Skin: positive: Warm, Dry, Pallor Extremities: positive: Non-tender, No pedal edema Neurologic/Psychiatric: positive: Disoriented to place (Non-focal, moving all extrem), Disoriented to time Conclusion/Plan - Problem List (1) Acute encephalopathy Conclusion/Plan: This could be secondary to dehydration or his elevated blood pressure from not taking his medicines for 2 days.Despite improvement in blood pressure from 200 to 160 systolic after labetalol, he continues to have the same confused and altered mental status. Do not suspect alcohol withdrawal given that he reportedly has not had any alcohol for many months now. CT of the head was unremarkable. There are no obvious signs of infection despite his elevated la ctic acid level. Will obtain portable chest x-ray since none was done in the ED to R/O pulm infection. Continue with IV hydralazine and IV labetalol for blood pressure control. When his medications are reconciled and when he can swallow p.o. when he is more alert, will resume these. Will order a CIWA protocol for alcohol withdrawal although this is less likely. Correct the dehydration and hyponatremia and follow his serum sodium daily. (2) Seizure Conclusion/Plan: This is now a recurrent seizure and this one is not an alcohol withdrawal seizure, presumably. We will resume Keppra at 500 mg IV twice daily dose after he was loaded in the ED. Order neurochecks and seizure precautions. Remain in the ICU (3) Lactic acidosis Conclusion/Plan: Likely from starvation but will also obtain ketones that were not ordered in the ED to rule out DKA. Begin IV fluids using D5 NS or could use a banana bag if the history of recent alcohol abuse surfaces. Follow his serum lactic acid level until it corrects. If DKA, start protocol, and follow serum ketones until they correct. (4) Severe dehydration Conclusion/Plan: The was able to tell me that this is now his third presentation of extreme confusion when he has dehydration. She also claims that he has no thirst mechanism just like this patient's brother to know that he should be drinking more frequently. Continue with IV fluids, close monitoring of I's and O's and daily weights and electrolytes (5) Hyponatremia Conclusion/Plan: Be pseudohyponatremia but also hypovolemic hyponatremia. Fluids will contain NS. Follow BMP daily (6) MAU (acute kidney injury) Conclusion/Plan: Very likely related to severe dehydration. Avoid nephrotoxins. Continue with IV fluids as described above. Follow BMP daily (7) Increased anion gap metabolic acidosis Conclusion/Plan: Plan for IV hydration and to check for DKA and treat and monitor accordingly (8) Type 2 diabetes mellitus with hyperglycemia Conclusion/Plan: If was able to tell me that he is usually compliant with his oral antidiabetic medications but never checks his serum glucoses. Will obtain a morning A1c level. When he is awake enough for diet will start carb controlled diet. Treat with insulin drip versus sliding scale insulin currently. (9) Hypertension Conclusion/Plan: Is likely related to noncompliance with his medications for the last 48 hours or more. Start with IV meds for blood pressure control and resume his p.o. meds when safe to do so after reconciled Qualifiers: Hypertension type: essential hypertension (10) Hx of coronary artery disease Conclusion/Plan: There is a history of remote [place] and discussion about being on Brilinta therefore he probably has a coronary stent. Troponin was within normal limits here. We will trend the troponin one more time. We will plan to resume his cardiac medications once they are reconciled and if he can take po meds, otherwise iv or pr (11) Leukocytosis Conclusion/Plan: There are no obvious signs of infection despite his elevated lactic acid level. Suspect that this is WBC demargination from the stress. Follow CBC daily. (12) Depression Conclusion/Plan: This patient has a recurrent cycle of punishing himself by not eating or drinking and remaining in bed, after he receives bad news, according to the . Will resume his antidepressants when it is reconciled and he can take p.o. meds. Qualifiers: Depression Type: major depressive disorder Major depression recurrence: recurrent Active/Remission status: currently active Major depression episode severity: moderate Qualified Code(s): F33.1 - Major depressive disorder, recurrent, moderate - Lab Results Fish Bones: 03/25/21 13:58 03/25/21 19:00 - Diagnostic Imaging Results Diagnostic Imaging Results: positive: Final report reviewed
[2021-03-25 18:17] LABS: CALCIUM 8.5 mg/dL (8.5-10.3); POTASSIUM 4.8 mmol/L (3.5-5.0)
[2021-03-25] MEDS: INSULIN REGULAR HUMAN 300 UNIT/3 ML VIAL SUBQ SCH (18:52)
[2021-03-25] MEDS ORDERED: INSULIN REGULAR HUMAN 100 UNIT in SODIUM CHLORIDE 0.9% 100ML 99 ML IV SCH (19:00)
[2021-03-25 19:10] LABS: VBG PH 7.398 (7.31-7.41)
[2021-03-25 19:11] LABS: VBG BASE EXCESS -7.8 mmol/L (-2 - +2); VBG HCO3 15.2 mmol/L (23-28); VBG OXYGEN SATURATION 64.9 % (60-80); VBG PCO2 25.2 mmHg (41-51); VBG PO2 30.9 mmHg (25-47)
[2021-03-25 19:17] LABS: KETONES, SERUM (ACETEST) NEGATIVE (NEGATIVE)
[2021-03-25 19:20] LABS: BUN - BLOOD UREA NITROGEN 36 mg/dL (6-20); CALCIUM 8.5 mg/dL (8.5-10.3); CARBON DIOXIDE - CO2 16 mmol/L (21-32); CHLORIDE 104 mmol/L (101-111); CREATININE 1.9 mg/dL (0.6-1.2); GFR - MDRD 35 (>89); GLUCOSE 279 mg/dL (70-100); POTASSIUM 4.6 mmol/L (3.5-5.0); SODIUM 134 mmol/L (135-145)
[2021-03-25] MEDS ORDERED: SODIUM CHLORIDE 0.9% 100ML 100 ML IV ONE (19:47)
[2021-03-25 20:16] LABS: KETONES, SERUM (ACETEST) NEGATIVE (NEGATIVE)
[2021-03-25 20:20] LABS: BUN - BLOOD UREA NITROGEN 35 mg/dL (6-20); CALCIUM 8.7 mg/dL (8.5-10.3); CARBON DIOXIDE - CO2 14 mmol/L (21-32); CHLORIDE 106 mmol/L (101-111); CREATININE 1.9 mg/dL (0.6-1.2); GFR - MDRD 35 (>89); GLUCOSE 264 mg/dL (70-100); MAGNESIUM 1.7 mg/dL (1.7-2.8); POTASSIUM 4.2 mmol/L (3.5-5.0); SODIUM 131 mmol/L (135-145)
[2021-03-25] MEDS: SODIUM CHLORIDE 0.9% 1,000 ML IV SCH (20:23)
[2021-03-25] MEDS: DEXTROSE 5%-0.9% NACL 1,000 ML IV SCH (21:40)
[2021-03-25] MEDS: levETIRAcetam INJ 500 MG in SODIUM CHLORIDE 0.9% 100ML 100 ML IV SCH (22:11)
[2021-03-25 22:19] LABS: KETONES, SERUM (ACETEST) NEGATIVE (NEGATIVE)
[2021-03-25 22:24] LABS: BUN - BLOOD UREA NITROGEN 34 mg/dL (6-20); CALCIUM 8.6 mg/dL (8.5-10.3); CARBON DIOXIDE - CO2 17 mmol/L (21-32); CHLORIDE 110 mmol/L (101-111); CREATININE 1.8 mg/dL (0.6-1.2); GFR - MDRD 37 (>89); GLUCOSE 95 mg/dL (70-100); MAGNESIUM 1.7 mg/dL (1.7-2.8); POTASSIUM 3.7 mmol/L (3.5-5.0); SODIUM 136 mmol/L (135-145)
[2021-03-25] MEDS ORDERED: MAGNESIUM SULFATE 2 GRAM 2 GM/50 ML BAG IV ONE (22:53)
[2021-03-26] MEDS: INSULIN REGULAR HUMAN 300 UNIT/3 ML VIAL SUBQ SCH ×2 (00:44→06:41)
[2021-03-26] MEDS: SODIUM CHLORIDE 0.9% 1,000 ML IV SCH ×2 (00:44→09:59)
[2021-03-26] MEDS: SODIUM CHLORIDE FLUSH 0.9% 10 ML SYRINGE IVP SCH ×4 (00:44→21:20)
[2021-03-26] MEDS: DEXTROSE 5%-0.9% NACL 1,000 ML IV SCH ×2 (03:18→10:46)
[2021-03-26 06:33] LABS: BASOPHILS % (AUTO) 0.1 %; EOSINOPHILS % (AUTO) 0.1 %; HCT - HEMATOCRIT 35.8 % (42.0-52.0); HGB - HEMOGLOBIN 12.2 g/dL (14.0-18.0); LYMPHOCYTES # (AUTO) 1.4 10^3/uL (1.5-3.5); LYMPHOCYTES % (AUTO) 8.9 %; MEAN CORPUSCULAR HEMOGLOBIN 32.1 pg (27.0-31.0); MEAN CORPUSCULAR HGB CONC 34.1 g/dL (32.0-36.0); MEAN CORPUSCULAR VOLUME 94.2 fL (80.0-94.0); MEAN PLATELET VOLUME 9.1 fL (7.4-11.4); MONOCYTES # (AUTO) 1.1 10^3/uL (0.0-1.0); MONOCYTES % (AUTO) 7.2 %; NEUTROPHILS # (AUTO) 13.1 10^3/uL (1.5-6.6); NEUTROPHILS % (AUTO) 83.4 %; PLT - PLATELET COUNT 236 10^3/uL (130-450); WHITE BLOOD COUNT 15.7 x10^3/uL (4.8-10.8)
[2021-03-26 06:37] LABS: INR 1.1 (0.8-1.2); PT - PROTHROMBIN TIME 12.3 secs (9.9-12.6)
[2021-03-26 06:46] LABS: ALBUMIN 3.6 g/dL (3.2-5.5); ALBUMIN/GLOBULIN RATIO 1.1 (1.0-2.2); BILIRUBIN,TOTAL 0.8 mg/dL (0.2-1.0); CALCIUM 8.4 mg/dL (8.5-10.3); CREATININE 1.6 mg/dL (0.6-1.2); MAGNESIUM 2.6 mg/dL (1.7-2.8); PHOSPHORUS 3.5 mg/dL (2.5-4.6); POTASSIUM 4.3 mmol/L (3.5-5.0)
[2021-03-26] MEDS ORDERED: PANTOPRAZOLE 40 MG VIAL IVP SCH (07:00)
[2021-03-26] MEDS ORDERED: INSULIN REGULAR HUMAN 300 UNIT/3 ML VIAL SUBQ SCH (07:45)
--- NOTE | 2021-03-26 09:03 | PROVIDER PROGRESS NOTE ---
Assessment/Plan - Problem List (1) Acute encephalopathy Assessment/Plan: The confusion appears to be multifactorial: From severe dehydration, hyponatremia, hyperglycemia with mild DKA, mild uremia, on top of baseline cognitive impairment which is significant. We will continue to treat all the medically reversible diagnoses (2) Seizure Assessment/Plan: Since this appears to not be an alcohol withdrawal seizure, will continue with empiric Keppra twice daily and he will need neurology follow-up after discharge since the told me that Keppra was stopped 1 year ago after he underwent some type of neurology evaluation (3) Lactic acidosis Assessment/Plan: The serum ketones came back positive and he was felt to be in DKA. He was on insulin drip overnight. This has been stopped this morning. Will transition to sliding scale insulin and start a clear liquid diet today if he is alert enough to swallow safely (4) Severe dehydration Assessment/Plan: As above. Continue iv's with saline. We will stop the banana bags since there appears to be no further alcohol abuse since last year Follow BMP daily We will also check magnesium, calcium because of his poor p.o. intake for the last several weeks (5) Hyponatremia Assessment/Plan: This is hypovolemic hyponatremia or pseudohyponatremia from having the high glucose. Continue with IVs continuing NS. Follow BMP daily (6) MAU (acute kidney injury) Assessment/Plan: Improving w/ rehydration Continue IV fluids. Avoid nephrotoxins. Follow BMP daily (7) Type 2 diabetes mellitus with hyperglycemia Assessment/Plan: He was not on any long-acting insulin and was only on oral antidiabetic meds at home. A1c is 7.9 He tolerated a clear liquid diet. We will advance diabetic diet first pured and soft. Insulin IV has been stopped and will start a sliding scale insulin coverage. (8) Hypertension Qualifiers: Hypertension type: essential hypertension Assessment/Plan: Because of his dehydration, his blood pressures are not elevated and his blood pressure meds have not yet been resumed. Await reconcile and then resume when BP meds are needed (9) Hx of coronary artery disease Assessment/Plan: As per Hx Will resume aspirin and his meds that he can now take since he is awake enough to swallow (10) Leukocytosis Assessment/Plan: WBCs decreased from 23-15 today without any antibiotics. The leukocytosis was likely demargination from stress (11) Depression Qualifiers: Depression Type: major depressive disorder Major depression recurrence: recurrent Active/Remission status: currently active Major depression episode severity: moderate Qualified Code(s): F33.1 - Major depressive disorder, recurrent, moderate Assessment/Plan: Will resume his antidepressant since he is now awake enough to swallow. He is not yet ready for social work mental health eval, as he is not medically cleared and at his baseline yet. (12) Increased anion gap metabolic acidosis Assessment/Plan: Resolved - Current Meds Current Meds: Current Medications Generic Name Dose Route Start Last Admin Trade Name Freq PRN Reason Stop Dose Admin Sodium Chloride 1,000 mls @ 100 mls/hr 03/25/21 14:00 03/26/21 06:41 Normal Saline 0.9% IV 20 mls/hr .Q10H VIDAL Infusion Multivitamins 10 ml/ Thiamine 1,011.2 mls @ 100 mls/hr 03/25/21 15:00 03/26/21 06:42 HCl 100 mg/ Folic Acid 1 mg/ IV Infused Sodium Chloride DAILY VIDAL Infusion Levetiracetam 500 mg/ Sodium 105 mls @ 400 mls/hr 03/25/21 21:00 03/25/21 22:37 Chloride IV Infused BID VIDAL Infusion Dextrose/Sodium Chloride 1,000 mls @ 125 mls/hr 03/25/21 19:00 03/26/21 06:43 D5ns IV 125 mls/hr .Q8H VIDAL Infusion Insulin Human Regular 1 - 5 unit 03/26/21 07:45 03/26/21 07:53 Insulin Regular Human 300 Unit/3 Ml Vial SUBQ 2 unit Q6HR VIDAL Administration Protocol Lorazepam 2 mg 03/25/21 13:16 03/25/21 20:22 Lorazepam 2 Mg/Ml Vial IVP 2 mg Q30M PRN Administration CIWA >8 Protocol Pantoprazole Sodium 40 mg 03/26/21 07:00 03/26/21 06:42 Pantoprazole 40 Mg Vial IVP 40 mg QDAC VIDAL Administration Sodium Chloride 10 ml 03/25/21 17:00 03/26/21 00:44 Sodium Chloride Flush 0.9% 10 Ml Syringe IVP Not Given 0100,0900,1700 VIDAL - Lab Result Fish Bone Diagrams: 03/26/21 04:51 03/26/21 04:51 - Additional Planning My Orders: My Active Orders 03/25/21 13:11 Activity Orders [RC] Q2HR Blood Glucose POC [RC] 0000,0600,1200,1800 Daily Weight [RC] 0600 Raza Insertion [RC] QSHIFT IO [RC] Q1HR Initiate Bowel Care Protocol [RC] QSHIFT Initiate ICU Electrolyte Prot. [RC] .protocol Initiate Line Care Protocol [RC] .protocol Initiate Personal Care Protoco [RC] .protocol Vital Signs [RC] Q3HR Sodium Chloride Flush 0.9% [Normal Saline Flush 0.9%] 10 ml IVP PRN PRN Code Status [OTHERS] Routine Condition of Patient [OTHERS] Routine DVT Prophylaxis [OTHERS] Routine 03/25/21 13:13 Oxygen Therapy [RC] .PRN Telemetry- [RC] Q4HR NPO [DIET] 03/25/21 13:14 SCDs [RC] QSHIFT 03/25/21 13:15 Initiate Line Care Protocol [RC] QSHIFT Neuro Check [RC] QSHIFT 03/25/21 13:16 CIWA - AR Score Card [RC] Q4HR LORazepam INJ [Ativan Inj (Vial)] 2 mg IVP Q30M PRN 03/25/21 13:22 Initiate Hypoglycemia Protocol [RC] .protocol 03/25/21 14:00 Sodium Chloride 0.9% [Normal Saline 0.9%] 1,000 ml IV 100 mls/hr 03/25/21 15:00 Multivitamin [Infuvite] 10 ml Thiamine Inj [Vitamin B-1 Inj] 100 mg Folic Acid Inj [Folic Acid] 1 mg Sodium Chloride 0.9% [Normal Saline 0.9%] 1,000 ml IV DAILY 03/25/21 16:29 Initiate NonViolent Restraint [RC] .PerProtocol 03/25/21 17:00 Sodium Chloride Flush 0.9% [Normal Saline Flush 0.9%] 10 ml IVP 0100,0900,1700 03/25/21 18:40 Initiate DKA RN Protocol [RC] .protocol 03/25/21 19:00 Dextrose 5%-0.9% NaCl [D5ns] 1,000 ml IV 125 mls/hr 03/25/21 21:00 levETIRAcetam INJ [Keppra Inj] 500 mg Sodium Chloride 0.9% 100Ml [Normal Saline 0.9% 100Ml] 100 ml IV BID 03/26/21 05:00 HEMOGLOBIN A1c% [CHEM] Routine 03/26/21 07:00 Pantoprazole [Protonix] 40 mg IVP QDAC 03/26/21 07:45 Insulin Regular Human [Humulin R] 1 - 5 unit SUBQ Q6HR 03/26/21 09:01 Blood Glucose Checks - Eating [RC] 0800,1200,1700,2100 03/26/21 Lunch Clear Liquid Diet [DIET] 03/26/21 12:00 Insulin Aspart [NovoLOG] 1 - 5 unit SUBQ 0800,1200,1700,2100 03/27/21 05:00 BMP - BASIC METABOLIC PANEL [CHEM] DAILYLAB CBC - COMP BLD CT W/AUTO DIFF [HEME] DAILYLAB 03/28/21 05:00 BMP - BASIC METABOLIC PANEL [CHEM] DAILYLAB CBC - COMP BLD CT W/AUTO DIFF [HEME] DAILYLAB 03/29/21 05:00 BMP - BASIC METABOLIC PANEL [CHEM] DAILYLAB CBC - COMP BLD CT W/AUTO DIFF [HEME] DAILYLAB Subjective - Subjective Patient Reports: Resting Comfortably (in in his lounge chair) Nursing Reports: Other (Patient was pulling at his Raza and has hematuria. Patient was able to stand and pivot to bedside commode but is very wobbly per his RN. He is extremely confused and oriented only to self. Activity overnight.) Objective Vital Signs: Vital Signs - 24 hr 03/25/21 03/25/21 03/25/21 10:07 10:30 11:34 Temperature 37.2 C Heart Rate 89 89 Heart Rate [ Monitoring electrodes] Heart Rate [ 100 Sitting] Heart Rate [ 90 Supine] Respiratory 16 19 Rate Blood Pressure 202/93 H 177/84 H Blood Pressure [Right Brachial artery] Blood Pressure 170/106 H [Sitting] Blood Pressure 178/89 H [Supine] O2 Saturation 98 98 03/25/21 03/25/21 03/25/21 12:13 12:33 13:03 Temperature Heart Rate 118 H 98 89 Heart Rate [ Monitoring electrodes] Heart Rate [ Sitting] Heart Rate [ Supine] Respiratory 29 H 26 H 21 Rate Blood Pressure 208/96 H 176/91 H 174/86 H Blood Pressure [Right Brachial artery] Blood Pressure [Sitting] Blood Pressure [Supine] O2 Saturation 97 96 99 03/25/21 03/25/21 03/25/21 14:56 15:00 15:17 Temperature 36.7 C Heart Rate Heart Rate [ 90 88 87 Monitoring electrodes] Heart Rate [ Sitting] Heart Rate [ Supine] Respiratory 16 20 16 Rate Blood Pressure Blood Pressure 139/77 H 161/92 H 150/95 H [Right Brachial artery] Blood Pressure [Sitting] Blood Pressure [Supine] O2 Saturation 97 95 94 03/25/21 03/25/21 03/25/21 15:22 16:22 19:00 Temperature 36.9 C Heart Rate Heart Rate [ 84 92 79 Monitoring electrodes] Heart Rate [ Sitting] Heart Rate [ Supine] Respiratory 14 20 15 Rate Blood Pressure Blood Pressure 164/99 H 157/92 H 167/83 H [Right Brachial artery] Blood Pressure [Sitting] Blood Pressure [Supine] O2 Saturation 98 97 98 03/25/21 03/25/21 03/25/21 20:00 21:00 22:00 Temperature 36.8 C Heart Rate Heart Rate [ 84 88 86 Monitoring electrodes] Heart Rate [ Sitting] Heart Rate [ Supine] Respiratory 20 25 H 27 H Rate Blood Pressure Blood Pressure 161/83 H 144/79 H 135/77 H [Right Brachial artery] Blood Pressure [Sitting] Blood Pressure [Supine] O2 Saturation 96 95 96 03/25/21 03/26/21 03/26/21 23:00 00:00 01:00 Temperature Heart Rate Heart Rate [ 86 83 82 Monitoring electrodes] Heart Rate [ Sitting] Heart Rate [ Supine] Respiratory 27 H 27 H 28 H Rate Blood Pressure Blood Pressure 141/86 H 141/88 H 135/71 H [Right Brachial artery] Blood Pressure [Sitting] Blood Pressure [Supine] O2 Saturation 95 95 95 03/26/21 03/26/21 03/26/21 02:12 03:00 04:00 Temperature 36.5 C Heart Rate Heart Rate [ 89 81 80 Monitoring electrodes] Heart Rate [ Sitting] Heart Rate [ Supine] Respiratory 23 25 H 24 Rate Blood Pressure Blood Pressure 154/86 H 143/80 H 147/78 H [Right Brachial artery] Blood Pressure [Sitting] Blood Pressure [Supine] O2 Saturation 95 97 94 03/26/21 03/26/21 03/26/21 05:00 06:19 07:00 Temperature Heart Rate Heart Rate [ 79 86 83 Monitoring electrodes] Heart Rate [ Sitting] Heart Rate [ Supine] Respiratory 23 19 22 Rate Blood Pressure Blood Pressure 149/84 H 141/78 H 152/77 H [Right Brachial artery] Blood Pressure [Sitting] Blood Pressure [Supine] O2 Saturation 96 95 96 03/26/21 08:22 Temperature 36.7 C Heart Rate Heart Rate [ 83 Monitoring electrodes] Heart Rate [ Sitting] Heart Rate [ Supine] Respiratory 24 Rate Blood Pressure Blood Pressure 148/73 H [Right Brachial artery] Blood Pressure [Sitting] Blood Pressure [Supine] O2 Saturation 98 Oxygen O2 Source Room air I&O (Last 24 Hrs): Intake and Output Totals x24h 03/24/21 03/25/21 03/26/21 23:59 23:59 23:59 Intake Total 1817.2 1383.933 Output Total 1034 443 Balance 783.2 940.933 General: Other (Lethargic) HEENT: Mucous membr. moist/pink Neck: Supple, No JVD Neuro: Other (Lethargic currently, to his RN he was only oriented to self) Cardiovascular: Regular rate, No murmurs Respiratory: Chest non-tender, No respiratory distress Abdomen: Normal bowel sounds, Soft Extremities: No edema - Results Results: Laboratory Results WBC 15.7 x10^3/uL (4.8-10.8) H 03/26/21 04:51 RBC 3.80 10^6/uL (4.70-6.10) L 03/26/21 04:51 Hgb 12.2 g/dL (14.0-18.0) L 03/26/21 04:51 Hct 35.8 % (42.0-52.0) L 03/26/21 04:51 MCV 94.2 fL (80.0-94.0) H 03/26/21 04:51 MCH 32.1 pg (27.0-31.0) H 03/26/21 04:51 MCHC 34.1 g/dL (32.0-36.0) 03/26/21 04:51 RDW 13.0 % (12.0-15.0) 03/26/21 04:51 Plt Count 236 10^3/uL (130-450) 03/26/21 04:51 MPV 9.1 fL (7.4-11.4) 03/26/21 04:51 Neut # (Auto) 13.1 10^3/uL (1.5-6.6) H 03/26/21 04:51 Lymph # (Auto) 1.4 10^3/uL (1.5-3.5) L 03/26/21 04:51 [place] # (Auto) 1.1 10^3/uL (0.0-1.0) H 03/26/21 04:51 Eos # (Auto) 0.0 10^3/uL (0.0-0.7) 03/26/21 04:51 Baso # (Auto) 0.0 10^3/uL (0.0-0.1) 03/26/21 04:51 Absolute Nucleated RBC 0.00 x10^3/uL 03/26/21 04:51 Nucleated RBC % 0.0 /100WBC 03/26/21 04:51 Manual Slide Review Indicated 03/25/21 13:58 RBC Morph Micro Appear 1+ ANISOCYTOSIS (NORMAL) 03/25/21 13:58 PT 12.3 secs (9.9-12.6) 03/26/21 04:51 INR 1.1 (0.8-1.2) 03/26/21 04:51 Bld Gas Analysis Time 1356 03/25/21 13:53 Sample Site RIGHT BRACHIAL 03/25/21 13:53 ABG pH 7.37 (7.35-7.45) 03/25/21 13:53 ABG pCO2 26 mmHg (34-45) L 03/25/21 13:53 ABG pO2 77 mmHg (80-100) L 03/25/21 13:53 ABG HCO3 14.5 mmol/L (22.0-26.0) L 03/25/21 13:53 ABG Total CO2 15.3 MMOL/L (21.0-29.0) L 03/25/21 13:53 ABG O2 Saturation 95 % (94-98) 03/25/21 13:53 ABG Base Excess -8.9 mmol/L (-2.0-3.0) L 03/25/21 13:53 Mahin Test NOT APPLICABLE 03/25/21 13:53 VBG pH 7.398 (7.31-7.41) 03/25/21 19:00 VBG pCO2 25.2 mmHg (41-51) L 03/25/21 19:00 VBG pO2 30.9 mmHg (25-47) 03/25/21 19:00 VBG HCO3 15.2 mmol/L (23-28) L 03/25/21 19:00 VBG Total CO2 16.0 mmol/L (24-29) L 03/25/21 19:00 VBG O2 Saturation 64.9 % (60-80) 03/25/21 19:00 VBG Base Excess -7.8 mmol/L (-2 - +2) L 03/25/21 19:00 Room Air YES 03/25/21 13:53 Sodium 137 mmol/L (135-145) 03/26/21 04:51 Potassium 4.3 mmol/L (3.5-5.0) 03/26/21 04:51 Chloride 108 mmol/L (101-111) 03/26/21 04:51 Carbon Dioxide 17 mmol/L (21-32) L 03/26/21 04:51 Anion Gap 12.0 (6-13) 03/26/21 04:51 BUN 35 mg/dL (6-20) H 03/26/21 04:51 Creatinine 1.6 mg/dL (0.6-1.2) H 03/26/21 04:51 Estimated GFR (MDRD) 42 (>89) L 03/26/21 04:51 Glucose 124 mg/dL (70-100) H 03/26/21 04:51 Lactic Acid 1.9 mmol/L (0.5-2.2) 03/25/21 18:00 Calcium 8.4 mg/dL (8.5-10.3) L 03/26/21 04:51 Phosphorus 3.5 mg/dL (2.5-4.6) 03/26/21 04:51 Magnesium 2.6 mg/dL (1.7-2.8) 03/26/21 04:51 Total Bilirubin 0.8 mg/dL (0.2-1.0) 03/26/21 04:51 GGT 24 IU/L (8-55) 03/26/21 04:51 AST 26 IU/L (10-42) 03/26/21 04:51 ALT 45 IU/L (10-60) 03/26/21 04:51 Alkaline Phosphatase 73 IU/L (42-121) 03/26/21 04:51 Total Creatine Kinase 239 IU/L (22-269) 03/25/21 12:29 Troponin I High Sens 18.8 ng/L (2.3-19.7) 03/25/21 10:30 Total Protein 7.0 g/dL (6.7-8.2) 03/26/21 04:51 Albumin 3.6 g/dL (3.2-5.5) 03/26/21 04:51 Globulin 3.4 g/dL (2.1-4.2) 03/26/21 04:51 Albumin/Globulin Ratio 1.1 (1.0-2.2) 03/26/21 04:51 Lipase 33 U/L (22-51) 03/25/21 10:30 Urine Color YELLOW 03/25/21 12:18 Urine Clarity HAZY (CLEAR) 03/25/21 12:18 Urine pH 5.5 PH (5.0-7.5) 03/25/21 12:18 Ur Specific [place] >=1.030 (1.002-1.030) H 03/25/21 12:18 Urine Protein >=300 mg/dL (NEGATIVE) H 03/25/21 12:18 Urine Glucose (UA) >=1000 mg/dL (NEGATIVE) H 03/25/21 12:18 Urine Ketones 15 mg/dL (NEGATIVE) H 03/25/21 12:18 Urine Occult Blood LARGE (NEGATIVE) H 03/25/21 12:18 Urine Nitrite NEGATIVE (NEGATIVE) 03/25/21 12:18 Urine Bilirubin NEGATIVE (NEGATIVE) 03/25/21 12:18 Urine Urobilinogen 0.2 (NORMAL) E.U./dL (NORMAL) 03/25/21 12:18 Ur Leukocyte Esterase NEGATIVE (NEGATIVE) 03/25/21 12:18 Urine RBC 6-10 /HPF (0-5) H 03/25/21 12:18 Urine WBC 0-3 /HPF (0-3) 03/25/21 12:18 Ur Squamous Epith Cells NONE SEEN (<= Few) 03/25/21 12:18 Amorphous Sediment Moderate /LPF 03/25/21 12:18 Urine Bacteria Rare /HPF (None Seen) 03/25/21 12:18 Urine Sperm PRESENT 03/25/21 12:18 Urine Culture Comments NOT INDICATED 03/25/21 12:18 Nasal Adenovirus (PCR) NOT DETECTED 03/25/21 12:21 Nasal B. parapertussis DNA (PCR) NOT DETECTED 03/25/21 12:21 Nasal Coronavir 229E PCR NOT DETECTED 03/25/21 12:21 Nasal Coronavir HKU1 PCR NOT DETECTED 03/25/21 12:21 Nasal Coronavir NL63 PCR NOT DETECTED 03/25/21 12:21 Nasal Coronavir OC43 PCR NOT DETECTED 03/25/21 12:21 Nasal Enterovir/Rhinovir PCR NOT DETECTED 03/25/21 12:21 Nasal Influenza B PCR NOT DETECTED 03/25/21 12:21 Nasal Influenza A PCR NOT DETECTED 03/25/21 12:21 Nasal Parainfluen 1 PCR NOT DETECTED 03/25/21 12:21 Nasal Parainfluen 2 PCR NOT DETECTED 03/25/21 12:21 Nasal Parainfluen 3 PCR NOT DETECTED 03/25/21 12:21 Nasal Parainfluen 4 PCR NOT DETECTED 03/25/21 12:21 Nasal RSV (PCR) NOT DETECTED 03/25/21 12:21 Nasal Screen MRSA (PCR) NEGATIVE (NEGATIVE) 03/25/21 14:50 Nasal B.pertussis DNA PCR NOT DETECTED 03/25/21 12:21 Nasal C.pneumoniae (PCR) NOT DETECTED 03/25/21 12:21 Ethan Human Metapneumo PCR NOT DETECTED 03/25/21 12:21 Nasal M.pneumoniae (PCR) NOT DETECTED 03/25/21 12:21 Nasal SARS-CoV-2 (PCR) NOT DETECTED 03/25/21 12:21 Salicylates < 6.0 mg/dL 03/25/21 12:32 Urine Opiates Screen NEGATIVE (NEGATIVE) 03/25/21 12:18 Ur Oxycodone Screen NEGATIVE (NEGATIVE) 03/25/21 12:18 Urine Methadone Screen NEGATIVE (NEGATIVE) 03/25/21 12:18 Ur Propoxyphene Screen NEGATIVE (NEGATIVE) 03/25/21 12:18 Acetaminophen < 10 ug/mL (10-30) L 03/25/21 12:32 Ur Barbiturates Screen NEGATIVE (NEGATIVE) 03/25/21 12:18 Ur Tricyclics Screen NEGATIVE (NEGATIVE) 03/25/21 12:18 Ur Phencyclidine Scrn NEGATIVE (NEGATIVE) 03/25/21 12:18 Ur Amphetamine Screen NEGATIVE (NEGATIVE) 03/25/21 12:18 U Methamphetamines Scrn NEGATIVE (NEGATIVE) 03/25/21 12:18 U Benzodiazepines Scrn POSITIVE (NEGATIVE) H 03/25/21 12:18 Urine Cocaine Screen NEGATIVE (NEGATIVE) 03/25/21 12:18 U Cannabinoids Screen POSITIVE (NEGATIVE) H 03/25/21 12:18 Ethyl Alcohol < 5.0 mg/dL 03/25/21 12:32 Serum Ketones NEGATIVE (NEGATIVE) 03/25/21 22:06 - Procedures Procedures: Procedures EXCISION OF DUODENUM, ENDO, DIAGN (12/11/19) EXCISION OF ESOPHAGOGASTRIC JUNCTION, ENDO, DIAGN (12/11/19) EXCISION OF SIGMOID COLON, ENDO (12/11/19) EXCISION OF STOMACH, ENDO, DIAGN (12/11/19) TRANSFUSE NONAUT RED BLOOD CELLS IN PERIPH VEIN, PERC (12/11/19)
[2021-03-26] MEDS: levETIRAcetam INJ 500 MG in SODIUM CHLORIDE 0.9% 100ML 100 ML IV SCH ×2 (09:33→21:20)
[2021-03-26] MEDS: SODIUM CHLORIDE FLUSH 0.9% 10 ML SYRINGE IVP PRN (09:38)
[2021-03-26] MEDS: MULTIVITAMIN 10 ML, THIAMINE INJ 100 MG, FOLIC ACID INJ 1 MG in SODIUM CHLORIDE 0.9% 1,... IV SCH (09:58)
[2021-03-26 11:01] LABS: ESTIMATED AVERAGE GLUCOSE 180 mg/dL (70-100); HEMOGLOBIN A1c% 7.9 % (4.27-6.07)
[2021-03-26] MEDS ORDERED: INSULIN ASPART 300 UNIT/3 ML PEN SUBQ SCH (12:00)
[2021-03-26] MEDS: ASPIRIN EC 81 MG TABLET PO SCH (16:10)
[2021-03-26] MEDS: INSULIN ASPART 300 UNIT/3 ML PEN SUBQ SCH ×2 (17:47→21:18)
[2021-03-26] MEDS ORDERED: levETIRAcetam INJ 500 MG in SODIUM CHLORIDE 0.9% 100ML 100 ML IV SCH (21:00)
[2021-03-26] MEDS: PANTOPRAZOLE 40 MG TABLET PO SCH (21:19)
[2021-03-27] MEDS: SODIUM CHLORIDE 0.9% 1,000 ML IV SCH ×4 (00:11→22:05)
[2021-03-27 06:15] LABS: BASOPHILS % (AUTO) 0.4 %; EOSINOPHILS # (AUTO) 0.1 10^3/uL (0.0-0.7); EOSINOPHILS % (AUTO) 0.8 %; HCT - HEMATOCRIT 30.8 % (42.0-52.0); HGB - HEMOGLOBIN 10.5 g/dL (14.0-18.0); LYMPHOCYTES # (AUTO) 1.5 10^3/uL (1.5-3.5); LYMPHOCYTES % (AUTO) 15.7 %; MEAN CORPUSCULAR HEMOGLOBIN 32.1 pg (27.0-31.0); MEAN CORPUSCULAR HGB CONC 34.1 g/dL (32.0-36.0); MEAN CORPUSCULAR VOLUME 94.2 fL (80.0-94.0); MONOCYTES # (AUTO) 0.7 10^3/uL (0.0-1.0); MONOCYTES % (AUTO) 7.5 %; NEUTROPHILS # (AUTO) 7.2 10^3/uL (1.5-6.6); NEUTROPHILS % (AUTO) 75.3 %; PLT - PLATELET COUNT 189 10^3/uL (130-450); RED BLOOD COUNT 3.27 10^6/uL (4.70-6.10); RED CELL DISTRIBUTION WIDTH 13.2 % (12.0-15.0); WHITE BLOOD COUNT 9.5 x10^3/uL (4.8-10.8)
[2021-03-27 06:31] LABS: CALCIUM 7.9 mg/dL (8.5-10.3); CREATININE 1.3 mg/dL (0.6-1.2); MAGNESIUM 1.8 mg/dL (1.7-2.8); PHOSPHORUS 2.5 mg/dL (2.5-4.6); POTASSIUM 3.8 mmol/L (3.5-5.0)
[2021-03-27] MEDS: INSULIN ASPART 300 UNIT/3 ML PEN SUBQ SCH ×4 (08:06→20:54)
[2021-03-27] MEDS: SODIUM CHLORIDE FLUSH 0.9% 10 ML SYRINGE IVP SCH ×2 (08:08→17:17)
[2021-03-27] MEDS: LOSARTAN 50 MG TABLET PO SCH (08:57)
[2021-03-27] MEDS: levETIRAcetam 500 MG/5 ML UDC PO SCH ×2 (08:57→20:53)
[2021-03-27] MEDS: MULTIVITAMIN TABLET PO SCH (08:57)
[2021-03-27] MEDS: ASPIRIN EC 81 MG TABLET PO SCH (08:57)
[2021-03-27] MEDS: PANTOPRAZOLE 40 MG TABLET PO SCH ×2 (08:57→20:53)
[2021-03-27] MEDS: FLUoxetine 10 MG CAPSULE PO SCH (08:57)
[2021-03-27] MEDS: THIAMINE 100 MG TABLET PO SCH (08:58)
[2021-03-27] MEDS: CYANOCOBALAMIN 500 MCG TABLET PO SCH (08:58)
[2021-03-27] MEDS ORDERED: levETIRAcetam 100 MG/ML 473ML BOTTLE PO SCH (09:00)
--- NOTE | 2021-03-27 12:22 | PROVIDER PROGRESS NOTE ---
Assessment/Plan - Problem List (1) Seizure Assessment/Plan: Since this appears to not be an alcohol withdrawal seizure, will continue with empiric Keppra twice daily and he will need neurology follow-up after discharge since the told me that Keppra was stopped 1 year ago after he underwent some type of neurology evaluation Since he is taking a diet, will change IV Keppra to p.o. Keppra today. He will likely be stable for transfer out of the ICU later today. (2) Severe dehydration Assessment/Plan: Improving. He no longer has dry oral mucosa but his MAU is still presnt but improving. The had mentioned when I first spoke to her at admission, by phone, that the patient "has no thirst mechanism". Here he is definitely thirsty and asking for liquids and also has a good appetite. I suspect because of his heavy marijuana use and sedation that he is too somnolent to adequately hydrate himself, which I told the by phone today when I updated her. Continue with IV fluids. Continue to follow BMP, magnesium daily. (3) Anemia Assessment/Plan: The admission hemoglobin was 14 and over 3 days has decreased to 10.5 today. This is very likely hemodilution because he is now 4 L positive in fluid balance over those 3 days. It may be chronic anemia however because I am concerned about malnutrition. We will check B12, folate levels and iron stores and replace if low. If iron stores are low will check stool guaiac. (4) Right shoulder pain Qualifiers: Chronicity: unspecified Qualified Code(s): M25.511 - Pain in right shoulder Assessment/Plan: The patient was able to be OOB to a shower chair and then is sitting in his recliner today, he was eating and told his nurse he has right shoulder pain and difficulty and pain when he raises the right arm laterally. He does not remember any trauma. Portable X-rays were ordered and were done of the right shoulder, and the right scapula>>> these were read as a chronic rotator cuff tear. Will order NSAIDs prn. OK to start PT as well. (5) MAU (acute kidney injury) Assessment/Plan: Improving with IV hydration. Continue IV fluids. Continue to advance his diet. Follow BMP daily (6) Type 2 diabetes mellitus with hyperglycemia Assessment/Plan: He required an insulin drip for part of the day because of positive serum ketones, which was partly from starvation ketosis. At home he was on oral agents only and his A1c came back at 7.9 indicating not adequate control He is on a carb controlled diet and sliding scale insulin coverage while here. (7) Marijuana abuse Assessment/Plan: At admission the reported that he uses marijuana every day. Today I updated the by phone about his condition and she gave me more detailed history about his marijuana use: He is smoking marijuana absolutely all day, 02/04, it is sedating him, he spends most of his day in bed even when he is not depressed. He smokes from a bong and reefer cigarettes. When he was going to the gym part of the day, a year ago, he was using much less marijuana. She would like to remove all his paraphernalia so that he does not return back to the same old habits. The also told me that the patient's psychiatrist, Dr. Muller, does not know how much marijuana this patient uses, and probably thinks that her is "just an old hippie". The wondered if there was such a thing as marijuana rehab for detox. I passed this information on to our Belt Lacer, Dorcas, and she will be reaching out to the . I agree that this amount of marijuana use is overly sedating in a patient who already has depression. (8) Depression Qualifiers: Depression Type: major depressive disorder Major depression recurrence: recurrent Active/Remission status: currently active Major depression episode severity: moderate Qualified Code(s): F33.1 - Major depressive disorder, recurrent, moderate Assessment/Plan: This is the patient's third presentation with severe dehydration from staying in bed with no fluids or food or meds due to severe depression. This happens to him when he gets "bad news". He goes to a psychiatrist once a week for depression, for the past 6 months, according to the 's detailed history. Patient is compliant with his [id number] medication. This was confirmed by the and the patient stated this today. Unknown why he does not reach out to the psychiatrist for a second medication or other management of severe depression. The psychiatrist also does not know about the high quantity of marijuana he uses and how sedated he is most of the day, according to the . We resumed his antidepressant since he is now awake enough to swallow. He is not yet ready for social work mental health eval, as he is not medically cleared and at his baseline yet. (9) Hypertension Qualifiers: Hypertension type: essential hypertension Assessment/Plan: Now that he has been rehydrated, blood pressure is climbing to 150-170 systolic. We will resume his beta-emmett and ARB today (10) Hx of coronary artery disease Assessment/Plan: As per Hx. We resumed his daily aspirin and will resume his statin (11) Increased anion gap metabolic acidosis Assessment/Plan: Resolved (12) Lactic acidosis Assessment/Plan: Resolved (13) Acute encephalopathy Assessment/Plan: Resolved (14) Hyponatremia Assessment/Plan: Resolved with iv NS (15) Leukocytosis Assessment/Plan: Resolved without antibx from 23 to 15 to 9.5 today. This was likely demargination from the seizure - Current Meds Current Meds: Current Medications Generic Name Dose Route Start Last Admin Trade Name Freq PRN Reason Stop Dose Admin Aspirin 81 mg 03/26/21 13:24 03/27/21 08:57 Aspirin Ec 81 Mg Tablet PO 81 mg DAILY VIDAL Administration Cyanocobalamin 500 mcg 03/27/21 09:00 03/27/21 08:58 Cyanocobalamin 500 Mcg Tablet PO 500 mcg DAILY VIDAL Administration Fluoxetine HCl 60 mg 03/27/21 09:00 03/27/21 08:57 Fluoxetine 10 Mg Capsule PO 60 mg DAILY VIDAL Administration Sodium Chloride 1,000 mls @ 75 mls/hr 03/26/21 17:31 03/27/21 09:38 Normal Saline 0.9% IV 75 mls/hr .[id number] VIDAL Administration Insulin Aspart 1 - 9 unit 03/26/21 17:34 03/27/21 08:06 Insulin Aspart 300 Unit/3 Ml Pen SUBQ 1 unit 0800,1200,1700,2100 VIDAL Administration Protocol Levetiracetam 500 mg 03/27/21 09:00 03/27/21 08:57 Levetiracetam 500 Mg/5 Ml Udc PO 500 mg BID VIDAL Administration Losartan Potassium 25 mg 03/27/21 09:00 03/27/21 08:57 Losartan 50 Mg Tablet PO 25 mg DAILY VIDAL Administration Multivitamins 1 tab 03/27/21 09:00 03/27/21 08:57 Multivitamin Tablet PO 1 tab DAILY VIDAL Administration Pantoprazole Sodium 40 mg 03/26/21 21:00 03/27/21 08:57 Pantoprazole 40 Mg Tablet PO 40 mg BID VIDAL Administration Sodium Chloride 10 ml 03/25/21 17:00 03/27/21 08:08 Sodium Chloride Flush 0.9% 10 Ml Syringe IVP 10 ml 0100,0900,1700 VIDAL Administration Sodium Chloride 10 ml 03/25/21 13:11 03/26/21 09:38 Sodium Chloride Flush 0.9% 10 Ml Syringe IVP 10 ml PRN PRN Administration NEEDED PER PROVIDER ORDERS Thiamine HCl 100 mg 03/27/21 09:00 03/27/21 08:58 Thiamine 100 Mg Tablet PO 100 mg DAILY VIDAL Administration - Lab Result Fish Bone Diagrams: 03/27/21 05:27 03/27/21 05:27 - Additional Planning My Orders: My Active Orders 03/26/21 13:24 Aspirin EC [Ecotrin] 81 mg PO DAILY 03/26/21 17:31 Sodium Chloride 0.9% [Normal Saline 0.9%] 1,000 ml IV 75 mls/hr 03/26/21 17:34 Insulin Aspart [NovoLOG] 1 - 9 unit SUBQ 0800,1200,1700,2100 03/26/21 21:00 Pantoprazole [Protonix] 40 mg PO BID 03/27/21 Breakfast DIET [Soft Mechanical Diet] [DIET] 03/27/21 09:00 Cyanocobalamin [Vitamin B-12] 500 mcg PO DAILY FLUoxetine [PROzac] 60 mg PO DAILY Losartan [Cozaar] 25 mg PO DAILY Multivitamin [Theragran] 1 tab PO DAILY Thiamine [Vitamin B-1] 100 mg PO DAILY levETIRAcetam [Keppra] 500 mg PO BID 03/27/21 11:34 Shoulder 2 View RT [XR] Stat 03/27/21 12:07 Clavicle RT [XR] Stat 03/28/21 05:00 BMP - BASIC METABOLIC PANEL [CHEM] DAILYLAB CBC - COMP BLD CT W/AUTO DIFF [HEME] DAILYLAB MAGNESIUM [CHEM] DAILYLAB PHOSPHORUS [CHEM] DAILYLAB 03/29/21 05:00 BMP - BASIC METABOLIC PANEL [CHEM] DAILYLAB CBC - COMP BLD CT W/AUTO DIFF [HEME] DAILYLAB MAGNESIUM [CHEM] DAILYLAB PHOSPHORUS [CHEM] DAILYLAB Subjective - Subjective Patient Reports: Feeling Better, Resting Comfortably Nursing Reports: Other (Awake, communicative, has good appetite, asking for fluids.) Objective Vital Signs: Vital Signs - 24 hr 03/26/21 03/26/21 03/26/21 15:00 17:58 21:00 Temperature 37.2 C 37 C Heart Rate [ 81 83 75 Monitoring electrodes] Respiratory 20 19 21 Rate Blood Pressure 157/95 H 169/86 H 163/78 H [Right Brachial artery] O2 Saturation 97 97 98 03/27/21 03/27/21 03/27/21 00:00 03:00 06:00 Temperature 36.7 C Heart Rate [ 69 69 78 Monitoring electrodes] Respiratory 22 21 18 Rate Blood Pressure 155/82 H 148/79 H 140/84 H [Right Brachial artery] O2 Saturation 97 97 98 03/27/21 08:01 Temperature 36.8 C Heart Rate [ 83 Monitoring electrodes] Respiratory 20 Rate Blood Pressure 172/83 H [Right Brachial artery] O2 Saturation 98 Oxygen O2 Source Room air I&O (Last 24 Hrs): Intake and Output Totals x24h 03/25/21 03/26/21 03/27/21 23:59 23:59 23:59 Intake Total 1817.2 2813.516 2549.117 Output Total 1034 1333 720 Balance 783.2 4133.536 0810.117 General: Alert, Oriented x3, Other (Pale) HEENT: Mucous membr. moist/pink Neck: Supple, No JVD Neuro: Alert, Non Focal Cardiovascular: Regular rate, No murmurs Respiratory: No respiratory distress, Breath sounds nml Abdomen: Normal bowel sounds, Soft Extremities: No clubbing, No edema, Other (R shoulder painful when raises R arm laterally, no swelling) - Results Results: Laboratory Results WBC 9.5 x10^3/uL (4.8-10.8) 03/27/21 05:27 RBC 3.27 10^6/uL (4.70-6.10) L 03/27/21 05:27 Hgb 10.5 g/dL (14.0-18.0) L 03/27/21 05:27 Hct 30.8 % (42.0-52.0) L 03/27/21 05:27 MCV 94.2 fL (80.0-94.0) H 03/27/21 05:27 MCH 32.1 pg (27.0-31.0) H 03/27/21 05:27 MCHC 34.1 g/dL (32.0-36.0) 03/27/21 05:27 RDW 13.2 % (12.0-15.0) 03/27/21 05:27 Plt Count 189 10^3/uL (130-450) 03/27/21 05:27 MPV 9.0 fL (7.4-11.4) 03/27/21 05:27 Neut # (Auto) 7.2 10^3/uL (1.5-6.6) H 03/27/21 05:27 Lymph # (Auto) 1.5 10^3/uL (1.5-3.5) 03/27/21 05:27 Howard # (Auto) 0.7 10^3/uL (0.0-1.0) 03/27/21 05:27 Eos # (Auto) 0.1 10^3/uL (0.0-0.7) 03/27/21 05:27 Baso # (Auto) 0.0 10^3/uL (0.0-0.1) 03/27/21 05:27 Absolute Nucleated RBC 0.00 x10^3/uL 03/27/21 05:27 Nucleated RBC % 0.0 /100WBC 03/27/21 05:27 Manual Slide Review Indicated 03/25/21 13:58 RBC Morph Micro Appear 1+ ANISOCYTOSIS (NORMAL) 03/25/21 13:58 PT 12.3 secs (9.9-12.6) 03/26/21 04:51 INR 1.1 (0.8-1.2) 03/26/21 04:51 Bld Gas Analysis Time 1356 03/25/21 13:53 Sample Site RIGHT BRACHIAL 03/25/21 13:53 ABG pH 7.37 (7.35-7.45) 03/25/21 13:53 ABG pCO2 26 mmHg (34-45) L 03/25/21 13:53 ABG pO2 77 mmHg (80-100) L 03/25/21 13:53 ABG HCO3 14.5 mmol/L (22.0-26.0) L 03/25/21 13:53 ABG Total CO2 15.3 MMOL/L (21.0-29.0) L 03/25/21 13:53 ABG O2 Saturation 95 % (94-98) 03/25/21 13:53 ABG Base Excess -8.9 mmol/L (-2.0-3.0) L 03/25/21 13:53 Mahin Test NOT APPLICABLE 03/25/21 13:53 VBG pH 7.398 (7.31-7.41) 03/25/21 19:00 VBG pCO2 25.2 mmHg (41-51) L 03/25/21 19:00 VBG pO2 30.9 mmHg (25-47) 03/25/21 19:00 VBG HCO3 15.2 mmol/L (23-28) L 03/25/21 19:00 VBG Total CO2 16.0 mmol/L (24-29) L 03/25/21 19:00 VBG O2 Saturation 64.9 % (60-80) 03/25/21 19:00 VBG Base Excess -7.8 mmol/L (-2 - +2) L 03/25/21 19:00 Room Air YES 03/25/21 13:53 Sodium 136 mmol/L (135-145) 03/27/21 05:27 Potassium 3.8 mmol/L (3.5-5.0) 03/27/21 05:27 Chloride 111 mmol/L (101-111) 03/27/21 05:27 Carbon Dioxide 17 mmol/L (21-32) L 03/27/21 05:27 Anion Gap 8.0 (6-13) 03/27/21 05:27 BUN 24 mg/dL (6-20) H 03/27/21 05:27 Creatinine 1.3 mg/dL (0.6-1.2) H 03/27/21 05:27 Estimated GFR (MDRD) 54 (>89) L 03/27/21 05:27 Glucose 191 mg/dL (70-100) H 03/27/21 05:27 Estimat Average Glucose 180 mg/dL (70-100) H 03/26/21 04:51 Hemoglobin A1c % 7.9 % (4.27-6.07) H 03/26/21 04:51 Lactic Acid 1.9 mmol/L (0.5-2.2) 03/25/21 18:00 Calcium 7.9 mg/dL (8.5-10.3) L 03/27/21 05:27 Phosphorus 2.5 mg/dL (2.5-4.6) 03/27/21 05:27 Magnesium 1.8 mg/dL (1.7-2.8) 03/27/21 05:27 Total Bilirubin 0.8 mg/dL (0.2-1.0) 03/26/21 04:51 GGT 24 IU/L (8-55) 03/26/21 04:51 AST 26 IU/L (10-42) 03/26/21 04:51 ALT 45 IU/L (10-60) 03/26/21 04:51 Alkaline Phosphatase 73 IU/L (42-121) 03/26/21 04:51 Total Creatine Kinase 239 IU/L (22-269) 03/25/21 12:29 Troponin I High Sens 18.8 ng/L (2.3-19.7) 03/25/21 10:30 Total Protein 7.0 g/dL (6.7-8.2) 03/26/21 04:51 Albumin 3.2 g/dL (3.2-5.5) 03/27/21 05:27 Globulin 3.4 g/dL (2.1-4.2) 03/26/21 04:51 Albumin/Globulin Ratio 1.1 (1.0-2.2) 03/26/21 04:51 Lipase 33 U/L (22-51) 03/25/21 10:30 Urine Color YELLOW 03/25/21 12:18 Urine Clarity HAZY (CLEAR) 03/25/21 12:18 Urine pH 5.5 PH (5.0-7.5) 03/25/21 12:18 Ur Specific [place] >=1.030 (1.002-1.030) H 03/25/21 12:18 Urine Protein >=300 mg/dL (NEGATIVE) H 03/25/21 12:18 Urine Glucose (UA) >=1000 mg/dL (NEGATIVE) H 03/25/21 12:18 Urine Ketones 15 mg/dL (NEGATIVE) H 03/25/21 12:18 Urine Occult Blood LARGE (NEGATIVE) H 03/25/21 12:18 Urine Nitrite NEGATIVE (NEGATIVE) 03/25/21 12:18 Urine Bilirubin NEGATIVE (NEGATIVE) 03/25/21 12:18 Urine Urobilinogen 0.2 (NORMAL) E.U./dL (NORMAL) 03/25/21 12:18 Ur Leukocyte Esterase NEGATIVE (NEGATIVE) 03/25/21 12:18 Urine RBC 6-10 /HPF (0-5) H 03/25/21 12:18 Urine WBC 0-3 /HPF (0-3) 03/25/21 12:18 Ur Squamous Epith Cells NONE SEEN (<= Few) 03/25/21 12:18 Amorphous Sediment Moderate /LPF 03/25/21 12:18 Urine Bacteria Rare /HPF (None Seen) 03/25/21 12:18 Urine Sperm PRESENT 03/25/21 12:18 Urine Culture Comments NOT INDICATED 03/25/21 12:18 Nasal Adenovirus (PCR) NOT DETECTED 03/25/21 12:21 Nasal B. parapertussis DNA (PCR) NOT DETECTED 03/25/21 12:21 Nasal Coronavir 229E PCR NOT DETECTED 03/25/21 12:21 Nasal Coronavir HKU1 PCR NOT DETECTED 03/25/21 12:21 Nasal Coronavir NL63 PCR NOT DETECTED 03/25/21 12:21 Nasal Coronavir OC43 PCR NOT DETECTED 03/25/21 12:21 Nasal Enterovir/Rhinovir PCR NOT DETECTED 03/25/21 12:21 Nasal Influenza B PCR NOT DETECTED 03/25/21 12:21 Nasal Influenza A PCR NOT DETECTED 03/25/21 12:21 Nasal Parainfluen 1 PCR NOT DETECTED 03/25/21 12:21 Nasal Parainfluen 2 PCR NOT DETECTED 03/25/21 12:21 Nasal Parainfluen 3 PCR NOT DETECTED 03/25/21 12:21 Nasal Parainfluen 4 PCR NOT DETECTED 03/25/21 12:21 Nasal RSV (PCR) NOT DETECTED 03/25/21 12:21 Nasal Screen MRSA (PCR) NEGATIVE (NEGATIVE) 03/25/21 14:50 Nasal B.pertussis DNA PCR NOT DETECTED 03/25/21 12:21 Nasal C.pneumoniae (PCR) NOT DETECTED 03/25/21 12:21 Ethan Human Metapneumo PCR NOT DETECTED 03/25/21 12:21 Nasal M.pneumoniae (PCR) NOT DETECTED 03/25/21 12:21 Nasal SARS-CoV-2 (PCR) NOT DETECTED 03/25/21 12:21 Salicylates < 6.0 mg/dL 03/25/21 12:32 Urine Opiates Screen NEGATIVE (NEGATIVE) 03/25/21 12:18 Ur Oxycodone Screen NEGATIVE (NEGATIVE) 03/25/21 12:18 Urine Methadone Screen NEGATIVE (NEGATIVE) 03/25/21 12:18 Ur Propoxyphene Screen NEGATIVE (NEGATIVE) 03/25/21 12:18 Acetaminophen < 10 ug/mL (10-30) L 03/25/21 12:32 Ur Barbiturates Screen NEGATIVE (NEGATIVE) 03/25/21 12:18 Ur Tricyclics Screen NEGATIVE (NEGATIVE) 03/25/21 12:18 Ur Phencyclidine Scrn NEGATIVE (NEGATIVE) 03/25/21 12:18 Ur Amphetamine Screen NEGATIVE (NEGATIVE) 03/25/21 12:18 U Methamphetamines Scrn NEGATIVE (NEGATIVE) 03/25/21 12:18 U Benzodiazepines Scrn POSITIVE (NEGATIVE) H 03/25/21 12:18 Urine Cocaine Screen NEGATIVE (NEGATIVE) 03/25/21 12:18 U Cannabinoids Screen POSITIVE (NEGATIVE) H 03/25/21 12:18 Ethyl Alcohol < 5.0 mg/dL 03/25/21 12:32 Serum Ketones NEGATIVE (NEGATIVE) 03/25/21 22:06 - Procedures Procedures: Procedures EXCISION OF DUODENUM, ENDO, DIAGN (12/11/19) EXCISION OF ESOPHAGOGASTRIC JUNCTION, ENDO, DIAGN (12/11/19) EXCISION OF SIGMOID COLON, ENDO (12/11/19) EXCISION OF STOMACH, ENDO, DIAGN (12/11/19) TRANSFUSE NONAUT RED BLOOD CELLS IN PERIPH VEIN, PERC (12/11/19)
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
[2021-03-27] MEDS ORDERED: IBUPROFEN 600 MG TABLET PO PRN (12:53)
[2021-03-27] MEDS: METOPROLOL SUCCINATE 25 MG TABLET PO SCH (15:00)
[2021-03-27] MEDS: SODIUM CHLORIDE FLUSH 0.9% 10 ML SYRINGE IVP PRN (20:54)
[2021-03-28] MEDS: SODIUM CHLORIDE FLUSH 0.9% 10 ML SYRINGE IVP SCH ×3 (01:11→17:03)
[2021-03-28 05:46] LABS: BASOPHILS # (AUTO) 0.1 10^3/uL (0.0-0.1); BASOPHILS % (AUTO) 0.6 %; EOSINOPHILS # (AUTO) 0.2 10^3/uL (0.0-0.7); HCT - HEMATOCRIT 30.8 % (42.0-52.0); HGB - HEMOGLOBIN 10.8 g/dL (14.0-18.0); LYMPHOCYTES # (AUTO) 1.6 10^3/uL (1.5-3.5); LYMPHOCYTES % (AUTO) 19.6 %; MEAN CORPUSCULAR HEMOGLOBIN 32.6 pg (27.0-31.0); MEAN CORPUSCULAR HGB CONC 35.1 g/dL (32.0-36.0); MEAN CORPUSCULAR VOLUME 93.1 fL (80.0-94.0); MEAN PLATELET VOLUME 8.8 fL (7.4-11.4); MONOCYTES # (AUTO) 0.7 10^3/uL (0.0-1.0); MONOCYTES % (AUTO) 8.6 %; NEUTROPHILS # (AUTO) 5.5 10^3/uL (1.5-6.6); NEUTROPHILS % (AUTO) 68.9 %; PLT - PLATELET COUNT 184 10^3/uL (130-450); RED BLOOD COUNT 3.31 10^6/uL (4.70-6.10); RED CELL DISTRIBUTION WIDTH 12.9 % (12.0-15.0); WHITE BLOOD COUNT 7.9 x10^3/uL (4.8-10.8)
[2021-03-28 06:00] LABS: CALCIUM 7.8 mg/dL (8.5-10.3); CREATININE 1.2 mg/dL (0.6-1.2); MAGNESIUM 1.4 mg/dL (1.7-2.8); PHOSPHORUS 2.1 mg/dL (2.5-4.6); POTASSIUM 3.5 mmol/L (3.5-5.0)
[2021-03-28] MEDS: FLUoxetine 10 MG CAPSULE PO SCH (08:02)
[2021-03-28] MEDS: PANTOPRAZOLE 40 MG TABLET PO SCH ×2 (08:02→20:54)
[2021-03-28] MEDS: INSULIN ASPART 300 UNIT/3 ML PEN SUBQ SCH ×4 (08:02→20:54)
[2021-03-28] MEDS: ASPIRIN EC 81 MG TABLET PO SCH (08:02)
[2021-03-28] MEDS: METOPROLOL SUCCINATE 25 MG TABLET PO SCH (08:02)
[2021-03-28] MEDS: MULTIVITAMIN TABLET PO SCH (08:03)
[2021-03-28] MEDS: LOSARTAN 50 MG TABLET PO SCH (08:03)
[2021-03-28] MEDS: CYANOCOBALAMIN 500 MCG TABLET PO SCH (08:03)
[2021-03-28] MEDS: THIAMINE 100 MG TABLET PO SCH (08:03)
[2021-03-28] MEDS: levETIRAcetam 500 MG/5 ML UDC PO SCH ×2 (08:03→20:54)
[2021-03-28] MEDS: MAGNESIUM OXIDE 400 MG TABLET PO SCH (08:03)
[2021-03-28] MEDS ORDERED: POTASSIUM PHOSPHATE 21 MMOL in SODIUM CHLORIDE 0.9% 250 ML IV ONE (08:30)
[2021-03-28] MEDS: SODIUM CHLORIDE 0.9% 1,000 ML IV SCH (11:02)
[2021-03-28] MEDS ORDERED: SODIUM PHOSPHATE 20 MMOL in SODIUM CHLORIDE 0.9% 250 ML IV ONE (11:38)
[2021-03-28] MEDS: FERROUS GLUCONATE 324 MG TABLET PO SCH (12:29)
[2021-03-28] MEDS ORDERED: MAGNESIUM SULFATE 2 GRAM 2 GM/50 ML BAG IV ONE (12:30)
--- NOTE | 2021-03-28 12:56 | PROVIDER PROGRESS NOTE ---
Assessment/Plan - Problem List (1) Seizure Assessment/Plan: This patient had a seizure when he presented in December 2019 with similar presentation of being in bed for 20 hours a day then taking no food or fluids and presented then with severe dehydration and a seizure. The states that he then saw a neurologist who did some kind of testing and he was told he can stop the Keppra. The Keppra also made him overly lethargic. When he presented now, there is definitely no alcohol use, confirmed by his wi fe, he was very dehydrated and had a witnessed seizure when in the CT department. He received Keppra IV and now is on Keppra p.o. twice daily. I called the to give her an update today and advised her that he needs to see neurology again, heraclio needs repeat EEG evaluation, and possibly a diffe rent antiseizure medication if Keppra is over sedating. He is no somnolent on his Keppra bid here, however. (2) Severe dehydration Assessment/Plan: This patient has repeat 3 presentations now that are similar: He has depression and sees a psychiatrist once a week for the last 6 months, when he gets bad news, he gets very depressed, goes to bed for 20 hours a day and then for about 2-3 days does not get out of bed at all, and takes in no food or fluid or meds and gets dehydrated. He presented with MAU from the dehydration. This has resolved. He has a good appetite and shows evidence of thirst. IV fluids are slowly decreasing in rate. Follow BMP daily (3) Anemia Qualifiers: Anemia type: iron deficiency Assessment/Plan: His hemoglobin was 14 at admission and has dropped to 10. His serum levels of B12 and folate are adequate but he has low iron stores. Iron supplements have been started. I updated the regarding this and she said that in the past iron gave him stomach upset and he took it every other day. Follow CBC daily (4) Right shoulder pain Qualifiers: Chronicity: unspecified Qualified Code(s): M25.511 - Pain in right shoulder Assessment/Plan: When he woke up from obtundation, he complained of right shoulder pain in the ICU. X-rays were done that showed rotator cuff tear, chronic. He is able to start to work with PT (5) Type 2 diabetes mellitus with hyperglycemia Assessment/Plan: He required an insulin drip for part of the 1st hospital day because of positive serum ketones, which was partly from starvation ketosis. At home he was on oral agents only and his A1c came back at 7.9 indicating not adequate control He is on a carb controlled diet and sliding scale insulin coverage while here. (6) Marijuana abuse Assessment/Plan: At admission the reported that he uses marijuana every day. Today I updated the by phone about his condition and she gave me more detailed history about his marijuana use: He is smoking marijuana absolutely all day, 02/04, it is sedating him, he spends most of his day in bed even when he is not depressed. He smokes from a bong and reefer cigarettes. When he was going to the gym part of the day, a year ago, he was using much less marijuana, only at night. She would like to remove all his paraphernalia so that he does not return back to the same old habits. The also told me that the patient's psychiatrist, Dr. Muller, does not know how much marijuana this patient uses, and probably thinks that her is "just an old hippie". The wondered if there was such a thing as marijuana rehab for detox. I passed this information on to our Medical Front Desk Specialist and requested that our SW reach out to the . I agree that this amount of marijuana use is overly sedating in a patient who already has depression and spoke to him about that today. (7) Depression Qualifiers: Depression Type: major depressive disorder Major depression recurrence: recurrent Active/Remission status: currently active Major depression episode severity: moderate Qualified Code(s): F33.1 - Major depressive disorder, recurrent, moderate Assessment/Plan: As described above, he has significant depression problems. He even admitted that he denies depression when his can see him getting "down". Continue with his antidepressant. Continue with his close follow-up with psychiatry after discharge (8) Hypertension Qualifiers: Hypertension type: essential hypertension Assessment/Plan: Her was "soft" and was dehydrated. His BP meds have now been resumed (9) Hx of coronary artery disease Assessment/Plan: As per Hx (10) Lactic acidosis Assessment/Plan: Resolved (11) Acute encephalopathy Assessment/Plan: Resolved with hydration and on new Keppra after a seizure (12) Hyponatremia Assessment/Plan: Resolved with iv saline (13) MAU (acute kidney injury) Assessment/Plan: Resolved by labs - Current Meds Current Meds: Current Medications Generic Name Dose Route Start Last Admin Trade Name Himanshu PRAnnie Reason Stop Dose Admin Aspirin 81 mg 03/26/21 13:24 03/28/21 08:02 Aspirin Ec 81 Mg Tablet PO 81 mg DAILY VIDAL Administration Ferrous Gluconate 324 mg 03/28/21 12:00 03/28/21 12:29 Ferrous Gluconate 324 Mg Tablet PO 324 mg DAILYWM VIDAL Administration Fluoxetine HCl 60 mg 03/27/21 09:00 03/28/21 08:02 Fluoxetine 10 Mg Capsule PO 60 mg DAILY VIDAL Administration Sodium Chloride 1,000 mls @ 75 mls/hr 03/26/21 17:31 03/28/21 11:02 Normal Saline 0.9% IV 75 mls/hr .[id number] VIDAL Administration Potassium Phosphate 21 mmol/ 257 mls @ 42.833 mls/hr 03/28/21 08:30 03/28/21 08:04 Sodium Chloride IV 03/28/21 14:29 42.833 mls/hr ONCE ONE Administration Insulin Aspart 2 - 10 unit 03/27/21 17:00 03/28/21 12:29 Insulin Aspart 300 Unit/3 Ml Pen SUBQ 6 unit 0800,1200,1700,2100 VIDAL Administration Protocol Levetiracetam 500 mg 03/27/21 09:00 03/28/21 08:03 Levetiracetam 500 Mg/5 Ml Udc PO 500 mg BID VIDAL Administration Losartan Potassium 25 mg 03/27/21 09:00 03/28/21 08:03 Losartan 50 Mg Tablet PO 25 mg DAILY VIDAL Administration Magnesium Oxide 400 mg 03/28/21 08:00 03/28/21 08:03 Magnesium Oxide 400 Mg Tablet PO 400 mg DAILYWM VIDAL Administration Metoprolol Succinate 25 mg 03/27/21 12:44 03/28/21 08:02 Metoprolol Succinate 25 Mg Tablet PO 25 mg DAILY VIDAL Administration Multivitamins 1 tab 03/27/21 09:00 03/28/21 08:03 Multivitamin Tablet PO 1 tab DAILY VIDAL Administration Pantoprazole Sodium 40 mg 03/26/21 21:00 03/28/21 08:02 Pantoprazole 40 Mg Tablet PO 40 mg BID VIDAL Administration Sodium Chloride 10 ml 03/25/21 17:00 03/28/21 08:09 Sodium Chloride Flush 0.9% 10 Ml Syringe IVP Not Given 0100,0900,1700 VIDAL Sodium Chloride 10 ml 03/25/21 13:11 03/27/21 20:54 Sodium Chloride Flush 0.9% 10 Ml Syringe IVP 10 ml PRN PRN Administration NEEDED PER PROVIDER ORDERS Thiamine HCl 100 mg 03/27/21 09:00 03/28/21 08:03 Thiamine 100 Mg Tablet PO 100 mg DAILY VIDAL Administration - Lab Result Fish Bone Diagrams: 03/28/21 05:18 03/28/21 05:18 - Additional Planning My Orders: My Active Orders 03/27/21 12:44 Metoprolol Succinate [Toprol Xl] 25 mg PO DAILY 03/27/21 12:53 Ibuprofen [Motrin] 600 mg PO Q6HR PRN 03/27/21 17:00 Insulin Aspart [NovoLOG] 2 - 10 unit SUBQ 0800,1200,1700,2100 03/28/21 Guaiac [OCCULT BLOOD IN PAT. SINGLE] [RAPID] Urgent Evaluate and Treat OT [OT] Routine Evaluate and Treat PT [PT] Routine 03/28/21 11:30 Telemetry-Discontinue [RC] .ONCE 03/28/21 12:00 Ferrous Gluconate [Fergon] 324 mg PO DAILYWM 03/28/21 12:30 Magnesium Sulfate 2 Gram [Magnesium Sulfate] 2 gm in 50 ml IV ONCE 03/28/21 21:00 Calcium Carbonate [Tums] 500 mg PO BID 03/29/21 05:00 BMP - BASIC METABOLIC PANEL [CHEM] DAILYLAB CBC - COMP BLD CT W/AUTO DIFF [HEME] DAILYLAB MAGNESIUM [CHEM] DAILYLAB PHOSPHORUS [CHEM] DAILYLAB Subjective - Subjective Patient Reports: Feeling Better, Resting Comfortably Objective Vital Signs: Vital Signs - 24 hr 03/27/21 03/27/21 03/27/21 16:00 16:02 17:00 Temperature 37.1 C Heart Rate [ 83 78 76 Monitoring electrodes] Respiratory 22 21 23 Rate Blood Pressure [Left Brachial artery] Blood Pressure 165/93 H 163/77 H [Right Brachial artery] O2 Saturation 100 97 97 03/27/21 03/27/21 03/28/21 18:13 20:50 01:00 Temperature 36.8 C 36.5 C Heart Rate [ 80 69 69 Monitoring electrodes] Respiratory 20 24 18 Rate Blood Pressure 145/61 H [Left Brachial artery] Blood Pressure 157/77 H 148/73 H [Right Brachial artery] O2 Saturation 96 96 98 03/28/21 03/28/21 03/28/21 05:00 07:37 11:36 Temperature 36.4 C L 36.3 C L 36.5 C Heart Rate [ 72 65 69 Monitoring electrodes] Respiratory 20 18 18 Rate Blood Pressure 156/79 H 167/73 H [Left Brachial artery] Blood Pressure 166/73 H [Right Brachial artery] O2 Saturation 97 98 97 Oxygen O2 Source Room air I&O (Last 24 Hrs): Intake and Output Totals x24h 03/26/21 03/27/21 03/28/21 23:59 23:59 23:59 Intake Total 2813.516 4586.184 1211.25 Output Total 1333 1770 775 Balance 4003.664 8078.184 436.25 General: Alert, No acute distress HEENT: Atraumatic, Mucous membr. moist/pink Neck: Supple, No JVD Neuro: Alert, Non Focal (Has a stutter when he speaks) Cardiovascular: Regular rate, No murmurs Respiratory: No respiratory distress, Breath sounds nml Abdomen: Normal bowel sounds, Soft Extremities: No edema - Results Results: Laboratory Results WBC 7.9 x10^3/uL (4.8-10.8) 03/28/21 05:18 RBC 3.31 10^6/uL (4.70-6.10) L 03/28/21 05:18 Hgb 10.8 g/dL (14.0-18.0) L 03/28/21 05:18 Hct 30.8 % (42.0-52.0) L 03/28/21 05:18 MCV 93.1 fL (80.0-94.0) 03/28/21 05:18 MCH 32.6 pg (27.0-31.0) H 03/28/21 05:18 MCHC 35.1 g/dL (32.0-36.0) 03/28/21 05:18 RDW 12.9 % (12.0-15.0) 03/28/21 05:18 Plt Count 184 10^3/uL (130-450) 03/28/21 05:18 MPV 8.8 fL (7.4-11.4) 03/28/21 05:18 Neut # (Auto) 5.5 10^3/uL (1.5-6.6) 03/28/21 05:18 Lymph # (Auto) 1.6 10^3/uL (1.5-3.5) 03/28/21 05:18 [place] # (Auto) 0.7 10^3/uL (0.0-1.0) 03/28/21 05:18 Eos # (Auto) 0.2 10^3/uL (0.0-0.7) 03/28/21 05:18 Baso # (Auto) 0.1 10^3/uL (0.0-0.1) 03/28/21 05:18 Absolute Nucleated RBC 0.00 x10^3/uL 03/28/21 05:18 Nucleated RBC % 0.0 /100WBC 03/28/21 05:18 Manual Slide Review Indicated 03/25/21 13:58 RBC Morph Micro Appear 1+ ANISOCYTOSIS (NORMAL) 03/25/21 13:58 PT 12.3 secs (9.9-12.6) 03/26/21 04:51 INR 1.1 (0.8-1.2) 03/26/21 04:51 Bld Gas Analysis Time 1356 03/25/21 13:53 Sample Site RIGHT BRACHIAL 03/25/21 13:53 ABG pH 7.37 (7.35-7.45) 03/25/21 13:53 ABG pCO2 26 mmHg (34-45) L 03/25/21 13:53 ABG pO2 77 mmHg (80-100) L 03/25/21 13:53 ABG HCO3 14.5 mmol/L (22.0-26.0) L 03/25/21 13:53 ABG Total CO2 15.3 MMOL/L (21.0-29.0) L 03/25/21 13:53 ABG O2 Saturation 95 % (94-98) 03/25/21 13:53 ABG Base Excess -8.9 mmol/L (-2.0-3.0) L 03/25/21 13:53 Mahin Test NOT APPLICABLE 03/25/21 13:53 VBG pH 7.398 (7.31-7.41) 03/25/21 19:00 VBG pCO2 25.2 mmHg (41-51) L 03/25/21 19:00 VBG pO2 30.9 mmHg (25-47) 03/25/21 19:00 VBG HCO3 15.2 mmol/L (23-28) L 03/25/21 19:00 VBG Total CO2 16.0 mmol/L (24-29) L 03/25/21 19:00 VBG O2 Saturation 64.9 % (60-80) 03/25/21 19:00 VBG Base Excess -7.8 mmol/L (-2 - +2) L 03/25/21 19:00 Room Air YES 03/25/21 13:53 Sodium 133 mmol/L (135-145) L 03/28/21 05:18 Potassium 3.5 mmol/L (3.5-5.0) 03/28/21 05:18 Chloride 104 mmol/L (101-111) 03/28/21 05:18 Carbon Dioxide 20 mmol/L (21-32) L 03/28/21 05:18 Anion Gap 9.0 (6-13) 03/28/21 05:18 BUN 18 mg/dL (6-20) 03/28/21 05:18 Creatinine 1.2 mg/dL (0.6-1.2) 03/28/21 05:18 Estimated GFR (MDRD) 59 (>89) L 03/28/21 05:18 Glucose 197 mg/dL (70-100) H 03/28/21 05:18 Estimat Average Glucose 180 mg/dL (70-100) H 03/26/21 04:51 Hemoglobin A1c % 7.9 % (4.27-6.07) H 03/26/21 04:51 Lactic Acid 1.9 mmol/L (0.5-2.2) 03/25/21 18:00 Calcium 7.8 mg/dL (8.5-10.3) L 03/28/21 05:18 Phosphorus 2.1 mg/dL (2.5-4.6) L 03/28/21 05:18 Magnesium 1.4 mg/dL (1.7-2.8) L 03/28/21 05:18 Iron 88 ug/dL (45-182) 03/28/21 05:18 TIBC 228 ug/dL (250-450) L 03/28/21 05:18 % Saturation 39 % (20-50) 03/28/21 05:18 Transferrin 163 mg/dL (180-329) L 03/28/21 05:18 Total Bilirubin 0.8 mg/dL (0.2-1.0) 03/26/21 04:51 GGT 24 IU/L (8-55) 03/26/21 04:51 AST 26 IU/L (10-42) 03/26/21 04:51 ALT 45 IU/L (10-60) 03/26/21 04:51 Alkaline Phosphatase 73 IU/L (42-121) 03/26/21 04:51 Total Creatine Kinase 239 IU/L (22-269) 03/25/21 12:29 Troponin I High Sens 18.8 ng/L (2.3-19.7) 03/25/21 10:30 Total Protein 7.0 g/dL (6.7-8.2) 03/26/21 04:51 Albumin 3.2 g/dL (3.2-5.5) 03/27/21 05:27 Globulin 3.4 g/dL (2.1-4.2) 03/26/21 04:51 Albumin/Globulin Ratio 1.1 (1.0-2.2) 03/26/21 04:51 Lipase 33 U/L (22-51) 03/25/21 10:30 Vitamin B12 2317 pg/mL (180-914) H 03/28/21 05:18 Folate 26.00 ng/mL (5.90 - >24.8) 03/28/21 05:18 Urine Color YELLOW 03/25/21 12:18 Urine Clarity HAZY (CLEAR) 03/25/21 12:18 Urine pH 5.5 PH (5.0-7.5) 03/25/21 12:18 Ur Specific [place] >=1.030 (1.002-1.030) H 03/25/21 12:18 Urine Protein >=300 mg/dL (NEGATIVE) H 03/25/21 12:18 Urine Glucose (UA) >=1000 mg/dL (NEGATIVE) H 03/25/21 12:18 Urine Ketones 15 mg/dL (NEGATIVE) H 03/25/21 12:18 Urine Occult Blood LARGE (NEGATIVE) H 03/25/21 12:18 Urine Nitrite NEGATIVE (NEGATIVE) 03/25/21 12:18 Urine Bilirubin NEGATIVE (NEGATIVE) 03/25/21 12:18 Urine Urobilinogen 0.2 (NORMAL) E.U./dL (NORMAL) 03/25/21 12:18 Ur Leukocyte Esterase NEGATIVE (NEGATIVE) 03/25/21 12:18 Urine RBC 6-10 /HPF (0-5) H 03/25/21 12:18 Urine WBC 0-3 /HPF (0-3) 03/25/21 12:18 Ur Squamous Epith Cells NONE SEEN (<= Few) 03/25/21 12:18 Amorphous Sediment Moderate /LPF 03/25/21 12:18 Urine Bacteria Rare /HPF (None Seen) 03/25/21 12:18 Urine Sperm PRESENT 03/25/21 12:18 Urine Culture Comments NOT INDICATED 03/25/21 12:18 Nasal Adenovirus (PCR) NOT DETECTED 03/25/21 12:21 Nasal B. parapertussis DNA (PCR) NOT DETECTED 03/25/21 12:21 Nasal Coronavir 229E PCR NOT DETECTED 03/25/21 12:21 Nasal Coronavir HKU1 PCR NOT DETECTED 03/25/21 12:21 Nasal Coronavir NL63 PCR NOT DETECTED 03/25/21 12:21 Nasal Coronavir OC43 PCR NOT DETECTED 03/25/21 12:21 Nasal Enterovir/Rhinovir PCR NOT DETECTED 03/25/21 12:21 Nasal Influenza B PCR NOT DETECTED 03/25/21 12:21 Nasal Influenza A PCR NOT DETECTED 03/25/21 12:21 Nasal Parainfluen 1 PCR NOT DETECTED 03/25/21 12:21 Nasal Parainfluen 2 PCR NOT DETECTED 03/25/21 12:21 Nasal Parainfluen 3 PCR NOT DETECTED 03/25/21 12:21 Nasal Parainfluen 4 PCR NOT DETECTED 03/25/21 12:21 Nasal RSV (PCR) NOT DETECTED 03/25/21 12:21 Nasal Screen MRSA (PCR) NEGATIVE (NEGATIVE) 03/25/21 14:50 Nasal B.pertussis DNA PCR NOT DETECTED 03/25/21 12:21 Nasal C.pneumoniae (PCR) NOT DETECTED 03/25/21 12:21 Ethan Human Metapneumo PCR NOT DETECTED 03/25/21 12:21 Nasal M.pneumoniae (PCR) NOT DETECTED 03/25/21 12:21 Nasal SARS-CoV-2 (PCR) NOT DETECTED 03/25/21 12:21 Salicylates < 6.0 mg/dL 03/25/21 12:32 Urine Opiates Screen NEGATIVE (NEGATIVE) 03/25/21 12:18 Ur Oxycodone Screen NEGATIVE (NEGATIVE) 03/25/21 12:18 Urine Methadone Screen NEGATIVE (NEGATIVE) 03/25/21 12:18 Ur Propoxyphene Screen NEGATIVE (NEGATIVE) 03/25/21 12:18 Acetaminophen < 10 ug/mL (10-30) L 03/25/21 12:32 Ur Barbiturates Screen NEGATIVE (NEGATIVE) 03/25/21 12:18 Ur Tricyclics Screen NEGATIVE (NEGATIVE) 03/25/21 12:18 Ur Phencyclidine Scrn NEGATIVE (NEGATIVE) 03/25/21 12:18 Ur Amphetamine Screen NEGATIVE (NEGATIVE) 03/25/21 12:18 U Methamphetamines Scrn NEGATIVE (NEGATIVE) 03/25/21 12:18 U Benzodiazepines Scrn POSITIVE (NEGATIVE) H 03/25/21 12:18 Urine Cocaine Screen NEGATIVE (NEGATIVE) 03/25/21 12:18 U Cannabinoids Screen POSITIVE (NEGATIVE) H 03/25/21 12:18 Ethyl Alcohol < 5.0 mg/dL 03/25/21 12:32 Serum Ketones NEGATIVE (NEGATIVE) 03/25/21 22:06 - Procedures Procedures: Procedures EXCISION OF DUODENUM, ENDO, DIAGN (12/11/19) EXCISION OF ESOPHAGOGASTRIC JUNCTION, ENDO, DIAGN (12/11/19) EXCISION OF SIGMOID COLON, ENDO (12/11/19) EXCISION OF STOMACH, ENDO, DIAGN (12/11/19) TRANSFUSE NONAUT RED BLOOD CELLS IN PERIPH VEIN, PERC (12/11/19)
[2021-03-28] MEDS: CALCIUM CARBONATE CHEW 500 MG TABLET PO SCH (20:54)
[2021-03-29] MEDS: SODIUM CHLORIDE FLUSH 0.9% 10 ML SYRINGE IVP SCH ×2 (01:22→08:31)
[2021-03-29] MEDS: SODIUM CHLORIDE 0.9% 1,000 ML IV SCH (01:22)
[2021-03-29 05:33] LABS: BASOPHILS # (AUTO) 0.1 10^3/uL (0.0-0.1); BASOPHILS % (AUTO) 0.6 %; EOSINOPHILS # (AUTO) 0.2 10^3/uL (0.0-0.7); EOSINOPHILS % (AUTO) 2.7 %; HCT - HEMATOCRIT 30.5 % (42.0-52.0); HGB - HEMOGLOBIN 10.6 g/dL (14.0-18.0); LYMPHOCYTES # (AUTO) 1.6 10^3/uL (1.5-3.5); LYMPHOCYTES % (AUTO) 20.3 %; MEAN CORPUSCULAR HEMOGLOBIN 31.7 pg (27.0-31.0); MEAN CORPUSCULAR HGB CONC 34.8 g/dL (32.0-36.0); MEAN CORPUSCULAR VOLUME 91.3 fL (80.0-94.0); MEAN PLATELET VOLUME 8.7 fL (7.4-11.4); MONOCYTES # (AUTO) 0.6 10^3/uL (0.0-1.0); MONOCYTES % (AUTO) 7.1 %; NEUTROPHILS # (AUTO) 5.3 10^3/uL (1.5-6.6); NEUTROPHILS % (AUTO) 68.9 %; PLT - PLATELET COUNT 190 10^3/uL (130-450); RED BLOOD COUNT 3.34 10^6/uL (4.70-6.10); RED CELL DISTRIBUTION WIDTH 12.6 % (12.0-15.0); WHITE BLOOD COUNT 7.7 x10^3/uL (4.8-10.8)
[2021-03-29 05:50] LABS: CALCIUM 8.1 mg/dL (8.5-10.3); CREATININE 1.2 mg/dL (0.6-1.2); MAGNESIUM 1.6 mg/dL (1.7-2.8); POTASSIUM 3.5 mmol/L (3.5-5.0)
[2021-03-29] MEDS ORDERED: MAGNESIUM SULFATE 1 GM in SODIUM CHLORIDE 0.9% 50 ML IV ONE (07:56)
[2021-03-29] MEDS: PANTOPRAZOLE 40 MG TABLET PO SCH (08:22)
[2021-03-29] MEDS: THIAMINE 100 MG TABLET PO SCH (08:22)
[2021-03-29] MEDS: FERROUS GLUCONATE 324 MG TABLET PO SCH (08:22)
[2021-03-29] MEDS: CALCIUM CARBONATE CHEW 500 MG TABLET PO SCH (08:22)
[2021-03-29] MEDS: METOPROLOL SUCCINATE 25 MG TABLET PO SCH (08:22)
[2021-03-29] MEDS: ASPIRIN EC 81 MG TABLET PO SCH (08:22)
[2021-03-29] MEDS: LOSARTAN 50 MG TABLET PO SCH (08:22)
[2021-03-29] MEDS: MAGNESIUM OXIDE 400 MG TABLET PO SCH (08:22)
[2021-03-29] MEDS: MULTIVITAMIN TABLET PO SCH (08:22)
[2021-03-29] MEDS: INSULIN ASPART 300 UNIT/3 ML PEN SUBQ SCH (08:23)
[2021-03-29] MEDS: levETIRAcetam 500 MG/5 ML UDC PO SCH (08:23)
[2021-03-29] MEDS: FLUoxetine 10 MG CAPSULE PO SCH (08:23)
[2021-03-29] MEDS ORDERED: MAGNESIUM SULFATE 2 GRAM 2 GM/50 ML BAG IV ONE (09:00)
[2021-03-29] MEDS ORDERED: INSULIN ASPART 300 UNIT/3 ML PEN SUBQ SCH (12:00)
--- NOTE | 2021-03-29 13:51 | MRI Report ---
PROCEDURE: Brain W/O INDICATIONS: New seizures TECHNIQUE: Noncontrast axial T1 spin echo, axial T2 fast spin echo, sagittal and axial FLAIR, coronal T2 fast sp in echo, axial gradient echo, axial diffusion and ADC through the brain. COMPARISON: 03/05/2020 FINDINGS: Image quality: Excellent. CSF Spaces: Basal cisterns are patent. No extra-axial fluid collections. Ventricles are normal in size and shape. Brain: No intracranial masses or hemorrhage. Islas/white matter interface is normal. Brainstem appe ars normal. Diffusion-weighted images demonstrate no acute ischemic insult. No chronic ischemic ins ults. Normal intravascular flow voids are present. Age-appropriate brain parenchymal volume loss an d chronic small vessel ischemic change can be seen. In this patient with this given history, scrutin y is given to the hippocampal formations. The left hippocampus is slightly smaller and demonstrates d ecreased T2-weighted signal compared to the right hippocampus, as on series 901 image 15. Skull and face: Calvarium has normal marrow signal. Orbits appear normal. Sinuses: Sinuses and mastoids are clear. Bilateral jaylin bullosa are incidentally noted. IMPRESSION: In this patient with a given history of seizures, there is subtle asymmetry seen of the hippocampal f ormations. Otherwise, normal scan for age, without findings of acute or subacute infarction. Age-appropriate brain parenchymal volume loss and chronic small vessel ischemic change can be seen. Reviewed by: Marcelino Harman MD on 03/29/2021 12:49 PM BG Approved by: Marcelino Harman MD on 03/29/2021 12:49 PM AKDT Station ID: [id number]
[2021-03-29] MEDS ORDERED: amLODIPine 5 MG TABLET PO SCH (14:03)
--- NOTE | 2021-03-29 14:48 | Discharge Plan ---
Discharge Plan Problem Reviewed?: Yes Disposition: Home, Self Care Condition: Stable Prescriptions: Levetiracetam [Keppra] 500 mg PO BID #60 tablet amLODIPine [Norvasc] 5 mg PO DAILY #30 tablet Diet: Diabetic Activity Restrictions: Activity as Tolerated Shower Restrictions: No (fall precaution) Driving Restrictions: Yes (until assessed by neurologist) Instruction Topics: Diabetes Healthy Meals, Dehydration, Addiction Marijuana Signs, Abuse Marijuana, Epilepsy Meds, Epilepsy Living Well, ED Seizure Recurrent Ch, Amlodipine Health Concerns: dehydration/malnutrition, marijuana abuse, seizure, depression Plan of Treatment: discussed the care plan in detail with you, you promise to drink and eat at home, resume your home medications, continue to followup with your psychiatrist's regular appointment, you promise to reduce for smoking of Marijuana. You were found to have seizure activity in the hospital, you tolerate keppra medication in the hospital, you may followup with neurologist to have evaluation and treatment. your driving license is holding now until you are evaluated by neurologist. you have slightly elevated blood pressure, Amlodipine is prescribed for you now. you may followup with your PCP continue to the management Care Goals: Stabilization and improvement of your medical conditions Assessment: Discussed in detail the care plan with you, answered your questions and your concerns, you understood and agreed. Additional Instructions or Follow Up instructions: you may followup with your PCP in one week, followup with neurologist and psychiatrist as out-pt. should your symptoms return or worsen, you may present ER or call 911 for help. No Smoking: If you smoke, Please STOP! Call for help. Follow-up with: Patricia Terry PA-C [Primary Care Provider] -
[2021-03-29] MEDS ORDERED: LOSARTAN 50 MG TABLET PO SCH ×2 (15:00→16:00)
--- NOTE | 2021-03-29 16:03 | DISCHARGE SUMMARY ---
Discharge Summary Admit Date: 03/25/21 Discharge Date: 03/29/21 Primary Care Provider: Harrison Patricia Condition at Discharge: Stable Discharge Disposition: 01 Home, Self Care Discharge Facility Name: home - DIAGNOSES Discharge Diagnoses with Status of Each Condition: (1) Seizure pt has no more seizure at hospital after pt had keppra. pt tolerated keppra well. discussed the images studies with pt's by phone. MRI did show there is subtle asymmetry seen of the hippocampal formations with given hx of seizures. Patient may follow-up with neurology to have outpatient assessment. Advised patient no driving car until he was evaluated by neurologist. (2) Severe dehydration Resolved. creatinine return to patient's baseline. Strongly advised the patient drink and eat at home. Patient promised me he will drink and eat enough in the home. (3) Anemia Hemoglobin is 10.6 and stable. there is some hemodilution in his CBC test. His serum levels of B12 and folate, iron are adequate. Continue follow-up his PCP to manage (4) Right shoulder pain No complaint. X-rays were done that showed rotator cuff tear, chronic. He is able to start to work with PT/OT (5) Type 2 diabetes mellitus with hyperglycemia A1C is 7.9. He required an insulin drip for part of the 1st hospital day because of positive serum ketones, which was partly from starvation ketosis. Resume home medications, follow-up with PCP to manage. (6) Marijuana abuse Patient report he smoke "lots of marijuana" in the home. Patient will willing to reduce marijuana usage in the home (7) Depression stable, resume home meds, strongly advise pt Continue closely follow-up with psychiatry after discharge. pt promise to followup with his psychiatrist closely. (8) Hypertension elevated BP, pt is prescribed Norvasc, plus his other home blood pressure medicine. Micropelt did not let increased dosage of Telmisartan. nurse did not report to me pt's last BP value before d/c pt. (9) Hx of coronary artery disease stable, resume home meds (10) Lactic acidosis Resolved. Likely caused by patient's severe dehydration. Patient promised to drink and eat at home (11) Acute encephalopathy Resolved (12) Hyponatremia Resolved (13) MAU (acute kidney injury) Resolved - HPI History of Present Illness: refer from Dr. Tammy Arroyo's HPI on 03/25/21 75-year-old WM with a history of diabetes mellitus, hypertension, old NC, depression. He has had 2 prior admissions here over the past 2 years for severe dehydration that occurred when he would become depressed, lay in bed for days, stop eating and drinking, and stopped taking his medications. In the 12/2019 admission, he presented with a seizure which was initially felt to be from alcohol withdrawal. He has apparently stopped with alcohol abuse after that admission and underwent some type of neuro testing (?EEG) and his anti-seizure med was stopped. Patient finally agreed to see a psychiatrist and has been attending visits for 1 year almost weekly. With this, his mood improved and he has been able to gain some weight. Four weeks ago he received some bad news and the noticed he became more depressed. Then 3 weeks ago he started spending most days in bed for 20 hours, was eating very little but was taking his BP and Diabetic medications. Two days ago, after coming home from the psychiatry appointment, he went straight to bed and has had no meds or food or liquid for 2 days. The noticed that he became more confused yesterday and felt he was dehydrated, tried to force fluids last night. This morning he did not recognize her and he was brought to the ER. The initial exam showed that he was confused and could not give a history. He was sent to CT scan for head CT and while there he had a probable seizure with jerking movements and came back to the ER after tongue biting and incontinenece and was postictal. The patient's labs show multiple electrolyte derangements. His venous blood gas showed a pH of 7.0. His urinalysis showed high ketones and specific gravity very elevated. His serum showed a lactic acid level that was elevated at 3.4, no serum ketones were checked. The patient is being admitted to the ICU for severe dehydration, electrolyte abnormalities, MAU, lactic acidosis which could be from starvation versus diabetic ketoacidosis, and recurrent seizure activity which is probably not from alcohol withdrawal if indeed he is no longer taking in alcohol. The patient is waking up, can give me no history, he knows himself but nothing else. He appears uncomfortable and is fidgety but cannot tell me if he hurts anywhere or what his complaints are. He is not oriented to place or time. He already has baseline confusion and cognitive impairment documented on the last admission, which was 8 months ago. He cannot give details about what medications he took or his most recent activity. I called the and she filled in details and she confirmed that he has a DNR status. - HOSPITAL COURSE Hospital Course: Patient was admitted for severe dehydration, electrolyte disturbances, And pa krista also develop seizure in the hospital. Initially patient was at ICU for his severe condition. Patient also had a severe depression history. Patient is closely followed up his psychiatrist. After the patient had hydration and electrolyte replacement, Patient's MAU resolved and his electrolytes is in the normal range. Patient's seizures is controlled and no more seizure in the hospital, patient tolerated Keppra medications well in the hospital. Patient had PT and OT evaluation and treatment in the hospital. Discussed the care plan with the patient's by the phone and patient. Patient's agreed to take care of patient and discharged to home. Patient promised he will drink and eat enough in the home, he will follow up with neurologist to assessment of his seizure, he will closely follow-up with his psychiatrist to control his major depression. - ALLERGIES Allergies/Adverse Reactions: Allergies Allergy/AdvReac Type Severity Reaction Status Date / Time No Known Drug Allergies Allergy Verified 03/25/21 10:13 - MEDICATIONS Home Medications: Ambulatory Orders Medication Instructions Recorded Confirmed FLUoxetine [PROzac] 60 mg PO DAILY 12/11/19 03/25/21 Gabapentin 300 mg PO BID 12/11/19 03/25/21 SITagliptin [Januvia] 100 mg PO DAILY 12/11/19 03/25/21 Telmisartan 20 mg PO DAILY 12/11/19 03/25/21 Metoprolol Succinate [Toprol Xl] 25 mg PO DAILY #30 tablet 12/21/19 03/25/21 Pantoprazole [Protonix] 40 mg PO BID 30 Days #60 tablet 12/21/19 03/25/21 Rosuvastatin Calcium [Crestor] 40 mg PO QPM #30 tablet 12/21/19 03/25/21 Aspirin EC [Ecotrin] 81 mg PO DAILY 06/21/20 03/25/21 Glimepiride [Amaryl] 1 mg PO DAILY 06/21/20 03/25/21 Mecobalamin [B12 Active] 1 tab PO DAILY 06/22/20 03/25/21 Multivitamin [Theragran] 1 tab PO DAILYWM tablet 06/25/20 03/25/21 Thiamine [Vitamin B-1] 100 mg PO DAILY tablet 06/25/20 03/25/21 Levetiracetam [Keppra] 500 mg PO BID #60 tablet 03/29/21 amLODIPine [Norvasc] 5 mg PO DAILY #30 tablet 03/29/21 - PHYSICAL EXAM AT DISCHARGE General Appearance: positive: No acute distress, Alert. negative: Lethargic Eyes Bilateral: positive: Normal inspection, PERRL, No lid inflammation ENT: positive: ENT inspection nml, No signs of dehydration. negative: Purulent nasal drainage, Dry mucous membranes Neck: positive: Nml inspection, Trachea midline. negative: Thyromegaly, Tracheal deviation Respiratory: positive: Chest non-tender, No respiratory distress, Breath sounds nml. negative: Wheezes, Rales Cardiovascular: positive: Regular rate & rhythm, No murmur. negative: Tachycardia, Bradycardia, Systolic murmur, Diastolic murmur Peripheral Pulses: positive: 2+ Abdomen: positive: Non-tender, Nml bowel sounds, No distention. negative: Tenderness Back: positive: Nml inspection Skin: positive: Color nml, Warm, Dry. negative: Cyanosis Extremities: positive: Non-tender, Full ROM, Nml appearance. negative: Calf tenderness Neurologic/Psychiatric: positive: Oriented x3, Motor nml, Sensation nml. negative: Weakness, Sensory loss, Facial droop, Slurred/abnml speech, Depressed mood/affect - LABS Result Diagrams: 03/29/21 05:05 03/29/21 05:05 - FOLLOW UP Follow Up: discussed the care plan in detail with you, you promise to drink and eat at home, resume your home medications, continue to followup with your psych iatrist's regular appointment, you promise to reduce for smoking of Marijuana. You were found to have seizure activity in the hospital, you tolerate keppra medication in the hospital, you may followup with neurologist to have evaluation and treatment. your driving license is holding now until you are evaluated by neurologist. you have slightly elevated blood pressure, Amlodipine is prescribed for you now. you may followup with your PCP continue to the management. you may followup with your PCP in one week, followup with neurologist and psychiatrist as out-pt. should your symptoms return or worsen, you may present ER or call 911 for help. - TIME SPENT Time Spent in Discharge (Minutes): 30
[2021-03-29 16:10] VITALS: BP 180/80
[2021-03-30] MEDS ORDERED: amLODIPine 5 MG TABLET PO SCH (09:00)
[2021-03-30] MEDS ORDERED: LOSARTAN 50 MG TABLET PO SCH (09:00)
== END 2021-03-29 17:02 | disposition home or self-care (01) | DRG 640 ==
LOC: EDUNIT# → ED 10:02 → ICU 13:11 → MS3 03-27 20:03 → MS2 03-27 20:37
PROVIDERS: ADMIT Internal Medicine; ATTEND Nurse Practitioner Gerontology
DX: E86.0 Dehydration (principal); E11.10 Type 2 diabetes mellitus with ketoacidosis without coma; E87.5 Hyperkalemia; G93.40 Encephalopathy, unspecified; N17.9 Acute kidney failure, unspecified; Z20.822 Contact with and (suspected) exposure to COVID-19; E11.9 Type 2 diabetes mellitus without complications; F33.1 Major depressive disorder, recurrent, moderate; R56.9 Unspecified convulsions; E87.2 Acidosis; E87.1 Hypo-osmolality and hyponatremia; D50.9 Iron deficiency anemia, unspecified; M75.101 Unspecified rotator cuff tear or rupture of right shoulder, not specified as traumatic; E11.65 Type 2 diabetes mellitus with hyperglycemia; Z79.84 Long term (current) use of oral hypoglycemic drugs; F12.10 Cannabis abuse, uncomplicated; I10 Essential (primary) hypertension; I25.10 Atherosclerotic heart disease of native coronary artery without angina pectoris; I25.2 Old myocardial infarction; G31.84 Mild cognitive impairment of uncertain or unknown etiology; E78.00 Pure hypercholesterolemia, unspecified; Z66 Do not resuscitate; Z78.1 Physical restraint status; D72.829 Elevated white blood cell count, unspecified; R63.0 Anorexia
CPT/HCPCS: 36415; 36600; 51701; 70450; 70551; 73000; 73030; 80048; 80053; 80306; 80307; 81001; 82009; 82040; 82550; 82607; 82746; 82803; 82977; 83036; 83540; 83605; 83690; 83735; 84100; 84466; 84484; 85025; 85610; 87150; 87631; 93005; 96365; 97161; 97165; 99285; A9270; G0480; J1815; J2060; J3411; 0202U; 80320; 80329; 82272; 82947; 87086

== ENCOUNTER 2021-04-14 15:59 | Inpatient (IN) | payer MEDICARE, OTHER ==
[2021-04-14 16:42] LABS: BASOPHILS # (AUTO) 0.1 10^3/uL (0.0-0.1); BASOPHILS % (AUTO) 0.9 %; EOSINOPHILS # (AUTO) 0.1 10^3/uL (0.0-0.7); EOSINOPHILS % (AUTO) 1.1 %; HCT - HEMATOCRIT 41.6 % (42.0-52.0); HGB - HEMOGLOBIN 13.6 g/dL (14.0-18.0); LYMPHOCYTES % (AUTO) 20.4 %; MEAN CORPUSCULAR HEMOGLOBIN 32.3 pg (27.0-31.0); MEAN CORPUSCULAR HGB CONC 32.7 g/dL (32.0-36.0); MEAN CORPUSCULAR VOLUME 98.8 fL (80.0-94.0); MEAN PLATELET VOLUME 8.6 fL (7.4-11.4); MONOCYTES # (AUTO) 0.6 10^3/uL (0.0-1.0); MONOCYTES % (AUTO) 5.7 %; NEUTROPHILS # (AUTO) 6.9 10^3/uL (1.5-6.6); NEUTROPHILS % (AUTO) 71.7 %; PLT - PLATELET COUNT 297 10^3/uL (130-450); RED BLOOD COUNT 4.21 10^6/uL (4.70-6.10); RED CELL DISTRIBUTION WIDTH 12.6 % (12.0-15.0); WHITE BLOOD COUNT 9.6 x10^3/uL (4.8-10.8)
[2021-04-14] MEDS ORDERED: SODIUM CHLORIDE 0.9% 1,000 ML IV STA ×2 (16:56→17:37)
[2021-04-14 16:58] LABS: ALBUMIN 4.1 g/dL (3.2-5.5); BILIRUBIN,TOTAL 0.9 mg/dL (0.2-1.0); CALCIUM 9.1 mg/dL (8.5-10.3); CREATININE 1.8 mg/dL (0.6-1.2); POTASSIUM 5.2 mmol/L (3.5-5.0); TOTAL PROTEIN 8.4 g/dL (6.7-8.2)
--- NOTE | 2021-04-14 17:01 | ED Physician Documentation ---
History of Present Illness - Stated complaint Stated Complaint: LETHARGIC/CONFUSION - Chief complaint Chief Complaint: General - Additonal information Additional information: 75-year-old man who carries a history of hypertension, type 2 diabetes, coronary artery disease and depression is brought back to the ER with his for evaluation of what she believes is dehydration and excessive weakness. Patient was last admitted to this hospital March 25, 2020 for similar concerns. At that time of his last visit the patient became severely depressed stayed in bed for a number of days and stopped eating and drinking. When he presented to the emergency department he was found altered and confused and had a seizure while in CAT scan. He was ultimately admitted to the ICU for severe dehydration and electrolyte abnormalities as well as acute kidney injury and lactic acidosis which was thought to be from starvation versus DKA. While in the hospital he did undergo an MRI that showed a slight asymmetry in the hippocampal region. He was discharged on a prescription for Keppra. He has a referral to neurology but it may be a number of months before he is able to see the neurologist. Patient's reports that she is only able to get him at most to consume 1500 mL of fluid a day. He will lay in bed for 18 to 20 hours a day and moves very little. Patient's reports that though he has stopped drinking he was a very very very heavy cannabis user up until yesterday. Her other big concern is that the Keppra may be "pushing his personality down." And her final concern is that she thinks that his habitual pot smoking may be contributing to his personality changes and she is concerned that he may be having withdrawal. On initial presentation patient is diaphoretic and shaky. He does appear well and is at times quite lucid. However intermittently throughout the course of his stay here in the emergency department he will often get confused and agitated which his reports is new behavior for him. Review of Systems Constitutional: denies: Fever, Chills Cardiac: denies: Chest pain / pressure, Palpitations Respiratory: denies: Dyspnea, Cough GI: reports: Other (Poor oral intake, lack of appetite.). denies: Abdominal Pain, Nausea, Vomiting : denies: Dysuria, Frequency Skin: denies: Rash, Lesions Musculoskeletal: denies: Neck pain, Back pain Neurologic: reports: Generalized weakness, Difficulty speaking, Seizure (History of recent seizure activity March 2021), Confused. denies: Focal weakness, Numbness, Unresponsive, Headache Psychiatric: reports: Depressed PD PAST MEDICAL HISTORY - Past Medical History Cardiovascular: None, Hypertension, High cholesterol, Coronary artery disease, NC Respiratory: None Neuro: None Endocrine/Autoimmune: Type 2 diabetes GI: None : Renal insuffiency Psych: Depression Musculoskeletal: None Derm: None - Present Medications Home Medications: Ambulatory Orders Medication Instructions Recorded Confirmed FLUoxetine [PROzac] 60 mg PO DAILY 12/11/19 04/14/21 Gabapentin 300 mg PO BID 12/11/19 04/14/21 SITagliptin [Januvia] 100 mg PO DAILY 12/11/19 04/14/21 Telmisartan 20 mg PO DAILY 12/11/19 04/14/21 Metoprolol Succinate [Toprol Xl] 25 mg PO DAILY #30 tablet 12/21/19 04/14/21 Pantoprazole [Protonix] 40 mg PO BID 30 Days #60 tablet 12/21/19 04/14/21 Rosuvastatin Calcium [Crestor] 40 mg PO QPM #30 tablet 12/21/19 04/14/21 Aspirin EC [Ecotrin] 81 mg PO DAILY 06/21/20 04/14/21 Glimepiride [Amaryl] 1 mg PO DAILY 06/21/20 04/14/21 Mecobalamin [B12 Active] 1 tab PO DAILY 06/22/20 04/14/21 Multivitamin [Theragran] 1 tab PO DAILYWM tablet 06/25/20 04/14/21 Thiamine [Vitamin B-1] 100 mg PO DAILY tablet 06/25/20 04/14/21 Levetiracetam [Keppra] 500 mg PO BID #60 tablet 03/29/21 04/14/21 amLODIPine [Norvasc] 5 mg PO DAILY #30 tablet 03/29/21 04/14/21 - Allergies Allergies/Adverse Reactions: Allergies Allergy/AdvReac Type Severity Reaction Status Date / Time No Known Drug Allergies Allergy Verified 04/14/21 16:03 - Social History Smoking Status: Never smoker - POLST POLST Status: DNR PD ED PE EXPANDED - General General: Alert, No acute distress - HEENT HEENT: PERRL - Eyes Eyes: PERRL, Normal accommodation - Neck Neck: Supple w/out meningeal sx. No: Adenopathy - Cardiac Cardiac: Regular Rate, Radial strong equal, Pedal strong equal, Cap refill < 2 sec. No: Murmur Present - Respiratory Respiratory: Clear to ausultation patricia. No: Distress, Labored - Abdomen Abdomen: Normal Bowel sounds. No: Tender to palpation - Derm Derm: Normal color - Extremities Extremities: Normal. No: Deformity, Tenderness - Neuro Neuro: Alert and Oriented X 3, CNII-XII intact, Other (Patient is unable to stand at the bedside without assistance. Quite jittery.) - GCS Eye Opening: Spontaneous Motor: Obeys Commands Verbal: Oriented Total: 15 Results - Vitals Vitals: Vital Signs - 24 hr 04/14/21 04/14/21 04/14/21 16:03 16:07 17:00 Temperature 36.5 C 36.6 C Heart Rate 84 74 76 Respiratory 16 22 16 Rate Blood Pressure 180/84 H 147/77 H 147/77 H O2 Saturation 97 100 97 04/14/21 04/14/21 04/14/21 18:00 20:00 22:00 Temperature Heart Rate 76 86 77 Respiratory 16 16 18 Rate Blood Pressure 151/82 H 160/86 H 144/77 H O2 Saturation 100 95 96 Oxygen O2 Source Room air - EKG (time done) 1655 Rate: Rate (enter#) (73) Rhythm: NSR [place]: Normal Intervals: Normal [place] QRS: Poor R wave progression Ischemia: Normal ST segments Compare to prior EKG: Unchanged from prior EKG Computer interpretation: Agree with computer - Labs Labs: Laboratory Tests 04/14/21 04/14/21 04/14/21 16:34 16:35 16:35 WBC 9.6 RBC 4.21 L Hgb 13.6 L Hct 41.6 L MCV 98.8 H MCH 32.3 H MCHC 32.7 RDW 12.6 Plt Count 297 MPV 8.6 Neut # (Auto) 6.9 H Lymph # (Auto) 2.0 [place] # (Auto) 0.6 Eos # (Auto) 0.1 Baso # (Auto) 0.1 Absolute Nucleated RBC 0.00 Nucleated RBC % 0.0 Sodium 132 L Potassium 5.2 H Chloride 99 L Carbon Dioxide 19 L Anion Gap 14.0 H BUN 26 H Creatinine 1.8 H Estimated GFR (MDRD) 37 L Glucose 214 H Lactic Acid Calcium 9.1 Total Bilirubin 0.9 AST 28 ALT 21 Alkaline Phosphatase 77 Troponin I High Sens Total Protein 8.4 H Albumin 4.1 Globulin 4.3 H Albumin/Globulin Ratio 1.0 Lipase 52 H Urine Color Urine Clarity Urine pH Ur Specific [place] Urine Protein Urine Glucose (UA) Urine Ketones Urine Occult Blood Urine Nitrite Urine Bilirubin Urine Urobilinogen Ur Leukocyte Esterase Urine RBC Urine WBC Ur Squamous Epith Cells Urine Bacteria Ur Microscopic Review Urine Culture Comments Ethyl Alcohol < 5.0 Serum Ketones NEGATIVE 04/14/21 04/14/21 04/14/21 16:35 17:41 19:45 WBC RBC Hgb Hct MCV MCH MCHC RDW Plt Count MPV Neut # (Auto) Lymph # (Auto) [place] # (Auto) Eos # (Auto) Baso # (Auto) Absolute Nucleated RBC Nucleated RBC % Sodium Potassium Chloride Carbon Dioxide Anion Gap BUN Creatinine Estimated GFR (MDRD) Glucose Lactic Acid 2.7 H Calcium Total Bilirubin AST ALT Alkaline Phosphatase Troponin I High Sens 5.3 Total Protein Albumin Globulin Albumin/Globulin Ratio Lipase Urine Color YELLOW Urine Clarity CLEAR Urine pH 7.5 Ur Specific [place] 1.015 Urine Protein 30 H Urine Glucose (UA) 100 H Urine Ketones TRACE Urine Occult Blood TRACE-INTA Urine Nitrite NEGATIVE Urine Bilirubin NEGATIVE Urine Urobilinogen 0.2 (NORMAL) Ur Leukocyte Esterase NEGATIVE Urine RBC 0-5 Urine WBC 0-3 Ur Squamous Epith Cells RARE Squamous Urine Bacteria Rare Ur Microscopic Review INDICATED Urine Culture Comments NOT INDICATED Ethyl Alcohol Serum Ketones 04/14/21 04/14/21 20:02 20:02 WBC RBC Hgb Hct MCV MCH MCHC RDW Plt Count MPV Neut # (Auto) Lymph # (Auto) [place] # (Auto) Eos # (Auto) Baso # (Auto) Absolute Nucleated RBC Nucleated RBC % Sodium 133 L Potassium 4.1 Chloride 100 L Carbon Dioxide 20 L Anion Gap 13.0 BUN 25 H Creatinine 1.7 H Estimated GFR (MDRD) 40 L Glucose 241 H Lactic Acid 2.6 H Calcium 8.2 L Total Bilirubin AST ALT Alkaline Phosphatase Troponin I High Sens Total Protein Albumin Globulin Albumin/Globulin Ratio Lipase Urine Color Urine Clarity Urine pH Ur Specific [place] Urine Protein Urine Glucose (UA) Urine Ketones Urine Occult Blood Urine Nitrite Urine Bilirubin Urine Urobilinogen Ur Leukocyte Esterase Urine RBC Urine WBC Ur Squamous Epith Cells Urine Bacteria Ur Microscopic Review Urine Culture Comments Ethyl Alcohol Serum Ketones - Rads (name of study) cxr Radiology: Final report received (Asymmetric mild elevation of the right hemidiaphragm, stable over time.) PD MEDICAL DECISION MAKING - ED course Complexity details: reviewed results, re-evaluated patient, d/w patient ED course: 75-year-old male was brought into the emergency department by his for concerns of dehydration. She reports that she is unable to get him to eat and drink much at home. She reports that he Will often stay in bed up to 20 hours a day and habitually smokes pot. This is in the setting of a recent diagnosis of new seizure activity for which she was started on Keppra. His is concerned that the Keppra may be suppressing his mental status. On initial presentation to the emergency department though the patient appears well he is quite diaphoretic. He is also very jittery. He though does not have any focal neuro deficits. Initially he was quite lucid in conversation but then intermittently through the course of the ED stay he would become very wide- eyed agitated and just began asking for help. Screening labs are concerning for some early dehydration with an elevated BUN and creatinine as well as a mildly elevated lactic acid. This gentleman was initially repleted with 2 L of crystalloid here in the emergency department without a significant change in his electrolytes and lactic acidosis. He unable to walk wihtotu significant asistance. his gait is unsteady and he has a persistent tremor. He has had multiple admissions for simialr. The etiology of his recurrent "dehydration" and lactic acid elevation is anorexia that is precipitated by depressive episodes, cannabis abuse as well as a possible neuropsychological disorder. I have presented the patient for admission/observation status to Dr. Avila who has graciously agreed to admit him. 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 Departure - Departure Disposition: ED Place in Observation Clinical Impression: Elevated lactic acid level, Encephalopathy, Dehydration, Anorexia Discharge Date/Time: 04/14/21 22:50
[2021-04-14 17:05] LABS: KETONES, SERUM (ACETEST) NEGATIVE (NEGATIVE)
[2021-04-14 17:11] LABS: ETOH - ETHANOL < 5.0 mg/dL
--- NOTE | 2021-04-14 17:42 | XRAY Report ---
PROCEDURE: Chest 1 View X-Ray INDICATIONS: chest pain TECHNIQUE: One view of the chest was acquired. COMPARISON: Shoulder 2 views 03/27/2021 and .. FINDINGS: Surgical changes and devices: None. Lungs and pleura: No pleural effusions or pneumothorax. Lungs are clear. Mediastinum: Mediastinal contours appear normal. Heart size is normal. Bones and chest wall: No suspicious bony lesions. Overlying soft tissues appear unremarkable. IMPRESSION: Asymmetric mild elevation of the right hemidiaphragm, stable over time, Reviewed by: Michael Harrington MD on 04/14/2021 5:41 PM PDT Approved by: Michael Harrington MD on 04/14/2021 5:41 PM PDT Station ID: [id number]
[2021-04-14 19:52] LABS: BILIRUBIN,URINE NEGATIVE (NEGATIVE); GLUCOSE, URINE (UA) 100 mg/dL (NEGATIVE); KETONES,URINE (UA) TRACE mg/dL (NEGATIVE); LEUKOCYTE ESTERASE, URINE NEGATIVE (NEGATIVE); NITRITE,URINE NEGATIVE (NEGATIVE); OCCULT BLOOD,URINE TRACE-INTA (NEGATIVE); PH,URINE 7.5 PH (5.0-7.5); PROTEIN,URINE 30 mg/dL (NEGATIVE); UROBILINOGEN,URINE 0.2 (NORMAL) E.U./dL (NORMAL)
[2021-04-14 19:53] LABS: CLARITY,URINE CLEAR (CLEAR)
[2021-04-14 19:59] LABS: BACTERIA,URINE Rare /HPF (None Seen); RBC,URINE 0-5 /HPF (0-5); SQUAMOUS EPITHELIAL CELL,UR RARE Squamous (<= Few); WBC,URINE 0-3 /HPF (0-3)
[2021-04-14 20:14] LABS: CALCIUM 8.2 mg/dL (8.5-10.3); CREATININE 1.7 mg/dL (0.6-1.2); POTASSIUM 4.1 mmol/L (3.5-5.0)
[2021-04-14] MEDS ORDERED: ACETAMINOPHEN 325 MG TABLET PO PRN (22:06)
[2021-04-14] MEDS ORDERED: ONDANSETRON ODT 4 MG TABLET TL PRN (22:06)
[2021-04-14] MEDS ORDERED: ONDANSETRON 4 MG/2 ML VIAL IVP PRN (22:06)
[2021-04-14] MEDS ORDERED: oxyCODONE 5 MG TABLET PO PRN (22:06)
--- NOTE | 2021-04-14 22:26 | HISTORY & PHYSICAL EXAMINATION ---
Chief Complaint - Chief Complaint Chief Complaint: confusion with lack of po intake History of Present Illness - Admitted From Admitted From:: home via POV - History Obtained From Records Reviewed: [facility] History obtained from: Patient and Exam Limitations: none - History of Present Illness HPI Comment/Other: Mr. Lees is a 75-year-old white male who is medical problems consist of hypertension, diabetes and copious cannabis use and whose main psychiatric problem is major depressive disorder. He is followed on a weekly basis since last July by Job Muller MD from [facility] in [facility]. The relates a recent anecdote where Dr. Muller was not aware of how much cannabis the patient uses. He will smoke it from the time he wakes up to the time he goes to sleep, day after day. In December 2019 she states that his mental health took a "nose dive". He had stopped drinking alcohol. Was unhappy. And in a coping mechanism (at least that is what she think it was) he went to bed, refused to eat or drink anything and was smoking cannabis nonstop. This resulted in encephalopathy with confusion, lethargy, and someone who was unable to ambulate. She called EMS who witnessed a grand mal seizure. He was evaluated in the emergency room with a CT head that was negative. Lumbar puncture was negative and evaluation for meningitis. The diagnosis of press was entertained because his systolic was in the 180s. He was hydrated, medications were used to control his blood pressure, had complications of an NSTEMI, acute anemia. But all of those were treated and he was sent home to follow-up with neurology and cardiology. Cardiology ordered a stress test but he was unable to do that because he had fallen and his shoulder with his subsequent therapy prohibited from getting a stress test. He had a follow-up MRI in February 2020 that was negative. The is adamant he has not been drinking since the winter season of 2019. Subsequent to that is when he started seeing Dr. Muller on a weekly basis. He was also put on Keppra for the seizure disorder. He then was readmitted in June 2020 with the same scenario. He suddenly took a nose dive with his mental health. Refused to eat or drink. Started smoking pot all the time and eventually just went to bed and never got up. The relates that he had seen a neurologist for an EEG that was negative. So Keppra was stopped. With this episode, he was put on Cardene for short time wondering if the systolic of 180 was contributing depressed. He was eventually transitioned to Toprol and losartan. The diagnosis of press syndrome was felt to be low on the differential. At that visit we noted baseline cognitive deficits that were moderate to severe. Slums score was 3 out of 30. We strongly recommended a alf facility for rehab and he declined. He return to us in March 2021 and was just discharged after 4 days on March 29. He received some bad news. They are in the process of trying to move to [place] to retire. There was a delay in his passport of about 8 weeks. When he received that news, the stated that he "pulled the covers over his head", stated "that's it", and refused to get out of bed. Again the cycle of smoking cannabis nonstop. Refusing to eat or drink. He states he had no desire for w ater or desire for food. She states that he may have had some chills and sweats yesterday. A few days ago he did fall and hit his head. She said he is got an abrasion on the top of the skull from when he nailed the wall. But he has not had any more seizures that have been witnessed. He was evaluated by BETO Disla in the emergency room. Temperature is 36.5. Pulse is 84. Blood pressure 180/84. Respirations 16 and he is 97% on room air. He was initially quite lethargic, sedated. Received 2 L of normal saline wide open because his labs show the same abnormalities he has had with the previous 3 admissions. Type B lactic acidosis. And acute kidney injury. This last time his baseline creatinine is 1.2 and he is now 1.8. Troponin was normal. Potassium is high at 5.2. Sodium low 132. White cell count normal at 9.6. Hemoglobin 13.6. Urinalysis has proteinuria glucosuria but no ketones and rare bacteria. Ethyl alcohol level is less than 5. Serum ketones undetectable. Jenny Disla spoke to our hospitalist and he suggested that his problem may be simple dehydration. As such she was given those 2 L. Reevaluated. He is weak and wobbly. Lactic acid is 2.6. However the patient is now much more alert and able to give me review of systems. He does not seem to have insight on his behavior. He thinks that this is only the second or third time this is happened we had to remind him that this was the fourth time. He also seems to be getting events confusion his head. He thought it was a loss of his mother or the of his dog the resulted in his current depression. The reminds him that it was the passport thea. Then he remembered. He denies fever, chills. No sore throat. No ear pain. Denies coughing, wheezing, shortness of breath. Denies chest pain, palpitations. Denies any abdominal pain. No change in bowel habits. Denies urgency, frequency dysuria. Denies flank pain. Back hurts a little bit but not any more than usual. Overall he states he does not feel very much pain at all. The only thing that seems to hurt him is his shoulder. But that has been present since the spring 2019 when he fell. He actually just started physical therapy again this last week. He denies any focal neurological deficits. Denies headache. There was a blow to the head when he fell and hit his head on the bathroom wall but no other episodes of syncope or seizures witnessed. I have spoken to [facility] neurolog[facility]. Mainly to just pick their brains to see if there is something were missing in this elderly gentleman who keeps on coming back with the same scenario. She does neurology graciously answered most of my questions but did mirrored by stating that it was difficult to make any assessment on the patient they could not examine and had gaps in the history about what was going on. The most they could recommend is a referral to [facility] neurology. She states that they have a new neuro [place] for geriatric patients. She recommends a neuropsych evaluation, and a careful reviews of CTs, MRIs. He may need evaluation for autoimmune encephalitis. As such, I am placing the patient in observation to treat his mild electrolyte disorder, dehydration. states that he is already improving. However in the emergency room he had an abrupt change in emotions. At 1 point he got very upset, was cursing, yelling, very angry and agitated because he could not get water. The states he is not normally like that. He has never done that before. History - Past Medical History Cardiovascular: reports: None, Hypertension, High cholesterol, Coronary artery disease, [place] Respiratory: reports: None Neuro: reports: None Endocrine/Autoimmune: reports: Type 2 diabetes GI: reports: None : reports: Renal insuffiency Psych: reports: Depression Musculoskeletal: reports: None Derm: reports: None - Family & Social History Family History: Mother: , Father: Family History Comment/Other: His reported that his mother from kidney failure in her 90s. She also had diabetes. Living Situation: With spouse/s.o. Social History Notes: Social history was obtained from the . The patient lives at home with his , Cassie. She states he does not drink anymore alcohol although he has a prior history of alcohol abuse. He smokes marijuana 02/04, she said. No other illicit drug use. - Substance History Use: Uses substance without health or social issues: Cannabis - POLST POLST Status: DNR Meds/Allgy - Home Medications Home Medications: Ambulatory Orders Medication Instructions Recorded Confirmed FLUoxetine [PROzac] 60 mg PO DAILY 12/11/19 04/14/21 Gabapentin 300 mg PO BID 12/11/19 04/14/21 SITagliptin [Januvia] 100 mg PO DAILY 12/11/19 04/14/21 Telmisartan 20 mg PO DAILY 12/11/19 04/14/21 Metoprolol Succinate [Toprol Xl] 25 mg PO DAILY #30 tablet 12/21/19 04/14/21 Pantoprazole [Protonix] 40 mg PO BID 30 Days #60 tablet 12/21/19 04/14/21 Rosuvastatin Calcium [Crestor] 40 mg PO QPM #30 tablet 12/21/19 04/14/21 Aspirin EC [Ecotrin] 81 mg PO DAILY 06/21/20 04/14/21 Glimepiride [Amaryl] 1 mg PO DAILY 06/21/20 04/14/21 Mecobalamin [B12 Active] 1 tab PO DAILY 06/22/20 04/14/21 Multivitamin [Theragran] 1 tab PO DAILYWM tablet 06/25/20 04/14/21 Thiamine [Vitamin B-1] 100 mg PO DAILY tablet 06/25/20 04/14/21 Levetiracetam [Keppra] 500 mg PO BID #60 tablet 03/29/21 04/14/21 amLODIPine [Norvasc] 5 mg PO DAILY #30 tablet 03/29/21 04/14/21 - Allergies Allergies/Adverse Reactions: Allergies Allergy/AdvReac Type Severity Reaction Status Date / Time No Known Drug Allergies Allergy Verified 04/14/21 16:03 Review of Systems - Neurological Neurological: reports: Memory problems, Pre-existing deficit, Seizures - Psychiatric Psychiatric: reports: Depression, Hallucinations. denies: Suicidal - All Other Systems All Other Systems: reports: Reviewed and negative (Complete review of systems completed and pertinent positives in the history of present illness.) Prior Level of Functionality: When he is having normal function, the said he is sharp as a tack. Can take care of himself with activities of daily living. He does have occasional falls because of gait ataxia. But he does not use any durable medical equipment on a regular basis at home. She is becoming quickly overwhelmed with the cyclical need for increased care. Exam - Vital Signs Reviewed Vital Signs: Yes Vital Signs: Vital Signs x48h Temp Pulse Pulse Pulse Resp BP BP 04/14/21 22:13 82 79 154/84 H 04/14/21 22:00 77 18 144/77 H 04/14/21 20:00 86 16 160/86 H 04/14/21 18:00 76 16 151/82 H 04/14/21 17:00 76 16 147/77 H 04/14/21 16:07 36.6 C 74 22 147/77 H 04/14/21 16:03 36.5 C 84 16 180/84 H BP Pulse Ox 04/14/21 22:13 151/77 H 04/14/21 22:00 96 04/14/21 20:00 95 04/14/21 18:00 100 04/14/21 17:00 97 04/14/21 16:07 100 04/14/21 16:03 97 - Physical Exam General Appearance: positive: No acute distress, Alert, Other (Elderly white male in no acute distress, lucid conversationalist, occasional gaps in his memory for history. is at the bedside.) Eyes Bilateral: positive: PERRL, EOMI ENT: positive: Pharynx nml, No signs of dehydration, Other (The top of his scalp has a small abrasion that is scabbed over and healed where he hit his head a few days ago) Neck: positive: No JVD. negative: Stiff neck Respiratory: positive: No respiratory distress. negative: Wheezes, Rales, Rhonchi Cardiovascular: positive: Regular rate & rhythm, No murmur. negative: Gallop/S4, Friction rub Peripheral Pulses: positive: 1+ Abdomen: positive: Non-tender, No organomegaly, Nml bowel sounds, No distention Skin: positive: Warm, Dry, Pallor. negative: Diaphoresis Extremities: positive: Full ROM, No pedal edema. negative: Calf tenderness Neurologic/Psychiatric: positive: Oriented x3, CN's nml (2-12), Weakness (Generalized, nonfocal). negative: Motor nml (Generalized weakness. Also seems to have intention tremor more in the left hand than the right hand. No cogwheel rigidity.), Slurred/abnml speech (The last time I met him in June 2020 he had delayed comprehension, delayed ability to speak with large gaps of silence between words. Sentence structure is much improved with this encounter.) Conclusion/Plan - Problem List (1) Acute encephalopathy Conclusion/Plan: Most likely due to a combination of factors as in the past. He probably overdoses on marijuana, refuses to eat or drink, and develops worsening h ypertension due to noncompliance of taking his medications. He is already improving in the emergency room as he receives IV fluids but he still weak, "wobbly", and not safe to return home tonight. Plan: Observation status Continued IV fluids for hydration See if we can facilitate a more quick solution/evaluation of this patient. (2) Anorexia Conclusion/Plan: Seems to be induced by the cannabis and his depression. This in turn results in the dehydration. Plan: I suggested to his to take away his cannabis. But she says that is a recovered alcoholic she is not psychologically prepared to take this away from her . She also does not want to deal with the fallout of how angry he gets an upset he gets. (3) Dehydration Conclusion/Plan: Due to lack of p.o. intake. This is accompanied by acute kidney injury. Plan: IV hydration Repeat labs in the morning (4) Addiction, marijuana Conclusion/Plan: Could these episodes be reflective of marijuana overdose. He developed hallucinations, rapid heart rate and high blood pressure, coordination issues, delusional thinking, speech problems, and refuses to eat or drink. Unfortunately we will not be able to address this problem in this acute medical facility. He needs long-term coordinated care. I would like to approach his psychiatrist tomorrow to see if care could be coordinated with regards to an inpatient psychiatric facility, and a dual diagnosis of cannabis abuse. The dong bolaños also needs to have a complete neurological evaluation. I have explained to his that our facility does not do that. While we can take care of his dehydration, acute kidney injury, electrolyte disorder, etc. we cannot address the psychiatric and substance abuse component of his disease. (5) Lactic acidosis Conclusion/Plan: As in the past, type B. This usually resolves with adequate hydration in this gentleman. I do not think there is any sign of liver disease or infection/sepsis. Plan Hydration until lactic acidosis resolves (6) Type 2 diabetes mellitus with hyperglycemia Conclusion/Plan: He has not been taking anything by mouth for the last few days. That includes his medications. Plan: Check A1c Lantus tonight Sliding scale insulin, low-dose Qualifiers: Diabetes mellitus terminal block assembler insulin use: without halfway use Qualified Code(s): E11.65 - Type 2 diabetes mellitus with hyperglycemia (7) Depression Conclusion/Plan: I would recommend that we contact his psychiatrist. Have a discussion with him tomorrow morning. See if there is any insight or possible treatment plan that he could offer. Again with this patient be a candidate for dual diagnosis inpatient facility. Qualifiers: Depression Type: major depressive disorder Major depression recurrence: recurrent Active/Remission status: currently active Major depression episode severity: moderate Qualified Code(s): F33.1 - Major depressive disorder, recurrent, moderate (8) Hypertension Conclusion/Plan: In the past we have treated this patient as possible press syndrome and have even put him in the ICU and started him on a Cardene drip however short that was. In retrospect I wonder if this patient was simply noncompliant with medications because he was refusing to eat or drink and his blood pressure will go high. Plan: Usual home meds. Qualifiers: Hypertension type: primary hypertension Qualified Code(s): I10 - Essential (primary) hypertension (9) Seizure disorder Conclusion/Plan: Seizure in December 2019 and then again in March 2021. Plan Resume Yuliana (10) Cognitive and neurobehavioral dysfunction Conclusion/Plan: This gentleman at times appears to have a gradual progressive dementia disorder. But the reminds us that we are seeing him at is worse. When he is home, he is fully functional and does well. Is only when he slides into these episodes of pressure and then he goes to bed to smoke pot all day long that he changes. Tonight was also unusual and that he had a flash of severe emotional lability that was unusual for him. Again, [facility] neurology on-call recommends evaluation at the neuroscience [place] at [facility]. Specifically those specialists will take care of it evaluation for dementia. Mentioned was neuropsych eval. And a careful exam. - Lab Results Lab results reviewed: Yes Fish Bones: 04/14/21 16:35 04/14/21 20:02
[2021-04-14] MEDS: SODIUM CHLORIDE 0.9% 1,000 ML IV SCH (22:58)
[2021-04-14] MEDS: SODIUM CHLORIDE FLUSH 0.9% 10 ML SYRINGE IVP SCH (22:59)
[2021-04-14 23:21] LABS: B. PARAPERTUSSIS- RESP PCR PAN NOT DETECTED; B. PERTUSSIS- RESP PCR PANEL NOT DETECTED; C. PNEUMONIAE- RESP PCR PANEL NOT DETECTED; CORONAVIRUS 229E-RESP PCR NOT DETECTED; CORONAVIRUS HKU1-RESP PCR NOT DETECTED; CORONAVIRUS NL63-RESP PCR NOT DETECTED; CORONAVIRUS OC43-RESP PCR NOT DETECTED; HUMAN METAPNEUMOVIRUS NOT DETECTED; INFLUENZA A- RESP PCR PANEL NOT DETECTED; INFLUENZA B - RESP PCR PANEL NOT DETECTED; M. PNEUMONIAE- RESP PCR PANEL NOT DETECTED; PARAINFLUENZA VIRUS 1 NOT DETECTED; PARAINFLUENZA VIRUS 2 NOT DETECTED; PARAINFLUENZA VIRUS 3 NOT DETECTED; PARAINFLUENZA VIRUS 4 NOT DETECTED; RHINOVIRUS/ENTEROVIRUS NOT DETECTED; RSV- RESP PCR PANEL NOT DETECTED; SARS-CoV-2 -RESP PCR PANEL NOT DETECTED
[2021-04-15] MEDS: INSULIN GLARGINE 300 UNIT/3 ML PEN SUBQ SCH ×2 (00:39→20:58)
[2021-04-15] MEDS: SODIUM CHLORIDE FLUSH 0.9% 10 ML SYRINGE IVP PRN (00:48)
[2021-04-15 06:05] LABS: BASOPHILS # (AUTO) 0.1 10^3/uL (0.0-0.1); BASOPHILS % (AUTO) 0.6 %; EOSINOPHILS # (AUTO) 0.1 10^3/uL (0.0-0.7); EOSINOPHILS % (AUTO) 1.1 %; HCT - HEMATOCRIT 34.8 % (42.0-52.0); HGB - HEMOGLOBIN 12.1 g/dL (14.0-18.0); LYMPHOCYTES # (AUTO) 1.5 10^3/uL (1.5-3.5); MEAN CORPUSCULAR HEMOGLOBIN 32.8 pg (27.0-31.0); MEAN CORPUSCULAR HGB CONC 34.8 g/dL (32.0-36.0); MEAN CORPUSCULAR VOLUME 94.3 fL (80.0-94.0); MEAN PLATELET VOLUME 8.8 fL (7.4-11.4); MONOCYTES # (AUTO) 0.6 10^3/uL (0.0-1.0); MONOCYTES % (AUTO) 6.5 %; NEUTROPHILS # (AUTO) 6.7 10^3/uL (1.5-6.6); NEUTROPHILS % (AUTO) 74.5 %; PLT - PLATELET COUNT 235 10^3/uL (130-450); RED BLOOD COUNT 3.69 10^6/uL (4.70-6.10); RED CELL DISTRIBUTION WIDTH 12.7 % (12.0-15.0)
[2021-04-15 06:19] LABS: CALCIUM 8.4 mg/dL (8.5-10.3); CREATININE 1.5 mg/dL (0.6-1.2)
[2021-04-15] MEDS ORDERED: INSULIN ASPART 300 UNIT/3 ML PEN SUBQ SCH (08:00)
[2021-04-15] MEDS: GABAPENTIN 300 MG CAPSULE PO SCH ×2 (08:23→20:58)
[2021-04-15] MEDS: amLODIPine 5 MG TABLET PO SCH (08:23)
[2021-04-15] MEDS: THIAMINE 100 MG TABLET PO SCH (08:23)
[2021-04-15] MEDS: levETIRAcetam 250 MG TABLET PO SCH ×2 (08:24→20:58)
[2021-04-15] MEDS: FLUoxetine 10 MG CAPSULE PO SCH (08:24)
[2021-04-15] MEDS: METOPROLOL SUCCINATE 25 MG TABLET PO SCH (08:25)
[2021-04-15] MEDS: ASPIRIN EC 81 MG TABLET PO SCH (08:25)
[2021-04-15] MEDS ORDERED: amLODIPine 5 MG TABLET PO SCH (09:00)
[2021-04-15] MEDS: SODIUM CHLORIDE 0.9% 1,000 ML IV SCH (09:21)
--- NOTE | 2021-04-15 09:23 | PHARMACY PROGRESS NOTE ---
- Best Possible Medication History Admit Date and Time: 04/14/212205 Processed by: Nursing Medication History completed: Yes Patient Interview: Completed (MED REC COMPLETED BY NURSING) As the person ultimately responsible for medication therapy, providers are able to order a medication from an existing home medication list in [facility] via the "Reconcile Routine" prior to Confirmation of that medication by account support manager. Such practice is discouraged except when the physician, in their clinical judgment, deems that a medical need exists for a medication without regard to previous use.
[2021-04-15] MEDS: INSULIN ASPART 300 UNIT/3 ML PEN SUBQ SCH ×5 (09:25→20:52)
[2021-04-15 11:15] LABS: ESTIMATED AVERAGE GLUCOSE 189 mg/dL (70-100); HEMOGLOBIN A1c% 8.2 % (4.27-6.07)
--- NOTE | 2021-04-15 11:41 | PROVIDER PROGRESS NOTE ---
Assessment/Plan - Problem List (1) Acute encephalopathy Assessment/Plan: 04/15 continue improved. today pt express he hope to be d/c to psychiatric inpt. pt saw his psychiatrist every week. consult with social welfare research worker for d/c planning. continue IVF for his dehydration, continue blood pressure control. (2) Anorexia encourage pt drink and eat, plan to d/c to psychiatric inpt, resume home antidepression meds Prozac (3) Dehydration improved. creatinine is 1.5 from 1.8 on yesterday. This is likely Due to lack of p.o. intake. 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 (5) Lactic acidosis resolved. lactic acid is 1.5. (6) Type 2 diabetes mellitus with hyperglycemia A1c is pending continue Lantus tonight, slight increase Sliding scale insulin as his glucose is slight elevated. (7) Depression Patient follow-up with his psychologist every week. At this time he is willing to go to psychiatrist inpatient hospital, Consult with social work. 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 my colleague called [facility] neurologist, Mentioned for neuropsych evaluation, followup with neuroscience [place] [facility] - Current Meds Current Meds: Current Medications Generic Name Dose Route Start Last Admin Trade Name Himanshu PRN Reason Stop Dose Admin Amlodipine Besylate 10 mg 04/15/21 09:00 04/15/21 08:23 Amlodipine 5 Mg Tablet PO 10 mg DAILY VIDAL Administration Aspirin 81 mg 04/15/21 09:00 04/15/21 08:25 Aspirin Ec 81 Mg Tablet PO 81 mg DAILY VIDAL Administration Fluoxetine HCl 60 mg 04/15/21 09:00 04/15/21 08:24 Fluoxetine 10 Mg Capsule PO 60 mg DAILY [facility]IDAL Administration Gabapentin 300 mg 04/15/21 09:00 04/15/21 08:23 Gabapentin 300 Mg Capsule PO 300 mg BID VIDAL Administration Sodium Chloride 1,000 mls @ 100 mls/hr 04/14/21 23:00 04/15/21 09:21 Normal Saline 0.9% IV 100 mls/hr .Q10H VIDAL Administration Insulin Aspart 2 - 10 unit 04/15/21 08:16 04/15/21 09:25 Insulin Aspart 300 Unit/3 Ml Pen SUBQ 4 unit 0800,1200,1700,2100 VIDAL Administration Protocol Insulin Glargine 10 unit 04/14/21 23:07 04/15/21 00:39 Insulin Glargine 300 Unit/3 Ml Pen SUBQ 10 unit QPM VIDAL Administration Levetiracetam 500 mg 04/15/21 09:00 04/15/21 08:24 Levetiracetam 250 Mg Tablet PO 500 mg BID VIDAL Administration Metoprolol Succinate 25 mg 04/15/21 09:00 04/15/21 08:25 Metoprolol Succinate 25 Mg Tablet PO 25 mg DAILY VIDAL Administration Sodium Chloride 10 ml 04/14/21 22:06 04/15/21 00:48 Sodium Chloride Flush 0.9% 10 Ml Syringe IVP 10 ml PRN PRN Administration NEEDED PER PROVIDER ORDERS Sodium Chloride 10 ml 04/15/21 01:00 04/14/21 22:59 Sodium Chloride Flush 0.9% 10 Ml Syringe IVP 10 ml 0100,0900,1700 VIDAL Administration Thiamine HCl 100 mg 04/15/21 09:00 04/15/21 08:23 Thiamine 100 Mg Tablet PO 100 mg DAILY VIDAL Administration - Lab Result Fish Bone Diagrams: 04/15/21 05:54 04/15/21 05:54 - Additional Planning My Orders: My Active Orders 04/15/21 Social Work Consult [CONS] Routine 04/15/21 08:16 Insulin Aspart [NovoLOG] 2 - 10 unit SUBQ 0800,1200,1700,2100 04/15/21 17:00 Saccharomyces Boulardii [Florastor] 250 mg PO BIDWM 04/16/21 05:00 BMP - BASIC METABOLIC PANEL [CHEM] DAILYLAB CBC - COMP BLD CT W/AUTO DIFF [HEME] DAILYLAB 04/17/21 05:00 BMP - BASIC METABOLIC PANEL [CHEM] DAILYLAB CBC - COMP BLD CT W/AUTO DIFF [HEME] DAILYLAB 04/18/21 05:00 BMP - BASIC METABOLIC PANEL [CHEM] DAILYLAB CBC - COMP BLD CT W/AUTO DIFF [HEME] DAILYLAB 04/19/21 05:00 BMP - BASIC METABOLIC PANEL [CHEM] DAILYLAB CBC - COMP BLD CT W/AUTO DIFF [HEME] DAILYLAB 04/20/21 05:00 BMP - BASIC METABOLIC PANEL [CHEM] DAILYLAB CBC - COMP BLD CT W/AUTO DIFF [HEME] DAILYLAB Subjective - Subjective Patient Reports: Feeling Better Objective Vital Signs: Vital Signs - 24 hr 04/14/21 04/14/21 04/14/21 16:03 16:07 17:00 Temperature 36.5 C 36.6 C Heart Rate 84 74 76 Heart Rate [ Brachial] Heart Rate [ Sitting] Heart Rate [ Supine] Respiratory 16 22 16 Rate Blood Pressure 180/84 H 147/77 H 147/77 H Blood Pressure [Right Brachial artery] Blood Pressure [Sitting] Blood Pressure [Supine] O2 Saturation 97 100 97 04/14/21 04/14/21 04/14/21 18:00 20:00 22:00 Temperature Heart Rate 76 86 77 Heart Rate [ Brachial] Heart Rate [ Sitting] Heart Rate [ Supine] Respiratory 16 16 18 Rate Blood Pressure 151/82 H 160/86 H 144/77 H Blood Pressure [Right Brachial artery] Blood Pressure [Sitting] Blood Pressure [Supine] O2 Saturation 100 95 96 04/14/21 04/14/21 04/15/21 22:13 22:51 06:21 Temperature 36.7 C 36.9 C Heart Rate Heart Rate [ 75 76 Brachial] Heart Rate [ 82 Sitting] Heart Rate [ 79 Supine] Respiratory 18 18 Rate Blood Pressure Blood Pressure 158/76 H 156/77 H [Right Brachial artery] Blood Pressure 154/84 H [Sitting] Blood Pressure 151/77 H [Supine] O2 Saturation 96 97 04/15/21 04/15/21 07:37 08:33 Temperature 36.6 C 36.6 C Heart Rate Heart Rate [ 82 100 Brachial] Heart Rate [ Sitting] Heart Rate [ Supine] Respiratory 18 20 Rate Blood Pressure Blood Pressure 160/72 H 170/89 H [Right Brachial artery] Blood Pressure [Sitting] Blood Pressure [Supine] O2 Saturation 97 97 Oxygen O2 Source Room air I&O (Last 24 Hrs): Intake and Output Totals x24h 04/13/21 04/14/21 04/15/21 23:59 23:59 23:59 Intake Total 2000.000 1120 Output Total 250 525 Balance 1750.000 595 General: Alert, Oriented x3, No acute distress HEENT: Atraumatic Neck: Supple Lymphatic: no adenopathy Neuro: Alert, Non Focal, Oriented Times 3 Cardiovascular: Regular rate, Normal S1, Normal S2 Respiratory: Chest non-tender, No respiratory distress Abdomen: Normal bowel sounds, Soft Extremities: Normal pulses - Results Results: Laboratory Results WBC 9.0 x10^3/uL (4.8-10.8) 04/15/21 05:54 RBC 3.69 10^6/uL (4.70-6.10) L 04/15/21 05:54 Hgb 12.1 g/dL (14.0-18.0) L 04/15/21 05:54 Hct 34.8 % (42.0-52.0) L 04/15/21 05:54 MCV 94.3 fL (80.0-94.0) H 04/15/21 05:54 MCH 32.8 pg (27.0-31.0) H 04/15/21 05:54 MCHC 34.8 g/dL (32.0-36.0) 04/15/21 05:54 RDW 12.7 % (12.0-15.0) 04/15/21 05:54 Plt Count 235 10^3/uL (130-450) 04/15/21 05:54 MPV 8.8 fL (7.4-11.4) 04/15/21 05:54 Neut # (Auto) 6.7 10^3/uL (1.5-6.6) H 04/15/21 05:54 Lymph # (Auto) 1.5 10^3/uL (1.5-3.5) 04/15/21 05:54 [place] # (Auto) 0.6 10^3/uL (0.0-1.0) 04/15/21 05:54 Eos # (Auto) 0.1 10^3/uL (0.0-0.7) 04/15/21 05:54 Baso # (Auto) 0.1 10^3/uL (0.0-0.1) 04/15/21 05:54 Absolute Nucleated RBC 0.00 x10^3/uL 04/15/21 05:54 Nucleated RBC % 0.0 /100WBC 04/15/21 05:54 Sodium 137 mmol/L (135-145) 04/15/21 05:54 Potassium 4.0 mmol/L (3.5-5.0) 04/15/21 05:54 Chloride 106 mmol/L (101-111) 04/15/21 05:54 Carbon Dioxide 18 mmol/L (21-32) L 04/15/21 05:54 Anion Gap 13.0 (6-13) 04/15/21 05:54 BUN 21 mg/dL (6-20) H 04/15/21 05:54 Creatinine 1.5 mg/dL (0.6-1.2) H 04/15/21 05:54 Estimated GFR (MDRD) 46 (>89) L 04/15/21 05:54 Glucose 208 mg/dL (70-100) H 04/15/21 05:54 POC Whole Bld Glucose 216 mg/dL (70 - 100) H 04/15/21 07:42 Lactic Acid 1.5 mmol/L (0.5-2.2) 04/15/21 05:54 Calcium 8.4 mg/dL (8.5-10.3) L 04/15/21 05:54 Total Bilirubin 0.9 mg/dL (0.2-1.0) 04/14/21 16:35 AST 28 IU/L (10-42) 04/14/21 16:35 ALT 21 IU/L (10-60) 04/14/21 16:35 Alkaline Phosphatase 77 IU/L (42-121) 04/14/21 16:35 Ammonia 24.2 umol/L (7-35) 04/15/21 05:54 Troponin I High Sens 5.3 ng/L (2.3-19.7) 04/14/21 16:35 Total Protein 8.4 g/dL (6.7-8.2) H 04/14/21 16:35 Albumin 4.1 g/dL (3.2-5.5) 04/14/21 16:35 Globulin 4.3 g/dL (2.1-4.2) H 04/14/21 16:35 Albumin/Globulin Ratio 1.0 (1.0-2.2) 04/14/21 16:35 Lipase 52 U/L (22-51) H 04/14/21 16:35 Urine Color YELLOW 04/14/21 19:45 Urine Clarity CLEAR (CLEAR) 04/14/21 19:45 Urine pH 7.5 PH (5.0-7.5) 04/14/21 19:45 Ur Specific [place] 1.015 (1.002-1.030) 04/14/21 19:45 Urine Protein 30 mg/dL (NEGATIVE) H 04/14/21 19:45 Urine Glucose (UA) 100 mg/dL (NEGATIVE) H 04/14/21 19:45 Urine Ketones TRACE mg/dL (NEGATIVE) 04/14/21 19:45 Urine Occult Blood TRACE-INTA (NEGATIVE) 04/14/21 19:45 Urine Nitrite NEGATIVE (NEGATIVE) 04/14/21 19:45 Urine Bilirubin NEGATIVE (NEGATIVE) 04/14/21 19:45 Urine Urobilinogen 0.2 (NORMAL) E.U./dL (NORMAL) 04/14/21 19:45 Ur Leukocyte Esterase NEGATIVE (NEGATIVE) 04/14/21 19:45 Urine RBC 0-5 /HPF (0-5) 04/14/21 19:45 Urine WBC 0-3 /HPF (0-3) 04/14/21 19:45 Ur Squamous Epith Cells RARE Squamous (<= Few) 04/14/21 19:45 Urine Bacteria Rare /HPF (None Seen) 04/14/21 19:45 Ur Microscopic Review INDICATED 04/14/21 19:45 Urine Culture Comments NOT INDICATED 04/14/21 19:45 Nasal Adenovirus (PCR) NOT DETECTED 04/14/21 22:25 Nasal B. parapertussis DNA (PCR) NOT DETECTED 04/14/21 22:25 Nasal Coronavir 229E PCR NOT DETECTED 04/14/21 22:25 Nasal Coronavir HKU1 PCR NOT DETECTED 04/14/21 22:25 Nasal Coronavir NL63 PCR NOT DETECTED 04/14/21 22:25 Nasal Coronavir OC43 PCR NOT DETECTED 04/14/21 22:25 Nasal Enterovir/Rhinovir PCR NOT DETECTED 04/14/21 22:25 Nasal Influenza B PCR NOT DETECTED 04/14/21 22:25 Nasal Influenza A PCR NOT DETECTED 04/14/21 22:25 Nasal Parainfluen 1 PCR NOT DETECTED 04/14/21 22:25 Nasal Parainfluen 2 PCR NOT DETECTED 04/14/21 22:25 Nasal Parainfluen 3 PCR NOT DETECTED 04/14/21 22:25 Nasal Parainfluen 4 PCR NOT DETECTED 04/14/21 22:25 Nasal RSV (PCR) NOT DETECTED 04/14/21 22:25 Nasal B.pertussis DNA PCR NOT DETECTED 04/14/21 22:25 Nasal C.pneumoniae (PCR) NOT DETECTED 04/14/21 22:25 Ethan Human Metapneumo PCR NOT DETECTED 04/14/21 22:25 Nasal M.pneumoniae (PCR) NOT DETECTED 04/14/21 22:25 Nasal SARS-CoV-2 (PCR) NOT DETECTED 04/14/21 22:25 Ethyl Alcohol < 5.0 mg/dL 04/14/21 16:34 Serum Ketones NEGATIVE (NEGATIVE) 04/14/21 16:34 - Procedures Procedures: Procedures EXCISION OF DUODENUM, ENDO, DIAGN (12/11/19) EXCISION OF ESOPHAGOGASTRIC JUNCTION, ENDO, DIAGN (12/11/19) EXCISION OF SIGMOID COLON, ENDO (12/11/19) EXCISION OF STOMACH, ENDO, DIAGN (12/11/19) TRANSFUSE NONAUT RED BLOOD CELLS IN PERIPH VEIN, PERC (12/11/19) ABX Reporting Has patient been on IV antibiotics over the past 48 hours?: No Current Medications - Current Medications Current Medications: Active Medications Acetaminophen (Acetaminophen 325 Mg Tablet) 650 mg PO Q4HR PRN PRN Reason: Pain 1 to 4 Amlodipine Besylate (Amlodipine 5 Mg Tablet) 10 mg PO DAILY [facility] Last Admin: 04/15/21 08:23 Dose: 10 mg Documented by: Aspirin (Aspirin Ec 81 Mg Tablet) 81 mg PO DAILY [facility] Last Admin: 04/15/21 08:25 Dose: 81 mg Documented by: Fluoxetine HCl (Fluoxetine 10 Mg Capsule) 60 mg PO DAILY [facility] Last Admin: 04/15/21 08:24 Dose: 60 mg Documented by: Gabapentin (Gabapentin 300 Mg Capsule) 300 mg PO BID [facility] Last Admin: 04/15/21 08:23 Dose: 300 mg Documented by: Hydralazine HCl (Hydralazine Inj 20 Mg/Ml Vial) 10 mg IVP QID PRN PRN Reason: Hypertensive Emergency Sodium Chloride (Normal Saline 0.9%) 1,000 mls @ 100 mls/hr IV .Q10H [facility] Stop: 04/15/21 18:59 Last Admin: 04/15/21 09:21 Dose: 100 mls/hr Documented by: Insulin Aspart (Insulin Aspart 300 Unit/3 Ml Pen) 3 - 11 unit SUBQ 0800,1200,1700,2100 [facility]; Protocol Insulin Glargine (Insulin Glargine 300 Unit/3 Ml Pen) 10 unit SUBQ QPM [facility] Last Admin: 04/15/21 00:39 Dose: 10 unit Documented by: Levetiracetam (Levetiracetam 250 Mg Tablet) 500 mg PO BID [facility] Last Admin: 04/15/21 08:24 Dose: 500 mg Documented by: Losartan Potassium (Losartan 50 Mg Tablet) 50 mg PO DAILY [facility] Metoprolol Succinate (Metoprolol Succinate 25 Mg Tablet) 25 mg PO DAILY [facility] Last Admin: 04/15/21 08:25 Dose: 25 mg Documented by: Ondansetron HCl (Ondansetron Odt 4 Mg Tablet) 4 mg TL Q6HR PRN PRN Reason: Nausea / Vomiting Ondansetron HCl (Ondansetron 4 Mg/2 Ml Vial) 4 mg IVP Q6HR PRN PRN Reason: Nausea / Vomiting Oxycodone HCl (Oxycodone 5 Mg Tablet) 5 mg PO Q4HR PRN PRN Reason: Pain 5 to 7 Saccharomyces Boulardii (Saccharomyces Boulardii 250 Mg Capsule) 250 mg PO BIDW M [facility] Sodium Chloride (Sodium Chloride Flush 0.9% 10 Ml Syringe) 10 ml IVP PRN PRN PRN Reason: NEEDED PER PROVIDER ORDERS Last Admin: 04/15/21 00:48 Dose: 10 ml Documented by: Sodium Chloride (Sodium Chloride Flush 0.9% 10 Ml Syringe) 10 ml IVP 0100,0900,1700 [facility] Last Admin: 04/15/21 11:50 Dose: Not Given Documented by: Thiamine HCl (Thiamine 100 Mg Tablet) 100 mg PO DAILY [facility] Last Admin: 04/15/21 08:23 Dose: 100 mg Documented by: FLUoxetine [PROzac] 60 mg PO DAILY 12/11/19 Gabapentin 300 mg PO BID 12/11/19 SITagliptin [Januvia] 100 mg PO DAILY 12/11/19 Telmisartan 20 mg PO DAILY 12/11/19 Aspirin EC [Ecotrin] 81 mg PO DAILY 06/21/20 Glimepiride [Amaryl] 1 mg PO DAILY 06/21/20 Mecobalamin [B12 Active] 1 tab PO DAILY 06/22/20
[2021-04-15] MEDS: SODIUM CHLORIDE FLUSH 0.9% 10 ML SYRINGE IVP SCH ×2 (11:50→16:38)
[2021-04-15] MEDS ORDERED: hydrALAZINE INJ 20 MG/ML VIAL IVP PRN (12:16)
[2021-04-15] MEDS: LOSARTAN 50 MG TABLET PO SCH (16:29)
[2021-04-15] MEDS: SACCHAROMYCES BOULARDII 250 MG CAPSULE PO SCH (17:06)
[2021-04-16] MEDS: SODIUM CHLORIDE FLUSH 0.9% 10 ML SYRINGE IVP SCH ×2 (00:35→09:20)
[2021-04-16 05:17] LABS: BASOPHILS # (AUTO) 0.1 10^3/uL (0.0-0.1); BASOPHILS % (AUTO) 0.6 %; EOSINOPHILS # (AUTO) 0.2 10^3/uL (0.0-0.7); EOSINOPHILS % (AUTO) 1.4 %; HCT - HEMATOCRIT 40.1 % (42.0-52.0); HGB - HEMOGLOBIN 13.2 g/dL (14.0-18.0); LYMPHOCYTES % (AUTO) 16.6 %; MEAN CORPUSCULAR HEMOGLOBIN 31.2 pg (27.0-31.0); MEAN CORPUSCULAR HGB CONC 32.9 g/dL (32.0-36.0); MEAN CORPUSCULAR VOLUME 94.8 fL (80.0-94.0); MEAN PLATELET VOLUME 8.7 fL (7.4-11.4); MONOCYTES # (AUTO) 0.7 10^3/uL (0.0-1.0); MONOCYTES % (AUTO) 5.9 %; NEUTROPHILS # (AUTO) 9.2 10^3/uL (1.5-6.6); NEUTROPHILS % (AUTO) 75.1 %; PLT - PLATELET COUNT 269 10^3/uL (130-450); RED BLOOD COUNT 4.23 10^6/uL (4.70-6.10); RED CELL DISTRIBUTION WIDTH 12.9 % (12.0-15.0); WHITE BLOOD COUNT 12.3 x10^3/uL (4.8-10.8)
[2021-04-16 05:25] LABS: CALCIUM 8.9 mg/dL (8.5-10.3); CREATININE 1.4 mg/dL (0.6-1.2); POTASSIUM 4.2 mmol/L (3.5-5.0)
[2021-04-16 07:55] LABS: VBG PCO2 24.7 mmHg (41-51); VBG PH 7.37 (7.31-7.41); VBG PO2 93.6 mmHg (25-47); VBG TOTAL CO2 14.7 mmol/L (24-29)
[2021-04-16 07:56] LABS: VBG BASE EXCESS -9.3 mmol/L (-2 - +2); VBG OXYGEN SATURATION 96.6 % (60-80)
[2021-04-16 09:16] VITALS: BP 141/67
[2021-04-16] MEDS: THIAMINE 100 MG TABLET PO SCH (09:16)
[2021-04-16] MEDS: GABAPENTIN 300 MG CAPSULE PO SCH (09:16)
[2021-04-16] MEDS: METOPROLOL SUCCINATE 25 MG TABLET PO SCH (09:16)
[2021-04-16] MEDS: amLODIPine 5 MG TABLET PO SCH (09:16)
[2021-04-16] MEDS: FLUoxetine 10 MG CAPSULE PO SCH (09:18)
[2021-04-16] MEDS: ASPIRIN EC 81 MG TABLET PO SCH (09:18)
[2021-04-16] MEDS: SACCHAROMYCES BOULARDII 250 MG CAPSULE PO SCH (09:18)
[2021-04-16] MEDS: LOSARTAN 50 MG TABLET PO SCH (09:18)
[2021-04-16] MEDS: levETIRAcetam 250 MG TABLET PO SCH (09:18)
[2021-04-16] MEDS: INSULIN ASPART 300 UNIT/3 ML PEN SUBQ SCH ×2 (09:19→12:24)
[2021-04-16] MEDS ORDERED: LACTATED RINGERS 1,000 ML IV ONE (09:50)
[2021-04-16] MEDS: SODIUM CHLORIDE FLUSH 0.9% 10 ML SYRINGE IVP PRN (10:02)
[2021-04-16 12:35] LABS: CALCIUM 8.9 mg/dL (8.5-10.3); CREATININE 1.4 mg/dL (0.6-1.2); POTASSIUM 4.6 mmol/L (3.5-5.0)
--- NOTE | 2021-04-16 13:10 | Discharge Plan ---
Discharge Plan Problem Reviewed?: Yes Disposition: Home, Self Care Condition: Stable Prescriptions: amLODIPine [Norvasc] 10 mg PO DAILY 30 Days #60 tablet Diet: Diabetic Activity Restrictions: Activity as Tolerated Driving Restrictions: Yes (Please do not drive given your history of seizures.) Health Concerns: You were admitted to the hospital because of confusion due to dehydration. You improved with IV fluids. It is important that you drink plenty of fluids at home to prevent yourself from getting dehydrated again. I believe that your depression is causing you to not eat and drink and so it will be important that you follow-up with your psychiatrist to discuss options for your depression. It is also recommended that you follow-up with a neurologist given your history of seizures. Plan of Treatment: We have stopped your Keppra given you felt it was making you more confused/loopy. We did discuss starting another medication for your seizures but you prefer to hold off on this for the time being. Please note that if you do have another seizure then you will need another medication for it. We have also increased your amlodipine to 10 mg daily. A new prescription was sent to [facility]. You may take 2 tablets of your 5 mg each day so that you do not waste those pills. Please have blood work done next week with Patricia Terry to make sure your kidney function is stable. It is important that you drink 2 L of water a day. I encourage you to drink every 2-3 hours at least 1 glass of water. You can also fill up a water bottle each morning with 2 L of water and drink this throughout the day. I also encourage you to stop smoking marijuana. If you have difficulty maintaining enough water intake then we may need to consider IV fluids on an outpatient basis. Please follow-up with your psychiatrist to discuss further options and treatment of your depression as I believe this is a major contributing factor to you not eating and drinking. It is also important that you follow-up with neurology for consideration of an EEG to see if you are more predisposed to getting seizures. The phone number for neurology and admittance is [phone]. Please contact them to see if you can get an earlier appointment. Care Goals: The goal is to treat your underlying depression and to prevent further admi ssions due to dehydration due to lack of eating and drinking. Assessment: The patient and family expressed understanding of the treatment plan. Additional Instructions or Follow Up instructions: Please follow-up with your primary care provider in 1 week. Please continue to follow-up with your psychiatrist as scheduled. Please try and follow-up with neurology as soon as possible. No Smoking: If you smoke, Please STOP! Call for help. Follow-up with: Patricia Terry PA-C [Primary Care Provider] -
--- NOTE | 2021-04-16 13:18 | DISCHARGE SUMMARY ---
Discharge Summary Admit Date: 04/14/21 Discharge Date: 04/16/21 Discharging Provider: Adan Orozco Primary Care Provider: Patricia Terry Code Status: Do Not Attempt Resuscitation Condition at Discharge: Stable Discharge Disposition: 01 Home, Self Care - DIAGNOSES Admission Diagnoses: Acute encephalopathy Anorexia Dehydration with acute kidney injury Addiction, marijuana Lactic acidosis Diabetes mellitus hyperglycemia Depression Hypertension Seizure disorder Cognitive and neurobehavioral dysfunction Discharge Diagnoses with Status of Each Condition: Acute encephalopathy - resolved. Acute kidney injury - resolved. Addiction, marijuana - ongoing. Lactic acidosis - resolved. Diabetes mellitus with hyperglycemia - stable Depression - ongoing. Hypertension - stable. Seizure disorder - stable. Cognitive and neurobehavioral dysfunction - stable. - HPI History of Present Illness: H&P per Dr. Avila: Mr. Lees is a 75-year-old white male who is medical problems consist of hypertension, diabetes and copious cannabis use and whose main psychiatric problem is major depressive disorder. He is followed on a weekly basis since last July by Job Muller MD from [facility] in [facility]. The relates a recent anecdote where Dr. Muller was not aware of how much cannabis t he patient uses. He will smoke it from the time he wakes up to the time he goes to sleep, day after day. In December 2019 she states that his mental health took a "nose dive". He had stopped drinking alcohol. Was unhappy. And in a coping mechanism (at least that is what she think it was) he went to bed, refused to eat or drink anything and was smoking cannabis nonstop. This resulted in encephalopathy with confusion, lethargy, and someone who was unable to ambulate. She called EMS who witnessed a grand mal seizure. He was evaluated in the emergency room with a CT head that was negative. Lumbar puncture was negative and evaluation for meningitis. The diagnosis of press was entertained because his systolic was in the 180s. He was hydrated, medications were used to control his blood pressure, had complications of an NSTEMI, acute anemia. But all of those were treated and he was sent home to follow-up with neurology and cardiology. Cardiology ordered a stress test but he was unable to do that because he had fallen and his shoulder with his subsequent therapy prohibited from getting a stress test. He had a follow-up MRI in February 2020 that was negative. The is adamant he has not been drinking since the winter season of 2019. Subsequent to that is when he started seeing Dr. Muller on a weekly basis. He was also put on Keppra for the seizure disorder. He then was readmitted in June 2020 with the same scenario. He suddenly took a nose dive with his mental health. Refused to eat or drink. Started smoking pot all the time and eventually just went to bed and never got up. The relates that he had seen a neurologist for an EEG that was negative. So Keppra was stopped. With this episode, he was put on Cardene for short time wondering if the systolic of 180 was contributing depressed. He was eventually transitioned to Toprol and losartan. The diagnosis of press syndrome was felt to be low on the differential. At that visit we noted baseline cognitive deficits that were moderate to severe. Slums score was 3 out of 30. We strongly recommended a intermediate facility for rehab and he declined. He return to us in March 2021 and was just discharged after 4 days on March 29. He received some bad news. They are in the process of trying to move to [place] to retire. There was a delay in his passport of about 8 weeks. When he received that news, the stated that he "pulled the covers over his head", stated "that's it", and refused to get out of bed. Again the cycle of smoking cannabis nonstop. Refusing to eat or drink. He states he had no desire for water or desire for food. She states that he may have had some chills and sweat s yesterday. A few days ago he did fall and hit his head. She said he is got an abrasion on the top of the skull from when he nailed the wall. But he has not had any more seizures that have been witnessed. He was evaluated by BETO Disla in the emergency room. Temperature is 36.5. Pulse is 84. Blood pressure 180/84. Respirations 16 and he is 97% on room air. He was initially quite lethargic, sedated. Received 2 L of normal saline wide open because his labs show the same abnormalities he has had with the previous 3 admissions. Type B lactic acidosis. And acute kidney injury. This last time his baseline creatinine is 1.2 and he is now 1.8. Troponin was normal. Potassium is high at 5.2. Sodium low 132. White cell count normal at 9.6. Hemoglobin 13.6. Urinalysis has proteinuria glucosuria but no ketones and rare bacteria. Ethyl alcohol level is less than 5. Serum ketones undetectable. Jenny Disla spoke to our hospitalist and he suggested that his problem may be simple dehydration. As such she was given those 2 L. Reevaluated. He is weak and wobbly. Lactic acid is 2.6. However the patient is now much more alert and able to give me review of systems. He does not seem to have insight on his behavior. He thinks that this is only the second or third time this is happened we had to remind him that this was the fourth time. He also seems to be getting events confusion his head. He thought it was a loss of his mother or the of his dog the resulted in his current depression. The reminds him that it was the passport thea. Then he remembered. He denies fever, chills. No sore throat. No ear pain. Denies coughing, wheezing, shortness of breath. Denies chest pain, palpitations. Denies any abdominal pain. No change in bowel habi ts. Denies urgency, frequency dysuria. Denies flank pain. Back hurts a little bit but not any more than usual. Overall he states he does not feel very much pain at all. The only thing that seems to hurt him is his shoulder. But that has been present since the spring 2019 when he fell. He actually just started physical therapy again this last week. He denies any focal neurological deficits. Denies headache. There was a blow to the head when he fell and hit his head on the bathroom wall but no other episodes of syncope or seizures witnessed. I have spoken to [facility]y. Mainly to just pick their brains to see if there is something were missing in this elderly gentleman who keeps on coming back with the same scenario. She does neurology graciously answered most of my questions but did mirrored by stating that it was difficult to make any assessment on the patient they could not examine and had gaps in the history about what was going on. The most they could recommend is a referral to [facility] neurology. She states that they have a new neuro [place] for michael iatric patients. She recommends a neuropsych evaluation, and a careful reviews of CTs, MRIs. He may need evaluation for autoimmune encephalitis. As such, I am placing the patient in observation to treat his mild electrolyte disorder, dehydration. states that he is already improving. However in the emergency room he had an abrupt change in emotions. At 1 point he got very upset, was cursing, yelling, very angry and agitated because he could not get water. The states he is not normally like that. He has never done that before. - HOSPITAL COURSE Hospital Course: He was admitted for encephalopathy which was attributed to dehydration. He improved with IV fluids. Neurology at [facility] was contacted that day of admission and it was recommended that he follow-up with neurology at [facility] for a neuropsychiatric evaluation given his cognitive decline and ongoing depression. He responded well to IV hydration the following day he was initially agreeable to going to an inpatient psychiatric facility for his depression. After further discussion and thought he later declined this. He denied any suicidal ideations or thoughts. He does admit to being very depressed that he just wants to stay in bed all day. He states he does not eat or drink because of this depression and that he does not feel thirsty and because of the lack of thirst he feels he does not need to drink water or stay hydrated. We discussed that he needs to consume at least 2 L of water a day and that he should drink every 2-3 hours and he can use an alarm clock to remind him to drink. He states that he will also cut back on his marijuana use as he a dmits he is smoking too much on a daily basis. We did increase his amlodipine during his hospitalization as his blood pressure has been elevated with systolics in the 150s to 160s. He has not been taking his Keppra as he felt it made him more drowsy/loopy. I discussed with him and his that given his history of seizures we should ideally consider another antiepileptic medication but they both prefer to hold off on this for the time being and would like to see how he does without any medications. I did inform him that if he does have another seizure then he will most definitely need an antiepileptic and he expressed understanding of this. I have asked him to continue to follow-up with his psychiatrist as I believe his underlying depression is contributing to his lack of oral intake causing him to become dehydrated resulting in admission. We did attempt to contact his psychiatrist the day prior to discharge but there was no call back. I informed the patient's that inpatient psychiatric admission should be considered if he continues to have severe depression. I have asked the patient his to follow-up with his primary care provider in 1 week. I have also asked him to obtain labs to monitor his renal function next week to ensure his kidney function is stable. I did discuss with him that consideration of outpatient IV fluids be made if he continues to have poor intake to prevent readmissions in the future. I have also asked him to contact neurology at [facility] in [place] to try and arrange follow-up as soon as possible. I will forward this document to his primary care provider and ask Patricia Terry to place an urgent referral for neurology. - ALLERGIES Allergies/Adverse Reactions: Allergies Allergy/AdvReac Type Severity Reaction Status Date / Time No Known Drug Allergies Allergy Verified 04/14/21 16:03 - MEDICATIONS Home Medications: Ambulatory Orders Medication Instructions Recorded Confirmed FLUoxetine [PROzac] 60 mg PO DAILY 12/11/19 04/14/21 Gabapentin 300 mg PO BID 12/11/19 04/14/21 SITagliptin [Januvia] 100 mg PO DAILY 12/11/19 04/14/21 Telmisartan 20 mg PO DAILY 12/11/19 04/14/21 Metoprolol Succinate [Toprol Xl] 25 mg PO DAILY #30 tablet 12/21/19 04/14/21 Pantoprazole [Protonix] 40 mg PO BID 30 Days #60 tablet 12/21/19 04/14/21 Rosuvastatin Calcium [Crestor] 40 mg PO QPM #30 tablet 12/21/19 04/14/21 Aspirin EC [Ecotrin] 81 mg PO DAILY 06/21/20 04/14/21 Glimepiride [Amaryl] 1 mg PO DAILY 06/21/20 04/14/21 Multivitamin [Theragran] 1 tab PO DAILYWM tablet 06/25/20 04/14/21 Thiamine [Vitamin B-1] 100 mg PO DAILY tablet 06/25/20 04/14/21 amLODIPine [Norvasc] 10 mg PO DAILY 30 Days #60 tablet 04/16/21 - PHYSICAL EXAM AT DISCHARGE General Appearance: positive: No acute distress, Alert Eyes Bilateral: positive: Normal inspection, PERRL, Conjunctivae nml Neck: positive: Nml inspection Respiratory: positive: No respiratory distress. negative: Wheezes, Rales Cardiovascular: positive: Regular rate & rhythm. negative: Tachycardia, Systolic murmur Abdomen: positive: Non-tender, No distention. negative: Tenderness Skin: positive: Warm, Dry Extremities: positive: No pedal edema Neurologic/Psychiatric: positive: Motor nml, Disoriented to time. negative: Disoriented to person, Disoriented to place, Facial droop, Slurred/abnml speech - LABS Result Diagrams: 04/16/21 04:48 04/16/21 12:01 - DIAGNOSTIC IMAGING Diagnostic Imaging Results: Final report reviewed - FOLLOW UP Follow Up: He was asked to follow-up with his primary care provider in 1 week. He will need a repeat BMP next week to ensure his renal function is stable. He will be f ollowing up with his psychiatrist in 4 days as scheduled. He has appointment with neurology in [place] and early June but I have asked his to contact neurology at [facility] to see if an earlier appointment there is possible. She was provided with their contact number. I will also request that his primary care provider place an urgent referral for neurology. - TIME SPENT Time Spent in Discharge (Minutes): 41
== END 2021-04-16 14:34 | disposition home or self-care (01) | DRG 71 ==
LOC: ED 15:59 → MS2 22:06 → OBSVTOIN 04-16 10:04
PROVIDERS: ADMIT Specialist; ATTEND Internal Medicine
DX: G93.40 Encephalopathy, unspecified (principal); N17.9 Acute kidney failure, unspecified; F12.250 Cannabis dependence with psychotic disorder with delusions; F12.251 Cannabis dependence with psychotic disorder with hallucinations; E87.2 Acidosis; F33.1 Major depressive disorder, recurrent, moderate; E87.5 Hyperkalemia; E11.65 Type 2 diabetes mellitus with hyperglycemia; R41.3 Other amnesia; R29.818 Other symptoms and signs involving the nervous system; E86.0 Dehydration; I10 Essential (primary) hypertension; R63.0 Anorexia; G40.909 Epilepsy, unspecified, not intractable, without status epilepticus; R27.0 Ataxia, unspecified; E78.00 Pure hypercholesterolemia, unspecified; I25.10 Atherosclerotic heart disease of native coronary artery without angina pectoris; N28.9 Disorder of kidney and ureter, unspecified; Z66 Do not resuscitate; Z20.822 Contact with and (suspected) exposure to COVID-19; Z68.25 Body mass index [BMI] 25.0-25.9, adult; Z91.81 History of falling; Z79.82 Long term (current) use of aspirin; Z79.84 Long term (current) use of oral hypoglycemic drugs; Z79.899 Other long term (current) drug therapy; I25.2 Old myocardial infarction
CPT/HCPCS: 36415; 71045; 80048; 80053; 81001; 82009; 82140; 82803; 83036; 83605; 83690; 84484; 85025; 87493; 87631; 93005; 96360; 96361; 97161; 97165; 97530; 99284; 99285; A9270; G0378; G0480; J1815; J7120; 0202U; 80320; 81003; 87086

== ENCOUNTER 2021-04-19 08:00 | Outpatient (CLI) | payer MEDICARE, OTHER ==
[2021-04-19 18:48] LABS: POTASSIUM 4.6 mmol/L (3.5-5.0)
[2021-04-19 20:11] LABS: ESTIMATED AVERAGE GLUCOSE 192 mg/dL (70-100); HEMOGLOBIN A1c% 8.3 % (4.27-6.07)
== END 2021-04-19 23:59 | disposition home or self-care (01) ==
LOC: LAB.WCP 08:00
PROVIDERS: ATTEND Physician Assistant Medical
DX: N17.9 Acute kidney failure, unspecified (principal); R56.9 Unspecified convulsions; E11.49 Type 2 diabetes mellitus with other diabetic neurological complication
CPT/HCPCS: 36415; 80048; 80177; 83036